=== PATIENT | male | born 1985 | race African-American/Black ===

== ENCOUNTER 2017-08-19 19:29 | Emergency (ER) | payer SELFPAY ==
[~2017-08-19] VITALS: Ht 167.6 cm; Wt 83.5 kg
[~2017-08-19 19:29] MED LIST: AMOXICILLIN500 MG ORAL; NORCO 5-325 TA1 EACH ORAL
[2017-08-19] MEDS ORDERED: NKM (19:34)
[2017-08-19 19:50] VITALS: BP 205/113
--- NOTE | 2017-08-19 19:50 | Emergency Room Report ---
History of Present Illness General Chief Complaint: Chest Pain Source: Patient Present Illness HPI Patient is a 32-year-old male with no significant medical problems who presents today with complaints of left-sided chest pain that began this morning. Patient states he woke up with the pain this morning and it has been constant throughout the day. He states pain is sharp and worse with movement, currently 7/10 in severity. He has not taken medication for the pain. He denies any nausea, vomiting, shortness of breath or associated symptoms.He admits to drinking alcohol socially, denies tobacco or drug use. Allergies: Coded Allergies: No Known Allergies (Unverified , 06/22/13) Patient History Reviewed Nursing Documentation: PMH: Agreed; PSxH: Agreed Nursing Documentation-PMH Past Medical History: No Stated History Review of Systems Cardiovascular: Reports: chest pain All Other Systems: negative except mentioned in HPI Physical Exam Vital Signs Date Time Temp Pulse Resp B/P (MAP) Pulse Ox O2 Delivery O2 Flow Rate FiO2 08/19/17 19:30 98.6 85 16 210/144 96 Room Air 98.6 Sp02 EP Interpretation: reviewed, normal General Appearance: no apparent distress, alert, GCS 15, non-toxic Head: normocephalic, atraumatic Eyes: bilateral eye normal inspection, bilateral eye PERRL ENT: hearing grossly normal, normal pharynx, no angioedema, normal voice Neck: full range of motion, supple/symm/no masses Respiratory: chest non-tender, lungs clear, normal breath sounds, speaking full sentences Cardiovascular #1: regular rate, rhythm, no edema Cardiovascular #2: 2+ carotid (R), 2+ carotid (L), 2+ radial (R), 2+ radial (L) , 2+ dorsalis pedis (R), 2+ dorsalis pedis (L) Gastrointestinal: normal bowel sounds, non tender, soft, non-distended, no guarding, no rebound Rectal: deferred Genitourinary: normal inspection, no CVA tenderness Musculoskeletal: back normal, gait/station normal, normal range of motion, non- tender, calf tenderness, other - reproducible chest pain Neurologic: alert, oriented x3, responsive, motor strength/tone normal, sensory intact, speech normal Psychiatric: judgement/insight normal, memory normal, mood/affect normal, no suicidal/homicidal ideation Reflexes: 3+ bicep (R), 3+ bicep (L), 3+ tricep (R), 3+ tricep (L), 3+ knee (R) , 3+ knee (L) Skin: normal color, no rash, warm/dry, well hydrated Lymphatic: no adenopathy Medical Decision Making PA Attestation supervising physician is Dr. Newby Reaction to Intervention: Improved Diagnostic Impression: Primary Impression: Atypical chest pain Additional Impressions: Elevated blood-pressure reading without diagnosis of hypertension Costochondritis ER Course Low index of suspicion for ACS, patient has a heart score of 1. Patient initially presented with an elevated blood pressure likely secondary to anxiety. He has no previous history of hypertension and his blood pressure began to improve throughout his stay in the ED. Cardiac workup is within normal limits, troponin is negative. Chest x-ray is within normal limits as well. Multiple re-evaluations made, patient states he is feeling better. He has reproducible chest pain on physical exam consistent with chest wall pain. repeat blood pressure shows that it is trending downward and patient adamantly denies headache, blurred vision, dizziness or associated symptoms. He states his a primary doctor that he can see tomorrow and has a home blood pressure monitor that he can check. He is instructed to return if he is having symptomatic hypertension. Discussed case with Dr. Newby who stated that prescribing antihypertensive medication is not necessary in this situation. Patient is instructed to follow-up with his PCP for reevaluation and possible blood pressure medications pending a repeat elevated blood pressure. Patient understands plan and is agreeable. Laboratory Tests Test 08/19/17 19:40 White Blood Count 7.4 K/UL (4.8-10.8) Red Blood Count 5.62 M/UL (4.70-6.10) Hemoglobin 15.9 G/DL (14.2-18.0) Hematocrit 48.8 % (42.0-52.0) Mean Corpuscular Volume 87 FL (80-99) Mean Corpuscular Hemoglobin 28.4 PG (27.0-31.0) Mean Corpuscular Hemoglobin Concent 32.7 G/DL (32.0-36.0) Red Cell Distribution Width 13.0 % (11.6-14.8) Platelet Count 225 K/UL (150-450) Mean Platelet Volume 6.4 FL (6.5-10.1) L Neutrophils (%) (Auto) 63.7 % (45.0-75.0) Lymphocytes (%) (Auto) 21.6 % (20.0-45.0) Monocytes (%) (Auto) 12.7 % (1.0-10.0) H Eosinophils (%) (Auto) 0.7 % (0.0-3.0) Basophils (%) (Auto) 1.3 % (0.0-2.0) Sodium Level 138 MMOL/L (136-145) Potassium Level 3.3 MMOL/L (3.5-5.1) L Chloride Level 97 MMOL/L (98-107) L Carbon Dioxide Level 28 MMOL/L (21-32) Anion Gap 13 mmol/L (5-15) Blood Urea Nitrogen 8 mg/dL (7-18) Creatinine 1.0 MG/DL (0.55-1.30) Estimate Glomerular Filtration Rate > 60 mL/min (>60) Glucose Level 105 MG/DL (74-106) Calcium Level 10.2 MG/DL (8.5-10.1) H Total Bilirubin 0.6 MG/DL (0.2-1.0) Aspartate Amino Transferase (AST) 32 U/L (15-37) Alanine Aminotransferase (ALT) 36 U/L (12-78) Alkaline Phosphatase 76 U/L (46-116) Troponin I 0.000 ng/mL (0.000-0.056) Total Protein 9.3 G/DL (6.4-8.2) H Albumin 4.8 G/DL (3.4-5.0) Globulin 4.5 g/dL Albumin/Globulin Ratio 1.1 (1.0-2.7) EKG Diagnostic Results EKG Time: 19:41 Rate: normal Rhythm: NSR, other - no ST or T-wave changes ST Segments: no acute changes Chest X-Ray Diagnostic Results Chest X-Ray Diagnostic Results : Chest X-Ray Ordered: Yes # of Views/Limited/Complete: 1 View Indication: Chest Pain EP Interpretation: Yes PA Xray: Interpretation reviewed, by supervising MD, and agrees with findings. Interpretation: no consolidation, no effusion, no pneumothorax Impression: No acute disease Electronically Signed by: meredith pulido PA-C Last Vital Signs Date Time Temp Pulse Resp B/P (MAP) Pulse Ox O2 Delivery O2 Flow Rate FiO2 08/19/17 19:30 98.6 85 16 210/144 96 Room Air 98.6 Status: improved Disposition: HOME, SELF-CARE Condition: Stable Patient Instructions: Nonspecific Chest Pain Meredith Pulido Aug 19, 2017 19:50
[2017-08-19 19:55] LABS: BASOPHILS % (AUTO) 1.3 % (0.0-2.0); EOSINOPHILS % (AUTO) 0.7 % (0.0-3.0); HEMATOCRIT 48.8 % (42.0-52.0); HEMOGLOBIN 15.9 G/DL (14.2-18.0); LYMPHOCYTES % (AUTO) 21.6 % (20.0-45.0); MEAN CORPUSCULAR VOLUME 87 FL (80-99); MONOCYTES % (AUTO) 12.7 % (1.0-10.0); NEUTROPHILS % (AUTO) 63.7 % (45.0-75.0); PLATELET COUNT 225 K/UL (150-450); RED BLOOD COUNT 5.62 M/UL (4.70-6.10); WHITE BLOOD COUNT 7.4 K/UL (4.8-10.8)
[2017-08-19] MEDS ORDERED: Ketorolac 30mg Inj IV ONE (20:00)
[2017-08-19] MEDS ORDERED: Ketorolac 60mg Inj IM ONE (20:00)
[2017-08-19 20:06] LABS: ANION GAP 13 mmol/L (5-15); BLOOD UREA NITROGEN 8 mg/dL (7-18); CALCIUM 10.2 MG/DL (8.5-10.1); CARBON DIOXIDE 28 MMOL/L (21-32); CHLORIDE 97 MMOL/L (98-107); POTASSIUM 3.3 MMOL/L (3.5-5.1); SODIUM 138 MMOL/L (136-145)
[2017-08-19 20:11] LABS: ALANINE AMINOTRANSFERASE 36 U/L (12-78); ALBUMIN 4.8 G/DL (3.4-5.0); ALBUMIN/GLOBULIN RATIO 1.1 (1.0-2.7); ALKALINE PHOSPHATASE 76 U/L (46-116); ASPARTATE AMINO TRANSFERASE 32 U/L (15-37); BILIRUBIN,TOTAL 0.6 MG/DL (0.2-1.0)
[2017-08-19 21:00] VITALS: BP 192/105
[2017-08-19 21:01] VITALS: BP 205/113
--- NOTE | 2017-08-20 10:46 | Diagnostic Imaging Report ---
Indication: Chest pain Technique: One view of the chest Comparison: none Findings: Lungs and pleural spaces are clear. Heart size is normal Impression: No acute process
--- NOTE | 2017-08-22 19:46 | Cardiology Report ---
APPROVED REPORT EKG Measurement Heart [id number] Normal sinus rhythm Normal ECG
== END 2017-08-19 21:01 | disposition home or self-care (01) ==
LOC: EMR 19:45
DX: R07.89 Other chest pain (principal); R03.0 Elevated blood-pressure reading, without diagnosis of hypertension; M94.0 Chondrocostal junction syndrome [Tietze]
CPT/HCPCS: 36415; 71045; 80053; 84484; 85025; 93005; 96372; 96374; 99284

== ENCOUNTER 2018-06-17 09:38 | Inpatient (IN) | payer MEDICAID ==
[2018-06-17] VITALS (8 sets, daily range): BP systolic 165–210; BP diastolic 109–131
[~2018-06-17] VITALS: Ht 167.6 cm; Wt 87.8 kg
[~2018-06-17 09:38] MED LIST changes: +NKM
[2018-06-17] MEDS ORDERED: Isovue-300 100ml vial INJ PRN (10:15)
[2018-06-17] MEDS ORDERED: Morphine Sulfate 4mg/ml Inj (IV USE ONLY) IVP ONE (10:15)
[2018-06-17 10:42] LABS: BASOPHILS % (AUTO) 0.9 % (0.0-2.0); EOSINOPHILS % (AUTO) 0.3 % (0.0-3.0); HEMATOCRIT 54.7 % (42.0-52.0); HEMOGLOBIN 17.8 G/DL (14.2-18.0); MEAN CORPUSCULAR VOLUME 86 FL (80-99); MONOCYTES % (AUTO) 7.4 % (1.0-10.0); NEUTROPHILS % (AUTO) 83.4 % (45.0-75.0); PLATELET COUNT 264 K/UL (150-450); RED BLOOD COUNT 6.35 M/UL (4.70-6.10); RED CELL DISTRIBUTION WIDTH 13.2 % (11.6-14.8); WHITE BLOOD COUNT 10.1 K/UL (4.8-10.8)
[2018-06-17 10:43] LABS: APPEARANCE,URINE CLEAR; BILIRUBIN, URINE NEGATIVE (NEGATIVE); GLUCOSE, URINE (UA) NEGATIVE (NEGATIVE); KETONES,URINE 3+ (NEGATIVE); LEUKOCYTE ESTERASE ,URINE 1+ (NEGATIVE); NITRITE,URINE NEGATIVE (NEGATIVE); PH,URINE 6.5 (4.5-8.0); PROTEIN,URINE 2+ (NEGATIVE); UROBILINOGEN,URINE 1 MG/DL (0.0-1.0)
[2018-06-17 10:47] LABS: COLOR,URINE YELLOW
[2018-06-17 11:00] LABS: ANION GAP 13 mmol/L (5-15); BLOOD UREA NITROGEN 8 mg/dL (7-18); CALCIUM 10.6 MG/DL (8.5-10.1); CARBON DIOXIDE 27 MMOL/L (21-32); CHLORIDE 97 MMOL/L (98-107); CREATININE 1.1 MG/DL (0.55-1.30); POTASSIUM 4.6 MMOL/L (3.5-5.1); SODIUM 137 MMOL/L (136-145)
[2018-06-17 11:06] LABS: ALANINE AMINOTRANSFERASE 64 U/L (12-78); ALBUMIN 4.8 G/DL (3.4-5.0); ALKALINE PHOSPHATASE 85 U/L (46-116); ASPARTATE AMINO TRANSFERASE 59 U/L (15-37); BILIRUBIN,TOTAL 0.7 MG/DL (0.2-1.0)
[2018-06-17] MEDS ORDERED: HYDROmorphone 1mg/ml Carpuject IVP ONE ×2 (11:15→12:45)
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
[2018-06-17] MEDS ORDERED: Labetalol 5mg/ml 20ml vial IV ONE ×4 (14:15→15:00)
--- NOTE | 2018-06-17 14:54 | Emergency Room Report ---
History of Present Illness General Chief Complaint: Abdominal Pain Source: Patient Present Illness HPI Patient presents emergency department today complaining of acute onset of abdominal pain. Patient states that he's had pain progressively worse in the last couple days worse in the epigastrium. Denies any fever chest pain shortness of breath. States that the pain is progressively worse. Complains of nausea but no vomiting. Admits to drinking alcohol occasionally. Denies any prior surgeries. Symptoms noted to moderate to severe. No other modifying factors. No other associated signs and symptoms. No other complaints were noted. Allergies: Coded Allergies: No Known Allergies (Unverified , 06/22/13) Patient History Past Medical History: none Past Surgical History: none Pertinent Family History: none Social History: Reports: alcohol use Reviewed Nursing Documentation: PMH: Agreed; PSxH: Agreed Nursing Documentation-PMH Past Medical History: No Stated History Review of Systems All Other Systems: negative except mentioned in HPI Physical Exam Vital Signs Date Time Temp Pulse Resp B/P (MAP) Pulse Ox O2 Delivery O2 Flow Rate FiO2 06/17/18 09:41 97.9 92 19 198/138 97 Room Air Sp02 EP Interpretation: reviewed, normal General Appearance: normal inspection, well appearing, no apparent distress, alert Head: atraumatic Eyes: bilateral eye normal inspection ENT: normal ENT inspection, hearing grossly normal, normal voice Neck: normal inspection, full range of motion, supple, no bony tend Respiratory: normal inspection, lungs clear, normal breath sounds, no respiratory distress, no retraction, no wheezing Cardiovascular #1: regular rate, rhythm, no edema Gastrointestinal: normal inspection, normal bowel sounds, soft, no guarding, no hernia, tenderness - Epigastric Genitourinary: no CVA tenderness Musculoskeletal: normal inspection, back normal, normal range of motion Neurologic: normal inspection, alert, responsive, speech normal Psychiatric: judgement/insight normal, anxious Skin: normal inspection, normal color, no rash Procedures Critical Care Time Critical Care Time Patient had a critical medical condition which untreated could potentially result in life or limb threatening injury. Total critical care time excluding procedures was approximately 45 minutes. Medical Decision Making Diagnostic Impression: Primary Impression: Pancreatitis Additional Impressions: Abdominal pain Hypertensive urgency ER Course Patient presents to the emergency department today complaining of abdominal pain. Differential considerations include acute pancreatitis, cholecystitis, gastritis, hepatitis, appendicitis just to name a few. Given the severity of the patient's presentation I felt this is a highly complex patient. This patient required extensive workup. Patient exam shows significant epigastric discomfort. Laboratory workup shows evidence of elevated lipase. CT shows evidence of pancreatitis. Patient require admission. Patient's blood pressure was also fairly elevated. Because of this patient required multiple doses labetalol to control the blood pressure. Case was discussed with admitting physician. Patient will be admitted to [facility] further treatment. Labs Test 06/17/18 10:12 White Blood Count 10.1 K/UL (4.8-10.8) Red Blood Count 6.35 M/UL (4.70-6.10) Hemoglobin 17.8 G/DL (14.2-18.0) Hematocrit 54.7 % (42.0-52.0) Mean Corpuscular Volume 86 FL (80-99) Mean Corpuscular Hemoglobin 28.1 PG (27.0-31.0) Mean Corpuscular Hemoglobin Concent 32.6 G/DL (32.0-36.0) Red Cell Distribution Width 13.2 % (11.6-14.8) Platelet Count 264 K/UL (150-450) Mean Platelet Volume 7.0 FL (6.5-10.1) Neutrophils (%) (Auto) 83.4 % (45.0-75.0) Lymphocytes (%) (Auto) 8.0 % (20.0-45.0) Monocytes (%) (Auto) 7.4 % (1.0-10.0) Eosinophils (%) (Auto) 0.3 % (0.0-3.0) Basophils (%) (Auto) 0.9 % (0.0-2.0) Prothrombin Time 10.1 SEC (9.30-11.50) Prothromb Time International Ratio 1.0 (0.9-1.1) Activated Partial Thromboplast Time 23 SEC (23-33) Urine Color Yellow Urine Appearance Clear Urine pH 6.5 (4.5-8.0) Urine Specific [place] 1.015 (1.005-1.035) Urine Protein 2+ (NEGATIVE) Urine Glucose (UA) Negative (NEGATIVE) Urine Ketones 3+ (NEGATIVE) Urine Blood 1+ (NEGATIVE) Urine Nitrite Negative (NEGATIVE) Urine Bilirubin Negative (NEGATIVE) Urine Urobilinogen 1 MG/DL (0.0-1.0) Urine Leukocyte Esterase 1+ (NEGATIVE) Urine RBC 2-4 /HPF (0 - 0) Urine WBC 2-4 /HPF (0 - 0) Urine Squamous Epithelial Cells Occasional /LPF Urine Bacteria Occasional /HPF (NONE) Urine Mucus Few /LPF (NONE/OCC) Sodium Level 137 MMOL/L (136-145) Potassium Level 4.6 MMOL/L (3.5-5.1) Chloride Level 97 MMOL/L (98-107) Carbon Dioxide Level 27 MMOL/L (21-32) Anion Gap 13 mmol/L (5-15) Blood Urea Nitrogen 8 mg/dL (7-18) Creatinine 1.1 MG/DL (0.55-1.30) Estimat Glomerular Filtration Rate > 60 mL/min (>60) Glucose Level 119 MG/DL (74-106) Calcium Level 10.6 MG/DL (8.5-10.1) Total Bilirubin 0.7 MG/DL (0.2-1.0) Aspartate Amino Transf (AST/SGOT) 59 U/L (15-37) Alanine Aminotransferase (ALT/SGPT) 64 U/L (12-78) Alkaline Phosphatase 85 U/L (46-116) Total Protein 9.6 G/DL (6.4-8.2) Albumin 4.8 G/DL (3.4-5.0) Globulin 4.8 g/dL Albumin/Globulin Ratio 1.0 (1.0-2.7) Lipase > 2000 U/L (73-393) CT/MRI/US Diagnostic Results CT/MRI/US Diagnostic Results : Imaging Test Ordered: CT: Pancreatitis Last Vital Signs Date Time Temp Pulse Resp B/P (MAP) Pulse Ox O2 Delivery O2 Flow Rate FiO2 06/17/18 14:35 97.9 70 14 178/125 100 Room Air Status: improved Disposition: ADMITTED INPATIENT Condition: Serious Referrals: NOT CHOSEN IPA/,REFERRING (PCP) Avtar Manzanares MD Jun 17, 2018 14:54
[2018-06-17] MEDS ORDERED: cloNIDine 0.2mg Tab ONE (15:21)
[2018-06-17] MEDS: LR 1000ml 1,000 ML IV SCH ×2 (15:25→22:10)
[2018-06-17] MEDS ORDERED: cloNIDine 0.2mg Tab ORAL ONE (15:30)
--- NOTE | 2018-06-17 15:34 | History and Physical ---
History of Present Illness General Date patient seen: Jun 17, 2018 Time patient seen: 15:00 Reason for Hospitalization: Acute pancreatitis Present Illness HPI 32 year old man without any known medical history who presents with severe right sided abdominal pain radiating to the back. Denies any fever chest pain shortness of breath. Denies any prior surgeries. Partial improvement with Dilaudid given in ED. Last time he drink alcohol was 2 days prior to onset of symptoms, had half a pint of liquor PMHx: None PSHx: None Social: No tobacco, drinks alcohol 3-4 times per week Family Hx: Father with testicular cancer, mother breast cancer Allergies: Coded Allergies: No Known Allergies (Unverified , 06/22/13) Medication History Scheduled Amoxicillin* (Amoxil*), 500 MG ORAL THREE TIMES A DAY No Known Medications* (NKM - No Known Medications*), 0 ., (Reported) Scheduled PRN Hydrocodone Bit/Acetaminophen 5-325* ([place] 5-325*), 1 TAB ORAL Q6H PRN for For Pain Patient History Healthcare decision maker N Resuscitation status Advanced Directive on File Review of Systems Constitutional: Denies: chills, sweats, fever Eye: Denies: eye pain, blurred vision ENT: Denies: ear pain, ear discharge Respiratory: Denies: cough, orthopnea Cardiovascular: Denies: chest pain, edema Gastrointestinal: Reports: abdominal pain, nausea; Denies: constipation, diarrhea, vomiting Genitourinary: Denies: discharge Musculoskeletal: Denies: back pain Psychiatric: Denies: prior hx Neurological: Denies: headache Endocrine: Denies: excessive sweating Physical Exam General Appearance: no apparent distress, alert HEENT: normocephalic, atraumatic, anicteric Neck: normal alignment, supple, normal inspection Respiratory/Chest: lungs clear, normal breath sounds, no respiratory distress Cardiovascular/Chest: normal peripheral pulses, normal rate, regular rhythm Abdomen: normal bowel sounds, soft, tender - Mild diffuse tenderness Extremities: normal range of motion, non-tender, normal inspection Last 24 Hour Vital Signs Date Time Temp Pulse Resp B/P (MAP) Pulse Ox O2 Delivery O2 Flow Rate FiO2 06/17/18 14:58 97.9 70 14 165/116 100 Room Air 06/17/18 14:52 70 178/125 06/17/18 14:35 97.9 70 14 178/125 100 Room Air 06/17/18 14:31 70 200/111 06/17/18 14:25 97.9 70 14 186/124 100 Room Air 06/17/18 14:08 70 210/121 06/17/18 13:59 97.9 70 14 210/121 100 Room Air 06/17/18 11:40 97.9 06/17/18 11:40 97.9 06/17/18 10:47 97.9 06/17/18 09:55 81 14 Room Air 06/17/18 09:53 97.9 81 14 204/131 100 Room Air 06/17/18 09:41 97.9 92 19 198/138 97 Room Air Laboratory Tests Test 06/17/18 10:12 White Blood Count 10.1 K/UL (4.8-10.8) Red Blood Count 6.35 M/UL (4.70-6.10) H Hemoglobin 17.8 G/DL (14.2-18.0) Hematocrit 54.7 % (42.0-52.0) H Mean Corpuscular Volume 86 FL (80-99) Mean Corpuscular Hemoglobin 28.1 PG (27.0-31.0) Mean Corpuscular Hemoglobin Concent 32.6 G/DL (32.0-36.0) Red Cell Distribution Width 13.2 % (11.6-14.8) Platelet Count 264 K/UL (150-450) Mean Platelet Volume 7.0 FL (6.5-10.1) Neutrophils (%) (Auto) 83.4 % (45.0-75.0) H Lymphocytes (%) (Auto) 8.0 % (20.0-45.0) L Monocytes (%) (Auto) 7.4 % (1.0-10.0) Eosinophils (%) (Auto) 0.3 % (0.0-3.0) Basophils (%) (Auto) 0.9 % (0.0-2.0) Prothrombin Time 10.1 SEC (9.30-11.50) Prothromb Time International Ratio 1.0 (0.9-1.1) Activated Partial Thromboplast Time 23 SEC (23-33) Urine Color Yellow Urine Appearance Clear Urine pH 6.5 (4.5-8.0) Urine Specific [place] 1.015 (1.005-1.035) Urine Protein 2+ (NEGATIVE) H Urine Glucose (UA) Negative (NEGATIVE) Urine Ketones 3+ (NEGATIVE) H Urine Blood 1+ (NEGATIVE) H Urine Nitrite Negative (NEGATIVE) Urine Bilirubin Negative (NEGATIVE) Urine Urobilinogen 1 MG/DL (0.0-1.0) H Urine Leukocyte Esterase 1+ (NEGATIVE) H Urine RBC 2-4 /HPF (0 - 0) H Urine WBC 2-4 /HPF (0 - 0) Urine Squamous Epithelial Cells Occasional /LPF Urine Bacteria Occasional /HPF (NONE) Urine Mucus Few /LPF (NONE/OCC) H Sodium Level 137 MMOL/L (136-145) Potassium Level 4.6 MMOL/L (3.5-5.1) Chloride Level 97 MMOL/L (98-107) L Carbon Dioxide Level 27 MMOL/L (21-32) Anion Gap 13 mmol/L (5-15) Blood Urea Nitrogen 8 mg/dL (7-18) Creatinine 1.1 MG/DL (0.55-1.30) Estimat Glomerular Filtration Rate > 60 mL/min (>60) Glucose Level 119 MG/DL (74-106) H Calcium Level 10.6 MG/DL (8.5-10.1) H Total Bilirubin 0.7 MG/DL (0.2-1.0) Aspartate Amino Transf (AST/SGOT) 59 U/L (15-37) H Alanine Aminotransferase (ALT/SGPT) 64 U/L (12-78) Alkaline Phosphatase 85 U/L (46-116) Total Protein 9.6 G/DL (6.4-8.2) H Albumin 4.8 G/DL (3.4-5.0) Globulin 4.8 g/dL Albumin/Globulin Ratio 1.0 (1.0-2.7) Lipase > 2000 U/L (73-393) H Height (Feet): 5 Height (Inches): 6.00 Weight (Pounds): 180 Medications Current Medications Medications (Trade) Dose Ordered Sig/Jennifer Route PRN Reason Start Time Stop Time Status Last Admin Dose Admin Acetaminophen (Tylenol) 650 mg Q4H PRN ORAL fever 06/17/18 14:30 07/17/18 14:29 Dextrose (Dextrose 50%) 25 ml Q30M PRN IV Hypoglycemia 06/17/18 14:30 07/17/18 14:29 Dextrose (Dextrose 50%) 50 ml Q30M PRN IV Hypoglycemia 06/17/18 14:30 07/17/18 14:29 Diphenhydramine HCl (Benadryl) 25 mg Q6H PRN ORAL Itching/Pruritis 06/17/18 14:30 07/17/18 14:29 Heparin Sodium (Porcine) (Heparin 5000 units/ml) 5,000 units EVERY 12 HOURS SUBQ 06/17/18 21:00 07/17/18 20:59 Lactated Ringer's 1,000 ml @ 150 mls/hr Q6H40M IV 06/17/18 14:45 07/17/18 14:44 Morphine Sulfate (Morphine Sulfate) 2 mg Q4H PRN IVP Moderate Pain (Pain Scale 4-6) 06/17/18 14:30 06/24/18 14:29 Morphine Sulfate (Morphine Sulfate) 4 mg Q4H PRN IVP Severe Pain (Pain Scale 7-10) 06/17/18 14:30 06/24/18 14:29 Ondansetron HCl (Zofran) 4 mg Q6H PRN IVP Nausea & Vomiting 06/17/18 14:30 07/17/18 14:29 Assessment/Plan Assessment/Plan #Acute pancreatitis, suspected to be due to excess alcohol consumption -admit to medical service -NPO -LR @ 150 ml/h -Zofran -IV Morphine -Check lipid panel and abdominal US #Elevated blood pressure due to pain -place on telemetry -Hydralazine IV prn #Hypercalcemia -likely due to dehydration -check labs in AM VTE PPx Heparin Full Code Thaddeus Leon MD Jun 17, 2018 15:34
[2018-06-17] MEDS: Morphine Sulfate 4mg/ml Inj (IV USE ONLY) IVP PRN ×2 (17:52→21:54)
[2018-06-17] MEDS: Heparin 5000 units/ml inj SUBQ SCH (21:51)
[2018-06-18] VITALS (7 sets, daily range): BP systolic 160–184; BP diastolic 100–126
[2018-06-18] MEDS: Morphine Sulfate 4mg/ml Inj (IV USE ONLY) IVP PRN ×5 (03:56→20:27)
[2018-06-18] MEDS: LR 1000ml 1,000 ML IV SCH ×3 (04:51→17:33)
[2018-06-18 07:45] LABS: HEMATOCRIT 48.3 % (42.0-52.0); HEMOGLOBIN 15.5 G/DL (14.2-18.0); MEAN CORPUSCULAR VOLUME 88 FL (80-99); PLATELET COUNT 210 K/UL (150-450); RED BLOOD COUNT 5.51 M/UL (4.70-6.10); RED CELL DISTRIBUTION WIDTH 13.3 % (11.6-14.8); WHITE BLOOD COUNT 11.7 K/UL (4.8-10.8)
[2018-06-18 07:59] LABS: ALANINE AMINOTRANSFERASE 37 U/L (12-78); ALBUMIN 3.3 G/DL (3.4-5.0); ALBUMIN/GLOBULIN RATIO 0.9 (1.0-2.7); ALKALINE PHOSPHATASE 60 U/L (46-116); ANION GAP 10 mmol/L (5-15); ASPARTATE AMINO TRANSFERASE 20 U/L (15-37); BILIRUBIN,TOTAL 0.5 MG/DL (0.2-1.0); BLOOD UREA NITROGEN 7 mg/dL (7-18); CARBON DIOXIDE 25 MMOL/L (21-32); CHLORIDE 102 MMOL/L (98-107); CHOLESTEROL 115 MG/DL (< 200); HDL CHOLESTEROL 58 MG/DL (40-60); POTASSIUM 3.8 MMOL/L (3.5-5.1); SODIUM 137 MMOL/L (136-145); TRIGLYCERIDES 65 MG/DL (30-150)
[2018-06-18] MEDS: Heparin 5000 units/ml inj SUBQ SCH ×2 (09:38→22:01)
--- NOTE | 2018-06-18 10:00 | Diagnostic Imaging Report ---
Indication: Epigastric pain, nausea, laboratory evidence of pancreatitis Technique: Reid-scale and duplex images of the upper abdomen were obtained Comparison: CT abdomen and pelvis 06/17/2018 Findings: Gallbladder is unremarkable, without stones, wall thickening, nor pericholecystic fluid. Sonographic Robles's sign is negative. Common bile duct measures 4 mm in diameter. No intrahepatic biliary ductal dilatation. Liver demonstrates normal echogenicity. There is a densely shadowing echogenic structure in the right hepatic lobe, corresponding in size and location to the calcified lesion demonstrated on recent CT scan. Portal vein and hepatic veins are patent. Pancreas is unremarkable. Spleen is unremarkable. Left kidney measures 10 cm in length. Right kidney measures 10.2 cm length. Both kidneys demonstrate normal echogenicity. There is no hydronephrosis. No focal abnormality . Abdominal aorta is partially obscured by bowel gas, visualized portions are non-aneurysmal . Trace free intraperitoneal fluid is demonstrated Impression: Negative for gallstones or dilated ducts Echogenic shadowing lesion in the right hepatic lobe, corresponding to calcified abnormality described on recent CT scan, most likely postinflammatory in nature Trace free intraperitoneal fluid Note incomplete visualization of the abdominal aorta
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
--- NOTE | 2018-06-18 11:02 | General Progress Note ---
Assessment/Plan Assessment/Plan #Acute pancreatitis, suspected to be due to excess alcohol consumption, pain persists -continue NPO -continue LR @ 150 ml/h -Zofran -IV Morphine -US RUQ pending -Lipid panel reviewed #Elevated blood pressure due to pain, may have undiagnosed HTN -place on telemetry -add amlodipine 5 mg PO daily -Hydralazine IV prn #Hypercalcemia, resolved -likely due to dehydration -continue to monitor VTE PPx Heparin Full Code Subjective Date patient seen: Jun 18, 2018 Time patient seen: 10:30 ROS Limited/Unobtainable: No Constitutional: Denies: chills, fever Cardiovascular: Denies: chest pain, edema Respiratory: Denies: cough, orthopnea, shortness of breath Gastrointestinal/Abdominal: Reports: abdominal pain; Denies: black stools, tarry stools, blood in stool Genitourinary: Denies: burning, discharge Neurologic/Psychiatric: Denies: anxiety Allergies: Coded Allergies: No Known Allergies (Unverified , 06/22/13) Subjective Medicine follow up for acute pancreatitis, possible alcohol induced. Persistent abdominal pain despite IV morphine and Dilaudid. No nausea or vomiting. Objective Last 24 Hour Vital Signs Date Time Temp Pulse Resp B/P (MAP) Pulse Ox O2 Delivery O2 Flow Rate FiO2 06/18/18 09:00 Room Air 06/18/18 08:00 98.6 98 18 165/106 (125) 99 06/18/18 08:00 95 06/18/18 04:00 98 06/18/18 04:00 97.2 98 18 160/100 (120) 97 06/18/18 00:00 98.0 95 18 164/110 (128) 96 06/18/18 00:00 95 06/17/18 23:34 183/114 06/17/18 21:00 Room Air 06/17/18 20:00 91 06/17/18 20:00 97.4 91 18 170/110 (130) 99 06/17/18 17:52 186/119 06/17/18 17:35 Room Air 06/17/18 17:15 99.5 84 20 186/119 (141) 98 06/17/18 16:58 97.9 70 14 170/109 100 Room Air 06/17/18 16:52 97.9 70 14 170/109 100 Room Air 06/17/18 16:20 97.9 06/17/18 15:25 173/117 06/17/18 14:58 97.9 70 14 165/116 100 Room Air 06/17/18 14:52 70 178/125 06/17/18 14:35 97.9 70 14 178/125 100 Room Air 06/17/18 14:31 70 200/111 06/17/18 14:25 97.9 70 14 186/124 100 Room Air 06/17/18 14:08 70 210/121 06/17/18 13:59 97.9 70 14 210/121 100 Room Air 06/17/18 11:40 97.9 06/17/18 11:40 97.9 Laboratory Tests 06/18/18 06:56: White Blood Count 11.7H, Red Blood Count 5.51, Hemoglobin 15.5, Hematocrit 48.3 , Mean Corpuscular Volume 88, Mean Corpuscular Hemoglobin 28.1, Mean Corpuscular Hemoglobin Concent 32.0, Red Cell Distribution Width 13.3, Platelet Count 210, Mean Platelet Volume 6.9, Neutrophils (%) (Auto) , Lymphocytes (%) ( Auto) , Monocytes (%) (Auto) , Eosinophils (%) (Auto) , Basophils (%) (Auto) , Differential Total Cells Counted 100, Neutrophils % (Manual) 91H, Lymphocytes % (Manual) 4L, Monocytes % (Manual) 5, Eosinophils % (Manual) 0, Basophils % ( Manual) 0, Band Neutrophils 0, Platelet Estimate Adequate, Platelet Morphology Normal, Red Blood Cell Morphology Normal, Sodium Level 137, Potassium Level 3.8 , Chloride Level 102, Carbon Dioxide Level 25, Anion Gap 10, Blood Urea Nitrogen 7, Creatinine 1.0, Estimat Glomerular Filtration Rate > 60, Glucose Level 103, Calcium Level 9.0, Total Bilirubin 0.5, Aspartate Amino Transf (AST/ SGOT) 20, Alanine Aminotransferase (ALT/SGPT) 37, Alkaline Phosphatase 60, Total Protein 7.1, Albumin 3.3L, Globulin 3.8, Albumin/Globulin Ratio 0.9L, Triglycerides Level 65, Cholesterol Level 115, LDL Cholesterol 46, HDL Cholesterol 58, Cholesterol/HDL Ratio 2.0L, Lipase > 2000H Height (Feet): 5 Height (Inches): 6.00 Weight (Pounds): 180 General Appearance: no apparent distress, alert EENT: pharynx normal Neck: normal alignment, supple, normal inspection Cardiovascular: normal rate, regular rhythm Respiratory/Chest: lungs clear, normal breath sounds Abdomen: soft, distended, other - Mild diffuse tenderness Extremities: non-tender, normal inspection Thaddeus Leon MD Jun 18, 2018 11:02
[2018-06-19] VITALS (9 sets, daily range): BP systolic 146–190; BP diastolic 82–119
[2018-06-19] MEDS: LR 1000ml 1,000 ML IV SCH ×4 (00:11→20:48)
[2018-06-19] MEDS: Morphine Sulfate 4mg/ml Inj (IV USE ONLY) IVP PRN ×5 (00:28→18:02)
[2018-06-19 06:41] LABS: HEMATOCRIT 46.3 % (42.0-52.0); HEMOGLOBIN 14.9 G/DL (14.2-18.0); MEAN CORPUSCULAR VOLUME 88 FL (80-99); PLATELET COUNT 201 K/UL (150-450); RED BLOOD COUNT 5.28 M/UL (4.70-6.10); RED CELL DISTRIBUTION WIDTH 13.5 % (11.6-14.8); WHITE BLOOD COUNT 16.5 K/UL (4.8-10.8)
[2018-06-19 06:59] LABS: ANION GAP 12 mmol/L (5-15); BLOOD UREA NITROGEN 6 mg/dL (7-18); CALCIUM 9.4 MG/DL (8.5-10.1); CARBON DIOXIDE 24 MMOL/L (21-32); CHLORIDE 101 MMOL/L (98-107); CREATININE 0.8 MG/DL (0.55-1.30); POTASSIUM 3.4 MMOL/L (3.5-5.1); SODIUM 137 MMOL/L (136-145)
[2018-06-19] MEDS: Heparin 5000 units/ml inj SUBQ SCH ×2 (08:48→21:08)
--- NOTE | 2018-06-19 11:34 | General Progress Note ---
Assessment/Plan Assessment/Plan #Acute pancreatitis, suspected to be due to excess alcohol consumption, pain persists and did not tolerate clears -continue NPO status -continue LR @ 150 ml/h -Zofran -IV Morphine -US RUQ without stones -Lipid panel without hypertriglyceridemia -GI following #Elevated blood pressure due to pain, may have undiagnosed HTN -continue telemetry -start amlodipine -Hydralazine IV prn #Hypercalcemia, resolved -likely due to dehydration -continue to monitor VTE PPx Heparin Full Code Subjective Date patient seen: Jun 19, 2018 Time patient seen: 10:45 ROS Limited/Unobtainable: No Constitutional: Denies: chills, fever Cardiovascular: Denies: chest pain Respiratory: Denies: cough Gastrointestinal/Abdominal: Reports: abdomen distended, abdominal pain, nausea ; Denies: black stools, vomiting Genitourinary: Denies: burning, discharge Neurologic/Psychiatric: Denies: anxiety, depressed Endocrine: Denies: excessive sweating, flushing Allergies: Coded Allergies: No Known Allergies (Unverified , 06/22/13) Subjective Medicine follow up for acute pancreatitis, possible alcohol induced. Persistent abdominal pain, now with headache and back pain. Not tolerating clear liquids Objective Last 24 Hour Vital Signs Date Time Temp Pulse Resp B/P (MAP) Pulse Ox O2 Delivery O2 Flow Rate FiO2 06/19/18 10:48 94 171/99 06/19/18 09:37 171/99 (123) 06/19/18 09:00 Room Air 06/19/18 08:49 188/111 06/19/18 08:00 99.0 104 20 188/111 (136) 96 06/19/18 08:00 94 06/19/18 06:00 166/105 (125) 06/19/18 04:00 99.3 103 20 185/119 (141) 98 06/19/18 04:00 103 06/19/18 02:14 190/119 06/19/18 02:00 190/119 (142) 06/19/18 00:00 99.0 104 20 190/82 (118) 99 06/19/18 00:00 104 06/18/18 22:04 180/109 06/18/18 21:00 Room Air 06/18/18 20:00 99.0 101 20 177/113 (134) 95 06/18/18 20:00 101 06/18/18 17:10 182/105 (130) 06/18/18 16:12 184/126 06/18/18 16:00 99.2 83 20 184/126 (145) 96 06/18/18 16:00 84 06/18/18 12:00 89 06/18/18 11:54 99.1 90 18 177/116 (136) 95 Laboratory Tests 06/19/18 05:40: White Blood Count 16.5H, Red Blood Count 5.28, Hemoglobin 14.9, Hematocrit 46.3 , Mean Corpuscular Volume 88, Mean Corpuscular Hemoglobin 28.2, Mean Corpuscular Hemoglobin Concent 32.1, Red Cell Distribution Width 13.5, Platelet Count 201, Mean Platelet Volume 6.9, Neutrophils (%) (Auto) , Lymphocytes (%) ( Auto) , Monocytes (%) (Auto) , Eosinophils (%) (Auto) , Basophils (%) (Auto) , Differential Total Cells Counted 100, Neutrophils % (Manual) 87H, Lymphocytes % (Manual) 6L, Monocytes % (Manual) 7, Eosinophils % (Manual) 0, Basophils % ( Manual) 0, Band Neutrophils 0, Platelet Estimate Adequate, Platelet Morphology Normal, Red Blood Cell Morphology Normal, Sodium Level 137, Potassium Level 3.4L , Chloride Level 101, Carbon Dioxide Level 24, Anion Gap 12, Blood Urea Nitrogen 6L, Creatinine 0.8, Estimat Glomerular Filtration Rate > 60, Glucose Level 86, Calcium Level 9.4, Lipase 1931H Height (Feet): 5 Height (Inches): 6.00 Weight (Pounds): 180 General Appearance: no apparent distress, alert EENT: PERRL/EOMI, normal ENT inspection Neck: normal alignment, supple, normal inspection Cardiovascular: normal peripheral pulses, normal rate, regular rhythm Respiratory/Chest: lungs clear, normal breath sounds, no respiratory distress, no accessory muscle use Abdomen: soft, distended, tender Thaddeus Leon MD Jun 19, 2018 11:34
--- NOTE | 2018-06-19 11:59 | GI Progress Note ---
Assessment/Plan Problems: (1) Pancreatitis ICD Codes: K85.90 - Acute pancreatitis without necrosis or infection, unspecified SNOMED: 36044084 (2) Abdominal pain ICD Codes: R10.9 - Unspecified abdominal pain SNOMED: 23674683 (3) ETOH abuse ICD Codes: F10.10 - Alcohol abuse, uncomplicated SNOMED: 49042002 Status: unchanged Status Narrative Discussed with Dr. Pineda Assessment/Plan Abdominal ultrasound reviewed negative for dilated ducts Abdominal pelvic CT findings consistent with nonnecrotizing pancreatitis Urine toxicity negative Medical management for acute pancreatitis Clear liquid diet trial today Pain management PPI Zofran as needed Alcohol cessation teaching given Repeat lipase levels for tomorrow, downtrending The patient was seen and examined at bedside and all new and available data was reviewed in the patients chart. I agree with the above findings, impression and plan. (Patient seen earlier today. Signature stamp does not reflect patient encounter time.). - Juma Pineda MD Subjective Subjective Patient has complaint of lower back pain and abdominal pain Objective Last 24 Hour Vital Signs Date Time Temp Pulse Resp B/P (MAP) Pulse Ox O2 Delivery O2 Flow Rate FiO2 06/19/18 10:48 94 171/99 06/19/18 09:37 171/99 (123) 06/19/18 09:00 Room Air 06/19/18 08:49 188/111 06/19/18 08:00 99.0 104 20 188/111 (136) 96 06/19/18 08:00 94 06/19/18 06:00 166/105 (125) 06/19/18 04:00 99.3 103 20 185/119 (141) 98 06/19/18 04:00 103 06/19/18 02:14 190/119 06/19/18 02:00 190/119 (142) 06/19/18 00:00 99.0 104 20 190/82 (118) 99 06/19/18 00:00 104 06/18/18 22:04 180/109 06/18/18 21:00 Room Air 06/18/18 20:00 99.0 101 20 177/113 (134) 95 06/18/18 20:00 101 06/18/18 17:10 182/105 (130) 06/18/18 16:12 184/126 06/18/18 16:00 99.2 83 20 184/126 (145) 96 06/18/18 16:00 84 06/18/18 12:00 89 Laboratory Tests Test 06/19/18 05:40 White Blood Count 16.5 K/UL (4.8-10.8) H Red Blood Count 5.28 M/UL (4.70-6.10) Hemoglobin 14.9 G/DL (14.2-18.0) Hematocrit 46.3 % (42.0-52.0) Mean Corpuscular Volume 88 FL (80-99) Mean Corpuscular Hemoglobin 28.2 PG (27.0-31.0) Mean Corpuscular Hemoglobin Concent 32.1 G/DL (32.0-36.0) Red Cell Distribution Width 13.5 % (11.6-14.8) Platelet Count 201 K/UL (150-450) Mean Platelet Volume 6.9 FL (6.5-10.1) Neutrophils (%) (Auto) % (45.0-75.0) Lymphocytes (%) (Auto) % (20.0-45.0) Monocytes (%) (Auto) % (1.0-10.0) Eosinophils (%) (Auto) % (0.0-3.0) Basophils (%) (Auto) % (0.0-2.0) Differential Total Cells Counted 100 Neutrophils % (Manual) 87 % (45-75) H Lymphocytes % (Manual) 6 % (20-45) L Monocytes % (Manual) 7 % (1-10) Eosinophils % (Manual) 0 % (0-3) Basophils % (Manual) 0 % (0-2) Band Neutrophils 0 % (0-8) Platelet Estimate Adequate Platelet Morphology Normal Red Blood Cell Morphology Normal Sodium Level 137 MMOL/L (136-145) Potassium Level 3.4 MMOL/L (3.5-5.1) L Chloride Level 101 MMOL/L (98-107) Carbon Dioxide Level 24 MMOL/L (21-32) Anion Gap 12 mmol/L (5-15) Blood Urea Nitrogen 6 mg/dL (7-18) L Creatinine 0.8 MG/DL (0.55-1.30) Estimat Glomerular Filtration Rate > 60 mL/min (>60) Glucose Level 86 MG/DL (74-106) Calcium Level 9.4 MG/DL (8.5-10.1) Lipase 1931 U/L (73-393) H Height (Feet): 5 Height (Inches): 6.00 Weight (Pounds): 180 General Appearance: WD/WN, no apparent distress, alert Cardiovascular: normal rate Respiratory/Chest: normal breath sounds, no respiratory distress Abdominal Exam: normal bowel sounds, non tender, soft Extremities: normal range of motion, non-tender Nixon Alanis EDUCATION DEAN Jun 19, 2018 11:59
[2018-06-19] MEDS ORDERED: Isovue-300 100ml vial INJ PRN (18:00)
[2018-06-19] MEDS ORDERED: Labetalol 5mg/ml 20ml vial IV SCH (18:00)
[2018-06-19 19:35] LABS: HEMATOCRIT 42.6 % (42.0-52.0); HEMOGLOBIN 13.8 G/DL (14.2-18.0); MEAN CORPUSCULAR VOLUME 86 FL (80-99); PLATELET COUNT 188 K/UL (150-450); RED BLOOD COUNT 4.92 M/UL (4.70-6.10); RED CELL DISTRIBUTION WIDTH 12.7 % (11.6-14.8); WHITE BLOOD COUNT 20.6 K/UL (4.8-10.8)
[2018-06-19 19:46] LABS: ALANINE AMINOTRANSFERASE 23 U/L (12-78); ALBUMIN 2.8 G/DL (3.4-5.0); ALBUMIN/GLOBULIN RATIO 0.7 (1.0-2.7); ALKALINE PHOSPHATASE 64 U/L (46-116); ANION GAP 12 mmol/L (5-15); ASPARTATE AMINO TRANSFERASE 16 U/L (15-37); BILIRUBIN,TOTAL 0.6 MG/DL (0.2-1.0); BLOOD UREA NITROGEN 6 mg/dL (7-18); CALCIUM 9.5 MG/DL (8.5-10.1); CARBON DIOXIDE 24 MMOL/L (21-32); CHLORIDE 99 MMOL/L (98-107); CREATININE 0.8 MG/DL (0.55-1.30); POTASSIUM 3.9 MMOL/L (3.5-5.1); SODIUM 135 MMOL/L (136-145)
[2018-06-19] MEDS: Meropenem 1 GM in NS 55 ML IVPB SCH (20:00)
[2018-06-19] MEDS: Morphine Sulfate 2mg/ml Inj(IV/IM USE ONLY) IVP PRN (22:10)
[2018-06-20] VITALS (9 sets, daily range): BP systolic 125–193; BP diastolic 82–124
[2018-06-20] MEDS: Morphine Sulfate 2mg/ml Inj(IV/IM USE ONLY) IVP PRN ×2 (02:08→05:42)
[2018-06-20] MEDS: LR 1000ml 1,000 ML IV SCH ×3 (02:54→16:01)
[2018-06-20] MEDS: Meropenem 1 GM in NS 55 ML IVPB SCH ×3 (03:39→19:47)
[2018-06-20 06:15] LABS: HEMATOCRIT 42.8 % (42.0-52.0); HEMOGLOBIN 13.9 G/DL (14.2-18.0); MEAN CORPUSCULAR VOLUME 86 FL (80-99); PLATELET COUNT 194 K/UL (150-450); RED BLOOD COUNT 4.95 M/UL (4.70-6.10); RED CELL DISTRIBUTION WIDTH 12.8 % (11.6-14.8); WHITE BLOOD COUNT 18.6 K/UL (4.8-10.8)
[2018-06-20 06:32] LABS: ANION GAP 12 mmol/L (5-15); BLOOD UREA NITROGEN 6 mg/dL (7-18); CALCIUM 9.5 MG/DL (8.5-10.1); CARBON DIOXIDE 26 MMOL/L (21-32); CHLORIDE 98 MMOL/L (98-107); CREATININE 0.9 MG/DL (0.55-1.30); POTASSIUM 3.2 MMOL/L (3.5-5.1); SODIUM 136 MMOL/L (136-145)
[2018-06-20] MEDS: Heparin 5000 units/ml inj SUBQ SCH ×2 (09:08→21:28)
--- NOTE | 2018-06-20 09:23 | Diagnostic Imaging Report ---
EXAM: CT Head Without Intravenous Contrast CLINICAL HISTORY: HTN TECHNIQUE: Axial computed tomography images of the head/brain without intravenous contrast. CTDI is 70.38 mGy and DLP is 1393 mGy-cm. One or more of the following dose reduction techniques were used: automated exposure control, adjustment of the mA and/or kV according to patient size, use of iterative reconstruction technique. COMPARISON: No relevant prior studies available. FINDINGS: Brain: Unremarkable. No hemorrhage. No significant white matter disease. No edema. Ventricles: Unremarkable. No ventriculomegaly. Bones/joints: Unremarkable. No acute fracture. Soft tissues: Unremarkable. Sinuses: Unremarkable as visualized. No acute sinusitis. Mastoid air cells: Unremarkable as visualized. No mastoid effusion. IMPRESSION: Normal head/brain CT.
[2018-06-20] MEDS: Morphine Sulfate 4mg/ml Inj (IV USE ONLY) IVP PRN (09:58)
--- NOTE | 2018-06-20 12:39 | Infectious Diseases Prog Note ---
Assessment/Plan Assessment/Plan Full consult dictated: A) 1) sepsis, leukocytosis, fevers, necrotizing pancreatitis 2) pmh noted 3) allergies - nkda P) 1) meropenem 2) f/u on cultures and labs 3) thank you Subjective Allergies: Coded Allergies: No Known Allergies (Unverified , 06/22/13) Objective Vital Signs Last 24 Hour Vital Signs Date Time Temp Pulse Resp B/P (MAP) Pulse Ox O2 Delivery O2 Flow Rate FiO2 06/20/18 10:01 195/124 06/20/18 09:07 111 184/124 06/20/18 09:00 Room Air 06/20/18 08:00 100 06/20/18 08:00 98.6 111 18 184/124 (144) 96 06/20/18 06:18 170/100 (123) 06/20/18 06:17 98.8 06/20/18 05:42 181/110 06/20/18 05:34 98.8 06/20/18 04:20 93 06/20/18 04:20 99.1 97 19 181/110 (133) 99 06/20/18 00:07 104 06/20/18 00:07 98.8 108 19 171/110 (130) 99 06/19/18 21:00 Room Air 06/19/18 20:00 114 06/19/18 20:00 99.3 105 18 146/104 (118) 95 06/19/18 18:32 98.8 06/19/18 18:29 130 171/111 06/19/18 16:00 98.8 130 20 171/111 (131) 98 06/19/18 15:16 126 06/19/18 14:48 193/115 06/19/18 12:45 120 185/119 Height (Feet): 5 Height (Inches): 6.00 Weight (Pounds): 180 Laboratory Tests Test 06/19/18 19:08 06/20/18 04:32 White Blood Count 20.6 K/UL (4.8-10.8) H 18.6 K/UL (4.8-10.8) H Red Blood Count 4.92 M/UL (4.70-6.10) 4.95 M/UL (4.70-6.10) Hemoglobin 13.8 G/DL (14.2-18.0) L 13.9 G/DL (14.2-18.0) L Hematocrit 42.6 % (42.0-52.0) 42.8 % (42.0-52.0) Mean Corpuscular Volume 86 FL (80-99) 86 FL (80-99) Mean Corpuscular Hemoglobin 28.1 PG (27.0-31.0) 28.1 PG (27.0-31.0) Mean Corpuscular Hemoglobin Concent 32.4 G/DL (32.0-36.0) 32.5 G/DL (32.0-36.0) Red Cell Distribution Width 12.7 % (11.6-14.8) 12.8 % (11.6-14.8) Platelet Count 188 K/UL (150-450) 194 K/UL (150-450) Mean Platelet Volume 6.5 FL (6.5-10.1) 6.1 FL (6.5-10.1) L Neutrophils (%) (Auto) % (45.0-75.0) % (45.0-75.0) Lymphocytes (%) (Auto) % (20.0-45.0) % (20.0-45.0) Monocytes (%) (Auto) % (1.0-10.0) % (1.0-10.0) Eosinophils (%) (Auto) % (0.0-3.0) % (0.0-3.0) Basophils (%) (Auto) % (0.0-2.0) % (0.0-2.0) Differential Total Cells Counted 100 100 Neutrophils % (Manual) 91 % (45-75) H 84 % (45-75) H Lymphocytes % (Manual) 3 % (20-45) L 8 % (20-45) L Monocytes % (Manual) 4 % (1-10) 8 % (1-10) Eosinophils % (Manual) 0 % (0-3) 0 % (0-3) Basophils % (Manual) 0 % (0-2) 0 % (0-2) Band Neutrophils 2 % (0-8) 0 % (0-8) Platelet Estimate Adequate Adequate Platelet Morphology Normal Normal Red Blood Cell Morphology Normal Normal Sodium Level 135 MMOL/L (136-145) L 136 MMOL/L (136-145) Potassium Level 3.9 MMOL/L (3.5-5.1) 3.2 MMOL/L (3.5-5.1) L Chloride Level 99 MMOL/L (98-107) 98 MMOL/L (98-107) Carbon Dioxide Level 24 MMOL/L (21-32) 26 MMOL/L (21-32) Anion Gap 12 mmol/L (5-15) 12 mmol/L (5-15) Blood Urea Nitrogen 6 mg/dL (7-18) L 6 mg/dL (7-18) L Creatinine 0.8 MG/DL (0.55-1.30) 0.9 MG/DL (0.55-1.30) Estimat Glomerular Filtration Rate > 60 mL/min (>60) > 60 mL/min (>60) Glucose Level 104 MG/DL (74-106) 103 MG/DL (74-106) Lactic Acid Level 1.60 mmol/L (0.4-2.0) Calcium Level 9.5 MG/DL (8.5-10.1) 9.5 MG/DL (8.5-10.1) Total Bilirubin 0.6 MG/DL (0.2-1.0) Aspartate Amino Transf (AST/SGOT) 16 U/L (15-37) Alanine Aminotransferase (ALT/SGPT) 23 U/L (12-78) Alkaline Phosphatase 64 U/L (46-116) Total Protein 7.0 G/DL (6.4-8.2) Albumin 2.8 G/DL (3.4-5.0) L Globulin 4.2 g/dL Albumin/Globulin Ratio 0.7 (1.0-2.7) L Lipase 1858 U/L (73-393) H Current Medications Medications (Trade) Dose Ordered Sig/Jennifer Route PRN Reason Start Time Stop Time Status Last Admin Dose Admin Acetaminophen (Tylenol) 650 mg Q4H PRN ORAL fever 06/17/18 14:30 07/17/18 14:29 06/20/18 05:04 Amlodipine Besylate (Norvasc) 10 mg DAILY ORAL 06/20/18 09:00 07/20/18 08:59 06/20/18 09:07 Dextrose (Dextrose 50%) 25 ml Q30M PRN IV Hypoglycemia 06/17/18 14:30 07/17/18 14:29 Dextrose (Dextrose 50%) 50 ml Q30M PRN IV Hypoglycemia 06/17/18 14:30 07/17/18 14:29 Diphenhydramine HCl (Benadryl) 25 mg Q6H PRN ORAL Itching/Pruritis 06/17/18 14:30 07/17/18 14:29 Heparin Sodium (Porcine) (Heparin 5000 units/ml) 5,000 units EVERY 12 HOURS SUBQ 06/17/18 21:00 07/17/18 20:59 06/20/18 09:08 Hydralazine HCl (Apresoline) 10 mg Q4H PRN IV For High Blood Pressure 06/17/18 17:30 07/17/18 17:29 06/20/18 10:01 Iopamidol (Isovue-300 100ml) 100 ml NOW PRN INJ Radiology Procedure 06/19/18 18:00 06/21/18 17:59 Lactated Ringer's 1,000 ml @ 150 mls/hr Q6H40M IV 06/17/18 14:45 07/17/18 14:44 06/20/18 09:09 Meropenem 1 gm/ Sodium Chloride 55 ml @ 110 mls/hr Q8H IVPB 06/19/18 20:00 06/24/18 19:59 06/20/18 11:15 Morphine Sulfate (Morphine Sulfate) 2 mg Q4H PRN IVP Moderate Pain (Pain Scale 4-6) 06/17/18 14:30 06/24/18 14:29 06/20/18 05:42 Morphine Sulfate (Morphine Sulfate) 5 mg Q4H PRN IVP Severe Pain (Pain Scale 7-10) 06/19/18 12:30 06/24/18 12:29 06/20/18 09:58 Ondansetron HCl (Zofran) 4 mg Q6H PRN IVP Nausea & Vomiting 06/17/18 14:30 07/17/18 14:29 06/20/18 11:15 Rakesh Teran MD Jun 20, 2018 12:39
--- NOTE | 2018-06-20 13:20 | General Progress Note ---
Assessment/Plan Status: not improved Status Narrative 32 yo man admitted with acute pancreatitis Assessment/Plan #Acute pancreatitis, suspected to be due to excess alcohol consumption, pain persists and did not tolerate clears -continue NPO status -continue LR @ 150 ml/h -Zofran -Will change to IV hydromorphone for pain -US RUQ without stones -Lipid panel without hypertriglyceridemia -GI following- recs appreciated #Elevated blood pressure due to pain, may have undiagnosed HTN -continue telemetry -cont amlodipine -Hydralazine IV prn #Hypercalcemia, resolved -likely due to dehydration -continue to monitor -IVF's as above VTE PPx Heparin Full Code Disposition: Once the patient is stable to leave the hospital, I anticipate the patient will likely be discharged to the following environment:Home I spent 45 minutes on this patient's case, and 25minutes was dedicated to counseling and/or care coordination. Time of note may not reflect time of encounter. Subjective Date patient seen: Jun 20, 2018 Time patient seen: 13:30 ROS Limited/Unobtainable: No Constitutional: Reports: malaise, weakness HEENT: Reports: no symptoms Cardiovascular: Reports: no symptoms Respiratory: Reports: no symptoms Gastrointestinal/Abdominal: Reports: abdomen distended, abdominal pain Genitourinary: Reports: no symptoms Neurologic/Psychiatric: Reports: no symptoms Endocrine: Reports: no symptoms Hematologic/Lymphatic: Reports: no symptoms Allergies: Coded Allergies: No Known Allergies (Unverified , 06/22/13) All Systems: reviewed and negative except above Subjective Events of overnight noted; Chart reviewed by me Patient with elevated BP and uncontrolled pain States morphine only works for an hour to 90 minutes before wearing off +Nausea Objective Last 24 Hour Vital Signs Date Time Temp Pulse Resp B/P (MAP) Pulse Ox O2 Delivery O2 Flow Rate FiO2 06/20/18 10:01 195/124 06/20/18 09:07 111 184/124 06/20/18 09:00 Room Air 06/20/18 08:00 100 06/20/18 08:00 98.6 111 18 184/124 (144) 96 06/20/18 06:18 170/100 (123) 06/20/18 06:17 98.8 06/20/18 05:42 181/110 06/20/18 05:34 98.8 06/20/18 04:20 93 06/20/18 04:20 99.1 97 19 181/110 (133) 99 06/20/18 00:07 104 06/20/18 00:07 98.8 108 19 171/110 (130) 99 06/19/18 21:00 Room Air 06/19/18 20:00 114 06/19/18 20:00 99.3 105 18 146/104 (118) 95 06/19/18 18:32 98.8 06/19/18 18:29 130 171/111 06/19/18 16:00 98.8 130 20 171/111 (131) 98 06/19/18 15:16 126 06/19/18 14:48 193/115 Intake and Output 06/19/18 06/20/18 18:59 06:59 Intake Total 440 ml Output Total 1200 ml Balance 440 ml -1200 ml Intake Oral 440 ml Output Urine Total 1200 ml # Voids 2 Laboratory Tests 06/19/18 19:08: White Blood Count 20.6H, Red Blood Count 4.92, Hemoglobin 13.8L, Hematocrit 42.6 , Mean Corpuscular Volume 86, Mean Corpuscular Hemoglobin 28.1, Mean Corpuscular Hemoglobin Concent 32.4, Red Cell Distribution Width 12.7, Platelet Count 188, Mean Platelet Volume 6.5, Neutrophils (%) (Auto) , Lymphocytes (%) ( Auto) , Monocytes (%) (Auto) , Eosinophils (%) (Auto) , Basophils (%) (Auto) , Differential Total Cells Counted 100, Neutrophils % (Manual) 91H, Lymphocytes % (Manual) 3L, Monocytes % (Manual) 4, Eosinophils % (Manual) 0, Basophils % ( Manual) 0, Band Neutrophils 2, Platelet Estimate Adequate, Platelet Morphology Normal, Red Blood Cell Morphology Normal, Sodium Level 135L, Potassium Level 3.9 , Chloride Level 99, Carbon Dioxide Level 24, Anion Gap 12, Blood Urea Nitrogen 6L, Creatinine 0.8, Estimat Glomerular Filtration Rate > 60, Glucose Level 104, Lactic Acid Level 1.60, Calcium Level 9.5, Total Bilirubin 0.6, Aspartate Amino Transf (AST/SGOT) 16, Alanine Aminotransferase (ALT/SGPT) 23, Alkaline Phosphatase 64, Total Protein 7.0, Albumin 2.8L, Globulin 4.2, Albumin/Globulin Ratio 0.7L 06/20/18 04:32: White Blood Count 18.6H, Red Blood Count 4.95, Hemoglobin 13.9L, Hematocrit 42.8 , Mean Corpuscular Volume 86, Mean Corpuscular Hemoglobin 28.1, Mean Corpuscular Hemoglobin Concent 32.5, Red Cell Distribution Width 12.8, Platelet Count 194, Mean Platelet Volume 6.1L, Neutrophils (%) (Auto) , Lymphocytes (%) ( Auto) , Monocytes (%) (Auto) , Eosinophils (%) (Auto) , Basophils (%) (Auto) , Differential Total Cells Counted 100, Neutrophils % (Manual) 84H, Lymphocytes % (Manual) 8L, Monocytes % (Manual) 8, Eosinophils % (Manual) 0, Basophils % ( Manual) 0, Band Neutrophils 0, Platelet Estimate Adequate, Platelet Morphology Normal, Red Blood Cell Morphology Normal, Sodium Level 136, Potassium Level 3.2L , Chloride Level 98, Carbon Dioxide Level 26, Anion Gap 12, Blood Urea Nitrogen 6L, Creatinine 0.9, Estimat Glomerular Filtration Rate > 60, Glucose Level 103, Calcium Level 9.5, Lipase 1858H Height (Feet): 5 Height (Inches): 6.00 Weight (Pounds): 180 General Appearance: moderate distress EENT: PERRL/EOMI, normal ENT inspection, TMs normal, pharynx normal Neck: non-tender, normal alignment, supple Cardiovascular: tachycardia Respiratory/Chest: chest wall non-tender, lungs clear, normal breath sounds Abdomen: hypoactive bowel sounds, distended, tender Pelvis: normal external exam Genitourinary/Rectal: normal genital exam Extremities: normal range of motion Edema: no edema noted Arm (L), no edema noted Arm (R), no edema noted Leg (L), no edema noted Leg (R) 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
--- NOTE | 2018-06-20 13:44 | General Progress Note ---
Assessment/Plan Status Narrative Assessment - EtOH Pancreatitis - HTN - Low K - mild headache Recommendation - increase norvasc to 10/d - continue PRN hydralazine - pain control - CT head - Clears for now Subjective Allergies: Coded Allergies: No Known Allergies (Unverified , 06/22/13) Subjective d/w staff registered nurse BP elevated pt c/o some abd pain also mild H/A on PRN hydralazine Objective Last 24 Hour Vital Signs Date Time Temp Pulse Resp B/P (MAP) Pulse Ox O2 Delivery O2 Flow Rate FiO2 06/20/18 10:01 195/124 06/20/18 09:07 111 184/124 06/20/18 09:00 Room Air 06/20/18 08:00 100 06/20/18 08:00 98.6 111 18 184/124 (144) 96 06/20/18 06:18 170/100 (123) 06/20/18 06:17 98.8 06/20/18 05:42 181/110 06/20/18 05:34 98.8 06/20/18 04:20 93 06/20/18 04:20 99.1 97 19 181/110 (133) 99 06/20/18 00:07 104 06/20/18 00:07 98.8 108 19 171/110 (130) 99 06/19/18 21:00 Room Air 06/19/18 20:00 114 06/19/18 20:00 99.3 105 18 146/104 (118) 95 06/19/18 18:32 98.8 06/19/18 18:29 130 171/111 06/19/18 16:00 98.8 130 20 171/111 (131) 98 06/19/18 15:16 126 06/19/18 14:48 193/115 Intake and Output 06/19/18 06/20/18 18:59 06:59 Intake Total 440 ml Output Total 1200 ml Balance 440 ml -1200 ml Intake Oral 440 ml Output Urine Total 1200 ml # Voids 2 Laboratory Tests 06/19/18 19:08: White Blood Count 20.6H, Red Blood Count 4.92, Hemoglobin 13.8L, Hematocrit 42.6 , Mean Corpuscular Volume 86, Mean Corpuscular Hemoglobin 28.1, Mean Corpuscular Hemoglobin Concent 32.4, Red Cell Distribution Width 12.7, Platelet Count 188, Mean Platelet Volume 6.5, Neutrophils (%) (Auto) , Lymphocytes (%) ( Auto) , Monocytes (%) (Auto) , Eosinophils (%) (Auto) , Basophils (%) (Auto) , Differential Total Cells Counted 100, Neutrophils % (Manual) 91H, Lymphocytes % (Manual) 3L, Monocytes % (Manual) 4, Eosinophils % (Manual) 0, Basophils % ( Manual) 0, Band Neutrophils 2, Platelet Estimate Adequate, Platelet Morphology Normal, Red Blood Cell Morphology Normal, Sodium Level 135L, Potassium Level 3.9 , Chloride Level 99, Carbon Dioxide Level 24, Anion Gap 12, Blood Urea Nitrogen 6L, Creatinine 0.8, Estimat Glomerular Filtration Rate > 60, Glucose Level 104, Lactic Acid Level 1.60, Calcium Level 9.5, Total Bilirubin 0.6, Aspartate Amino Transf (AST/SGOT) 16, Alanine Aminotransferase (ALT/SGPT) 23, Alkaline Phosphatase 64, Total Protein 7.0, Albumin 2.8L, Globulin 4.2, Albumin/Globulin Ratio 0.7L 06/20/18 04:32: White Blood Count 18.6H, Red Blood Count 4.95, Hemoglobin 13.9L, Hematocrit 42.8 , Mean Corpuscular Volume 86, Mean Corpuscular Hemoglobin 28.1, Mean Corpuscular Hemoglobin Concent 32.5, Red Cell Distribution Width 12.8, Platelet Count 194, Mean Platelet Volume 6.1L, Neutrophils (%) (Auto) , Lymphocytes (%) ( Auto) , Monocytes (%) (Auto) , Eosinophils (%) (Auto) , Basophils (%) (Auto) , Differential Total Cells Counted 100, Neutrophils % (Manual) 84H, Lymphocytes % (Manual) 8L, Monocytes % (Manual) 8, Eosinophils % (Manual) 0, Basophils % ( Manual) 0, Band Neutrophils 0, Platelet Estimate Adequate, Platelet Morphology Normal, Red Blood Cell Morphology Normal, Sodium Level 136, Potassium Level 3.2L , Chloride Level 98, Carbon Dioxide Level 26, Anion Gap 12, Blood Urea Nitrogen 6L, Creatinine 0.9, Estimat Glomerular Filtration Rate > 60, Glucose Level 103, Calcium Level 9.5, Lipase 1858H Height (Feet): 5 Height (Inches): 6.00 Weight (Pounds): 180 Objective WDWN AA man NCAT supple CTA RRR abd soft mild TTP Epigastric no edema nonfocal neuro exam Asim Gillette MD Jun 20, 2018 13:44
--- NOTE | 2018-06-20 13:51 | Diagnostic Imaging Report ---
EXAM: XR Chest, 1 View CLINICAL HISTORY: INFECT TECHNIQUE: Frontal view of the chest. COMPARISON: Chest x-ray 08/19/17 FINDINGS: Lungs: Mild interstitial prominence. Left lung base atelectasis/airspace disease. Pleural space: Tiny left pleural effusion. No pneumothorax. Heart: Slightly prominent cardiac silhouette. Mediastinum: Unremarkable. Bones/joints: Unremarkable. IMPRESSION: 1. Mild interstitial prominence. Left lung base atelectasis/airspace disease. Tiny left pleural effusion. Query pneumonia.
[2018-06-20] MEDS ORDERED: Morphine Sulfate 4mg/ml Inj (IV USE ONLY) IVP PRN (16:30)
[2018-06-20] MEDS ORDERED: LR 1000ml ONE (17:21)
--- NOTE | 2018-06-20 18:00 | Consultation ---
DATE OF CONSULTATION: 06/20/2018 INFECTIOUS DISEASES CONSULTATION CONSULTING PHYSICIAN: Rakesh Teran M.D. ATTENDING PHYSICIAN: Danitza Luevano M.D. REFERRING PHYSICIAN: Dr. Thaddeus Holden. REASON FOR CONSULTATION: Sepsis, fevers, leukocytosis, necrotizing pancreatitis. CHIEF COMPLAINT: The patient's chief complaint coming to the hospital is pancreatitis. HISTORY OF PRESENT ILLNESS: This is a 32-year-old male, who comes in to [facility] with abdominal pain. The patient had alcohol use two days prior to his onset of symptoms. It looks like per the records, a pint of liquor was taken. The patient presents to [facility] with abdominal pain and was diagnosed with acute pancreatitis based on laboratories and imaging studies including CT scan of the abdomen and pelvis. Infectious Diseases consultation was requested because the patient now is febrile, possibly septic with leukocytosis. The patient was placed on meropenem 1 g IV q.8 h. starting yesterday. The pancreatitis was non-necrotizing on CT scan. REVIEW OF SYSTEMS: CONSTITUTIONAL: No night sweats. He does have fevers. No chills. HEAD AND NECK: No head pain or neck pain. CARDIAC: No chest pain. GASTROINTESTINAL: Main issue is abdominal pain on the right side. No nausea, vomiting, or diarrhea. GENITOURINARY: No dysuria or frequency. PULMONARY: No shortness of breath, cough, or congestion. SKIN: No rash. EXTREMITIES: No extremity pain. NEUROLOGIC: No seizures. PAST MEDICAL HISTORY: Otherwise negative. ALLERGIES: No known drug allergies. SOCIAL HISTORY: Positive for alcohol abuse. Negative for tobacco or IV drug abuse. FAMILY HISTORY: Noncontributory. ALLERGIES: No known allergies. MEDICATIONS: Upon reviewing the MAR, he is on the following medications. He is on Norvasc and meropenem. He is on morphine, heparin, hydralazine, lactated Ringer's, Zofran, and diphenhydramine. PHYSICAL EXAMINATION: VITAL SIGNS: Temperature is 98.6, pulse rate is 111, respiratory rate 18, blood pressure 194/124, saturation 96%. T-max is 100.6. Pulse rate is currently 111. GENERAL: Alert, responsive, in no acute distress. HEAD AND NECK: Oral exam, no thrush. Eye exam, no icterus. Neck is supple. No JVD. Normocephalic. HEART: Regular. No obvious gallop or murmur. ABDOMEN: Soft. Positive bowel sounds. There is tenderness. No rebound. LUNGS: Clear bilaterally. No rhonchi or rales. SKIN: No rash. MUSCULOSKELETAL: No effusion. Legs are without cellulitis. PERIPHERAL VASCULAR: No cyanosis. GENITOURINARY: No [place]. NEUROLOGIC: Intact. LINES: Line sites without phlebitis. LABORATORY DATA: Creatinine 0.9. LFTs were unremarkable. Lipase is 1858. Now white count is 18.6, hemoglobin is 13.9. White count as high as 20.6. Cultures are pending. UA was leukocyte esterase positive, however, only 2-4 white cells. IMAGING STUDIES: Abdominal ultrasound showed negative for gallstones or ductal dilatation. CT scan of the abdomen and pelvis showed findings consistent with uncomplicated non-necrotizing pancreatitis. ASSESSMENT AND PLAN: 1. The patient has possible sepsis, fever, and leukocytosis. The patient has what looks like pancreatitis that per the CT scan is non-necrotizing. Most likely, source of the fevers and elevated white count is pancreatitis. UA had only 2-4 white blood cells. He does not seem to have pneumonia, however, we will get chest x-ray. Continue meropenem for now. This has excellent pancreatic penetration just in case there is some infective pancreatitis even though the CT scan did not show any necrotizing pancreatitis, which makes infection less likely. Continue meropenem. Follow up on blood cultures, labs, and chest x-ray. 2. The patient looks like he does have hypertension, currently with elevated blood pressure. Continue treatment per primary. No history of diabetes or hypertension per the history. 3. No known allergies. 4. Social history positive for alcohol use. 5. Family history noncontributory. 6. MAR was noted. 7. Case discussed with RN. 8. Continue treatment per primary consultants. 9. Case communicated with Dr. Holden. 10. Notes and records were noted. Orders were entered. Rakesh Teran M.D. DR: RICARDO JOB#: [id number] CC:
[2018-06-21] VITALS (7 sets, daily range): BP systolic 164–185; BP diastolic 108–126
[2018-06-21] MEDS: LR 1000ml 1,000 ML IV SCH ×4 (00:22→17:27)
[2018-06-21] MEDS: Meropenem 1 GM in NS 55 ML IVPB SCH ×3 (04:11→20:34)
[2018-06-21 08:03] LABS: BASOPHILS % (AUTO) 0.5 % (0.0-2.0); EOSINOPHILS % (AUTO) 0.4 % (0.0-3.0); HEMATOCRIT 42.2 % (42.0-52.0); HEMOGLOBIN 13.9 G/DL (14.2-18.0); LYMPHOCYTES % (AUTO) 4.8 % (20.0-45.0); MEAN CORPUSCULAR VOLUME 85 FL (80-99); MONOCYTES % (AUTO) 9.5 % (1.0-10.0); NEUTROPHILS % (AUTO) 84.7 % (45.0-75.0); PLATELET COUNT 248 K/UL (150-450); RED BLOOD COUNT 4.94 M/UL (4.70-6.10); RED CELL DISTRIBUTION WIDTH 13.3 % (11.6-14.8); WHITE BLOOD COUNT 16.8 K/UL (4.8-10.8)
[2018-06-21 08:17] LABS: ALANINE AMINOTRANSFERASE 20 U/L (12-78); ALBUMIN 2.6 G/DL (3.4-5.0); ALBUMIN/GLOBULIN RATIO 0.6 (1.0-2.7); ALKALINE PHOSPHATASE 84 U/L (46-116); ANION GAP 9 mmol/L (5-15); ASPARTATE AMINO TRANSFERASE 15 U/L (15-37); BILIRUBIN,TOTAL 0.7 MG/DL (0.2-1.0); BLOOD UREA NITROGEN 5 mg/dL (7-18); CALCIUM 9.7 MG/DL (8.5-10.1); CARBON DIOXIDE 27 MMOL/L (21-32); CHLORIDE 96 MMOL/L (98-107); CREATININE 0.7 MG/DL (0.55-1.30); POTASSIUM 3.1 MMOL/L (3.5-5.1); SODIUM 132 MMOL/L (136-145)
[2018-06-21] MEDS: Heparin 5000 units/ml inj SUBQ SCH ×2 (09:23→21:30)
--- NOTE | 2018-06-21 10:14 | CDS Physician Query ---
THIS FORM IS A PERMANENT PART OF THE MEDICAL RECORD ------ PLEASE COMPLETE DOCUMENT BEFORE SIGNING Dear Dr. Mina, H M, Date:06/21/2018 [employer] Name: Kathy Carreno, [employer] Phone# [phone] Exercise your independent professional judgment when responding to the query. Question asked do not imply a particular answer is desired/expected Clinical Documentation States: Patient admitted with abdominal pain, noted to have possible sepsis/acute alcoholic necrotizing pancreatitis. "Hypertension" documented in Clinical Findings Show: Systolic BP _198____, 204___, __210 Diastolic BP ____138 , 131____, ____121 Treatment: Antihypertensives: Other: Labetalol 20 mg ivp x once, hydralazine 10 mg ivp x once, norvasc 10 mg oral daily, clonidine 0.2 mg po x once Please Clarify the specific type of hypertension: [] Hypertensive Urgency [] Hypertensive Emergency [] Essential Hypertension [] Other: Condition Present on Admission: [] Yes [] No []Clinically Undeterminable Please also document in your Progress Notes and/or Discharge Summary and indicate if the condition was present on admission. MTDD
[2018-06-21] MEDS ORDERED: Benazepril 10mg tab ORAL SCH (12:00)
--- NOTE | 2018-06-21 12:08 | General Progress Note ---
Assessment/Plan Assessment/Plan Assessment - EtOH Pancreatitis - HTN, severe - H/A, with negative head CT Recommendations - Continue high rate IVF, since still tachycardic and rising lipase - add lotensin and titrate up daily - follow lab and exam - continue abx - hold diet at clears another day Subjective Allergies: Coded Allergies: No Known Allergies (Unverified , 06/22/13) Subjective H/A better head CT negative BP still high tolerating liquids abd pain better, but still present Objective Last 24 Hour Vital Signs Date Time Temp Pulse Resp B/P (MAP) Pulse Ox O2 Delivery O2 Flow Rate FiO2 06/21/18 11:15 98.1 06/21/18 09:22 112 176/126 06/21/18 09:00 Room Air 06/21/18 08:00 98.1 112 21 176/126 (143) 93 06/21/18 07:32 100 06/21/18 04:00 98.6 97 19 168/115 (132) 93 06/21/18 04:00 97 06/21/18 02:43 164/108 (126) 06/21/18 00:17 183/110 06/21/18 00:00 98.5 109 19 185/115 (138) 92 06/21/18 00:00 109 06/20/18 22:25 164/116 (132) 06/20/18 21:25 185/121 (142) 06/20/18 21:00 Room Air 06/20/18 20:00 103 06/20/18 20:00 99.0 105 19 193/122 (145) 92 06/20/18 19:49 193/122 06/20/18 16:00 98.0 117 20 170/108 (128) 96 06/20/18 16:00 107 06/20/18 12:00 115 06/20/18 12:00 98.6 111 18 193/118 (143) 95 Intake and Output 06/20/18 06/21/18 19:00 07:00 Intake Total 1885 ml 450 ml Output Total 500 ml 1125 ml Balance 1385 ml -675 ml Intake Oral 480 ml 300 ml IV Total 1405 ml 150 ml Output Urine Total 500 ml 1125 ml # Voids 1 1 # Bowel Movements 2 Laboratory Tests 06/21/18 06:20: White Blood Count 16.8H, Red Blood Count 4.94, Hemoglobin 13.9L, Hematocrit 42.2 , Mean Corpuscular Volume 85, Mean Corpuscular Hemoglobin 28.2, Mean Corpuscular Hemoglobin Concent 33.1, Red Cell Distribution Width 13.3, Platelet Count 248, Mean Platelet Volume 6.7, Neutrophils (%) (Auto) 84.7H, Lymphocytes ( %) (Auto) 4.8L, Monocytes (%) (Auto) 9.5, Eosinophils (%) (Auto) 0.4, Basophils (%) (Auto) 0.5, Sodium Level 132L, Potassium Level 3.1L, Chloride Level 96L, Carbon Dioxide Level 27, Anion Gap 9, Blood Urea Nitrogen 5L, Creatinine 0.7, Estimat Glomerular Filtration Rate > 60, Glucose Level 104, Calcium Level 9.7, Magnesium Level 2.1, Total Bilirubin 0.7, Aspartate Amino Transf (AST/SGOT) 15, Alanine Aminotransferase (ALT/SGPT) 20, Alkaline Phosphatase 84, Total Protein 7.3, Albumin 2.6L, Globulin 4.7, Albumin/Globulin Ratio 0.6L, Lipase > 2000H Height (Feet): 5 Height (Inches): 6.00 Weight (Pounds): 180 Objective WDWN AA man NCAT supple CTA RRR abd soft mild TTP Epigastric no edema nonfocal neuro exam Asim Gillette MD Jun 21, 2018 12:08
[2018-06-21] MEDS ORDERED: Meperidine 50mg/ml Inj(FOR RIGORS ONLY) IM PRN (14:18)
--- NOTE | 2018-06-21 15:43 | General Progress Note ---
Assessment/Plan Status: not improved Assessment/Plan #Acute pancreatitis, suspected to be due to excess alcohol consumption -continue clear liquid diet -continue LR @ 150 ml/h -Zofran -cont IV hydromorphone for pain -US RUQ without stones; CT scan results noted -Lipid panel without hypertriglyceridemia -GI following- recs appreciated #Leukocytosis #Sepsis, possible -ID input appreciated -Continue Meropenem -f/u cultures- negative to date -CT A/P without apparent necrosis #Elevated blood pressure due to pain, may have undiagnosed HTN -continue telemetry -cont amlodipine, benazepril -Hydralazine IV prn #Hypercalcemia, resolved -likely due to dehydration -continue to monitor -IVF's as above #anemia, acute blood loss -Likely secondary to vigorous hydration -no signs or symptoms for overt GI bleed -contnue to monitor closely VTE PPx Heparin Full Code Disposition: Once the patient is stable to leave the hospital, I anticipate the patient will likely be discharged to the following environment:Home I spent 45 minutes on this patient's case, and 25 minutes was dedicated to counseling and/or care coordination. Time of note may not reflect time of encounter. Subjective Date patient seen: Jun 21, 2018 Time patient seen: 14:45 ROS Limited/Unobtainable: No Constitutional: Reports: malaise, weakness HEENT: Reports: no symptoms Cardiovascular: Reports: no symptoms Respiratory: Reports: no symptoms Gastrointestinal/Abdominal: Reports: abdominal pain, nausea, poor appetite, poor fluid intake Genitourinary: Reports: no symptoms Endocrine: Reports: no symptoms Hematologic/Lymphatic: Reports: no symptoms Allergies: Coded Allergies: No Known Allergies (Unverified , 06/22/13) All Systems: reviewed and negative except above Subjective Events of overnight noted; Chart reviewed by me Patient with elevated BP and uncontrolled pain this afternoon Nausea persists Objective Last 24 Hour Vital Signs Date Time Temp Pulse Resp B/P (MAP) Pulse Ox O2 Delivery O2 Flow Rate FiO2 06/21/18 12:09 182/122 06/21/18 12:00 98.0 102 18 182/122 (142) 94 06/21/18 12:00 95 06/21/18 11:15 98.1 06/21/18 09:22 112 176/126 06/21/18 09:00 Room Air 06/21/18 08:00 98.1 112 21 176/126 (143) 93 06/21/18 07:32 100 06/21/18 04:00 98.6 97 19 168/115 (132) 93 06/21/18 04:00 97 06/21/18 02:43 164/108 (126) 06/21/18 00:17 183/110 06/21/18 00:00 98.5 109 19 185/115 (138) 92 06/21/18 00:00 109 06/20/18 22:25 164/116 (132) 06/20/18 21:25 185/121 (142) 06/20/18 21:00 Room Air 06/20/18 20:00 103 06/20/18 20:00 99.0 105 19 193/122 (145) 92 06/20/18 19:49 193/122 06/20/18 16:00 98.0 117 20 170/108 (128) 96 06/20/18 16:00 107 Intake and Output 06/20/18 06/21/18 18:59 06:59 Intake Total 1885 ml 450 ml Output Total 500 ml 1125 ml Balance 1385 ml -675 ml Intake Oral 480 ml 300 ml IV Total 1405 ml 150 ml Output Urine Total 500 ml 1125 ml # Voids 1 1 # Bowel Movements 2 Laboratory Tests 06/21/18 06:20: White Blood Count 16.8H, Red Blood Count 4.94, Hemoglobin 13.9L, Hematocrit 42.2 , Mean Corpuscular Volume 85, Mean Corpuscular Hemoglobin 28.2, Mean Corpuscular Hemoglobin Concent 33.1, Red Cell Distribution Width 13.3, Platelet Count 248, Mean Platelet Volume 6.7, Neutrophils (%) (Auto) 84.7H, Lymphocytes ( %) (Auto) 4.8L, Monocytes (%) (Auto) 9.5, Eosinophils (%) (Auto) 0.4, Basophils (%) (Auto) 0.5, Sodium Level 132L, Potassium Level 3.1L, Chloride Level 96L, Carbon Dioxide Level 27, Anion Gap 9, Blood Urea Nitrogen 5L, Creatinine 0.7, Estimat Glomerular Filtration Rate > 60, Glucose Level 104, Calcium Level 9.7, Magnesium Level 2.1, Total Bilirubin 0.7, Aspartate Amino Transf (AST/SGOT) 15, Alanine Aminotransferase (ALT/SGPT) 20, Alkaline Phosphatase 84, Total Protein 7.3, Albumin 2.6L, Globulin 4.7, Albumin/Globulin Ratio 0.6L, Lipase > 2000H Height (Feet): 5 Height (Inches): 6.00 Weight (Pounds): 180 General Appearance: moderate distress EENT: PERRL/EOMI, normal ENT inspection, TMs normal Neck: non-tender, supple Cardiovascular: tachycardia Respiratory/Chest: chest wall non-tender, lungs clear, normal breath sounds Abdomen: decreased bowel sounds, distended, guarding, tender Pelvis: normal external exam Extremities: normal range of motion Edema: no edema noted Arm (L), no edema noted Arm (R) 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
[2018-06-21] MEDS ORDERED: HYDROmorphone 1mg/ml Carpuject IVP SCH (15:53)
--- NOTE | 2018-06-21 22:04 | Infectious Diseases Prog Note ---
Assessment/Plan Assessment/Plan A) 1) sepsis, leukocytosis, fevers, acute pancreatitis 2) pmh noted 3) allergies - nkda P) 1) meropenem 2) f/u on cultures and labs 3) leukocytosis and fever better Subjective Constitutional: Denies: fever HEENT: Denies: congestion Respiratory: Denies: shortness of breath Cardiovascular: Denies: chest pain Gastrointestinal/Abdominal: Reports: other - some abdominal pain ; Denies: nausea, vomiting, diarrhea Allergies: Coded Allergies: No Known Allergies (Unverified , 06/22/13) Objective Vital Signs Last 24 Hour Vital Signs Date Time Temp Pulse Resp B/P (MAP) Pulse Ox O2 Delivery O2 Flow Rate FiO2 06/21/18 16:00 98.4 120 20 173/125 (141) 97 06/21/18 15:38 114 06/21/18 12:09 182/122 06/21/18 12:00 98.0 102 18 182/122 (142) 94 06/21/18 12:00 95 06/21/18 11:15 98.1 06/21/18 09:22 112 176/126 06/21/18 09:00 Room Air 06/21/18 08:00 98.1 112 21 176/126 (143) 93 06/21/18 07:32 100 06/21/18 04:00 98.6 97 19 168/115 (132) 93 06/21/18 04:00 97 06/21/18 02:43 164/108 (126) 06/21/18 00:17 183/110 06/21/18 00:00 98.5 109 19 185/115 (138) 92 06/21/18 00:00 109 06/20/18 22:25 164/116 (132) Height (Feet): 5 Height (Inches): 6.00 Weight (Pounds): 180 General Appearance: no acute distress HEENT: normocephalic, atraumatic, anicteric Respiratory/Chest: lungs clear, normal breath sounds, no respiratory distress Cardiovascular: normal rate, regular rhythm Abdomen: normal bowel sounds, soft, non tender, no organomegaly Microbiology Date/Time Source Procedure Growth Status 06/19/18 19:08 Blood Blood Culture - Preliminary NO GROWTH AFTER 24 HOURS Resulted 06/19/18 19:00 Blood Blood Culture - Preliminary NO GROWTH AFTER 24 HOURS Resulted Laboratory Tests Test 4/7/19 06:20 White Blood Count 16.8 K/UL (4.8-10.8) H Red Blood Count 4.94 M/UL (4.70-6.10) Hemoglobin 13.9 G/DL (14.2-18.0) L Hematocrit 42.2 % (42.0-52.0) Mean Corpuscular Volume 85 FL (80-99) Mean Corpuscular Hemoglobin 28.2 PG (27.0-31.0) Mean Corpuscular Hemoglobin Concent 33.1 G/DL (32.0-36.0) Red Cell Distribution Width 13.3 % (11.6-14.8) Platelet Count 248 K/UL (150-450) Mean Platelet Volume 6.7 FL (6.5-10.1) Neutrophils (%) (Auto) 84.7 % (45.0-75.0) H Lymphocytes (%) (Auto) 4.8 % (20.0-45.0) L Monocytes (%) (Auto) 9.5 % (1.0-10.0) Eosinophils (%) (Auto) 0.4 % (0.0-3.0) Basophils (%) (Auto) 0.5 % (0.0-2.0) Sodium Level 132 MMOL/L (136-145) L Potassium Level 3.1 MMOL/L (3.5-5.1) L Chloride Level 96 MMOL/L (98-107) L Carbon Dioxide Level 27 MMOL/L (21-32) Anion Gap 9 mmol/L (5-15) Blood Urea Nitrogen 5 mg/dL (7-18) L Creatinine 0.7 MG/DL (0.55-1.30) Estimat Glomerular Filtration Rate > 60 mL/min (>60) Glucose Level 104 MG/DL (74-106) Calcium Level 9.7 MG/DL (8.5-10.1) Magnesium Level 2.1 MG/DL (1.8-2.4) Total Bilirubin 0.7 MG/DL (0.2-1.0) Aspartate Amino Transf (AST/SGOT) 15 U/L (15-37) Alanine Aminotransferase (ALT/SGPT) 20 U/L (12-78) Alkaline Phosphatase 84 U/L (46-116) Total Protein 7.3 G/DL (6.4-8.2) Albumin 2.6 G/DL (3.4-5.0) L Globulin 4.7 g/dL Albumin/Globulin Ratio 0.6 (1.0-2.7) L Lipase > 2000 U/L (73-393) H Current Medications Medications (Trade) Dose Ordered Sig/Jennifer Route PRN Reason Start Time Stop Time Status Last Admin Dose Admin Acetaminophen (Tylenol) 650 mg Q4H PRN ORAL fever 06/17/18 14:30 07/17/18 14:29 06/21/18 05:07 Amlodipine Besylate (Norvasc) 10 mg DAILY ORAL 06/20/18 09:00 07/20/18 08:59 06/21/18 09:22 Benazepril HCl (Lotensin) 10 mg DAILY ORAL 06/22/18 09:00 07/22/18 08:59 Dextrose (Dextrose 50%) 25 ml Q30M PRN IV Hypoglycemia 06/17/18 14:30 07/17/18 14:29 Dextrose (Dextrose 50%) 50 ml Q30M PRN IV Hypoglycemia 06/17/18 14:30 07/17/18 14:29 Diphenhydramine HCl (Benadryl) 25 mg Q6H PRN ORAL Itching/Pruritis 06/17/18 14:30 07/17/18 14:29 Heparin Sodium (Porcine) (Heparin 5000 units/ml) 5,000 units EVERY 12 HOURS SUBQ 06/17/18 21:00 07/17/18 20:59 06/21/18 21:30 Hydralazine HCl (Apresoline) 10 mg Q4H PRN IV For High Blood Pressure 06/17/18 17:30 07/17/18 17:29 06/21/18 00:17 Hydromorphone HCl (Dilaudid) 1.5 mg Q4H PRN IVP Severe Pain (Pain Scale 7-10) 06/21/18 20:33 06/28/18 20:32 06/21/18 21:04 Lactated Ringer's 1,000 ml @ 150 mls/hr Q6H40M IV 06/17/18 14:45 07/17/18 14:44 06/21/18 17:27 Meropenem 1 gm/ Sodium Chloride 55 ml @ 110 mls/hr Q8H IVPB 06/19/18 20:00 06/24/18 19:59 06/21/18 20:34 Ondansetron HCl (Zofran) 4 mg Q6H PRN IVP Nausea & Vomiting 06/17/18 14:30 07/17/18 14:29 06/21/18 21:29 Rakesh Teran MD Jun 21, 2018 22:04
[2018-06-22] VITALS: BP 167/117
[2018-06-22] MEDS: LR 1000ml 1,000 ML IV SCH ×4 (01:00→15:34)
[2018-06-22 04:00] VITALS: BP 167/120
[2018-06-22] MEDS: Meropenem 1 GM in NS 55 ML IVPB SCH ×3 (04:32→20:24)
[2018-06-22 08:00] VITALS: BP 177/122
[2018-06-22 08:02] LABS: BASOPHILS % (AUTO) 0.8 % (0.0-2.0); EOSINOPHILS % (AUTO) 0.9 % (0.0-3.0); HEMATOCRIT 43.4 % (42.0-52.0); HEMOGLOBIN 14.2 G/DL (14.2-18.0); LYMPHOCYTES % (AUTO) 7.8 % (20.0-45.0); MEAN CORPUSCULAR VOLUME 86 FL (80-99); MONOCYTES % (AUTO) 12.5 % (1.0-10.0); NEUTROPHILS % (AUTO) 77.9 % (45.0-75.0); PLATELET COUNT 297 K/UL (150-450); RED BLOOD COUNT 5.06 M/UL (4.70-6.10); WHITE BLOOD COUNT 14.1 K/UL (4.8-10.8)
[2018-06-22] MEDS: Heparin 5000 units/ml inj SUBQ SCH ×2 (08:24→20:22)
[2018-06-22] MEDS ORDERED: Lisinopril 20mg tab ORAL SCH (08:30)
[2018-06-22 08:45] LABS: ALANINE AMINOTRANSFERASE 40 U/L (12-78); ALBUMIN 2.5 G/DL (3.4-5.0); ALBUMIN/GLOBULIN RATIO 0.6 (1.0-2.7); ALKALINE PHOSPHATASE 109 U/L (46-116); ANION GAP 11 mmol/L (5-15); ASPARTATE AMINO TRANSFERASE 36 U/L (15-37); BLOOD UREA NITROGEN 6 mg/dL (7-18); CALCIUM 9.7 MG/DL (8.5-10.1); CARBON DIOXIDE 27 MMOL/L (21-32); CHLORIDE 97 MMOL/L (98-107); CREATININE 0.8 MG/DL (0.55-1.30); POTASSIUM 3.4 MMOL/L (3.5-5.1); SODIUM 135 MMOL/L (136-145)
[2018-06-22] MEDS ORDERED: Benazepril 10mg tab ORAL SCH (09:00)
--- NOTE | 2018-06-22 09:37 | General Progress Note ---
Assessment/Plan Assessment/Plan #Acute pancreatitis, suspected to be due to excess alcohol consumption -continue clear liquid diet -continue LR @ 150 ml/h -Zofran -cont IV hydromorphone for pain -US RUQ without stones; CT scan results reviewed with radiology, no abscess noted -Lipid panel without hypertriglyceridemia -GI following #Sepsis -ID following -Continue Meropenem -f/u cultures- negative to date -CT A/P without apparent necrosis #Elevated blood pressure due to pain, may have undiagnosed HTN -continue telemetry -cont amlodipine -change benazepril to lisinopril -Hydralazine IV prn #Hypercalcemia, resolved -likely due to dehydration -continue to monitor -IVF's as above #anemia, acute blood loss -Likely secondary to vigorous hydration -no signs or symptoms for overt GI bleed -contnue to monitor closely VTE PPx Heparin Full Code Subjective Date patient seen: Jun 22, 2018 Time patient seen: 09:00 ROS Limited/Unobtainable: No Constitutional: Denies: chills, fever Cardiovascular: Denies: chest pain Respiratory: Denies: cough Gastrointestinal/Abdominal: Reports: abdominal pain Genitourinary: Denies: discharge Allergies: Coded Allergies: No Known Allergies (Unverified , 06/22/13) Subjective Medicine follow up for acute pancreatitis, likely alcohol induced. Pain improved over the weekend, tolerating clears. Repeat CT A/P on Friday showed slight increase in pancreatic inflammation Objective Last 24 Hour Vital Signs Date Time Temp Pulse Resp B/P (MAP) Pulse Ox O2 Delivery O2 Flow Rate FiO2 06/22/18 08:18 110 177/122 06/22/18 08:04 Room Air 06/22/18 08:00 99.1 110 19 177/122 (140) 98 06/22/18 04:00 103 06/22/18 04:00 98.5 103 18 167/120 (136) 95 06/22/18 00:00 99.4 106 18 167/117 (134) 95 06/22/18 00:00 106 06/21/18 21:00 Room Air 06/21/18 20:00 98.9 113 18 173/123 (140) 95 06/21/18 20:00 113 06/21/18 16:00 98.4 120 20 173/125 (141) 97 06/21/18 15:38 114 06/21/18 12:09 182/122 06/21/18 12:00 98.0 102 18 182/122 (142) 94 06/21/18 12:00 95 06/21/18 11:15 98.1 Intake and Output 06/21/18 06/22/18 19:00 07:00 Intake Total 1725 ml 150 ml Output Total 850 ml 350 ml Balance 875 ml -200 ml Intake Oral 120 ml IV Total 1605 ml 150 ml Output Urine Total 850 ml 350 ml Laboratory Tests 06/22/18 05:50: White Blood Count 14.1H, Red Blood Count 5.06, Hemoglobin 14.2, Hematocrit 43.4 , Mean Corpuscular Volume 86, Mean Corpuscular Hemoglobin 28.0, Mean Corpuscular Hemoglobin Concent 32.6, Red Cell Distribution Width 13.0, Platelet Count 297, Mean Platelet Volume 6.2L, Neutrophils (%) (Auto) 77.9H, Lymphocytes (%) (Auto) 7.8L, Monocytes (%) (Auto) 12.5H, Eosinophils (%) (Auto) 0.9, Basophils (%) (Auto) 0.8, Sodium Level 135L, Potassium Level 3.4L, Chloride Level 97L, Carbon Dioxide Level 27, Anion Gap 11, Blood Urea Nitrogen 6L, Creatinine 0.8, Estimat Glomerular Filtration Rate > 60, Glucose Level 80, Calcium Level 9.7, Total Bilirubin 1.0, Aspartate Amino Transf (AST/SGOT) 36, Alanine Aminotransferase (ALT/SGPT) 40, Alkaline Phosphatase 109, Total Protein 6.9, Albumin 2.5L, Globulin 4.4, Albumin/Globulin Ratio 0.6L, Lipase > 2000H Height (Feet): 5 Height (Inches): 6.00 Weight (Pounds): 180 General Appearance: no apparent distress, alert Neck: supple, normal inspection Cardiovascular: normal peripheral pulses, normal rate, regular rhythm Respiratory/Chest: lungs clear, normal breath sounds Abdomen: non tender, soft, no organomegaly Extremities: non-tender, normal inspection Thaddeus Leon MD Jun 22, 2018 09:37
--- NOTE | 2018-06-22 11:15 | GI Progress Note ---
Assessment/Plan Problems: (1) Pancreatitis ICD Codes: K85.90 - Acute pancreatitis without necrosis or infection, unspecified SNOMED: 27635809 (2) Abdominal pain ICD Codes: R10.9 - Unspecified abdominal pain SNOMED: 33695027 (3) ETOH abuse ICD Codes: F10.10 - Alcohol abuse, uncomplicated SNOMED: 73973802 Status: unchanged Status Narrative Discussed with Dr. Pineda. Assessment/Plan Abdominal ultrasound reviewed negative for dilated ducts Abdominal pelvic CT findings consistent with nonnecrotizing pancreatitis Urine toxicity negative Recommendations - Continue high rate IVF, since still tachycardic and rising lipase - add lotensin and titrate up daily - follow lab and exam - continue abx -Clear liquid diet, advance as tolerated The patient was seen and examined at bedside and all new and available data was reviewed in the patients chart. I agree with the above findings, impression and plan. (Patient seen earlier today. Signature stamp does not reflect patient encounter time.). - Juma Pineda MD Subjective Subjective Patient still has complaint of abdominal pain after p.o. intake Able to tolerate sips of clear liquid Objective Last 24 Hour Vital Signs Date Time Temp Pulse Resp B/P (MAP) Pulse Ox O2 Delivery O2 Flow Rate FiO2 06/22/18 10:38 99.1 06/22/18 08:18 110 177/122 06/22/18 08:04 Room Air 06/22/18 08:00 99.1 110 19 177/122 (140) 98 06/22/18 07:49 100 06/22/18 04:00 103 06/22/18 04:00 98.5 103 18 167/120 (136) 95 06/22/18 00:00 99.4 106 18 167/117 (134) 95 06/22/18 00:00 106 06/21/18 21:00 Room Air 06/21/18 20:00 98.9 113 18 173/123 (140) 95 06/21/18 20:00 113 06/21/18 16:00 98.4 120 20 173/125 (141) 97 06/21/18 15:38 114 06/21/18 12:09 182/122 06/21/18 12:00 98.0 102 18 182/122 (142) 94 06/21/18 12:00 95 06/21/18 11:15 98.1 Intake and Output 06/21/18 06/22/18 19:00 07:00 Intake Total 1725 ml 150 ml Output Total 850 ml 350 ml Balance 875 ml -200 ml Intake Oral 120 ml IV Total 1605 ml 150 ml Output Urine Total 850 ml 350 ml Laboratory Tests Test 06/22/18 05:50 White Blood Count 14.1 K/UL (4.8-10.8) H Red Blood Count 5.06 M/UL (4.70-6.10) Hemoglobin 14.2 G/DL (14.2-18.0) Hematocrit 43.4 % (42.0-52.0) Mean Corpuscular Volume 86 FL (80-99) Mean Corpuscular Hemoglobin 28.0 PG (27.0-31.0) Mean Corpuscular Hemoglobin Concent 32.6 G/DL (32.0-36.0) Red Cell Distribution Width 13.0 % (11.6-14.8) Platelet Count 297 K/UL (150-450) Mean Platelet Volume 6.2 FL (6.5-10.1) L Neutrophils (%) (Auto) 77.9 % (45.0-75.0) H Lymphocytes (%) (Auto) 7.8 % (20.0-45.0) L Monocytes (%) (Auto) 12.5 % (1.0-10.0) H Eosinophils (%) (Auto) 0.9 % (0.0-3.0) Basophils (%) (Auto) 0.8 % (0.0-2.0) Sodium Level 135 MMOL/L (136-145) L Potassium Level 3.4 MMOL/L (3.5-5.1) L Chloride Level 97 MMOL/L (98-107) L Carbon Dioxide Level 27 MMOL/L (21-32) Anion Gap 11 mmol/L (5-15) Blood Urea Nitrogen 6 mg/dL (7-18) L Creatinine 0.8 MG/DL (0.55-1.30) Estimat Glomerular Filtration Rate > 60 mL/min (>60) Glucose Level 80 MG/DL (74-106) Calcium Level 9.7 MG/DL (8.5-10.1) Total Bilirubin 1.0 MG/DL (0.2-1.0) Aspartate Amino Transf (AST/SGOT) 36 U/L (15-37) Alanine Aminotransferase (ALT/SGPT) 40 U/L (12-78) Alkaline Phosphatase 109 U/L (46-116) Total Protein 6.9 G/DL (6.4-8.2) Albumin 2.5 G/DL (3.4-5.0) L Globulin 4.4 g/dL Albumin/Globulin Ratio 0.6 (1.0-2.7) L Lipase > 2000 U/L (73-393) H Height (Feet): 5 Height (Inches): 6.00 Weight (Pounds): 180 General Appearance: WD/WN, no apparent distress, alert Cardiovascular: normal rate Respiratory/Chest: normal breath sounds, no respiratory distress Abdominal Exam: normal bowel sounds, non tender, soft Extremities: normal range of motion, non-tender Nixon Alanis NP Jun 22, 2018 11:15
[2018-06-22 12:00] VITALS: BP 172/112
--- NOTE | 2018-06-22 13:04 | Infectious Diseases Prog Note ---
Assessment/Plan Assessment/Plan ASSESSMENT AND PLAN: 1. sepsis, acute pancreatitis, leukocytosis, fevers, sirs, ? CAP vs atx - clinically better, fevers and leukocytosis better, still some abdominal pain but better - continue meropenem - day # 4 - f/u on chest x-ray and labs, check sc 2. possible HTN - bp tx per primary team 3. No known allergies. 4. Social history positive for alcohol use. 5. Family history noncontributory. 6. MAR was noted. 7. Case discussed with RN. 8. Continue treatment per primary consultants. 9. Case communicated with Dr. Holden. 10. Notes and records were noted. Orders were entered. Subjective Constitutional: Reports: fever - lgt noted , fatigue HEENT: Denies: congestion Respiratory: Denies: shortness of breath Cardiovascular: Denies: chest pain Gastrointestinal/Abdominal: Denies: nausea, vomiting, diarrhea Genitourinary: Reports: other - no rosado Neurologic: Denies: headache Psychiatric: Denies: depression Skin: Denies: rash Hematologic: Denies: bleeding Musculoskeletal: Reports: pain - some abdominal pain noted Allergies: Coded Allergies: No Known Allergies (Unverified , 06/22/13) Objective Vital Signs Last 24 Hour Vital Signs Date Time Temp Pulse Resp B/P (MAP) Pulse Ox O2 Delivery O2 Flow Rate FiO2 06/22/18 12:00 99.5 111 19 172/112 (132) 99 06/22/18 10:38 99.1 06/22/18 08:18 110 177/122 06/22/18 08:04 Room Air 06/22/18 08:00 99.1 110 19 177/122 (140) 98 06/22/18 07:49 100 06/22/18 04:00 103 06/22/18 04:00 98.5 103 18 167/120 (136) 95 06/22/18 00:00 99.4 106 18 167/117 (134) 95 06/22/18 00:00 106 06/21/18 21:00 Room Air 06/21/18 20:00 98.9 113 18 173/123 (140) 95 06/21/18 20:00 113 06/21/18 16:00 98.4 120 20 173/125 (141) 97 06/21/18 15:38 114 Height (Feet): 5 Height (Inches): 6.00 Weight (Pounds): 180 General Appearance: no acute distress HEENT: normocephalic, atraumatic, anicteric, mucous membranes moist Respiratory/Chest: lungs clear, normal breath sounds, no respiratory distress, no accessory muscle use Cardiovascular: normal rate, regular rhythm, no gallop/murmur, no JVD Abdomen: normal bowel sounds, soft, non tender, no organomegaly, non distended Genitourinary: other - no rosado Extremities: no cyanosis Skin: no rash Neurologic/Psychiatric: 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 Left lung base atelectasis/airspace disease. Pleural space: Tiny left pleural effusion. No pneumothorax. Heart: Slightly prominent cardiac silhouette. Mediastinum: Unremarkable. Bones/joints: Unremarkable. IMPRESSION: 1. Mild interstitial prominence. Left lung base atelectasis/airspace disease. Tiny left pleural effusion. Query pneumonia. Microbiology Date/Time Source Procedure Growth Status 06/19/18 19:08 Blood Blood Culture - Preliminary NO GROWTH AFTER 48 HOURS Resulted 06/19/18 19:00 Blood Blood Culture - Preliminary NO GROWTH AFTER 48 HOURS Resulted Laboratory Tests Test 06/22/18 05:50 White Blood Count 14.1 K/UL (4.8-10.8) H Red Blood Count 5.06 M/UL (4.70-6.10) Hemoglobin 14.2 G/DL (14.2-18.0) Hematocrit 43.4 % (42.0-52.0) Mean Corpuscular Volume 86 FL (80-99) Mean Corpuscular Hemoglobin 28.0 PG (27.0-31.0) Mean Corpuscular Hemoglobin Concent 32.6 G/DL (32.0-36.0) Red Cell Distribution Width 13.0 % (11.6-14.8) Platelet Count 297 K/UL (150-450) Mean Platelet Volume 6.2 FL (6.5-10.1) L Neutrophils (%) (Auto) 77.9 % (45.0-75.0) H Lymphocytes (%) (Auto) 7.8 % (20.0-45.0) L Monocytes (%) (Auto) 12.5 % (1.0-10.0) H Eosinophils (%) (Auto) 0.9 % (0.0-3.0) Basophils (%) (Auto) 0.8 % (0.0-2.0) Sodium Level 135 MMOL/L (136-145) L Potassium Level 3.4 MMOL/L (3.5-5.1) L Chloride Level 97 MMOL/L (98-107) L Carbon Dioxide Level 27 MMOL/L (21-32) Anion Gap 11 mmol/L (5-15) Blood Urea Nitrogen 6 mg/dL (7-18) L Creatinine 0.8 MG/DL (0.55-1.30) Estimat Glomerular Filtration Rate > 60 mL/min (>60) Glucose Level 80 MG/DL (74-106) Calcium Level 9.7 MG/DL (8.5-10.1) Total Bilirubin 1.0 MG/DL (0.2-1.0) Aspartate Amino Transf (AST/SGOT) 36 U/L (15-37) Alanine Aminotransferase (ALT/SGPT) 40 U/L (12-78) Alkaline Phosphatase 109 U/L (46-116) Total Protein 6.9 G/DL (6.4-8.2) Albumin 2.5 G/DL (3.4-5.0) L Globulin 4.4 g/dL Albumin/Globulin Ratio 0.6 (1.0-2.7) L Lipase > 2000 U/L (73-393) H Current Medications Medications (Trade) Dose Ordered Sig/Jennifer Route PRN Reason Start Time Stop Time Status Last Admin Dose Admin Acetaminophen (Tylenol) 650 mg Q4H PRN ORAL fever 06/17/18 14:30 07/17/18 14:29 06/21/18 05:07 Amlodipine Besylate (Norvasc) 10 mg DAILY ORAL 06/20/18 09:00 07/20/18 08:59 06/22/18 08:18 Dextrose (Dextrose 50%) 25 ml Q30M PRN IV Hypoglycemia 06/17/18 14:30 07/17/18 14:29 Dextrose (Dextrose 50%) 50 ml Q30M PRN IV Hypoglycemia 06/17/18 14:30 07/17/18 14:29 Diphenhydramine HCl (Benadryl) 25 mg Q6H PRN ORAL Itching/Pruritis 06/17/18 14:30 07/17/18 14:29 Heparin Sodium (Porcine) (Heparin 5000 units/ml) 5,000 units EVERY 12 HOURS SUBQ 06/17/18 21:00 07/17/18 20:59 06/22/18 08:24 Hydralazine HCl (Apresoline) 10 mg Q4H PRN IV For High Blood Pressure 06/17/18 17:30 07/17/18 17:29 06/21/18 00:17 Hydromorphone HCl (Dilaudid) 1.5 mg Q4H PRN IVP Severe Pain (Pain Scale 7-10) 06/21/18 20:33 06/28/18 20:32 06/22/18 10:08 Lactated Ringer's 1,000 ml @ 150 mls/hr Q6H40M IV 06/17/18 14:45 07/17/18 14:44 06/22/18 08:17 Meropenem 1 gm/ Sodium Chloride 55 ml @ 110 mls/hr Q8H IVPB 06/19/18 20:00 06/24/18 19:59 06/22/18 12:32 Ondansetron HCl (Zofran) 4 mg Q6H PRN IVP Nausea & Vomiting 06/17/18 14:30 07/17/18 14:29 06/21/18 21:29 Rakesh Teran MD Jun 22, 2018 13:04
[2018-06-22] MEDS ORDERED: Isovue-300 100ml vial INJ PRN (14:45)
[2018-06-22 16:00] VITALS: BP 182/121
[2018-06-22 20:00] VITALS: BP 171/116
[2018-06-23] VITALS: BP 172/120
[2018-06-23] MEDS: LR 1000ml 1,000 ML IV SCH ×4 (01:00→19:51)
[2018-06-23 04:00] VITALS: BP 167/112
[2018-06-23] MEDS: Meropenem 1 GM in NS 55 ML IVPB SCH ×3 (04:09→20:32)
[2018-06-23 06:38] LABS: BASOPHILS % (AUTO) 0.7 % (0.0-2.0); EOSINOPHILS % (AUTO) 1.2 % (0.0-3.0); HEMATOCRIT 41.3 % (42.0-52.0); HEMOGLOBIN 13.7 G/DL (14.2-18.0); LYMPHOCYTES % (AUTO) 7.4 % (20.0-45.0); MEAN CORPUSCULAR VOLUME 86 FL (80-99); MONOCYTES % (AUTO) 13.2 % (1.0-10.0); NEUTROPHILS % (AUTO) 77.5 % (45.0-75.0); PLATELET COUNT 307 K/UL (150-450); RED BLOOD COUNT 4.82 M/UL (4.70-6.10); RED CELL DISTRIBUTION WIDTH 13.1 % (11.6-14.8); WHITE BLOOD COUNT 13.7 K/UL (4.8-10.8)
[2018-06-23 06:50] LABS: ALANINE AMINOTRANSFERASE 64 U/L (12-78); ALBUMIN 2.4 G/DL (3.4-5.0); ALBUMIN/GLOBULIN RATIO 0.5 (1.0-2.7); ALKALINE PHOSPHATASE 138 U/L (46-116); ANION GAP 8 mmol/L (5-15); ASPARTATE AMINO TRANSFERASE 45 U/L (15-37); BILIRUBIN,TOTAL 0.8 MG/DL (0.2-1.0); BLOOD UREA NITROGEN 6 mg/dL (7-18); CALCIUM 9.4 MG/DL (8.5-10.1); CARBON DIOXIDE 30 MMOL/L (21-32); CHLORIDE 98 MMOL/L (98-107); CREATININE 0.7 MG/DL (0.55-1.30); POTASSIUM 3.1 MMOL/L (3.5-5.1); SODIUM 136 MMOL/L (136-145)
[2018-06-23 08:00] VITALS: BP 174/123
[2018-06-23] MEDS: Lisinopril 20mg tab ORAL SCH (08:40)
--- NOTE | 2018-06-23 08:46 | General Progress Note ---
Assessment/Plan Assessment/Plan #Acute pancreatitis, suspected to be due to excess alcohol consumption, lipase remains elevated -continue clear liquid diet -continue LR @ 150 ml/h -Zofran -cont IV hydromorphone for pain -US RUQ without stones; CT scan results reviewed with radiology, no abscess noted -Lipid panel without hypertriglyceridemia -GI following #Sepsis -ID following -Continue Meropenem -f/u cultures- negative to date -CT A/P without apparent necrosis #Elevated blood pressure due to pain, may have undiagnosed HTN -continue telemetry -cont amlodipine -start lisinopril 40mg PO daily -Hydralazine IV prn #Hypokalemia -replace with IV KCl -check labs in AM #Hypercalcemia, resolved -likely due to dehydration -continue to monitor -IVF's as above #anemia, acute blood loss -Likely secondary to vigorous hydration -no signs or symptoms for overt GI bleed -contnue to monitor closely VTE PPx Heparin Full Code Subjective Date patient seen: Jun 23, 2018 Time patient seen: 08:30 ROS Limited/Unobtainable: No Constitutional: Denies: chills, fever Cardiovascular: Denies: chest pain, edema Respiratory: Denies: cough Gastrointestinal/Abdominal: Reports: abdominal pain, poor fluid intake; Denies : abdomen distended Allergies: Coded Allergies: No Known Allergies (Unverified , 06/22/13) Subjective Medicine follow up for acute pancreatitis, likely alcohol induced. Persistent symptoms, limited oral intake. Objective Last 24 Hour Vital Signs Date Time Temp Pulse Resp B/P (MAP) Pulse Ox O2 Delivery O2 Flow Rate FiO2 06/23/18 08:00 98.9 92 18 174/123 (140) 97 06/23/18 04:00 98.8 110 18 167/112 (130) 97 06/23/18 04:00 110 06/23/18 00:00 98.8 116 18 172/120 (137) 95 06/23/18 00:00 116 06/22/18 21:00 Room Air 06/22/18 20:00 98.6 126 18 171/116 (134) 95 06/22/18 20:00 126 06/22/18 17:48 182/121 06/22/18 16:00 99.1 110 19 182/121 (141) 98 06/22/18 16:00 113 06/22/18 15:27 99.5 06/22/18 12:00 99.5 111 19 172/112 (132) 99 06/22/18 11:53 119 Intake and Output 06/22/18 06/23/18 19:00 07:00 Intake Total 1400 ml 360 ml Output Total 1600 ml Balance 1400 ml -1240 ml Intake Oral 1400 ml Other 360 ml Output Urine Total 1600 ml # Voids 2 Laboratory Tests 06/23/18 05:50: White Blood Count 13.7H, Red Blood Count 4.82, Hemoglobin 13.7L, Hematocrit 41.3L, Mean Corpuscular Volume 86, Mean Corpuscular Hemoglobin 28.5, Mean Corpuscular Hemoglobin Concent 33.2, Red Cell Distribution Width 13.1, Platelet Count 307, Mean Platelet Volume 6.3L, Neutrophils (%) (Auto) 77.5H, Lymphocytes (%) (Auto) 7.4L, Monocytes (%) (Auto) 13.2H, Eosinophils (%) (Auto) 1.2, Basophils (%) (Auto) 0.7, Sodium Level 136, Potassium Level 3.1L, Chloride Level 98, Carbon Dioxide Level 30, Anion Gap 8, Blood Urea Nitrogen 6L, Creatinine 0.7, Estimat Glomerular Filtration Rate > 60, Glucose Level 116H, Calcium Level 9.4, Total Bilirubin 0.8, Aspartate Amino Transf (AST/SGOT) 45H, Alanine Aminotransferase (ALT/SGPT) 64, Alkaline Phosphatase 138H, Total Protein 7.0, Albumin 2.4L, Globulin 4.6, Albumin/Globulin Ratio 0.5L, Lipase > 2000H Height (Feet): 5 Height (Inches): 6.00 Weight (Pounds): 180 General Appearance: no apparent distress, alert EENT: PERRL/EOMI Neck: normal alignment, supple, normal inspection Cardiovascular: normal peripheral pulses, normal rate, regular rhythm Respiratory/Chest: lungs clear, normal breath sounds, no respiratory distress Abdomen: normal bowel sounds, soft, distended, tender Extremities: non-tender, normal inspection Neurologic: 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
[2018-06-23] MEDS: Heparin 5000 units/ml inj SUBQ SCH ×2 (08:50→20:33)
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
--- NOTE | 2018-06-23 10:19 | GI Progress Note ---
Assessment/Plan Problems: (1) Pancreatitis ICD Codes: K85.90 - Acute pancreatitis without necrosis or infection, unspecified SNOMED: 48744991 (2) Abdominal pain ICD Codes: R10.9 - Unspecified abdominal pain SNOMED: 35781922 (3) ETOH abuse ICD Codes: F10.10 - Alcohol abuse, uncomplicated SNOMED: 80403805 Status: unchanged Status Narrative Discussed with Dr. Pineda Assessment/Plan Repeat abdominal CT reviewed >> - uncomplicated acute pancreatitis, with peripancreatic phlegmon which is essentially stable. - New finding of presacral edema. - Increased bilateral pleural effusions now small to moderate in size. Resultant compressive atelectasis of portions of both lower lobes again demonstrated - Wall thickening of the distal duodenum and proximal jejunum in the area of pancreatic phlegmon, presumably reactive related to the adjacent inflammation Recommendations - Continue high rate IVF, since still tachycardic and rising lipase - lotensin and titrate up daily - follow lab and exam - continue abx - Clear liquid diet, advance as tolerated -Repeat lipase levels -Pain management The patient was seen and examined at bedside and all new and available data was reviewed in the patients chart. I agree with the above findings, impression and plan. (Patient seen earlier today. Signature stamp does not reflect patient encounter time.). - Juma Pineda MD Subjective Subjective Abdominal pain is improved Still has pain after p.o. intake Able to tolerate sips of clear liquid Objective Last 24 Hour Vital Signs Date Time Temp Pulse Resp B/P (MAP) Pulse Ox O2 Delivery O2 Flow Rate FiO2 06/23/18 08:41 92 174/123 06/23/18 08:40 174/123 06/23/18 08:00 98.9 92 18 174/123 (140) 97 06/23/18 04:00 98.8 110 18 167/112 (130) 97 06/23/18 04:00 110 06/23/18 00:00 98.8 116 18 172/120 (137) 95 06/23/18 00:00 116 06/22/18 21:00 Room Air 06/22/18 20:00 98.6 126 18 171/116 (134) 95 06/22/18 20:00 126 06/22/18 17:48 182/121 06/22/18 16:00 99.1 110 19 182/121 (141) 98 06/22/18 16:00 113 06/22/18 15:27 99.5 06/22/18 12:00 99.5 111 19 172/112 (132) 99 06/22/18 11:53 119 Intake and Output 06/22/18 06/23/18 19:00 07:00 Intake Total 1400 ml 360 ml Output Total 1600 ml Balance 1400 ml -1240 ml Intake Oral 1400 ml Other 360 ml Output Urine Total 1600 ml # Voids 2 Laboratory Tests Test 06/23/18 05:50 White Blood Count 13.7 K/UL (4.8-10.8) H Red Blood Count 4.82 M/UL (4.70-6.10) Hemoglobin 13.7 G/DL (14.2-18.0) L Hematocrit 41.3 % (42.0-52.0) L Mean Corpuscular Volume 86 FL (80-99) Mean Corpuscular Hemoglobin 28.5 PG (27.0-31.0) Mean Corpuscular Hemoglobin Concent 33.2 G/DL (32.0-36.0) Red Cell Distribution Width 13.1 % (11.6-14.8) Platelet Count 307 K/UL (150-450) Mean Platelet Volume 6.3 FL (6.5-10.1) L Neutrophils (%) (Auto) 77.5 % (45.0-75.0) H Lymphocytes (%) (Auto) 7.4 % (20.0-45.0) L Monocytes (%) (Auto) 13.2 % (1.0-10.0) H Eosinophils (%) (Auto) 1.2 % (0.0-3.0) Basophils (%) (Auto) 0.7 % (0.0-2.0) Sodium Level 136 MMOL/L (136-145) Potassium Level 3.1 MMOL/L (3.5-5.1) L Chloride Level 98 MMOL/L (98-107) Carbon Dioxide Level 30 MMOL/L (21-32) Anion Gap 8 mmol/L (5-15) Blood Urea Nitrogen 6 mg/dL (7-18) L Creatinine 0.7 MG/DL (0.55-1.30) Estimat Glomerular Filtration Rate > 60 mL/min (>60) Glucose Level 116 MG/DL (74-106) H Calcium Level 9.4 MG/DL (8.5-10.1) Total Bilirubin 0.8 MG/DL (0.2-1.0) Aspartate Amino Transf (AST/SGOT) 45 U/L (15-37) H Alanine Aminotransferase (ALT/SGPT) 64 U/L (12-78) Alkaline Phosphatase 138 U/L (46-116) H Total Protein 7.0 G/DL (6.4-8.2) Albumin 2.4 G/DL (3.4-5.0) L Globulin 4.6 g/dL Albumin/Globulin Ratio 0.5 (1.0-2.7) L Lipase > 2000 U/L (73-393) H Height (Feet): 5 Height (Inches): 6.00 Weight (Pounds): 180 General Appearance: WD/WN, no apparent distress, alert Cardiovascular: normal rate Respiratory/Chest: normal breath sounds, no respiratory distress Abdominal Exam: normal bowel sounds, non tender, soft Extremities: normal range of motion, non-tender Nixon Alanis RECREATION ESTABLISHMENT MANAGER Jun 23, 2018 10:19
--- NOTE | 2018-06-23 10:39 | Diagnostic Imaging Report ---
Indication: Shortness of breath Technique: One view of the chest Comparison: 06/20/2018 Findings: Left-sided pleural effusion persists. Mild interstitial congestion is unchanged. Impression: Unchanged, over 3 days, findings as above.
[2018-06-23 12:00] VITALS: BP 184/126
[2018-06-23 16:00] VITALS: BP 184/122
[2018-06-23 20:00] VITALS: BP 172/125
[2018-06-24] VITALS: BP 175/126
[2018-06-24] MEDS: LR 1000ml 1,000 ML IV SCH ×2 (03:00→06:45)
[2018-06-24] MEDS: Meropenem 1 GM in NS 55 ML IVPB SCH ×3 (03:08→21:04)
[2018-06-24 04:00] VITALS: BP 174/120
[2018-06-24 07:29] LABS: BASOPHILS % (AUTO) 1.2 % (0.0-2.0); EOSINOPHILS % (AUTO) 1.6 % (0.0-3.0); HEMATOCRIT 43.7 % (42.0-52.0); HEMOGLOBIN 14.1 G/DL (14.2-18.0); LYMPHOCYTES % (AUTO) 9.9 % (20.0-45.0); MEAN CORPUSCULAR VOLUME 86 FL (80-99); MONOCYTES % (AUTO) 14.9 % (1.0-10.0); NEUTROPHILS % (AUTO) 72.4 % (45.0-75.0); PLATELET COUNT 363 K/UL (150-450); RED BLOOD COUNT 5.07 M/UL (4.70-6.10); RED CELL DISTRIBUTION WIDTH 13.2 % (11.6-14.8); WHITE BLOOD COUNT 13.3 K/UL (4.8-10.8)
[2018-06-24 07:49] LABS: ANION GAP 11 mmol/L (5-15); BLOOD UREA NITROGEN 8 mg/dL (7-18); CALCIUM 10.2 MG/DL (8.5-10.1); CARBON DIOXIDE 26 MMOL/L (21-32); CHLORIDE 100 MMOL/L (98-107); CREATININE 0.7 MG/DL (0.55-1.30); POTASSIUM 3.6 MMOL/L (3.5-5.1); SODIUM 137 MMOL/L (136-145)
[2018-06-24 08:00] VITALS: BP 167/120
[2018-06-24] MEDS: Lisinopril 20mg tab ORAL SCH (08:25)
[2018-06-24] MEDS: Heparin 5000 units/ml inj SUBQ SCH ×2 (08:28→21:33)
--- NOTE | 2018-06-24 10:59 | GI Progress Note ---
Assessment/Plan Problems: (1) Pancreatitis ICD Codes: K85.90 - Acute pancreatitis without necrosis or infection, unspecified SNOMED: 00162034 (2) Abdominal pain ICD Codes: R10.9 - Unspecified abdominal pain SNOMED: 19528667 (3) ETOH abuse ICD Codes: F10.10 - Alcohol abuse, uncomplicated SNOMED: 73410630 Status: not improved, unchanged Status Narrative Discussed with Dr. Pineda Assessment/Plan Repeat abdominal CT reviewed >> - uncomplicated acute pancreatitis, with peripancreatic phlegmon which is essentially stable. - New finding of presacral edema. - Increased bilateral pleural effusions now small to moderate in size. Resultant compressive atelectasis of portions of both lower lobes again demonstrated - Wall thickening of the distal duodenum and proximal jejunum in the area of pancreatic phlegmon, presumably reactive related to the adjacent inflammation Lipase remains elevated to palpable Recommendations - PICC insertion today - plan for TPN - Make patient n.p.o. + Continue high rate IVF, since still tachycardic and rising lipase - follow lab and exam - continue abx -Repeat lipase levels -Pain management - bowel rest The patient was seen and examined at bedside and all new and available data was reviewed in the patients chart. I agree with the above findings, impression and plan. (Patient seen earlier today. Signature stamp does not reflect patient encounter time.). - Juma Pineda MD Subjective Subjective Abdominal pain still present Patient complains of pain after p.o. intake Only able to tolerate small sips of clear Objective Last 24 Hour Vital Signs Date Time Temp Pulse Resp B/P (MAP) Pulse Ox O2 Delivery O2 Flow Rate FiO2 06/24/18 08:25 167/120 06/24/18 08:25 103 167/120 06/24/18 08:00 98.2 103 18 167/120 (136) 97 06/24/18 04:00 98.0 114 19 174/120 (138) 95 06/24/18 04:00 112 06/24/18 00:14 177/126 06/24/18 00:00 98.7 109 19 175/126 (142) 96 06/24/18 00:00 113 06/23/18 21:00 Room Air 06/23/18 20:00 117 06/23/18 20:00 99.9 112 18 172/125 (141) 94 06/23/18 16:55 184/122 06/23/18 16:00 128 06/23/18 16:00 98.2 120 18 184/122 (142) 94 06/23/18 12:47 184/126 06/23/18 12:00 97.9 131 16 184/126 (145) 94 06/23/18 12:00 131 Intake and Output 06/23/18 06/24/18 19:00 07:00 Intake Total 240 ml 1335 ml Output Total 900 ml 1700 ml Balance -660 ml -365 ml Intake Oral 240 ml IV Total 1335 ml Output Urine Total 900 ml 1700 ml # Voids 4 Laboratory Tests Test 06/24/18 05:20 White Blood Count 13.3 K/UL (4.8-10.8) H Red Blood Count 5.07 M/UL (4.70-6.10) Hemoglobin 14.1 G/DL (14.2-18.0) L Hematocrit 43.7 % (42.0-52.0) Mean Corpuscular Volume 86 FL (80-99) Mean Corpuscular Hemoglobin 27.8 PG (27.0-31.0) Mean Corpuscular Hemoglobin Concent 32.3 G/DL (32.0-36.0) Red Cell Distribution Width 13.2 % (11.6-14.8) Platelet Count 363 K/UL (150-450) Mean Platelet Volume 5.7 FL (6.5-10.1) L Neutrophils (%) (Auto) 72.4 % (45.0-75.0) Lymphocytes (%) (Auto) 9.9 % (20.0-45.0) L Monocytes (%) (Auto) 14.9 % (1.0-10.0) H Eosinophils (%) (Auto) 1.6 % (0.0-3.0) Basophils (%) (Auto) 1.2 % (0.0-2.0) Sodium Level 137 MMOL/L (136-145) Potassium Level 3.6 MMOL/L (3.5-5.1) Chloride Level 100 MMOL/L (98-107) Carbon Dioxide Level 26 MMOL/L (21-32) Anion Gap 11 mmol/L (5-15) Blood Urea Nitrogen 8 mg/dL (7-18) Creatinine 0.7 MG/DL (0.55-1.30) Estimat Glomerular Filtration Rate > 60 mL/min (>60) Glucose Level 86 MG/DL (74-106) Calcium Level 10.2 MG/DL (8.5-10.1) H Lipase > 2000 U/L (73-393) H Height (Feet): 5 Height (Inches): 6.00 Weight (Pounds): 191 General Appearance: WD/WN, no apparent distress, alert Cardiovascular: normal rate Respiratory/Chest: normal breath sounds, no respiratory distress Abdominal Exam: normal bowel sounds, non tender, soft Extremities: normal range of motion, non-tender Nixon Alanis NP Jun 24, 2018 10:59
[2018-06-24] MEDS ORDERED: Heparin1,000 units/500ml Premix(Conc:2 units/ml) IV PRN (11:00)
[2018-06-24] MEDS ORDERED: Lidocaine 1% Plain 30 ml INJ PRN (11:00)
--- NOTE | 2018-06-24 11:05 | General Progress Note ---
Assessment/Plan Assessment/Plan #Acute pancreatitis, suspected to be due to excess alcohol consumption, lipase remains elevated -patient to be started on TPN -PICC line ordered -Nephrolog yconsulted -continue LR @ 150 ml/h -Zofran -cont IV hydromorphone for pain -US RUQ without stones; CT scan results reviewed with radiology, no abscess noted -Lipid panel without hypertriglyceridemia -GI following #Sepsis -ID following -Continue Meropenem -f/u cultures- negative to date -CT A/P without apparent necrosis #Elevated blood pressure due to pain, may have undiagnosed HTN -continue telemetry -cont amlodipine -continue lisinopril -Cardiology consulted -Hydralazine IV prn #Hypokalemia -continue to monitor #Hypercalcemia, resolved -likely due to dehydration -continue to monitor -IVF's as above #anemia, acute blood loss -Likely secondary to vigorous hydration -no signs or symptoms for overt GI bleed -contnue to monitor closely VTE PPx Heparin Full Code Subjective Date patient seen: Jun 24, 2018 Time patient seen: 10:55 ROS Limited/Unobtainable: No HEENT: Denies: eye pain, blurred vision Cardiovascular: Denies: chest pain Respiratory: Denies: cough, orthopnea Gastrointestinal/Abdominal: Reports: abdomen distended, abdominal pain Neurologic/Psychiatric: Reports: depressed; Denies: anxiety Allergies: Coded Allergies: No Known Allergies (Unverified , 06/22/13) Subjective Medicine follow up for acute pancreatitis, likely alcohol induced. Persistent symptoms, limited oral intake. Patient feesl depressed about his condition. Objective Last 24 Hour Vital Signs Date Time Temp Pulse Resp B/P (MAP) Pulse Ox O2 Delivery O2 Flow Rate FiO2 06/24/18 08:25 167/120 06/24/18 08:25 103 167/120 06/24/18 08:00 98.2 103 18 167/120 (136) 97 06/24/18 04:00 98.0 114 19 174/120 (138) 95 06/24/18 04:00 112 06/24/18 00:14 177/126 06/24/18 00:00 98.7 109 19 175/126 (142) 96 06/24/18 00:00 113 06/23/18 21:00 Room Air 06/23/18 20:00 117 06/23/18 20:00 99.9 112 18 172/125 (141) 94 06/23/18 16:55 184/122 06/23/18 16:00 128 06/23/18 16:00 98.2 120 18 184/122 (142) 94 06/23/18 12:47 184/126 06/23/18 12:00 97.9 131 16 184/126 (145) 94 06/23/18 12:00 131 Intake and Output 06/23/18 06/24/18 19:00 07:00 Intake Total 240 ml 1335 ml Output Total 900 ml 1700 ml Balance -660 ml -365 ml Intake Oral 240 ml IV Total 1335 ml Output Urine Total 900 ml 1700 ml # Voids 4 Laboratory Tests 06/24/18 05:20: White Blood Count 13.3H, Red Blood Count 5.07, Hemoglobin 14.1L, Hematocrit 43.7 , Mean Corpuscular Volume 86, Mean Corpuscular Hemoglobin 27.8, Mean Corpuscular Hemoglobin Concent 32.3, Red Cell Distribution Width 13.2, Platelet Count 363, Mean Platelet Volume 5.7L, Neutrophils (%) (Auto) 72.4, Lymphocytes ( %) (Auto) 9.9L, Monocytes (%) (Auto) 14.9H, Eosinophils (%) (Auto) 1.6, Basophils (%) (Auto) 1.2, Sodium Level 137, Potassium Level 3.6, Chloride Level 100, Carbon Dioxide Level 26, Anion Gap 11, Blood Urea Nitrogen 8, Creatinine 0.7, Estimat Glomerular Filtration Rate > 60, Glucose Level 86, Calcium Level 10.2H, Lipase > 2000H Height (Feet): 5 Height (Inches): 6.00 Weight (Pounds): 191 General Appearance: no apparent distress, alert Neck: supple, normal inspection Cardiovascular: normal rate, regular rhythm Respiratory/Chest: lungs clear, normal breath sounds Abdomen: non tender, soft 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
--- NOTE | 2018-06-24 11:35 | Consultation ---
History of Present Illness General Date patient seen: Jun 24, 2018 Time patient seen: 11:22 Chief Complaint: Abdominal Pain Referring physician: SRIRAM Reason for Consultation: PANCREATITIS, HYPERTENSIVE URGENCY Present Illness HPI Patient with alcoholic pancreatitis with elevated lipase and LFT, Cardiology consulted for hypertensive urgency and chest pain Allergies: Coded Allergies: No Known Allergies (Unverified , 06/22/13) Medication History Scheduled Amoxicillin* (Amoxil*), 500 MG ORAL THREE TIMES A DAY No Known Medications* (NKM - No Known Medications*), 0 ., (Reported) Scheduled PRN Hydrocodone Bit/Acetaminophen 5-325* ([place] 5-325*), 1 TAB ORAL Q6H PRN for For Pain Patient History Healthcare decision maker N Resuscitation status Advanced Directive on File Review of Systems Constitutional: Reports: no symptoms Eye: Reports: no symptoms ENT: Reports: no symptoms Respiratory: Reports: no symptoms Cardiovascular: Reports: chest pain Gastrointestinal: Reports: abdominal pain, nausea, vomiting Genitourinary: Reports: no symptoms Musculoskeletal: Reports: no symptoms Skin: Reports: no symptoms Psychiatric: Reports: no symptoms Neurological: Reports: no symptoms Endocrine: Reports: no symptoms Hematologic/Lymphatic: Reports: no symptoms Physical Exam General Appearance: no apparent distress Lines, tubes and drains: peripheral HEENT: normocephalic, atraumatic, anicteric, mucous membranes moist, PERRL Neck: non-tender, normal alignment, supple, normal inspection Respiratory/Chest: chest wall non-tender, lungs clear Cardiovascular/Chest: normal peripheral pulses, normal rate Abdomen: decreased bowel sounds, distended, guarding, tender Extremities: normal range of motion, non-tender, normal inspection, no calf tenderness Skin Exam: normal pigmentation, warm/dry 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9 131 16 184/126 (145) 94 06/23/18 12:00 131 Intake and Output 06/23/18 06/24/18 19:00 07:00 Intake Total 240 ml 1335 ml Output Total 900 ml 1700 ml Balance -660 ml -365 ml Intake Oral 240 ml IV Total 1335 ml Output Urine Total 900 ml 1700 ml # Voids 4 Laboratory Tests Test 06/24/18 05:20 White Blood Count 13.3 K/UL (4.8-10.8) H Red Blood Count 5.07 M/UL (4.70-6.10) Hemoglobin 14.1 G/DL (14.2-18.0) L Hematocrit 43.7 % (42.0-52.0) Mean Corpuscular Volume 86 FL (80-99) Mean Corpuscular Hemoglobin 27.8 PG (27.0-31.0) Mean Corpuscular Hemoglobin Concent 32.3 G/DL (32.0-36.0) Red Cell Distribution Width 13.2 % (11.6-14.8) Platelet Count 363 K/UL (150-450) Mean Platelet Volume 5.7 FL (6.5-10.1) L Neutrophils (%) (Auto) 72.4 % (45.0-75.0) Lymphocytes (%) (Auto) 9.9 % (20.0-45.0) L Monocytes (%) (Auto) 14.9 % (1.0-10.0) H Eosinophils (%) (Auto) 1.6 % (0.0-3.0) Basophils (%) (Auto) 1.2 % (0.0-2.0) Sodium Level 137 MMOL/L (136-145) Potassium Level 3.6 MMOL/L (3.5-5.1) Chloride Level 100 MMOL/L (98-107) Carbon Dioxide Level 26 MMOL/L (21-32) Anion Gap 11 mmol/L (5-15) Blood Urea Nitrogen 8 mg/dL (7-18) Creatinine 0.7 MG/DL (0.55-1.30) Estimat Glomerular Filtration Rate > 60 mL/min (>60) Glucose Level 86 MG/DL (74-106) Calcium Level 10.2 MG/DL (8.5-10.1) H Lipase > 2000 U/L (73-393) H Height (Feet): 5 Height (Inches): 6.00 Weight (Pounds): 191 Medications Current Medications Medications (Trade) Dose Ordered Sig/Jennifer Route PRN Reason Start Time Stop Time Status Last Admin Dose Admin Acetaminophen (Tylenol) 650 mg Q4H PRN ORAL fever 06/17/18 14:30 07/17/18 14:29 06/21/18 05:07 Amlodipine Besylate (Norvasc) 10 mg DAILY ORAL 06/20/18 09:00 07/20/18 08:59 06/24/18 08:25 Barium Sulfate (Readi-Cat 2) 450 ml NOW PRN ORAL Radiology Procedure 06/22/18 14:45 06/24/18 14:42 Chlorhexidine Gluconate (Aleja-Hex 2%) 1 applic DAILY@2000 TOPIC 06/24/18 20:00 07/24/18 19:59 Dextrose (Dextrose 50%) 25 ml Q30M PRN IV Hypoglycemia 06/17/18 14:30 07/17/18 14:29 Dextrose (Dextrose 50%) 50 ml Q30M PRN IV Hypoglycemia 06/17/18 14:30 07/17/18 14:29 Diphenhydramine HCl (Benadryl) 25 mg Q6H PRN ORAL Itching/Pruritis 06/17/18 14:30 07/17/18 14:29 Heparin Sodium (Porcine) (Heparin 5000 units/ml) 5,000 units EVERY 12 HOURS SUBQ 06/17/18 21:00 07/17/18 20:59 06/24/18 08:28 Heparin Sodium/ Sodium Chloride (Heparin 1000 units/500ml Premix) 1,000 unit ONCE PRN IV FOR PICC PLACEMENT 06/24/18 11:00 06/26/18 23:59 Hydralazine HCl (Apresoline) 10 mg Q4H PRN IV For High Blood Pressure 06/17/18 17:30 07/17/18 17:29 06/24/18 00:14 Hydromorphone HCl (Dilaudid) 1.5 mg Q4H PRN IVP Severe Pain (Pain Scale 7-10) 06/21/18 20:33 06/28/18 20:32 06/24/18 10:52 Iopamidol (Isovue-300 100ml) 100 ml NOW PRN INJ Radiology Procedure 06/22/18 14:45 06/24/18 14:42 Lactated Ringer's 1,000 ml @ 150 mls/hr Q6H40M IV 06/17/18 14:45 07/17/18 14:44 06/24/18 03:00 Lidocaine HCl (Xylocaine 1% 30ml) 30 ml ONCE PRN INJ PICC PLACEMENT 06/24/18 11:00 06/26/18 23:59 Lisinopril (Prinivil) 40 mg DAILY ORAL 06/23/18 09:00 07/23/18 08:59 06/24/18 08:25 Meropenem 1 gm/ Sodium Chloride 55 ml @ 110 mls/hr Q8H IVPB 06/22/18 20:00 06/27/18 19:59 06/24/18 03:08 Ondansetron HCl (Zofran) 4 mg Q6H PRN IVP Nausea & Vomiting 06/17/18 14:30 07/17/18 14:29 06/21/18 21:29 Assessment/Plan Status: stable Assessment/Plan Assessment/Plan Assessment/Plan Acute pancreatitis, suspected to be due to excess alcohol consumption, lipase remains elevated Sepsis Hypokalemia Hypercalcemia, resolved Anemia, acute blood loss Hypertension, uncontrolled -cont amlodipine -continue lisinopril -Add cardura -TTE to evaluate filling pressures Willy Cameron MD Jun 24, 2018 11:35
[2018-06-24 13:00] VITALS: BP 181/127
--- NOTE | 2018-06-24 13:06 | Consultation ---
Consult Note Consult Note asked to eval for BP management examined data reviewed RN present . Assessment/Plan # Elevated blood pressure OOC #Hypokalemia #Hypercalcemia, #Acute pancreatitis, suspected to be due to excess alcohol consumption, lipase remains elevated #Sepsis #anemia, acute blood loss Adjust BP meds , per order Monitor renal parameters, Lytes and Ca and Phos Per orders Edgar Richardson MD Jun 24, 2018 13:06
[2018-06-24] MEDS ORDERED: chlordiazePOXIDE 25mg Cap ORAL SCH (14:00)
[2018-06-24] MEDS ORDERED: Metoprolol Tartrate 12.5mg TAB ORAL SCH ×2 (14:00→21:00)
--- NOTE | 2018-06-24 14:35 | Infectious Diseases Prog Note ---
Assessment/Plan Assessment/Plan ASSESSMENT AND PLAN: 1. sepsis, acute pancreatitis, leukocytosis, fevers, sirs, ? CAP vs atx - clinically better, fevers and leukocytosis better, still some abdominal pain - continue meropenem - day # 08/24 - chest x-ray stable - monitor labs - d/w Dr. Salcedo - plan on TPN 2. possible HTN - bp tx per primary team 3. No known allergies. 4. Social history positive for alcohol use. 5. Family history noncontributory. 6. MAR was noted. 7. Case discussed with RN. 8. Continue treatment per primary consultants. 9. Case communicated with Dr. Holden. 10. Notes and records were noted. Orders were entered. Subjective Constitutional: Denies: fever HEENT: Denies: congestion Respiratory: Denies: shortness of breath Cardiovascular: Denies: chest pain, palpitations Gastrointestinal/Abdominal: Reports: other - + abdominal pain ; Denies: nausea , vomiting, diarrhea Neurologic: Denies: headache Psychiatric: Denies: depression Skin: Denies: rash Hematologic: Denies: bleeding Musculoskeletal: Denies: pain Allergies: Coded Allergies: No Known Allergies (Unverified , 06/22/13) Objective Vital Signs Last 24 Hour Vital Signs Date Time Temp Pulse Resp B/P (MAP) Pulse Ox O2 Delivery O2 Flow Rate FiO2 06/24/18 13:00 97.5 110 20 181/127 (145) 96 06/24/18 08:25 167/120 06/24/18 08:25 103 167/120 06/24/18 08:00 98.2 103 18 167/120 (136) 97 06/24/18 04:00 98.0 114 19 174/120 (138) 95 06/24/18 04:00 112 06/24/18 00:14 177/126 06/24/18 00:00 98.7 109 19 175/126 (142) 96 06/24/18 00:00 113 06/23/18 21:00 Room Air 06/23/18 20:00 117 06/23/18 20:00 99.9 112 18 172/125 (141) 94 06/23/18 16:55 184/122 06/23/18 16:00 128 06/23/18 16:00 98.2 120 18 184/122 (142) 94 Height (Feet): 5 Height (Inches): 6.00 Weight (Pounds): 191 General Appearance: no acute distress HEENT: normocephalic, atraumatic, anicteric, mucous membranes moist Respiratory/Chest: lungs clear, normal breath sounds, no respiratory distress, no accessory muscle use Cardiovascular: normal rate, regular rhythm, no gallop/murmur, no JVD Abdomen: normal bowel sounds, no organomegaly, non distended, other - + abdominal pain, no rebound Genitourinary: other - no rosado Extremities: no cyanosis Skin: no lesions 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 Left lung base atelectasis/airspace disease. Pleural space: Tiny left pleural effusion. No pneumothorax. Heart: Slightly prominent cardiac silhouette. Mediastinum: Unremarkable. Bones/joints: Unremarkable. IMPRESSION: 1. Mild interstitial prominence. Left lung base atelectasis/airspace disease. Tiny left pleural effusion. Query pneumonia. Chest x-ray - 06/23/18 - Comparison: 06/20/2018 Findings: Left-sided pleural effusion persists. Mild interstitial congestion is unchanged. Impression: Unchanged, over 3 days, findings as above. Microbiology Date/Time Source Procedure Growth Status 06/19/18 19:08 Blood Blood Culture - Preliminary NO GROWTH AFTER 4 DAYS Resulted Laboratory Tests Test 06/24/18 05:20 White Blood Count 13.3 K/UL (4.8-10.8) H Red Blood Count 5.07 M/UL (4.70-6.10) Hemoglobin 14.1 G/DL (14.2-18.0) L Hematocrit 43.7 % (42.0-52.0) Mean Corpuscular Volume 86 FL (80-99) Mean Corpuscular Hemoglobin 27.8 PG (27.0-31.0) Mean Corpuscular Hemoglobin Concent 32.3 G/DL (32.0-36.0) Red Cell Distribution Width 13.2 % (11.6-14.8) Platelet Count 363 K/UL (150-450) Mean Platelet Volume 5.7 FL (6.5-10.1) L Neutrophils (%) (Auto) 72.4 % (45.0-75.0) Lymphocytes (%) (Auto) 9.9 % (20.0-45.0) L Monocytes (%) (Auto) 14.9 % (1.0-10.0) H Eosinophils (%) (Auto) 1.6 % (0.0-3.0) Basophils (%) (Auto) 1.2 % (0.0-2.0) Sodium Level 137 MMOL/L (136-145) Potassium Level 3.6 MMOL/L (3.5-5.1) Chloride Level 100 MMOL/L (98-107) Carbon Dioxide Level 26 MMOL/L (21-32) Anion Gap 11 mmol/L (5-15) Blood Urea Nitrogen 8 mg/dL (7-18) Creatinine 0.7 MG/DL (0.55-1.30) Estimat Glomerular Filtration Rate > 60 mL/min (>60) Glucose Level 86 MG/DL (74-106) Calcium Level 10.2 MG/DL (8.5-10.1) H Lipase > 2000 U/L (73-393) H Current Medications Medications (Trade) Dose Ordered Sig/Jennifer Route PRN Reason Start Time Stop Time Status Last Admin Dose Admin Acetaminophen (Tylenol) 650 mg Q4H PRN ORAL fever 06/17/18 14:30 07/17/18 14:29 06/21/18 05:07 Amlodipine Besylate (Norvasc) 10 mg DAILY ORAL 06/25/18 09:00 07/20/18 08:59 Barium Sulfate (Readi-Cat 2) 450 ml NOW PRN ORAL Radiology Procedure 06/22/18 14:45 06/24/18 14:42 Chlordiazepoxide (Librium) 25 mg ONCE ORAL 06/24/18 14:00 06/24/18 15:00 Chlordiazepoxide (Librium) 25 mg Q8HR ORAL 06/24/18 22:00 07/01/18 21:59 Chlorhexidine Gluconate (Aleja-Hex 2%) 1 applic DAILY@2000 TOPIC 06/24/18 20:00 07/24/18 19:59 Clonidine HCl (Catapres Tab) 0.1 mg ONCE ORAL 06/24/18 14:00 06/24/18 15:00 Clonidine HCl (Catapres Tab) 0.1 mg Q6HR ORAL 06/24/18 18:00 07/24/18 17:59 Dextrose (Dextrose 50%) 25 ml Q30M PRN IV Hypoglycemia 06/17/18 14:30 07/17/18 14:29 Dextrose (Dextrose 50%) 50 ml Q30M PRN IV Hypoglycemia 06/17/18 14:30 07/17/18 14:29 Dextrose/ Electrolytes 1,000 ml @ 75 mls/hr [id number] IV 06/24/18 14:30 07/24/18 14:29 Escitalopram Oxalate (Lexapro) 10 mg DAILY ORAL 06/24/18 11:45 07/24/18 11:44 06/24/18 12:38 Fat Emulsion Intravenous 192 ml/Amino Acids/ Electrolytes/ Dextrose 2,040 ml @ 173.4 mls/ hr Q24H IV 06/24/18 20:00 07/24/18 19:59 Heparin Sodium (Porcine) (Heparin 5000 units/ml) 5,000 units EVERY 12 HOURS SUBQ 06/17/18 21:00 07/17/18 20:59 06/24/18 08:28 Heparin Sodium/ Sodium Chloride (Heparin 1000 units/500ml Premix) 1,000 unit ONCE PRN IV FOR PICC PLACEMENT 06/24/18 11:00 06/26/18 23:59 Hydromorphone HCl (Dilaudid) 1.5 mg Q4H PRN IVP Severe Pain (Pain Scale 7-10) 06/21/18 20:33 06/28/18 20:32 06/24/18 10:52 Insulin Aspart (NovoLOG) No Dose Q6HR SUBQ 06/25/18 00:00 07/25/18 00:00 Iopamidol (Isovue-300 100ml) 100 ml NOW PRN INJ Radiology Procedure 06/22/18 14:45 06/24/18 14:42 Lidocaine HCl (Xylocaine 1% 30ml) 30 ml ONCE PRN INJ PICC PLACEMENT 06/24/18 11:00 06/26/18 23:59 Lisinopril (Prinivil) 40 mg DAILY ORAL 06/23/18 09:00 07/23/18 08:59 06/24/18 08:25 Meropenem 1 gm/ Sodium Chloride 55 ml @ 110 mls/hr Q8H IVPB 06/22/18 20:00 06/27/18 19:59 06/24/18 03:08 Metoprolol Tartrate (Lopressor) 12.5 mg ONCE ORAL 06/24/18 14:00 06/24/18 15:00 Metoprolol Tartrate (Lopressor) 12.5 mg Q12HR ORAL 06/24/18 21:00 07/24/18 20:59 Ondansetron HCl (Zofran) 4 mg Q6H PRN IVP Nausea & Vomiting 06/17/18 14:30 07/17/18 14:29 06/21/18 21:29 Pantoprazole (Protonix) 40 mg Q12HR IVP 06/24/18 21:00 07/25/18 08:59 Phytonadione (Vitamin K) 10 mg QWEEK SUBQ 07/01/18 09:00 07/31/18 08:59 Rakesh Teran MD Jun 24, 2018 14:35
--- NOTE | 2018-06-24 14:38 | Diagnostic Imaging Report ---
Indications: Needs long-term IV access Technique: Ultrasound confirms patent compressible left brachial vein. Total sterile technique, including sterile probe cover and sterile gel, hat, mask, sterile gown, large sterile drape, and preparation with 2% chlorhexidine utilized. Local anesthesia with 1% lidocaine. Under real-time ultrasound guidance, puncture right vein using 21-gauge needle, documented and archived, passage 0.018 guidewire under direct fluoroscopy, which was used to determine appropriate catheter length, exchange for 4 Scottish peel-away sheath. 4 Scottish Bard dual-lumen power PICC cut to 52 cm. It was inserted through the peel-away sheath. Peel-away sheath and guidewire removed. Catheter fixed to the skin. Both catheter ports aspirated and flushed. Patient tolerated procedure well, without immediate complication. Digital radiograph documents satisfactory catheter tip position, at the cavoatrial junction. Total fluoroscopy time 16 seconds. Total dose area product 1.59 mGy Total number of images: 2 Impression: Successful placement of left arm PICC under sonographic and fluoroscopic guidance, as described above.
[2018-06-24 16:00] VITALS: BP 199/123
[2018-06-24] MEDS ORDERED: Minoxidil 2.5mg tab ORAL PRN (16:47)
[2018-06-24] MEDS: cloNIDine 0.2mg Tab ORAL SCH (18:13)
[2018-06-24 20:00] VITALS: BP 147/99
[2018-06-24] MEDS: Metoprolol 25mg tab ORAL SCH (21:01)
[2018-06-24] MEDS: TPN IV SCH (21:03)
[2018-06-24] MEDS: FAT EMULSION 20% IV SCH (21:03)
[2018-06-24] MEDS: Pantoprazole Inj IVP SCH (21:04)
[2018-06-24] MEDS: Dyna-Hex 2% Top Sol 2oz TOPIC SCH (21:04)
[2018-06-24] MEDS: chlordiazePOXIDE 25mg Cap ORAL SCH (21:29)
--- NOTE | 2018-06-24 22:49 | Consultation ---
History of Present Illness General Chief Complaint: Abdominal Pain Referring physician: SRIRAM Reason for Consultation: PANCREATITIS, HYPERTENSIVE URGENCY Present Illness Allergies: Coded Allergies: No Known Allergies (Unverified , 06/22/13) Medication History Scheduled Amoxicillin* (Amoxil*), 500 MG ORAL THREE TIMES A DAY No Known Medications* (NKM - No Known Medications*), 0 ., (Reported) Scheduled PRN Hydrocodone Bit/Acetaminophen 5-325* (Ione 5-325*), 1 TAB ORAL Q6H PRN for For Pain Patient History Healthcare decision maker N Resuscitation status Advanced Directive on File Physical Exam Last 24 Hour Vital Signs Date Time Temp Pulse Resp B/P (MAP) Pulse Ox O2 Delivery O2 Flow Rate FiO2 06/24/18 21:01 89 147/99 06/24/18 18:13 170/111 06/24/18 18:12 111 170/111 06/24/18 16:00 92 06/24/18 16:00 98.7 111 18 199/123 (148) 96 06/24/18 14:48 181/127 06/24/18 14:47 110 181/127 06/24/18 13:00 97.5 110 20 181/127 (145) 96 06/24/18 12:00 109 06/24/18 09:00 Room Air 06/24/18 08:25 167/120 06/24/18 08:25 103 167/120 06/24/18 08:00 98.2 103 18 167/120 (136) 97 06/24/18 08:00 108 06/24/18 04:00 98.0 114 19 174/120 (138) 95 06/24/18 04:00 112 06/24/18 00:14 177/126 06/24/18 00:00 98.7 109 19 175/126 (142) 96 06/24/18 00:00 113 Intake and Output 06/23/18 06/24/18 18:59 06:59 Intake Total 240 ml 1185 ml Output Total 900 ml 1700 ml Balance -660 ml -515 ml Intake Oral 240 ml IV Total 1185 ml Output Urine Total 900 ml 1700 ml # Voids 4 Laboratory Tests Test 06/24/18 05:20 White Blood Count 13.3 K/UL (4.8-10.8) H Red Blood Count 5.07 M/UL (4.70-6.10) Hemoglobin 14.1 G/DL (14.2-18.0) L Hematocrit 43.7 % (42.0-52.0) Mean Corpuscular Volume 86 FL (80-99) Mean Corpuscular Hemoglobin 27.8 PG (27.0-31.0) Mean Corpuscular Hemoglobin Concent 32.3 G/DL (32.0-36.0) Red Cell Distribution Width 13.2 % (11.6-14.8) Platelet Count 363 K/UL (150-450) Mean Platelet Volume 5.7 FL (6.5-10.1) L Neutrophils (%) (Auto) 72.4 % (45.0-75.0) Lymphocytes (%) (Auto) 9.9 % (20.0-45.0) L Monocytes (%) (Auto) 14.9 % (1.0-10.0) H Eosinophils (%) (Auto) 1.6 % (0.0-3.0) Basophils (%) (Auto) 1.2 % (0.0-2.0) Sodium Level 137 MMOL/L (136-145) Potassium Level 3.6 MMOL/L (3.5-5.1) Chloride Level 100 MMOL/L (98-107) Carbon Dioxide Level 26 MMOL/L (21-32) Anion Gap 11 mmol/L (5-15) Blood Urea Nitrogen 8 mg/dL (7-18) Creatinine 0.7 MG/DL (0.55-1.30) Estimat Glomerular Filtration Rate > 60 mL/min (>60) Glucose Level 86 MG/DL (74-106) Calcium Level 10.2 MG/DL (8.5-10.1) H Lipase > 2000 U/L (73-393) H Height (Feet): 5 Height (Inches): 6.00 Weight (Pounds): 191 Medications Current Medications Medications (Trade) Dose Ordered Sig/Jennifer Route PRN Reason Start Time Stop Time Status Last Admin Dose Admin Acetaminophen (Tylenol) 650 mg Q4H PRN ORAL fever 06/17/18 14:30 07/17/18 14:29 06/21/18 05:07 Chlordiazepoxide (Librium) 25 mg Q8HR ORAL 06/24/18 22:00 07/01/18 21:59 06/24/18 21:29 Chlorhexidine Gluconate (Aleja-Hex 2%) 1 applic DAILY@2000 TOPIC 06/24/18 20:00 07/24/18 19:59 06/24/18 21:04 Clonidine HCl (Catapres tab) 0.2 mg Q6HR ORAL 06/24/18 18:00 07/24/18 17:59 06/24/18 18:13 Dextrose (Dextrose 50%) 25 ml Q30M PRN IV Hypoglycemia 06/17/18 14:30 07/17/18 14:29 Dextrose (Dextrose 50%) 50 ml Q30M PRN IV Hypoglycemia 06/17/18 14:30 07/17/18 14:29 Dextrose/ Electrolytes 1,000 ml @ 75 mls/hr [id number] IV 06/24/18 14:30 07/24/18 14:29 06/24/18 14:49 Escitalopram Oxalate (Lexapro) 10 mg DAILY ORAL 06/24/18 11:45 07/24/18 11:44 06/24/18 12:38 Fat Emulsion Intravenous 192 ml/Amino Acids/ Electrolytes/ Dextrose 2,040 ml @ 173.4 mls/ hr Q24H IV 06/24/18 20:00 07/24/18 19:59 06/24/18 21:03 Heparin Sodium (Porcine) (Heparin 5000 units/ml) 5,000 units EVERY 12 HOURS SUBQ 06/17/18 21:00 07/17/18 20:59 06/24/18 21:33 Heparin Sodium/ Sodium Chloride (Heparin 1000 units/500ml Premix) 1,000 unit ONCE PRN IV FOR PICC PLACEMENT 06/24/18 11:00 06/26/18 23:59 Hydromorphone HCl (Dilaudid) 1.5 mg Q4H PRN IVP Severe Pain (Pain Scale 7-10) 06/21/18 20:33 06/28/18 20:32 06/24/18 14:56 Insulin Aspart (NovoLOG) No Dose Q6HR SUBQ 06/25/18 00:00 07/25/18 00:00 Lidocaine HCl (Xylocaine 1% 30ml) 30 ml ONCE PRN INJ PICC PLACEMENT 06/24/18 11:00 06/26/18 23:59 Lisinopril (Prinivil) 40 mg DAILY ORAL 06/23/18 09:00 07/23/18 08:59 06/24/18 08:25 Meropenem 1 gm/ Sodium Chloride 55 ml @ 110 mls/hr Q8H IVPB 06/22/18 20:00 06/27/18 19:59 06/24/18 21:04 Metoprolol Tartrate (Lopressor) 25 mg Q12HR ORAL 06/24/18 21:00 07/24/18 20:59 06/24/18 21:01 Minoxidil (Loniten) 2.5 mg Q4H PRN ORAL bp over 170 syst 06/24/18 16:47 07/24/18 16:46 Nifedipine (Procardia XL) 60 mg BID ORAL 06/24/18 18:00 07/24/18 17:59 06/24/18 18:12 Ondansetron HCl (Zofran) 4 mg Q6H PRN IVP Nausea & Vomiting 06/17/18 14:30 07/17/18 14:29 06/21/18 21:29 Pantoprazole (Protonix) 40 mg Q12HR IVP 06/24/18 21:00 07/25/18 08:59 06/24/18 21:04 Phytonadione (Vitamin K) 10 mg QWEEK SUBQ 07/01/18 09:00 07/31/18 08:59 Assessment/Plan Problem List: (1) Alcohol dependence ICD Codes: F10.20 - Alcohol dependence, uncomplicated SNOMED: 32439943 (2) MDD (major depressive disorder) ICD Codes: F32.9 - Major depressive disorder, single episode, unspecified SNOMED: 975700855 Status: stable Assessment/Plan librium was ordered by pmd prozac 20mg po daily Kenji Shook MD Jun 24, 2018 22:49
[2018-06-25] VITALS: BP 153/83
[2018-06-25] MEDS: cloNIDine 0.2mg Tab ORAL SCH ×4 (00:28→22:00)
[2018-06-25] MEDS: Insulin NovoLOG Flexpen S/S (Mod) SUBQ SCH ×4 (00:29→17:38)
[2018-06-25] MEDS: Meropenem 1 GM in NS 55 ML IVPB SCH ×3 (03:37→20:15)
[2018-06-25 04:00] VITALS: BP 133/81
[2018-06-25] MEDS: chlordiazePOXIDE 25mg Cap ORAL SCH ×3 (06:15→23:00)
[2018-06-25 07:35] LABS: BASOPHILS % (AUTO) 0.9 % (0.0-2.0); EOSINOPHILS % (AUTO) 2.9 % (0.0-3.0); HEMATOCRIT 39.8 % (42.0-52.0); LYMPHOCYTES % (AUTO) 15.9 % (20.0-45.0); MEAN CORPUSCULAR VOLUME 86 FL (80-99); MONOCYTES % (AUTO) 12.4 % (1.0-10.0); NEUTROPHILS % (AUTO) 67.9 % (45.0-75.0); PLATELET COUNT 394 K/UL (150-450); RED BLOOD COUNT 4.61 M/UL (4.70-6.10); RED CELL DISTRIBUTION WIDTH 12.9 % (11.6-14.8); WHITE BLOOD COUNT 9.1 K/UL (4.8-10.8)
[2018-06-25 08:00] VITALS: BP 136/76
[2018-06-25 08:00] LABS: ALANINE AMINOTRANSFERASE 55 U/L (12-78); ALBUMIN 2.4 G/DL (3.4-5.0); ALBUMIN/GLOBULIN RATIO 0.5 (1.0-2.7); ALKALINE PHOSPHATASE 105 U/L (46-116); ANION GAP 7 mmol/L (5-15); ASPARTATE AMINO TRANSFERASE 21 U/L (15-37); BILIRUBIN,TOTAL 0.3 MG/DL (0.2-1.0); BLOOD UREA NITROGEN 13 mg/dL (7-18); CARBON DIOXIDE 28 MMOL/L (21-32); CHLORIDE 105 MMOL/L (98-107); CREATININE 0.9 MG/DL (0.55-1.30); FERRITIN 814 NG/ML (8-388); POTASSIUM 3.9 MMOL/L (3.5-5.1); SODIUM 140 MMOL/L (136-145)
[2018-06-25 08:21] LABS: CREATINE KINASE 23 U/L (26-308); GAMMA GLUTAMYL TRANSPEPTIDASE 213 U/L (5-85); PHOSPHORUS 4.4 MG/DL (2.5-4.9)
[2018-06-25] MEDS: Pantoprazole Inj IVP SCH ×2 (08:41→21:31)
[2018-06-25] MEDS: Lisinopril 20mg tab ORAL SCH (08:41)
[2018-06-25] MEDS: Metoprolol 25mg tab ORAL SCH ×2 (08:42→21:31)
[2018-06-25] MEDS: Heparin 5000 units/ml inj SUBQ SCH ×2 (08:51→21:31)
[2018-06-25 08:59] LABS: % IRON SATURATION 31 % (15-50); IRON 54 ug/dL (50-175); TOTAL IRON BINDING CAPACITY 173 ug/dL (250-450)
[2018-06-25] MEDS ORDERED: Pantoprazole Inj IVP SCH (09:00)
[2018-06-25] MEDS ORDERED: Doxazosin 1mg Tab ORAL SCH (09:00)
--- NOTE | 2018-06-25 10:15 | GI Progress Note ---
Assessment/Plan Problems: (1) Pancreatitis ICD Codes: K85.90 - Acute pancreatitis without necrosis or infection, unspecified SNOMED: 95019590 (2) Abdominal pain ICD Codes: R10.9 - Unspecified abdominal pain SNOMED: 65304415 (3) ETOH abuse ICD Codes: F10.10 - Alcohol abuse, uncomplicated SNOMED: 74027855 Status: stable Status Narrative Discussed with Dr. Pineda. Assessment/Plan Repeat abdominal CT reviewed >> - uncomplicated acute pancreatitis, with peripancreatic phlegmon which is essentially stable. - New finding of presacral edema. - Increased bilateral pleural effusions now small to moderate in size. Resultant compressive atelectasis of portions of both lower lobes again demonstrated - Wall thickening of the distal duodenum and proximal jejunum in the area of pancreatic phlegmon, presumably reactive related to the adjacent inflammation Lipase remains elevated to palpable Recommendations -Maintain n.p.o. plus TPN - IVFs when off TPN. - follow lab and exam - continue abx -Repeat lipase levels -Pain management - bowel rest The patient was seen and examined at bedside and all new and available data was reviewed in the patients chart. I agree with the above findings, impression and plan. (Patient seen earlier today. Signature stamp does not reflect patient encounter time.). - Juma Pineda MD Subjective Subjective Abdominal pain improved Objective Last 24 Hour Vital Signs Date Time Temp Pulse Resp B/P (MAP) Pulse Ox O2 Delivery O2 Flow Rate FiO2 06/25/18 08:42 79 136/76 06/25/18 08:41 79 136/76 06/25/18 08:41 136/76 06/25/18 08:00 97.9 79 18 136/76 (96) 96 06/25/18 06:15 129/89 06/25/18 04:00 78 06/25/18 04:00 97.2 89 18 133/81 (98) 97 06/25/18 00:28 154/83 06/25/18 00:00 85 06/25/18 00:00 97.2 77 18 153/83 (106) 97 06/24/18 21:01 89 147/99 06/24/18 21:00 Room Air 06/24/18 20:00 88 06/24/18 20:00 98.1 89 18 147/99 (115) 95 06/24/18 18:13 170/111 06/24/18 18:12 111 170/111 06/24/18 16:00 92 06/24/18 16:00 98.7 111 18 199/123 (148) 96 06/24/18 14:48 181/127 06/24/18 14:47 110 181/127 06/24/18 13:00 97.5 110 20 181/127 (145) 96 06/24/18 12:00 109 Intake and Output 06/24/18 06/25/18 19:00 07:00 Intake Total 120 ml Output Total 250 ml Balance -130 ml Intake Oral 120 ml Output Urine Total 250 ml # Voids 2 4 Laboratory Tests Test 06/25/18 05:18 White Blood Count 9.1 K/UL (4.8-10.8) Red Blood Count 4.61 M/UL (4.70-6.10) L Hemoglobin 13.0 G/DL (14.2-18.0) L Hematocrit 39.8 % (42.0-52.0) L Mean Corpuscular Volume 86 FL (80-99) Mean Corpuscular Hemoglobin 28.2 PG (27.0-31.0) Mean Corpuscular Hemoglobin Concent 32.6 G/DL (32.0-36.0) Red Cell Distribution Width 12.9 % (11.6-14.8) Platelet Count 394 K/UL (150-450) Mean Platelet Volume 5.7 FL (6.5-10.1) L Neutrophils (%) (Auto) 67.9 % (45.0-75.0) Lymphocytes (%) (Auto) 15.9 % (20.0-45.0) L Monocytes (%) (Auto) 12.4 % (1.0-10.0) H Eosinophils (%) (Auto) 2.9 % (0.0-3.0) Basophils (%) (Auto) 0.9 % (0.0-2.0) Sodium Level 140 MMOL/L (136-145) Potassium Level 3.9 MMOL/L (3.5-5.1) Chloride Level 105 MMOL/L (98-107) Carbon Dioxide Level 28 MMOL/L (21-32) Anion Gap 7 mmol/L (5-15) Blood Urea Nitrogen 13 mg/dL (7-18) Creatinine 0.9 MG/DL (0.55-1.30) Estimat Glomerular Filtration Rate > 60 mL/min (>60) Glucose Level 166 MG/DL (74-106) H Hemoglobin A1c 5.7 % (4.3-6.0) Uric Acid 2.9 MG/DL (2.6-7.2) Calcium Level 10.0 MG/DL (8.5-10.1) Phosphorus Level 4.4 MG/DL (2.5-4.9) Magnesium Level 2.4 MG/DL (1.8-2.4) Iron Level 54 ug/dL (50-175) Total Iron Binding Capacity 173 ug/dL (250-450) L Percent Iron Saturation 31 % (15-50) Unsaturated Iron Binding 119 ug/dL (112-346) Ferritin 814 NG/ML (8-388) H Total Bilirubin 0.3 MG/DL (0.2-1.0) Gamma Glutamyl Transpeptidase 213 U/L (5-85) H Aspartate Amino Transf (AST/SGOT) 21 U/L (15-37) Alanine Aminotransferase (ALT/SGPT) 55 U/L (12-78) Alkaline Phosphatase 105 U/L (46-116) Total Creatine Kinase 23 U/L (26-308) L C-Reactive Protein, Quantitative 14.7 mg/dL (0.00-0.90) H Pro-B-Type Natriuretic Peptide 12 pg/mL (0-125) Total Protein 7.0 G/DL (6.4-8.2) Albumin 2.4 G/DL (3.4-5.0) L Globulin 4.6 g/dL Albumin/Globulin Ratio 0.5 (1.0-2.7) L Lipase > 2000 U/L (73-393) H Vitamin B12 Level 1198 PG/ML (193-986) H Folate 11.1 NG/ML (8.6-58.9) Thyroid Stimulating Hormone (TSH) 2.027 uiU/mL (0.358-3.740) Height (Feet): 5 Height (Inches): 6.00 Weight (Pounds): 191 General Appearance: WD/WN, no apparent distress, alert Cardiovascular: normal rate Respiratory/Chest: normal breath sounds, no respiratory distress Abdominal Exam: normal bowel sounds, non tender, soft Extremities: normal range of motion, non-tender Nixon Alanis NP Jun 25, 2018 10:15
[2018-06-25 12:00] VITALS: BP 127/70
--- NOTE | 2018-06-25 12:42 | Diagnostic Imaging Report ---
APPROVED REPORT CPT Code: 50631 Present Symptoms Comments: RIGHT ARM PAIN AND SWELLING. RIGHT UPPER EXTREMITY: Venous imaging reveals patency of the internal jugular, subclavian, axillary and brachial veins. The cephalic and basilic veins are also patent. Doppler indicates normal spontaneous flow within these venous segments.
--- NOTE | 2018-06-25 14:36 | Nephrology Progress Note ---
Assessment/Plan Problem List: (1) Hypertensive urgency (2) Hypercalcemia (3) Anemia Assessment # Elevated blood pressure OOC #Hypercalcemia, # Hypokalemia #Acute pancreatitis, suspected to be due to excess alcohol consumption, lipase remains elevated #Sepsis #anemia, acute blood loss Plan Adjust BP meds , per order Monitor renal parameters, Lytes and Ca and Phos Per orders check PTH level Subjective ROS Limited/Unobtainable: No Objective Objective Last 24 Hour Vital Signs Date Time Temp Pulse Resp B/P (MAP) Pulse Ox O2 Delivery O2 Flow Rate FiO2 06/25/18 13:18 127/70 06/25/18 12:00 97.9 81 19 127/70 (89) 96 06/25/18 09:00 Room Air 06/25/18 08:42 79 136/76 06/25/18 08:41 79 136/76 06/25/18 08:41 136/76 06/25/18 08:00 97.9 79 18 136/76 (96) 96 06/25/18 08:00 81 06/25/18 06:15 129/89 06/25/18 04:00 78 06/25/18 04:00 97.2 89 18 133/81 (98) 97 06/25/18 00:28 154/83 06/25/18 00:00 85 06/25/18 00:00 97.2 77 18 153/83 (106) 97 06/24/18 21:01 89 147/99 06/24/18 21:00 Room Air 06/24/18 20:00 88 06/24/18 20:00 98.1 89 18 147/99 (115) 95 06/24/18 18:13 170/111 06/24/18 18:12 111 170/111 06/24/18 16:00 92 06/24/18 16:00 98.7 111 18 199/123 (148) 96 06/24/18 14:48 181/127 06/24/18 14:47 110 181/127 Intake and Output 06/24/18 06/25/18 19:00 07:00 Intake Total 120 ml Output Total 250 ml Balance -130 ml Intake Oral 120 ml Output Urine Total 250 ml # Voids 2 4 Laboratory Tests 06/25/18 05:18: White Blood Count 9.1, Red Blood Count 4.61L, Hemoglobin 13.0L, Hematocrit 39.8L , Mean Corpuscular Volume 86, Mean Corpuscular Hemoglobin 28.2, Mean Corpuscular Hemoglobin Concent 32.6, Red Cell Distribution Width 12.9, Platelet Count 394, Mean Platelet Volume 5.7L, Neutrophils (%) (Auto) 67.9, Lymphocytes ( %) (Auto) 15.9L, Monocytes (%) (Auto) 12.4H, Eosinophils (%) (Auto) 2.9, Basophils (%) (Auto) 0.9, Sodium Level 140, Potassium Level 3.9, Chloride Level 105, Carbon Dioxide Level 28, Anion Gap 7, Blood Urea Nitrogen 13, Creatinine 0.9, Estimat Glomerular Filtration Rate > 60, Glucose Level 166H, Hemoglobin A1c 5.7, Uric Acid 2.9, Calcium Level 10.0, Phosphorus Level 4.4, Magnesium Level 2.4, Iron Level 54, Total Iron Binding Capacity 173L, Percent Iron Saturation 31, Unsaturated Iron Binding 119, Ferritin 814H, Total Bilirubin 0.3 , Gamma Glutamyl Transpeptidase 213H, Aspartate Amino Transf (AST/SGOT) 21, Alanine Aminotransferase (ALT/SGPT) 55, Alkaline Phosphatase 105, Total Creatine Kinase 23L, C-Reactive Protein, Quantitative 14.7H, Pro-B-Type Natriuretic Peptide 12, Total Protein 7.0, Albumin 2.4L, Globulin 4.6, Albumin/ Globulin Ratio 0.5L, Lipase > 2000H, Vitamin B12 Level 1198H, Folate 11.1, Thyroid Stimulating Hormone (TSH) 2.027 Height (Feet): 5 Height (Inches): 6.00 Weight (Pounds): 191 General Appearance: no apparent distress Cardiovascular: normal rate Respiratory/Chest: decreased breath sounds Abdomen: soft - no change Objective no other change Edgar Richardson MD Jun 25, 2018 14:36
--- NOTE | 2018-06-25 14:44 | General Progress Note ---
Assessment/Plan Assessment/Plan #Acute pancreatitis, suspected to be due to excess alcohol consumption, lipase remains elevated -continue TPN via PICC -Nephrology eval appreciated -continue LR @ 150 ml/h -Zofran -cont IV hydromorphone for pain -US RUQ without stones; CT scan results reviewed with radiology, no abscess noted -Lipid panel without hypertriglyceridemia -GI following #Sepsis -ID following -Continue Meropenem -f/u cultures- negative to date -CT A/P without apparent necrosis #Elevated blood pressure due to pain, may have undiagnosed HTN, much better control today -continue telemetry -seen by Cardiology -continue current anti-hypertensive regimen #Hypokalemia -continue to monitor #Hypercalcemia, resolved -likely due to dehydration -continue to monitor -IVF's as above #anemia, acute blood loss -Likely secondary to vigorous hydration -no signs or symptoms for overt GI bleed -contnue to monitor closely VTE PPx Heparin Full Code Subjective Date patient seen: Jun 25, 2018 Time patient seen: 12:10 ROS Limited/Unobtainable: No Constitutional: Denies: chills, fever Cardiovascular: Denies: chest pain Respiratory: Denies: cough Gastrointestinal/Abdominal: Reports: abdomen distended, abdominal pain Genitourinary: Denies: burning Neurologic/Psychiatric: Reports: anxiety, depressed Allergies: Coded Allergies: No Known Allergies (Unverified , 06/22/13) Subjective Medicine follow up for acute pancreatitis, likely alcohol induced. Persistent symptoms. Started on TPN. Objective Last 24 Hour Vital Signs Date Time Temp Pulse Resp B/P (MAP) Pulse Ox O2 Delivery O2 Flow Rate FiO2 06/25/18 13:18 127/70 06/25/18 12:00 97.9 81 19 127/70 (89) 96 06/25/18 09:00 Room Air 06/25/18 08:42 79 136/76 06/25/18 08:41 79 136/76 06/25/18 08:41 136/76 06/25/18 08:00 97.9 79 18 136/76 (96) 96 06/25/18 08:00 81 06/25/18 06:15 129/89 06/25/18 04:00 78 06/25/18 04:00 97.2 89 18 133/81 (98) 97 06/25/18 00:28 154/83 06/25/18 00:00 85 06/25/18 00:00 97.2 77 18 153/83 (106) 97 06/24/18 21:01 89 147/99 06/24/18 21:00 Room Air 06/24/18 20:00 88 06/24/18 20:00 98.1 89 18 147/99 (115) 95 06/24/18 18:13 170/111 06/24/18 18:12 111 170/111 06/24/18 16:00 92 06/24/18 16:00 98.7 111 18 199/123 (148) 96 06/24/18 14:48 181/127 06/24/18 14:47 110 181/127 Intake and Output 06/24/18 06/25/18 19:00 07:00 Intake Total 120 ml Output Total 250 ml Balance -130 ml Intake Oral 120 ml Output Urine Total 250 ml # Voids 2 4 Laboratory Tests 06/25/18 05:18: White Blood Count 9.1, Red Blood Count 4.61L, Hemoglobin 13.0L, Hematocrit 39.8L , Mean Corpuscular Volume 86, Mean Corpuscular Hemoglobin 28.2, Mean Corpuscular Hemoglobin Concent 32.6, Red Cell Distribution Width 12.9, Platelet Count 394, Mean Platelet Volume 5.7L, Neutrophils (%) (Auto) 67.9, Lymphocytes ( %) (Auto) 15.9L, Monocytes (%) (Auto) 12.4H, Eosinophils (%) (Auto) 2.9, Basophils (%) (Auto) 0.9, Sodium Level 140, Potassium Level 3.9, Chloride Level 105, Carbon Dioxide Level 28, Anion Gap 7, Blood Urea Nitrogen 13, Creatinine 0.9, Estimat Glomerular Filtration Rate > 60, Glucose Level 166H, Hemoglobin A1c 5.7, Uric Acid 2.9, Calcium Level 10.0, Phosphorus Level 4.4, Magnesium Level 2.4, Iron Level 54, Total Iron Binding Capacity 173L, Percent Iron Saturation 31, Unsaturated Iron Binding 119, Ferritin 814H, Total Bilirubin 0.3 , Gamma Glutamyl Transpeptidase 213H, Aspartate Amino Transf (AST/SGOT) 21, Alanine Aminotransferase (ALT/SGPT) 55, Alkaline Phosphatase 105, Total Creatine Kinase 23L, C-Reactive Protein, Quantitative 14.7H, Pro-B-Type Natriuretic Peptide 12, Total Protein 7.0, Albumin 2.4L, Globulin 4.6, Albumin/ Globulin Ratio 0.5L, Lipase > 2000H, Vitamin B12 Level 1198H, Folate 11.1, Thyroid Stimulating Hormone (TSH) 2.027 Height (Feet): 5 Height (Inches): 6.00 Weight (Pounds): 191 General Appearance: no apparent distress, alert Neck: normal alignment, supple Cardiovascular: normal rate, regular rhythm Respiratory/Chest: lungs clear, normal breath sounds Abdomen: non tender, soft Thaddeus Leon MD Jun 25, 2018 14:44
--- NOTE | 2018-06-25 15:27 | Cardiology Progress Note ---
Subjective Cardiovascular: Reports: no symptoms Respiratory: Reports: no symptoms Gastrointestinal/Abdominal: Reports: no symptoms Genitourinary: Reports: no symptoms Subjective Blood pressure controlled, LFT coming down, on liquid diet, pain controlled, lipase still elevated Objective Last 24 Hour Vital Signs Date Time Temp Pulse Resp B/P (MAP) Pulse Ox O2 Delivery O2 Flow Rate FiO2 06/25/18 13:18 127/70 06/25/18 12:00 97.9 81 19 127/70 (89) 96 06/25/18 11:48 79 06/25/18 09:00 Room Air 06/25/18 08:42 79 136/76 06/25/18 08:41 79 136/76 06/25/18 08:41 136/76 06/25/18 08:00 97.9 79 18 136/76 (96) 96 06/25/18 08:00 81 06/25/18 06:15 129/89 06/25/18 04:00 78 06/25/18 04:00 97.2 89 18 133/81 (98) 97 06/25/18 00:28 154/83 06/25/18 00:00 85 06/25/18 00:00 97.2 77 18 153/83 (106) 97 06/24/18 21:01 89 147/99 06/24/18 21:00 Room Air 06/24/18 20:00 88 06/24/18 20:00 98.1 89 18 147/99 (115) 95 06/24/18 18:13 170/111 06/24/18 18:12 111 170/111 06/24/18 16:00 92 06/24/18 16:00 98.7 111 18 199/123 (148) 96 General Appearance: no apparent distress, alert EENT: PERRL/EOMI, normal ENT inspection, TMs normal Neck: normal alignment, supple, normal inspection, no JVD Rhythm: NSR Cardiovascular: normal peripheral pulses, normal rate, regular rhythm, no gallop/murmur Respiratory/Chest: chest wall non-tender, lungs clear, normal breath sounds, no respiratory distress, respiratory distress Abdomen: normal bowel sounds, non tender, soft, no organomegaly Extremities: normal range of motion, non-tender, normal inspection Neurologic: inspector salvage II-XII grossly normal, no motor/sensory deficits Intake and Output 06/24/18 06/25/18 19:00 07:00 Intake Total 120 ml Output Total 250 ml Balance -130 ml Intake Oral 120 ml Output Urine Total 250 ml # Voids 2 4 Laboratory Tests Test 06/25/18 05:18 White Blood Count 9.1 K/UL (4.8-10.8) Red Blood Count 4.61 M/UL (4.70-6.10) L Hemoglobin 13.0 G/DL (14.2-18.0) L Hematocrit 39.8 % (42.0-52.0) L Mean Corpuscular Volume 86 FL (80-99) Mean Corpuscular Hemoglobin 28.2 PG (27.0-31.0) Mean Corpuscular Hemoglobin Concent 32.6 G/DL (32.0-36.0) Red Cell Distribution Width 12.9 % (11.6-14.8) Platelet Count 394 K/UL (150-450) Mean Platelet Volume 5.7 FL (6.5-10.1) L Neutrophils (%) (Auto) 67.9 % (45.0-75.0) Lymphocytes (%) (Auto) 15.9 % (20.0-45.0) L Monocytes (%) (Auto) 12.4 % (1.0-10.0) H Eosinophils (%) (Auto) 2.9 % (0.0-3.0) Basophils (%) (Auto) 0.9 % (0.0-2.0) Sodium Level 140 MMOL/L (136-145) Potassium Level 3.9 MMOL/L (3.5-5.1) Chloride Level 105 MMOL/L (98-107) Carbon Dioxide Level 28 MMOL/L (21-32) Anion Gap 7 mmol/L (5-15) Blood Urea Nitrogen 13 mg/dL (7-18) Creatinine 0.9 MG/DL (0.55-1.30) Estimat Glomerular Filtration Rate > 60 mL/min (>60) Glucose Level 166 MG/DL (74-106) H Hemoglobin A1c 5.7 % (4.3-6.0) Uric Acid 2.9 MG/DL (2.6-7.2) Calcium Level 10.0 MG/DL (8.5-10.1) Phosphorus Level 4.4 MG/DL (2.5-4.9) Magnesium Level 2.4 MG/DL (1.8-2.4) Iron Level 54 ug/dL (50-175) Total Iron Binding Capacity 173 ug/dL (250-450) L Percent Iron Saturation 31 % (15-50) Unsaturated Iron Binding 119 ug/dL (112-346) Ferritin 814 NG/ML (8-388) H Total Bilirubin 0.3 MG/DL (0.2-1.0) Gamma Glutamyl Transpeptidase 213 U/L (5-85) H Aspartate Amino Transf (AST/SGOT) 21 U/L (15-37) Alanine Aminotransferase (ALT/SGPT) 55 U/L (12-78) Alkaline Phosphatase 105 U/L (46-116) Total Creatine Kinase 23 U/L (26-308) L C-Reactive Protein, Quantitative 14.7 mg/dL (0.00-0.90) H Pro-B-Type Natriuretic Peptide 12 pg/mL (0-125) Total Protein 7.0 G/DL (6.4-8.2) Albumin 2.4 G/DL (3.4-5.0) L Globulin 4.6 g/dL Albumin/Globulin Ratio 0.5 (1.0-2.7) L Lipase > 2000 U/L (73-393) H Vitamin B12 Level 1198 PG/ML (193-986) H Folate 11.1 NG/ML (8.6-58.9) Thyroid Stimulating Hormone (TSH) 2.027 uiU/mL (0.358-3.740) Willy Cameron MD Jun 25, 2018 15:27
[2018-06-25 16:00] VITALS: BP 122/71
--- NOTE | 2018-06-25 17:32 | Cardiology Report ---
APPROVED REPORT EXAM: Two-dimensional and M-mode echocardiogram with Doppler and color Doppler. M-Mode DIMENSIONS IVSd1.3 (0.7-1.1cm)Left Atrium (MM)2.6 (1.6-4.0cm) LVDd4.3 (3.5-5.6cm)Aortic Root3.5 (2.0-3.7cm) PWd1.6 (0.7-1.1cm)Aortic Cusp Exc.2.2 (1.5-2.0cm) LVDs2.3 (2.5-4.0cm) PWs2.2 cm Normal left ventricular chamber size, systolic function and wall motion. Left ventricular ejection fraction estimated to be 70 %. Mild left ventricular hypertrophy. No evidence of pericardial effusion. Moderate posterior pleural effusion. All other cardiac chamber sizes are within normal limits. Mild focal aortic valve sclerosis with adequate cusp excursion. Mildly thickened mitral valve leaflets with normal excursion. Mild mitral annulus and aortic root calcification. Normal pulmonic valve structure. Normal tricuspid valve structure. IVC at normal size with physiologic collapse. A color flow and spectral Doppler study was performed and revealed: Trace mitral regurgitation. Mitral diastolic velocities suggest reduced left ventricular relaxation c/w mild LV diastolic dysfunction (Grade I). Trace to mild tricuspid regurgitation. Tricuspid systolic velocities suggests peak right ventricular systolic pressure of 28 mmHg.
[2018-06-25 20:00] VITALS: BP 121/74
[2018-06-25] MEDS: TPN IV SCH (20:00)
[2018-06-25] MEDS: FAT EMULSION 20% IV SCH (20:00)
[2018-06-25] MEDS: Dyna-Hex 2% Top Sol 2oz TOPIC SCH (20:15)
[2018-06-25] MEDS ORDERED: TPN IV SCH (21:00)
[2018-06-25] MEDS ORDERED: FAT EMULSION 20% IV SCH (21:00)
[2018-06-26] VITALS: BP 125/78
[2018-06-26] MEDS: Insulin NovoLOG Flexpen S/S (Mod) SUBQ SCH ×4 (00:29→17:48)
[2018-06-26 04:00] VITALS: BP 125/75
[2018-06-26] MEDS: Meropenem 1 GM in NS 55 ML IVPB SCH ×3 (04:10→19:46)
[2018-06-26] MEDS: chlordiazePOXIDE 25mg Cap ORAL SCH ×3 (05:29→22:06)
[2018-06-26] MEDS: cloNIDine 0.2mg Tab ORAL SCH ×2 (05:30→13:43)
[2018-06-26 06:32] LABS: BASOPHILS % (AUTO) 1.2 % (0.0-2.0); EOSINOPHILS % (AUTO) 3.7 % (0.0-3.0); HEMATOCRIT 39.5 % (42.0-52.0); HEMOGLOBIN 12.8 G/DL (14.2-18.0); LYMPHOCYTES % (AUTO) 23.1 % (20.0-45.0); MEAN CORPUSCULAR VOLUME 87 FL (80-99); MONOCYTES % (AUTO) 15.6 % (1.0-10.0); NEUTROPHILS % (AUTO) 56.4 % (45.0-75.0); PLATELET COUNT 415 K/UL (150-450); RED BLOOD COUNT 4.55 M/UL (4.70-6.10); WHITE BLOOD COUNT 8.5 K/UL (4.8-10.8)
[2018-06-26 08:00] VITALS: BP 118/72
[2018-06-26 08:16] LABS: ALANINE AMINOTRANSFERASE 55 U/L (12-78); ALBUMIN 2.4 G/DL (3.4-5.0); ALBUMIN/GLOBULIN RATIO 0.5 (1.0-2.7); ALKALINE PHOSPHATASE 92 U/L (46-116); ANION GAP 9 mmol/L (5-15); ASPARTATE AMINO TRANSFERASE 24 U/L (15-37); BILIRUBIN,TOTAL 0.3 MG/DL (0.2-1.0); BLOOD UREA NITROGEN 15 mg/dL (7-18); CALCIUM 9.9 MG/DL (8.5-10.1); CARBON DIOXIDE 27 MMOL/L (21-32); CHLORIDE 106 MMOL/L (98-107); CREATININE 0.9 MG/DL (0.55-1.30); SODIUM 142 MMOL/L (136-145)
[2018-06-26 08:18] LABS: PHOSPHORUS 5.2 MG/DL (2.5-4.9)
[2018-06-26] MEDS: Heparin 5000 units/ml inj SUBQ SCH ×2 (09:35→21:14)
[2018-06-26] MEDS: Pantoprazole Inj IVP SCH ×2 (09:37→21:13)
[2018-06-26] MEDS: Metoprolol 25mg tab ORAL SCH ×2 (09:40→21:14)
[2018-06-26] MEDS: Lisinopril 20mg tab ORAL SCH (09:44)
--- NOTE | 2018-06-26 10:34 | GI Progress Note ---
Assessment/Plan Problems: (1) Pancreatitis ICD Codes: K85.90 - Acute pancreatitis without necrosis or infection, unspecified SNOMED: 41545065 (2) Abdominal pain ICD Codes: R10.9 - Unspecified abdominal pain SNOMED: 20311546 (3) ETOH abuse ICD Codes: F10.10 - Alcohol abuse, uncomplicated SNOMED: 36451655 Status: unchanged Status Narrative Discussed with Dr. Pineda Assessment/Plan Repeat abdominal CT reviewed >> - uncomplicated acute pancreatitis, with peripancreatic phlegmon which is essentially stable. - New finding of presacral edema. - Increased bilateral pleural effusions now small to moderate in size. Resultant compressive atelectasis of portions of both lower lobes again demonstrated - Wall thickening of the distal duodenum and proximal jejunum in the area of pancreatic phlegmon, presumably reactive related to the adjacent inflammation Lipase remains elevated to palpable Recommendations - Bowel rest, maintain n.p.o. plus TPN - IVFs when off TPN. -Encourage ambulation - follow lab and exam - continue abx -Repeat lipase levels -Pain management The patient was seen and examined at bedside and all new and available data was reviewed in the patients chart. I agree with the above findings, impression and plan. (Patient seen earlier today. Signature stamp does not reflect patient encounter time.). - Juma Pineda MD Subjective Subjective Patient still complains of abdominal pain and lower back pain Objective Last 24 Hour Vital Signs Date Time Temp Pulse Resp B/P (MAP) Pulse Ox O2 Delivery O2 Flow Rate FiO2 06/26/18 09:44 118/72 06/26/18 09:40 73 118/72 06/26/18 09:00 Room Air 06/26/18 09:00 73 118/72 06/26/18 08:00 97.3 60 20 118/72 (87) 97 06/26/18 08:00 65 06/26/18 05:30 119/80 06/26/18 04:00 96.7 96 18 125/75 (92) 97 06/26/18 04:00 60 06/26/18 00:00 97.3 63 19 125/78 (94) 96 06/26/18 00:00 58 06/25/18 22:00 108/80 06/25/18 21:31 70 121/79 06/25/18 21:00 Room Air 06/25/18 20:00 97.0 70 18 121/74 (90) 95 06/25/18 20:00 79 06/25/18 17:34 74 122/71 06/25/18 16:00 98.0 74 18 122/71 (88) 96 06/25/18 15:47 74 06/25/18 13:18 127/70 06/25/18 12:00 97.9 81 19 127/70 (89) 96 06/25/18 11:48 79 Intake and Output 06/25/18 06/26/18 19:00 07:00 Intake Total 2720 ml Balance 2720 ml Intake Oral 100 ml IV Total 2620 ml # Voids 2 # Bowel Movements 1 Laboratory Tests Test 06/26/18 05:17 White Blood Count 8.5 K/UL (4.8-10.8) Red Blood Count 4.55 M/UL (4.70-6.10) L Hemoglobin 12.8 G/DL (14.2-18.0) L Hematocrit 39.5 % (42.0-52.0) L Mean Corpuscular Volume 87 FL (80-99) Mean Corpuscular Hemoglobin 28.0 PG (27.0-31.0) Mean Corpuscular Hemoglobin Concent 32.3 G/DL (32.0-36.0) Red Cell Distribution Width 13.0 % (11.6-14.8) Platelet Count 415 K/UL (150-450) Mean Platelet Volume 5.9 FL (6.5-10.1) L Neutrophils (%) (Auto) 56.4 % (45.0-75.0) Lymphocytes (%) (Auto) 23.1 % (20.0-45.0) Monocytes (%) (Auto) 15.6 % (1.0-10.0) H Eosinophils (%) (Auto) 3.7 % (0.0-3.0) H Basophils (%) (Auto) 1.2 % (0.0-2.0) Sodium Level 142 MMOL/L (136-145) Potassium Level 4.0 MMOL/L (3.5-5.1) Chloride Level 106 MMOL/L (98-107) Carbon Dioxide Level 27 MMOL/L (21-32) Anion Gap 9 mmol/L (5-15) Blood Urea Nitrogen 15 mg/dL (7-18) Creatinine 0.9 MG/DL (0.55-1.30) Estimat Glomerular Filtration Rate > 60 mL/min (>60) Glucose Level 132 MG/DL (74-106) H Uric Acid 3.8 MG/DL (2.6-7.2) Calcium Level 9.9 MG/DL (8.5-10.1) Calcium (Send out) Pending Phosphorus Level 5.2 MG/DL (2.5-4.9) H Total Bilirubin 0.3 MG/DL (0.2-1.0) Aspartate Amino Transf (AST/SGOT) 24 U/L (15-37) Alanine Aminotransferase (ALT/SGPT) 55 U/L (12-78) Alkaline Phosphatase 92 U/L (46-116) Total Protein 6.9 G/DL (6.4-8.2) Albumin 2.4 G/DL (3.4-5.0) L Globulin 4.5 g/dL Albumin/Globulin Ratio 0.5 (1.0-2.7) L Lipase > 2000 U/L (73-393) H Parathyroid Hormone (Intact) Pending Height (Feet): 5 Height (Inches): 6.00 Weight (Pounds): 191 General Appearance: WD/WN, no apparent distress, alert Cardiovascular: normal rate Respiratory/Chest: normal breath sounds, no respiratory distress Abdominal Exam: normal bowel sounds, non tender, soft Extremities: normal range of motion, non-tender Nixon Alanis NP Jun 26, 2018 10:34
[2018-06-26 12:00] VITALS: BP 115/79
--- NOTE | 2018-06-26 12:08 | General Progress Note ---
Assessment/Plan Assessment/Plan #Acute pancreatitis, suspected to be due to excess alcohol consumption, lipase remains elevated -continue TPN via PICC --GI following -Nephrology following -continue LR @ 150 ml/h -continue IV Zofran -cont IV hydromorphone for pain -US RUQ without stones; CT scan results reviewed with radiology, no abscess noted -Lipid panel without hypertriglyceridemia #Sepsis -ID following -Continue Meropenem to complete 10 days -f/u cultures- negative to date -CT A/P without apparent necrosis #Elevated blood pressure due to pain, may have undiagnosed HTN, much better control today -continue telemetry -seen by Cardiology -continue Procardia, clonidine, Lopressor and lisinopril #Hypokalemia -continue to monitor #Hypercalcemia, resolved -likely due to dehydration -continue to monitor -IVF's as above #anemia, acute blood loss -Likely secondary to vigorous hydration -no signs or symptoms for overt GI bleed -contnue to monitor closely VTE PPx Heparin Full Code Subjective Date patient seen: Jun 26, 2018 Time patient seen: 12:02 ROS Limited/Unobtainable: No Constitutional: Denies: chills, fever HEENT: Denies: eye pain Cardiovascular: Denies: chest pain Respiratory: Denies: cough Gastrointestinal/Abdominal: Reports: abdomen distended, abdominal pain Allergies: Coded Allergies: No Known Allergies (Unverified , 06/22/13) Subjective Medicine follow up for acute pancreatitis, likely alcohol induced. Persistent symptoms. Tolerating TPN. Objective Last 24 Hour Vital Signs Date Time Temp Pulse Resp B/P (MAP) Pulse Ox O2 Delivery O2 Flow Rate FiO2 06/26/18 09:44 118/72 06/26/18 09:40 73 118/72 06/26/18 09:00 Room Air 06/26/18 09:00 73 118/72 06/26/18 08:00 97.3 60 20 118/72 (87) 97 06/26/18 08:00 65 06/26/18 05:30 119/80 06/26/18 04:00 96.7 96 18 125/75 (92) 97 06/26/18 04:00 60 06/26/18 00:00 97.3 63 19 125/78 (94) 96 06/26/18 00:00 58 06/25/18 22:00 108/80 06/25/18 21:31 70 121/79 06/25/18 21:00 Room Air 06/25/18 20:00 97.0 70 18 121/74 (90) 95 06/25/18 20:00 79 06/25/18 17:34 74 122/71 06/25/18 16:00 98.0 74 18 122/71 (88) 96 06/25/18 15:47 74 06/25/18 13:18 127/70 Intake and Output 06/25/18 06/26/18 19:00 07:00 Intake Total 2720 ml Balance 2720 ml Intake Oral 100 ml IV Total 2620 ml # Voids 2 # Bowel Movements 1 Laboratory Tests 06/26/18 05:17: White Blood Count 8.5, Red Blood Count 4.55L, Hemoglobin 12.8L, Hematocrit 39.5L , Mean Corpuscular Volume 87, Mean Corpuscular Hemoglobin 28.0, Mean Corpuscular Hemoglobin Concent 32.3, Red Cell Distribution Width 13.0, Platelet Count 415, Mean Platelet Volume 5.9L, Neutrophils (%) (Auto) 56.4, Lymphocytes ( %) (Auto) 23.1, Monocytes (%) (Auto) 15.6H, Eosinophils (%) (Auto) 3.7H, Basophils (%) (Auto) 1.2, Sodium Level 142, Potassium Level 4.0, Chloride Level 106, Carbon Dioxide Level 27, Anion Gap 9, Blood Urea Nitrogen 15, Creatinine 0.9, Estimat Glomerular Filtration Rate > 60, Glucose Level 132H, Uric Acid 3.8 , Calcium Level 9.9, Calcium (Send out) [Pending], Phosphorus Level 5.2H, Total Bilirubin 0.3, Aspartate Amino Transf (AST/SGOT) 24, Alanine Aminotransferase ( ALT/SGPT) 55, Alkaline Phosphatase 92, Total Protein 6.9, Albumin 2.4L, Globulin 4.5, Albumin/Globulin Ratio 0.5L, Lipase > 2000H, Parathyroid Hormone ( Intact) [Pending] Height (Feet): 5 Height (Inches): 6.00 Weight (Pounds): 191 General Appearance: no apparent distress, alert Neck: supple, normal inspection Cardiovascular: normal rate, regular rhythm Respiratory/Chest: lungs clear, normal breath sounds Abdomen: non tender, soft Neurologic: alert, oriented x 3, responsive Thaddeus Leon MD Jun 26, 2018 12:08
--- NOTE | 2018-06-26 13:01 | Infectious Diseases Prog Note ---
Assessment/Plan Assessment/Plan ASSESSMENT AND PLAN: 1. sepsis, acute pancreatitis, leukocytosis, fevers, sirs, likely atx, CT noted - - clinically better, fevers and leukocytosis better, still some abdominal pain but less - continue meropenem - day # 8/10 - chest x-ray stable - monitor labs - TPN 2. possible HTN - bp tx per primary team 3. No known allergies. 4. Social history positive for alcohol use. 5. Family history noncontributory. 6. MAR was noted. 7. Case discussed with RN. 8. Continue treatment per primary consultants. 9. Case communicated with Dr. Holden. 10. Notes and records were noted. Orders were entered. Subjective Constitutional: Denies: fever HEENT: Denies: congestion Respiratory: Denies: shortness of breath Cardiovascular: Denies: chest pain Gastrointestinal/Abdominal: Denies: nausea, vomiting, diarrhea, other - less abdominal pain Genitourinary: Denies: dysuria, hematuria, frequency Neurologic: Denies: headache Psychiatric: Denies: depression Skin: Denies: rash Hematologic: Denies: bleeding Allergies: Coded Allergies: No Known Allergies (Unverified , 06/22/13) Objective Vital Signs Last 24 Hour Vital Signs Date Time Temp Pulse Resp B/P (MAP) Pulse Ox O2 Delivery O2 Flow Rate FiO2 06/26/18 12:00 98.0 61 20 115/79 (91) 94 06/26/18 09:44 118/72 06/26/18 09:40 73 118/72 06/26/18 09:00 Room Air 06/26/18 09:00 73 118/72 06/26/18 08:00 97.3 60 20 118/72 (87) 97 06/26/18 08:00 65 06/26/18 05:30 119/80 06/26/18 04:00 96.7 96 18 125/75 (92) 97 06/26/18 04:00 60 06/26/18 00:00 97.3 63 19 125/78 (94) 96 06/26/18 00:00 58 06/25/18 22:00 108/80 06/25/18 21:31 70 121/79 06/25/18 21:00 Room Air 06/25/18 20:00 97.0 70 18 121/74 (90) 95 06/25/18 20:00 79 06/25/18 17:34 74 122/71 06/25/18 16:00 98.0 74 18 122/71 (88) 96 06/25/18 15:47 74 06/25/18 13:18 127/70 Height (Feet): 5 Height (Inches): 6.00 Weight (Pounds): 191 General Appearance: no acute distress HEENT: normocephalic, atraumatic, anicteric, mucous membranes moist Respiratory/Chest: lungs clear, normal breath sounds, no respiratory distress, no accessory muscle use Cardiovascular: normal rate, regular rhythm, no gallop/murmur, no JVD Abdomen: normal bowel sounds, soft, non tender, no organomegaly, non distended Genitourinary: other - no rosado Extremities: no cyanosis Skin: no rash 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 Left lung base atelectasis/airspace disease. Pleural space: Tiny left pleural effusion. No pneumothorax. Heart: Slightly prominent cardiac silhouette. Mediastinum: Unremarkable. Bones/joints: Unremarkable. IMPRESSION: 1. Mild interstitial prominence. Left lung base atelectasis/airspace disease. Tiny left pleural effusion. Query pneumonia. Chest x-ray - 06/23/18 - Comparison: 06/20/2018 Findings: Left-sided pleural effusion persists. Mild interstitial congestion is unchanged. Impression: Unchanged, over 3 days, findings as above. CT abdomen and pelvis - 06/23/18 - Impression: Findings consistent with uncomplicated acute pancreatitis, with peripancreatic phlegmon which is essentially stable when compared to prior study of 3 days earlier. There is slightly decreased free intraperitoneal fluid. No evidence of necrosis, abscess, or pseudocyst formation. Slightly increased edema of the lumbar and bilateral flank subcutaneous fat New finding of presacral edema. Of uncertain significance, uncertain as to whether related to the pancreatitis or, more likely, related to the generalized increase in soft tissue edema Increased bilateral pleural effusions now small to moderate in size. Resultant compressive atelectasis of portions of both lower lobes again demonstrated Wall thickening of the distal duodenum and proximal jejunum in the area of pancreatic phlegmon, presumably reactive related to the adjacent inflammation Stable densely calcified right lobe liver lesion, presumably postinflammatory Prominent, for age, prostate Microbiology Date/Time Source Procedure Growth Status 06/19/18 19:08 Blood Blood Culture - Final NO GROWTH AFTER 5 DAYS Complete 06/25/18 04:00 Sputum Induced Gram Stain - Final Resulted 06/25/18 04:00 Sputum Induced Sputum Culture Pending Resulted Microbiology Date/Time Source Procedure Growth Status 06/25/18 04:00 Sputum Induced Gram Stain - Final Resulted 06/25/18 04:00 Sputum Induced Sputum Culture Pending Resulted Laboratory Tests Test 06/26/18 05:17 White Blood Count 8.5 K/UL (4.8-10.8) Red Blood Count 4.55 M/UL (4.70-6.10) L Hemoglobin 12.8 G/DL (14.2-18.0) L Hematocrit 39.5 % (42.0-52.0) L Mean Corpuscular Volume 87 FL (80-99) Mean Corpuscular Hemoglobin 28.0 PG (27.0-31.0) Mean Corpuscular Hemoglobin Concent 32.3 G/DL (32.0-36.0) Red Cell Distribution Width 13.0 % (11.6-14.8) Platelet Count 415 K/UL (150-450) Mean Platelet Volume 5.9 FL (6.5-10.1) L Neutrophils (%) (Auto) 56.4 % (45.0-75.0) Lymphocytes (%) (Auto) 23.1 % (20.0-45.0) Monocytes (%) (Auto) 15.6 % (1.0-10.0) H Eosinophils (%) (Auto) 3.7 % (0.0-3.0) H Basophils (%) (Auto) 1.2 % (0.0-2.0) Sodium Level 142 MMOL/L (136-145) Potassium Level 4.0 MMOL/L (3.5-5.1) Chloride Level 106 MMOL/L (98-107) Carbon Dioxide Level 27 MMOL/L (21-32) Anion Gap 9 mmol/L (5-15) Blood Urea Nitrogen 15 mg/dL (7-18) Creatinine 0.9 MG/DL (0.55-1.30) Estimat Glomerular Filtration Rate > 60 mL/min (>60) Glucose Level 132 MG/DL (74-106) H Uric Acid 3.8 MG/DL (2.6-7.2) Calcium Level 9.9 MG/DL (8.5-10.1) Calcium (Send out) Pending Phosphorus Level 5.2 MG/DL (2.5-4.9) H Total Bilirubin 0.3 MG/DL (0.2-1.0) Aspartate Amino Transf (AST/SGOT) 24 U/L (15-37) Alanine Aminotransferase (ALT/SGPT) 55 U/L (12-78) Alkaline Phosphatase 92 U/L (46-116) Total Protein 6.9 G/DL (6.4-8.2) Albumin 2.4 G/DL (3.4-5.0) L Globulin 4.5 g/dL Albumin/Globulin Ratio 0.5 (1.0-2.7) L Lipase > 2000 U/L (73-393) H Parathyroid Hormone (Intact) Pending Current Medications Medications (Trade) Dose Ordered Sig/Jennifer Route PRN Reason Start Time Stop Time Status Last Admin Dose Admin Acetaminophen (Tylenol) 650 mg Q4H PRN ORAL fever 06/17/18 14:30 07/17/18 14:29 06/21/18 05:07 Chlordiazepoxide (Librium) 25 mg Q8HR ORAL 06/24/18 22:00 07/01/18 21:59 06/26/18 05:29 Chlorhexidine Gluconate (Aleja-Hex 2%) 1 applic DAILY@2000 TOPIC 06/24/18 20:00 07/24/18 19:59 06/25/18 20:15 Clonidine HCl (Catapres tab) 0.2 mg Q8HR ORAL 06/25/18 14:00 07/24/18 17:59 06/25/18 13:18 Dextrose (Dextrose 50%) 25 ml Q30M PRN IV Hypoglycemia 06/17/18 14:30 07/17/18 14:29 Dextrose (Dextrose 50%) 50 ml Q30M PRN IV Hypoglycemia 06/17/18 14:30 07/17/18 14:29 Fat Emulsion Intravenous 192 ml/Amino Acids/ Electrolytes/ Dextrose 2,040 ml @ 85 mls/hr Q24H IV 06/25/18 21:00 06/26/18 20:59 06/25/18 21:29 Fat Emulsion Intravenous 192 ml/Amino Acids/ Electrolytes/ Dextrose 2,040 ml @ 85 mls/hr Q24H IV 06/26/18 21:00 07/26/18 20:59 Fluoxetine HCl (PROzac) 20 mg DAILY ORAL 06/25/18 13:00 07/25/18 12:59 06/26/18 09:36 Heparin Sodium (Porcine) (Heparin 5000 units/ml) 5,000 units EVERY 12 HOURS SUBQ 06/17/18 21:00 07/17/18 20:59 06/26/18 09:35 Heparin Sodium/ Sodium Chloride (Heparin 1000 units/500ml Premix) 1,000 unit ONCE PRN IV FOR PICC PLACEMENT 06/24/18 11:00 06/26/18 23:59 Hydromorphone HCl (Dilaudid) 1.5 mg Q4H PRN IVP Severe Pain (Pain Scale 7-10) 06/21/18 20:33 06/28/18 20:32 06/26/18 09:35 Insulin Aspart (NovoLOG) No Dose Q6HR SUBQ 06/25/18 00:00 07/25/18 00:00 06/26/18 12:24 Lidocaine HCl (Xylocaine 1% 30ml) 30 ml ONCE PRN INJ PICC PLACEMENT 06/24/18 11:00 06/26/18 23:59 Lisinopril (Prinivil) 40 mg DAILY ORAL 06/23/18 09:00 07/23/18 08:59 06/26/18 09:44 Meropenem 1 gm/ Sodium Chloride 55 ml @ 110 mls/hr Q8H IVPB 06/22/18 20:00 06/27/18 19:59 06/26/18 12:23 Metoprolol Tartrate (Lopressor) 25 mg Q12HR ORAL 06/24/18 21:00 07/24/18 20:59 06/26/18 09:40 Minoxidil (Loniten) 2.5 mg Q4H PRN ORAL bp over 170 syst 06/24/18 16:47 07/24/18 16:46 Nifedipine (Procardia XL) 30 mg BID ORAL 06/25/18 09:00 07/24/18 17:59 06/25/18 17:34 Ondansetron HCl (Zofran) 4 mg Q6H PRN IVP Nausea & Vomiting 06/17/18 14:30 07/17/18 14:29 06/21/18 21:29 Pantoprazole (Protonix) 40 mg Q12HR IVP 06/24/18 21:00 07/25/18 08:59 06/26/18 09:37 Phytonadione (Vitamin K) 10 mg QWEEK SUBQ 07/01/18 09:00 07/31/18 08:59 Rakesh Teran MD Jun 26, 2018 13:01
--- NOTE | 2018-06-26 13:15 | Cardiology Progress Note ---
Subjective Cardiovascular: Reports: no symptoms Respiratory: Reports: no symptoms Gastrointestinal/Abdominal: Reports: no symptoms Genitourinary: Reports: no symptoms Subjective Blood pressure controlled, LFT coming down, on liquid diet, pain controlled, lipase still elevated, remains on TPN Objective Last 24 Hour Vital Signs Date Time Temp Pulse Resp B/P (MAP) Pulse Ox O2 Delivery O2 Flow Rate FiO2 06/26/18 12:00 98.0 61 20 115/79 (91) 94 06/26/18 09:44 118/72 06/26/18 09:40 73 118/72 06/26/18 09:00 Room Air 06/26/18 09:00 73 118/72 06/26/18 08:00 97.3 60 20 118/72 (87) 97 06/26/18 08:00 65 06/26/18 05:30 119/80 06/26/18 04:00 96.7 96 18 125/75 (92) 97 06/26/18 04:00 60 06/26/18 00:00 97.3 63 19 125/78 (94) 96 06/26/18 00:00 58 06/25/18 22:00 108/80 06/25/18 21:31 70 121/79 06/25/18 21:00 Room Air 06/25/18 20:00 97.0 70 18 121/74 (90) 95 06/25/18 20:00 79 06/25/18 17:34 74 122/71 06/25/18 16:00 98.0 74 18 122/71 (88) 96 06/25/18 15:47 74 06/25/18 13:18 127/70 General Appearance: no apparent distress, alert EENT: PERRL/EOMI, TMs normal, pharynx normal Neck: non-tender, normal alignment, supple, normal inspection, no JVD Rhythm: NSR Cardiovascular: normal rate, regular rhythm Respiratory/Chest: chest wall non-tender, lungs clear, normal breath sounds Abdomen: absent bowel sounds, distended, guarding Extremities: normal range of motion, non-tender, normal inspection, no calf tenderness 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, no motor/sensory deficits Intake and Output 06/25/18 06/26/18 19:00 07:00 Intake Total 2720 ml Balance 2720 ml Intake Oral 100 ml IV Total 2620 ml # Voids 2 # Bowel Movements 1 Laboratory Tests Test 06/26/18 05:17 White Blood Count 8.5 K/UL (4.8-10.8) Red Blood Count 4.55 M/UL (4.70-6.10) L Hemoglobin 12.8 G/DL (14.2-18.0) L Hematocrit 39.5 % (42.0-52.0) L Mean Corpuscular Volume 87 FL (80-99) Mean Corpuscular Hemoglobin 28.0 PG (27.0-31.0) Mean Corpuscular Hemoglobin Concent 32.3 G/DL (32.0-36.0) Red Cell Distribution Width 13.0 % (11.6-14.8) Platelet Count 415 K/UL (150-450) Mean Platelet Volume 5.9 FL (6.5-10.1) L Neutrophils (%) (Auto) 56.4 % (45.0-75.0) Lymphocytes (%) (Auto) 23.1 % (20.0-45.0) Monocytes (%) (Auto) 15.6 % (1.0-10.0) H Eosinophils (%) (Auto) 3.7 % (0.0-3.0) H Basophils (%) (Auto) 1.2 % (0.0-2.0) Sodium Level 142 MMOL/L (136-145) Potassium Level 4.0 MMOL/L (3.5-5.1) Chloride Level 106 MMOL/L (98-107) Carbon Dioxide Level 27 MMOL/L (21-32) Anion Gap 9 mmol/L (5-15) Blood Urea Nitrogen 15 mg/dL (7-18) Creatinine 0.9 MG/DL (0.55-1.30) Estimat Glomerular Filtration Rate > 60 mL/min (>60) Glucose Level 132 MG/DL (74-106) H Uric Acid 3.8 MG/DL (2.6-7.2) Calcium Level 9.9 MG/DL (8.5-10.1) Calcium (Send out) Pending Phosphorus Level 5.2 MG/DL (2.5-4.9) H Total Bilirubin 0.3 MG/DL (0.2-1.0) Aspartate Amino Transf (AST/SGOT) 24 U/L (15-37) Alanine Aminotransferase (ALT/SGPT) 55 U/L (12-78) Alkaline Phosphatase 92 U/L (46-116) Total Protein 6.9 G/DL (6.4-8.2) Albumin 2.4 G/DL (3.4-5.0) L Globulin 4.5 g/dL Albumin/Globulin Ratio 0.5 (1.0-2.7) L Lipase > 2000 U/L (73-393) H Parathyroid Hormone (Intact) Pending Microbiology Date/Time Source Procedure Growth Status 06/25/18 04:00 Sputum Induced Gram Stain - Final Resulted 06/25/18 04:00 Sputum Induced Sputum Culture Pending Resulted Willy Cameron MD Jun 26, 2018 13:15
[2018-06-26 16:00] VITALS: BP 140/99
--- NOTE | 2018-06-26 17:01 | Nephrology Progress Note ---
Assessment/Plan Problem List: (1) Hypertensive urgency (2) Hypercalcemia (3) Anemia Assessment # Elevated blood pressure OOC #Hypercalcemia, # Hypokalemia #Acute pancreatitis, suspected to be due to excess alcohol consumption, lipase remains elevated #Sepsis #anemia, acute blood loss Plan Adjust BP meds , per order Monitor renal parameters, Lytes and Ca and Phos Per orders check PTH level Subjective ROS Limited/Unobtainable: No Objective Objective Last 24 Hour Vital Signs Date Time Temp Pulse Resp B/P (MAP) Pulse Ox O2 Delivery O2 Flow Rate FiO2 06/26/18 13:43 115/79 06/26/18 12:00 98.0 61 20 115/79 (91) 94 06/26/18 12:00 62 06/26/18 09:44 118/72 06/26/18 09:40 73 118/72 06/26/18 09:00 Room Air 06/26/18 09:00 73 118/72 06/26/18 08:00 97.3 60 20 118/72 (87) 97 06/26/18 08:00 65 06/26/18 05:30 119/80 06/26/18 04:00 96.7 96 18 125/75 (92) 97 06/26/18 04:00 60 06/26/18 00:00 97.3 63 19 125/78 (94) 96 06/26/18 00:00 58 06/25/18 22:00 108/80 06/25/18 21:31 70 121/79 06/25/18 21:00 Room Air 06/25/18 20:00 97.0 70 18 121/74 (90) 95 06/25/18 20:00 79 06/25/18 17:34 74 122/71 Intake and Output 06/25/18 06/26/18 19:00 07:00 Intake Total 2720 ml Balance 2720 ml Intake Oral 100 ml IV Total 2620 ml # Voids 2 # Bowel Movements 1 Laboratory Tests 06/26/18 05:17: White Blood Count 8.5, Red Blood Count 4.55L, Hemoglobin 12.8L, Hematocrit 39.5L , Mean Corpuscular Volume 87, Mean Corpuscular Hemoglobin 28.0, Mean Corpuscular Hemoglobin Concent 32.3, Red Cell Distribution Width 13.0, Platelet Count 415, Mean Platelet Volume 5.9L, Neutrophils (%) (Auto) 56.4, Lymphocytes ( %) (Auto) 23.1, Monocytes (%) (Auto) 15.6H, Eosinophils (%) (Auto) 3.7H, Basophils (%) (Auto) 1.2, Sodium Level 142, Potassium Level 4.0, Chloride Level 106, Carbon Dioxide Level 27, Anion Gap 9, Blood Urea Nitrogen 15, Creatinine 0.9, Estimat Glomerular Filtration Rate > 60, Glucose Level 132H, Uric Acid 3.8 , Calcium Level 9.9, Calcium (Send out) [Pending], Phosphorus Level 5.2H, Total Bilirubin 0.3, Aspartate Amino Transf (AST/SGOT) 24, Alanine Aminotransferase ( ALT/SGPT) 55, Alkaline Phosphatase 92, Total Protein 6.9, Albumin 2.4L, Globulin 4.5, Albumin/Globulin Ratio 0.5L, Lipase > 2000H, Parathyroid Hormone ( Intact) [Pending] Height (Feet): 5 Height (Inches): 6.00 Weight (Pounds): 191 General Appearance: no apparent distress Abdomen: distended Objective no other change Edgar Richardson MD Jun 26, 2018 17:01
[2018-06-26] MEDS: Dyna-Hex 2% Top Sol 2oz TOPIC SCH (19:45)
[2018-06-26 20:00] VITALS: BP 150/97
[2018-06-26] MEDS ORDERED: FAT EMULSION 20% IV SCH (21:00)
[2018-06-26] MEDS ORDERED: TPN IV SCH (21:00)
--- NOTE | 2018-06-26 23:29 | Psych Consult Progress Note ---
Psychiatry Progress Note Psychiatry Progress Note Medications Current Medications Medications (Trade) Dose Ordered Sig/Jennifer Route PRN Reason Start Time Stop Time Status Last Admin Dose Admin Acetaminophen (Tylenol) 650 mg Q4H PRN ORAL fever 06/17/18 14:30 07/17/18 14:29 06/21/18 05:07 Chlordiazepoxide (Librium) 25 mg Q8HR ORAL 06/24/18 22:00 07/01/18 21:59 06/26/18 22:06 Chlorhexidine Gluconate (Aleja-Hex 2%) 1 applic DAILY@2000 TOPIC 06/24/18 20:00 07/24/18 19:59 06/26/18 19:45 Clonidine HCl (Catapres Tab) 0.1 mg Q8HR ORAL 06/26/18 22:00 07/24/18 17:59 06/26/18 22:06 Dextrose (Dextrose 50%) 25 ml Q30M PRN IV Hypoglycemia 06/17/18 14:30 07/17/18 14:29 Dextrose (Dextrose 50%) 50 ml Q30M PRN IV Hypoglycemia 06/17/18 14:30 07/17/18 14:29 Fat Emulsion Intravenous 192 ml/Amino Acids/ Electrolytes/ Dextrose 2,040 ml @ 85 mls/hr Q24H IV 06/26/18 21:00 07/26/18 20:59 06/26/18 19:51 Fluoxetine HCl (PROzac) 20 mg DAILY ORAL 06/25/18 13:00 07/25/18 12:59 06/26/18 09:36 Heparin Sodium (Porcine) (Heparin 5000 units/ml) 5,000 units EVERY 12 HOURS SUBQ 06/17/18 21:00 07/17/18 20:59 06/26/18 21:14 Heparin Sodium/ Sodium Chloride (Heparin 1000 units/500ml Premix) 1,000 unit ONCE PRN IV FOR PICC PLACEMENT 06/24/18 11:00 06/26/18 23:59 Hydromorphone HCl (Dilaudid) 1.5 mg Q4H PRN IVP Severe Pain (Pain Scale 7-10) 06/21/18 20:33 06/28/18 20:32 06/26/18 19:45 Insulin Aspart (NovoLOG) No Dose Q6HR SUBQ 06/25/18 00:00 07/25/18 00:00 06/26/18 17:48 Lidocaine HCl (Xylocaine 1% 30ml) 30 ml ONCE PRN INJ PICC PLACEMENT 06/24/18 11:00 06/26/18 23:59 Lisinopril (Prinivil) 40 mg DAILY ORAL 06/23/18 09:00 07/23/18 08:59 06/26/18 09:44 Meropenem 1 gm/ Sodium Chloride 55 ml @ 110 mls/hr Q8H IVPB 06/26/18 20:00 07/01/18 19:59 06/26/18 19:46 Metoprolol Tartrate (Lopressor) 25 mg Q12HR ORAL 06/24/18 21:00 07/24/18 20:59 06/26/18 21:14 Minoxidil (Loniten) 2.5 mg Q4H PRN ORAL bp over 170 syst 06/24/18 16:47 07/24/18 16:46 Nifedipine (Procardia XL) 30 mg BID ORAL 06/25/18 09:00 07/24/18 17:59 06/26/18 17:48 Ondansetron HCl (Zofran) 4 mg Q6H PRN IVP Nausea & Vomiting 06/17/18 14:30 07/17/18 14:29 06/21/18 21:29 Pantoprazole (Protonix) 40 mg Q12HR IVP 06/24/18 21:00 07/25/18 08:59 06/26/18 21:13 Phytonadione (Vitamin K) 10 mg QWEEK SUBQ 07/01/18 09:00 07/31/18 08:59 Neurological/Psychiatric: Reports: anxiety, depressed Allergies: Coded Allergies: No Known Allergies (Unverified , 06/22/13) Objective Data Height (Feet): 5 Height (Inches): 6.00 Weight (Pounds): 191 General Appearance: WD/WN, no apparent distress, alert Assessment/Plan Status: stable Assessment/Plan librium was dec to 25mg bid prozac 20mg po daily Kenji Shook MD Jun 26, 2018 23:29
[2018-06-27] VITALS (7 sets, daily range): BP systolic 130–150; BP diastolic 80–96
[2018-06-27] MEDS: Insulin NovoLOG Flexpen S/S (Mod) SUBQ SCH ×3 (00:07→11:41)
[2018-06-27] MEDS: Meropenem 1 GM in NS 55 ML IVPB SCH ×3 (04:31→21:01)
[2018-06-27 07:14] LABS: BASOPHILS % (AUTO) 1.2 % (0.0-2.0); EOSINOPHILS % (AUTO) 3.6 % (0.0-3.0); HEMATOCRIT 37.1 % (42.0-52.0); HEMOGLOBIN 12.1 G/DL (14.2-18.0); LYMPHOCYTES % (AUTO) 20.3 % (20.0-45.0); MEAN CORPUSCULAR VOLUME 86 FL (80-99); MONOCYTES % (AUTO) 11.4 % (1.0-10.0); NEUTROPHILS % (AUTO) 63.6 % (45.0-75.0); PLATELET COUNT 420 K/UL (150-450); RED BLOOD COUNT 4.29 M/UL (4.70-6.10); WHITE BLOOD COUNT 8.8 K/UL (4.8-10.8)
[2018-06-27 07:18] LABS: ANION GAP 6 mmol/L (5-15); BLOOD UREA NITROGEN 11 mg/dL (7-18); CALCIUM 9.7 MG/DL (8.5-10.1); CARBON DIOXIDE 30 MMOL/L (21-32); CHLORIDE 105 MMOL/L (98-107); CREATININE 0.9 MG/DL (0.55-1.30); POTASSIUM 3.9 MMOL/L (3.5-5.1); SODIUM 141 MMOL/L (136-145)
[2018-06-27 07:21] LABS: ALANINE AMINOTRANSFERASE 48 U/L (12-78); ALBUMIN 2.2 G/DL (3.4-5.0); ALKALINE PHOSPHATASE 78 U/L (46-116); ASPARTATE AMINO TRANSFERASE 25 U/L (15-37); BILIRUBIN,TOTAL 0.3 MG/DL (0.2-1.0); PHOSPHORUS 6.4 MG/DL (2.5-4.9)
[2018-06-27 07:50] LABS: BILIRUBIN,DIRECT 0.1 MG/DL (0.0-0.3)
[2018-06-27] MEDS: Metoprolol 25mg tab ORAL SCH ×2 (08:15→20:58)
[2018-06-27] MEDS: Lisinopril 20mg tab ORAL SCH (08:15)
[2018-06-27] MEDS: Heparin 5000 units/ml inj SUBQ SCH ×2 (08:16→20:58)
[2018-06-27] MEDS: Pantoprazole Inj IVP SCH ×2 (08:16→20:57)
[2018-06-27] MEDS ORDERED: chlordiazePOXIDE 25mg Cap ORAL SCH (09:00)
--- NOTE | 2018-06-27 13:40 | General Progress Note ---
Assessment/Plan Assessment/Plan Assessment/Plan Assessment/Plan Assessment/Plan #Acute pancreatitis, suspected to be due to excess alcohol consumption, lipase remains elevated -continue TPN via PICC --GI following -Nephrology following -continue LR @ 150 ml/h -continue IV Zofran -cont IV hydromorphone for pain -US RUQ without stones; CT scan results reviewed with radiology, no abscess noted -Lipid panel without hypertriglyceridemia #Sepsis -ID following -Continue Meropenem to complete 10 days -f/u cultures- negative to date -CT A/P without apparent necrosis #Elevated blood pressure due to pain, may have undiagnosed HTN, much better control today -continue telemetry -seen by Cardiology -continue Procardia, clonidine, Lopressor and lisinopril #Hypokalemia -continue to monitor #Hypercalcemia, resolved -likely due to dehydration -continue to monitor -IVF's as above #anemia, acute blood loss -Likely secondary to vigorous hydration -no signs or symptoms for overt GI bleed -contnue to monitor closely VTE PPx Heparin Full Code Subjective Date patient seen: Jun 27, 2018 Time patient seen: 13:38 ROS Limited/Unobtainable: No Constitutional: Reports: no symptoms HEENT: Reports: no symptoms Cardiovascular: Reports: no symptoms Respiratory: Reports: no symptoms Gastrointestinal/Abdominal: Reports: abdominal pain Genitourinary: Reports: no symptoms Neurologic/Psychiatric: Reports: no symptoms Endocrine: Reports: no symptoms Hematologic/Lymphatic: Reports: no symptoms Allergies: Coded Allergies: No Known Allergies (Unverified , 06/22/13) Subjective No acute events overnight no new complaints. Still c/o some generalized abd pain although improved, tolerating TPN, no fevers/chills, no n/v Objective Last 24 Hour Vital Signs Date Time Temp Pulse Resp B/P (MAP) Pulse Ox O2 Delivery O2 Flow Rate FiO2 06/27/18 13:27 134/99 06/27/18 12:35 97.0 62 18 132/92 (105) 99 06/27/18 09:50 97.0 06/27/18 09:00 Room Air 06/27/18 08:15 70 130/80 06/27/18 08:15 70 130/80 06/27/18 08:15 130/80 06/27/18 08:00 97.0 70 18 130/80 (97) 99 06/27/18 07:58 66 06/27/18 06:23 139/91 06/27/18 04:00 58 06/27/18 04:00 97.0 58 18 134/89 (104) 99 06/27/18 00:00 98.1 67 18 150/93 (112) 99 06/27/18 00:00 67 06/26/18 22:06 140/87 06/26/18 21:14 70 151/94 06/26/18 21:00 Room Air 06/26/18 20:00 62 06/26/18 20:00 98.0 62 18 150/97 (114) 99 06/26/18 17:48 95 140/95 06/26/18 16:00 60 06/26/18 16:00 97.5 86 18 140/99 (113) 97 06/26/18 13:43 115/79 Intake and Output 06/26/18 06/27/18 19:00 07:00 Intake Total 790 ml 1045 ml Output Total 1300 ml Balance 790 ml -255 ml IV Total 790 ml 1045 ml Output Urine Total 1300 ml # Voids 3 3 Laboratory Tests 06/27/18 05:30: White Blood Count 8.8, Red Blood Count 4.29L, Hemoglobin 12.1L, Hematocrit 37.1L , Mean Corpuscular Volume 86, Mean Corpuscular Hemoglobin 28.2, Mean Corpuscular Hemoglobin Concent 32.7, Red Cell Distribution Width 13.0, Platelet Count 420, Mean Platelet Volume 6.0L, Neutrophils (%) (Auto) 63.6, Lymphocytes ( %) (Auto) 20.3, Monocytes (%) (Auto) 11.4H, Eosinophils (%) (Auto) 3.6H, Basophils (%) (Auto) 1.2, Sodium Level 141, Potassium Level 3.9, Chloride Level 105, Carbon Dioxide Level 30, Anion Gap 6, Blood Urea Nitrogen 11, Creatinine 0.9, Estimat Glomerular Filtration Rate > 60, Glucose Level 160H, Calcium Level 9.7, Phosphorus Level 6.4H, Magnesium Level 2.3, Total Bilirubin 0.3, Direct Bilirubin 0.1, Aspartate Amino Transf (AST/SGOT) 25, Alanine Aminotransferase ( ALT/SGPT) 48, Alkaline Phosphatase 78, Total Protein 5.8L, Albumin 2.2L, Lipase > 2000H Height (Feet): 5 Height (Inches): 6.00 Weight (Pounds): 191 Objective General: alert, cooperative, no distress, appears stated age Head: normocephalic, without obvious abnormality, atraumatic Eyes: conjunctivae/corneas clear. PERRL, EOM's intact Throat: lips, mucosa, and tongue normal. MMM Neck: supple, symmetrical, trachea midline, and no JVD Lungs: clear to auscultation bilaterally Heart: regular rate and rhythm, S1, S2 normal, no murmur, click, rub or gallop Abdomen: soft, generalized abdominal tenderness, no rebound/guarding, non- distended, bowel sounds normal; no masses or organomegaly Extremities: extremities normal, atraumatic, no cyanosis or edema Pulses: 2+ and symmetric Skin: skin color, texture, turgor normal; no rashes or lesions Neurologic: grossly normal, no focal deficits Danitza Luevano MD Jun 27, 2018 13:40
[2018-06-27] MEDS ORDERED: Minoxidil 2.5mg tab ORAL PRN (14:00)
--- NOTE | 2018-06-27 15:36 | Cardiology Progress Note ---
Assessment/Plan Status: stable Assessment/Plan Assessment/Plan Assessment/Plan Acute pancreatitis, suspected to be due to excess alcohol consumption, lipase remains elevated Sepsis Hypokalemia Hypercalcemia, resolved Anemia, acute blood loss Hypertension, uncontrolled -cont amlodipine -continue lisinopril -Continue cardura -TTE Left ventricular ejection fraction estimated to be 70 %., normal pulmonary pressures, grade 1 diastolic dysfunction Subjective Cardiovascular: Reports: no symptoms Respiratory: Reports: no symptoms Gastrointestinal/Abdominal: Reports: no symptoms Genitourinary: Reports: no symptoms Subjective Blood pressure controlled, LFT coming down, on liquid diet, pain controlled, lipase still elevated, remains on TPN Objective Last 24 Hour Vital Signs Date Time Temp Pulse Resp B/P (MAP) Pulse Ox O2 Delivery O2 Flow Rate FiO2 06/27/18 13:27 134/99 06/27/18 12:35 97.0 62 18 132/92 (105) 99 06/27/18 09:50 97.0 06/27/18 09:00 Room Air 06/27/18 08:15 70 130/80 06/27/18 08:15 70 130/80 06/27/18 08:15 130/80 06/27/18 08:00 97.0 70 18 130/80 (97) 99 06/27/18 07:58 66 06/27/18 06:23 139/91 06/27/18 04:00 58 06/27/18 04:00 97.0 58 18 134/89 (104) 99 06/27/18 00:00 98.1 67 18 150/93 (112) 99 06/27/18 00:00 67 06/26/18 22:06 140/87 06/26/18 21:14 70 151/94 06/26/18 21:00 Room Air 06/26/18 20:00 62 06/26/18 20:00 98.0 62 18 150/97 (114) 99 06/26/18 17:48 95 140/95 06/26/18 16:00 60 06/26/18 16:00 97.5 86 18 140/99 (113) 97 General Appearance: no apparent distress, alert EENT: PERRL/EOMI, normal ENT inspection Neck: non-tender, normal alignment, supple Rhythm: NSR Cardiovascular: normal peripheral pulses, normal rate, regular rhythm Respiratory/Chest: chest wall non-tender, normal breath sounds Abdomen: normal bowel sounds, non tender Extremities: normal range of motion, non-tender Neurologic: [place] tier II-XII grossly normal, no motor/sensory deficits Intake and Output 06/26/18 06/27/18 19:00 07:00 Intake Total 790 ml 1045 ml Output Total 1300 ml Balance 790 ml -255 ml IV Total 790 ml 1045 ml Output Urine Total 1300 ml # Voids 3 3 Laboratory Tests Test 06/27/18 05:30 White Blood Count 8.8 K/UL (4.8-10.8) Red Blood Count 4.29 M/UL (4.70-6.10) L Hemoglobin 12.1 G/DL (14.2-18.0) L Hematocrit 37.1 % (42.0-52.0) L Mean Corpuscular Volume 86 FL (80-99) Mean Corpuscular Hemoglobin 28.2 PG (27.0-31.0) Mean Corpuscular Hemoglobin Concent 32.7 G/DL (32.0-36.0) Red Cell Distribution Width 13.0 % (11.6-14.8) Platelet Count 420 K/UL (150-450) Mean Platelet Volume 6.0 FL (6.5-10.1) L Neutrophils (%) (Auto) 63.6 % (45.0-75.0) Lymphocytes (%) (Auto) 20.3 % (20.0-45.0) Monocytes (%) (Auto) 11.4 % (1.0-10.0) H Eosinophils (%) (Auto) 3.6 % (0.0-3.0) H Basophils (%) (Auto) 1.2 % (0.0-2.0) Sodium Level 141 MMOL/L (136-145) Potassium Level 3.9 MMOL/L (3.5-5.1) Chloride Level 105 MMOL/L (98-107) Carbon Dioxide Level 30 MMOL/L (21-32) Anion Gap 6 mmol/L (5-15) Blood Urea Nitrogen 11 mg/dL (7-18) Creatinine 0.9 MG/DL (0.55-1.30) Estimat Glomerular Filtration Rate > 60 mL/min (>60) Glucose Level 160 MG/DL (74-106) H Calcium Level 9.7 MG/DL (8.5-10.1) Phosphorus Level 6.4 MG/DL (2.5-4.9) H Magnesium Level 2.3 MG/DL (1.8-2.4) Total Bilirubin 0.3 MG/DL (0.2-1.0) Direct Bilirubin 0.1 MG/DL (0.0-0.3) Aspartate Amino Transf (AST/SGOT) 25 U/L (15-37) Alanine Aminotransferase (ALT/SGPT) 48 U/L (12-78) Alkaline Phosphatase 78 U/L (46-116) Total Protein 5.8 G/DL (6.4-8.2) L Albumin 2.2 G/DL (3.4-5.0) L Lipase > 2000 U/L (73-393) H Microbiology Date/Time Source Procedure Growth Status 06/25/18 04:00 Sputum Induced Gram Stain - Final Complete 06/25/18 04:00 Sputum Induced Sputum Culture - Final NORMAL UPPER RESPIRATORY REHAN PRESENT Complete Willy Cameron MD Jun 27, 2018 15:36
--- NOTE | 2018-06-27 16:05 | Nephrology Progress Note ---
Assessment/Plan Problem List: (1) Hypertensive urgency (2) Hypercalcemia (3) Anemia Assessment # Elevated blood pressure OOC #Hypercalcemia, # Hypokalemia #Acute pancreatitis, suspected to be due to excess alcohol consumption, lipase remains elevated #Sepsis #anemia, acute blood loss Plan Adjust BP meds , per order Monitor renal parameters, Lytes and Ca and Phos Per orders check PTH level eliminate phos supplement Subjective ROS Limited/Unobtainable: No Objective Objective Last 24 Hour Vital Signs Date Time Temp Pulse Resp B/P (MAP) Pulse Ox O2 Delivery O2 Flow Rate FiO2 06/27/18 13:27 134/99 06/27/18 12:35 97.0 62 18 132/92 (105) 99 06/27/18 09:50 97.0 06/27/18 09:00 Room Air 06/27/18 08:15 70 130/80 06/27/18 08:15 70 130/80 06/27/18 08:15 130/80 06/27/18 08:00 97.0 70 18 130/80 (97) 99 06/27/18 07:58 66 06/27/18 06:23 139/91 06/27/18 04:00 58 06/27/18 04:00 97.0 58 18 134/89 (104) 99 06/27/18 00:00 98.1 67 18 150/93 (112) 99 06/27/18 00:00 67 06/26/18 22:06 140/87 06/26/18 21:14 70 151/94 06/26/18 21:00 Room Air 06/26/18 20:00 62 06/26/18 20:00 98.0 62 18 150/97 (114) 99 06/26/18 17:48 95 140/95 Intake and Output 06/26/18 06/27/18 19:00 07:00 Intake Total 790 ml 1045 ml Output Total 1300 ml Balance 790 ml -255 ml IV Total 790 ml 1045 ml Output Urine Total 1300 ml # Voids 3 3 Laboratory Tests 06/27/18 05:30: White Blood Count 8.8, Red Blood Count 4.29L, Hemoglobin 12.1L, Hematocrit 37.1L , Mean Corpuscular Volume 86, Mean Corpuscular Hemoglobin 28.2, Mean Corpuscular Hemoglobin Concent 32.7, Red Cell Distribution Width 13.0, Platelet Count 420, Mean Platelet Volume 6.0L, Neutrophils (%) (Auto) 63.6, Lymphocytes ( %) (Auto) 20.3, Monocytes (%) (Auto) 11.4H, Eosinophils (%) (Auto) 3.6H, Basophils (%) (Auto) 1.2, Sodium Level 141, Potassium Level 3.9, Chloride Level 105, Carbon Dioxide Level 30, Anion Gap 6, Blood Urea Nitrogen 11, Creatinine 0.9, Estimat Glomerular Filtration Rate > 60, Glucose Level 160H, Calcium Level 9.7, Phosphorus Level 6.4H, Magnesium Level 2.3, Total Bilirubin 0.3, Direct Bilirubin 0.1, Aspartate Amino Transf (AST/SGOT) 25, Alanine Aminotransferase ( ALT/SGPT) 48, Alkaline Phosphatase 78, Total Protein 5.8L, Albumin 2.2L, Lipase > 2000H Height (Feet): 5 Height (Inches): 6.00 Weight (Pounds): 191 General Appearance: no apparent distress Objective no other change Edgar Richardson MD Jun 27, 2018 16:05
[2018-06-27] MEDS: NovoLOG Insulin Flexpen SUBQ SCH (18:00)
[2018-06-27] MEDS: chlordiazePOXIDE 25mg Cap ORAL SCH (18:05)
[2018-06-27] MEDS: Dyna-Hex 2% Top Sol 2oz TOPIC SCH (20:57)
[2018-06-27] MEDS: AMINO ACIDS IV SCH ×2 (21:00)
[2018-06-27] MEDS: FAT EMULSION IV SCH ×2 (21:00)
[2018-06-27] MEDS: DEXTROSE IV SCH ×2 (21:00)
[2018-06-27] MEDS ORDERED: Tubing IV Secondary IV ONE (21:41)
[2018-06-28] VITALS: BP 128/83
[2018-06-28] MEDS: NovoLOG Insulin Flexpen SUBQ SCH ×5 (00:12→23:50)
[2018-06-28] MEDS: Meropenem 1 GM in NS 55 ML IVPB SCH ×3 (03:49→20:24)
[2018-06-28 04:00] VITALS: BP 136/85
[2018-06-28 07:38] LABS: ALANINE AMINOTRANSFERASE 96 U/L (12-78); ALBUMIN 2.6 G/DL (3.4-5.0); ALBUMIN/GLOBULIN RATIO 0.6 (1.0-2.7); ALKALINE PHOSPHATASE 98 U/L (46-116); AMYLASE 178 U/L (25-115); ANION GAP 6 mmol/L (5-15); ASPARTATE AMINO TRANSFERASE 53 U/L (15-37); BILIRUBIN,TOTAL 0.3 MG/DL (0.2-1.0); BLOOD UREA NITROGEN 13 mg/dL (7-18); CALCIUM 9.6 MG/DL (8.5-10.1); CARBON DIOXIDE 29 MMOL/L (21-32); CHLORIDE 106 MMOL/L (98-107); CREATININE 0.9 MG/DL (0.55-1.30); POTASSIUM 4.4 MMOL/L (3.5-5.1); SODIUM 141 MMOL/L (136-145)
[2018-06-28 08:00] VITALS: BP 113/74
[2018-06-28 08:01] LABS: PHOSPHORUS 5.3 MG/DL (2.5-4.9)
[2018-06-28] MEDS: Pantoprazole Inj IVP SCH ×2 (10:14→20:25)
[2018-06-28] MEDS: Metoprolol 25mg tab ORAL SCH ×3 (10:15→21:32)
[2018-06-28] MEDS: chlordiazePOXIDE 25mg Cap ORAL SCH ×2 (10:17→18:26)
[2018-06-28] MEDS: Lisinopril 20mg tab ORAL SCH (10:17)
[2018-06-28] MEDS: Heparin 5000 units/ml inj SUBQ SCH ×2 (10:19→20:26)
--- NOTE | 2018-06-28 10:49 | General Progress Note ---
Assessment/Plan Problem List: (1) Alcohol dependence ICD Codes: F10.20 - Alcohol dependence, uncomplicated SNOMED: 66383070 (2) Anemia ICD Codes: D64.9 - Anemia, unspecified SNOMED: 102100860 (3) Pancreatitis ICD Codes: K85.90 - Acute pancreatitis without necrosis or infection, unspecified SNOMED: 03646513 Assessment/Plan Repeat abdominal CT reviewed >> - uncomplicated acute pancreatitis, with peripancreatic phlegmon which is essentially stable. - New finding of presacral edema. - Increased bilateral pleural effusions now small to moderate in size. Resultant compressive atelectasis of portions of both lower lobes again demonstrated - Wall thickening of the distal duodenum and proximal jejunum in the area of pancreatic phlegmon, presumably reactive related to the adjacent inflammation Lipase remains elevated to palpable Recommendations - Bowel rest, maintain n.p.o. plus TPN - IVFs when off TPN. -Encourage ambulation - follow lab and exam - continue abx -Repeat lipase levels -Pain management Subjective ROS Limited/Unobtainable: No Allergies: Coded Allergies: No Known Allergies (Unverified , 06/22/13) Objective Last 24 Hour Vital Signs Date Time Temp Pulse Resp B/P (MAP) Pulse Ox O2 Delivery O2 Flow Rate FiO2 06/28/18 10:17 113/74 06/28/18 10:15 60 113/74 06/28/18 09:00 60 113/74 06/28/18 05:31 136/85 06/28/18 04:00 99.0 72 18 136/85 (102) 96 06/28/18 00:00 98.7 63 18 128/83 (98) 98 06/27/18 22:02 130/92 06/27/18 21:00 Room Air 06/27/18 20:58 61 130/92 06/27/18 20:00 98.8 60 18 140/91 (107) 97 06/27/18 18:06 61 130/92 06/27/18 16:00 97.4 101 17 130/92 (105) 97 06/27/18 14:00 98.3 63 18 135/96 (109) 95 06/27/18 13:27 134/99 06/27/18 12:35 97.0 62 18 132/92 (105) 99 Intake and Output 06/27/18 06/28/18 18:59 06:59 Intake Total 425 ml 850 ml Output Total 700 ml 550 ml Balance -275 ml 300 ml IV Total 425 ml 850 ml Output Urine Total 700 ml 550 ml # Voids 4 Laboratory Tests 06/28/18 04:00: Sodium Level 141, Potassium Level 4.4, Chloride Level 106, Carbon Dioxide Level 29, Anion Gap 6, Blood Urea Nitrogen 13, Creatinine 0.9, Estimat Glomerular Filtration Rate > 60, Glucose Level 74, Calcium Level 9.6, Phosphorus Level 5.3H , Magnesium Level 2.2, Total Bilirubin 0.3, Aspartate Amino Transf (AST/SGOT) 53H, Alanine Aminotransferase (ALT/SGPT) 96H, Alkaline Phosphatase 98, Total Protein 7.2, Albumin 2.6L, Globulin 4.6, Albumin/Globulin Ratio 0.6L, Amylase Level 178H, Lipase > 2000H Height (Feet): 5 Height (Inches): 6.00 Weight (Pounds): 191 General Appearance: alert EENT: normal ENT inspection Neck: supple Cardiovascular: normal rate Respiratory/Chest: lungs clear Abdomen: soft, tender Extremities: non-tender Juma Pineda MD Jun 28, 2018 10:49
--- NOTE | 2018-06-28 11:28 | Cardiology Progress Note ---
Assessment/Plan Assessment/Plan Assessment/Plan Assessment/Plan Acute pancreatitis, suspected to be due to excess alcohol consumption, lipase remains elevated Sepsis Hypokalemia Hypercalcemia, resolved Anemia, acute blood loss Hypertension, uncontrolled -cont amlodipine -continue lisinopril -Continue cardura -TTE Left ventricular ejection fraction estimated to be 70 %., normal pulmonary pressures, grade 1 diastolic dysfunction Subjective Cardiovascular: Reports: no symptoms Respiratory: Reports: no symptoms Gastrointestinal/Abdominal: Reports: no symptoms Genitourinary: Reports: no symptoms Subjective Blood pressure controlled, LFT coming down, on liquid diet, pain controlled, lipase still elevated, remains on TPN Objective Last 24 Hour Vital Signs Date Time Temp Pulse Resp B/P (MAP) Pulse Ox O2 Delivery O2 Flow Rate FiO2 06/28/18 10:17 113/74 06/28/18 10:15 60 113/74 06/28/18 09:00 60 113/74 06/28/18 08:00 98.7 60 20 113/74 (87) 97 06/28/18 05:31 136/85 06/28/18 04:00 99.0 72 18 136/85 (102) 96 06/28/18 00:00 98.7 63 18 128/83 (98) 98 06/27/18 22:02 130/92 06/27/18 21:00 Room Air 06/27/18 20:58 61 130/92 06/27/18 20:00 98.8 60 18 140/91 (107) 97 06/27/18 18:06 61 130/92 06/27/18 16:00 97.4 101 17 130/92 (105) 97 06/27/18 14:00 98.3 63 18 135/96 (109) 95 06/27/18 13:27 134/99 06/27/18 12:35 97.0 62 18 132/92 (105) 99 General Appearance: no apparent distress, alert EENT: PERRL/EOMI, normal ENT inspection, TMs normal, pharynx normal Neck: non-tender, no JVD Rhythm: NSR Cardiovascular: normal peripheral pulses, normal rate, regular rhythm Respiratory/Chest: chest wall non-tender, lungs clear Abdomen: normal bowel sounds, non tender, soft, guarding Extremities: normal range of motion, non-tender Intake and Output 06/27/18 06/28/18 18:59 06:59 Intake Total 425 ml 850 ml Output Total 700 ml 550 ml Balance -275 ml 300 ml IV Total 425 ml 850 ml Output Urine Total 700 ml 550 ml # Voids 4 Laboratory Tests Test 06/28/18 04:00 Sodium Level 141 MMOL/L (136-145) Potassium Level 4.4 MMOL/L (3.5-5.1) Chloride Level 106 MMOL/L (98-107) Carbon Dioxide Level 29 MMOL/L (21-32) Anion Gap 6 mmol/L (5-15) Blood Urea Nitrogen 13 mg/dL (7-18) Creatinine 0.9 MG/DL (0.55-1.30) Estimat Glomerular Filtration Rate > 60 mL/min (>60) Glucose Level 74 MG/DL (74-106) Calcium Level 9.6 MG/DL (8.5-10.1) Phosphorus Level 5.3 MG/DL (2.5-4.9) H Magnesium Level 2.2 MG/DL (1.8-2.4) Total Bilirubin 0.3 MG/DL (0.2-1.0) Aspartate Amino Transf (AST/SGOT) 53 U/L (15-37) H Alanine Aminotransferase (ALT/SGPT) 96 U/L (12-78) H Alkaline Phosphatase 98 U/L (46-116) Total Protein 7.2 G/DL (6.4-8.2) Albumin 2.6 G/DL (3.4-5.0) L Globulin 4.6 g/dL Albumin/Globulin Ratio 0.6 (1.0-2.7) L Amylase Level 178 U/L (25-115) H Lipase > 2000 U/L (73-393) H Willy Cameron MD Jun 28, 2018 11:28
--- NOTE | 2018-06-28 11:29 | Nephrology Progress Note ---
Assessment/Plan Problem List: (1) Hypertensive urgency (2) Hypercalcemia (3) Anemia Assessment # Elevated blood pressure OOC #Hypercalcemia, # Hypokalemia #Acute pancreatitis, suspected to be due to excess alcohol consumption, lipase remains elevated #Sepsis #anemia, acute blood loss Plan Adjust BP meds , per order Monitor renal parameters, Lytes and Ca and Phos Per orders check PTH level eliminate phos supplement pharmacy informed Subjective ROS Limited/Unobtainable: No Objective Objective Last 24 Hour Vital Signs Date Time Temp Pulse Resp B/P (MAP) Pulse Ox O2 Delivery O2 Flow Rate FiO2 06/28/18 10:17 113/74 06/28/18 10:15 60 113/74 06/28/18 09:00 60 113/74 06/28/18 08:00 98.7 60 20 113/74 (87) 97 06/28/18 05:31 136/85 06/28/18 04:00 99.0 72 18 136/85 (102) 96 06/28/18 00:00 98.7 63 18 128/83 (98) 98 06/27/18 22:02 130/92 06/27/18 21:00 Room Air 06/27/18 20:58 61 130/92 06/27/18 20:00 98.8 60 18 140/91 (107) 97 06/27/18 18:06 61 130/92 06/27/18 16:00 97.4 101 17 130/92 (105) 97 06/27/18 14:00 98.3 63 18 135/96 (109) 95 06/27/18 13:27 134/99 06/27/18 12:35 97.0 62 18 132/92 (105) 99 Intake and Output 06/27/18 06/28/18 18:59 06:59 Intake Total 425 ml 850 ml Output Total 700 ml 550 ml Balance -275 ml 300 ml IV Total 425 ml 850 ml Output Urine Total 700 ml 550 ml # Voids 4 Laboratory Tests 06/28/18 04:00: Sodium Level 141, Potassium Level 4.4, Chloride Level 106, Carbon Dioxide Level 29, Anion Gap 6, Blood Urea Nitrogen 13, Creatinine 0.9, Estimat Glomerular Filtration Rate > 60, Glucose Level 74, Calcium Level 9.6, Phosphorus Level 5.3H , Magnesium Level 2.2, Total Bilirubin 0.3, Aspartate Amino Transf (AST/SGOT) 53H, Alanine Aminotransferase (ALT/SGPT) 96H, Alkaline Phosphatase 98, Total Protein 7.2, Albumin 2.6L, Globulin 4.6, Albumin/Globulin Ratio 0.6L, Amylase Level 178H, Lipase > 2000H Height (Feet): 5 Height (Inches): 6.00 Weight (Pounds): 191 General Appearance: no apparent distress Objective no other change Edgar Richardson MD Jun 28, 2018 11:29
[2018-06-28 12:00] VITALS: BP 123/75
--- NOTE | 2018-06-28 14:04 | Infectious Diseases Prog Note ---
Assessment/Plan Assessment/Plan ASSESSMENT AND PLAN: 1. sepsis, acute pancreatitis, leukocytosis, fevers, sirs, likely atx, CT noted - - clinically better, fevers and leukocytosis better, still some abdominal pain but less - continue meropenem - day # 10 - chest x-ray stable - monitor labs - TPN 2. possible HTN - bp tx per primary team 3. No known allergies. 4. Social history positive for alcohol use. 5. Family history noncontributory. 6. MAR was noted. 7. Case discussed with RN. 8. Continue treatment per primary consultants. 9. Case communicated with Dr. Holden. 10. Notes and records were noted. Orders were entered. Subjective Constitutional: Reports: fatigue; Denies: fever HEENT: Denies: congestion Respiratory: Denies: shortness of breath Cardiovascular: Denies: chest pain Gastrointestinal/Abdominal: Reports: other - less abdominal pain ; Denies: nausea, vomiting, diarrhea Genitourinary: Reports: other - no rosado ; Denies: dysuria, hematuria Neurologic: Denies: headache Psychiatric: Denies: depression Skin: Denies: rash Hematologic: Denies: bleeding Musculoskeletal: Denies: pain Allergies: Coded Allergies: No Known Allergies (Unverified , 06/22/13) Objective Vital Signs Last 24 Hour Vital Signs Date Time Temp Pulse Resp B/P (MAP) Pulse Ox O2 Delivery O2 Flow Rate FiO2 06/28/18 13:29 134/84 06/28/18 10:17 113/74 06/28/18 10:15 60 113/74 06/28/18 09:00 60 113/74 06/28/18 08:00 98.7 60 20 113/74 (87) 97 06/28/18 05:31 136/85 06/28/18 04:00 99.0 72 18 136/85 (102) 96 06/28/18 00:00 98.7 63 18 128/83 (98) 98 06/27/18 22:02 130/92 06/27/18 21:00 Room Air 06/27/18 20:58 61 130/92 06/27/18 20:00 98.8 60 18 140/91 (107) 97 06/27/18 18:06 61 130/92 06/27/18 16:00 97.4 101 17 130/92 (105) 97 Height (Feet): 5 Height (Inches): 6.00 Weight (Pounds): 191 General Appearance: no acute distress HEENT: normocephalic, atraumatic, anicteric, mucous membranes moist Respiratory/Chest: lungs clear, normal breath sounds, no respiratory distress, no accessory muscle use Cardiovascular: normal rate, regular rhythm Abdomen: normal bowel sounds, soft, non tender, no organomegaly, non distended Genitourinary: other - no rosado Extremities: no cyanosis Skin: no rash, no ulcers Neurologic/Psychiatric: 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 Left lung base atelectasis/airspace disease. Pleural space: Tiny left pleural effusion. No pneumothorax. Heart: Slightly prominent cardiac silhouette. Mediastinum: Unremarkable. Bones/joints: Unremarkable. IMPRESSION: 1. Mild interstitial prominence. Left lung base atelectasis/airspace disease. Tiny left pleural effusion. Query pneumonia. Chest x-ray - 06/23/18 - Comparison: 06/20/2018 Findings: Left-sided pleural effusion persists. Mild interstitial congestion is unchanged. Impression: Unchanged, over 3 days, findings as above. CT abdomen and pelvis - 06/23/18 - Impression: Findings consistent with uncomplicated acute pancreatitis, with peripancreatic phlegmon which is essentially stable when compared to prior study of 3 days earlier. There is slightly decreased free intraperitoneal fluid. No evidence of necrosis, abscess, or pseudocyst formation. Slightly increased edema of the lumbar and bilateral flank subcutaneous fat New finding of presacral edema. Of uncertain significance, uncertain as to whether related to the pancreatitis or, more likely, related to the generalized increase in soft tissue edema Increased bilateral pleural effusions now small to moderate in size. Resultant compressive atelectasis of portions of both lower lobes again demonstrated Wall thickening of the distal duodenum and proximal jejunum in the area of pancreatic phlegmon, presumably reactive related to the adjacent inflammation Stable densely calcified right lobe liver lesion, presumably postinflammatory Prominent, for age, prostate Microbiology Date/Time Source Procedure Growth Status 06/19/18 19:08 Blood Blood Culture - Final NO GROWTH AFTER 5 DAYS Complete 06/25/18 04:00 Sputum Induced Gram Stain - Final Complete 06/25/18 04:00 Sputum Induced Sputum Culture - Final NORMAL UPPER RESPIRATORY REHAN PRESENT Complete Laboratory Tests Test 06/28/18 04:00 Sodium Level 141 MMOL/L (136-145) Potassium Level 4.4 MMOL/L (3.5-5.1) Chloride Level 106 MMOL/L (98-107) Carbon Dioxide Level 29 MMOL/L (21-32) Anion Gap 6 mmol/L (5-15) Blood Urea Nitrogen 13 mg/dL (7-18) Creatinine 0.9 MG/DL (0.55-1.30) Estimat Glomerular Filtration Rate > 60 mL/min (>60) Glucose Level 74 MG/DL (74-106) Calcium Level 9.6 MG/DL (8.5-10.1) Phosphorus Level 5.3 MG/DL (2.5-4.9) H Magnesium Level 2.2 MG/DL (1.8-2.4) Total Bilirubin 0.3 MG/DL (0.2-1.0) Aspartate Amino Transf (AST/SGOT) 53 U/L (15-37) H Alanine Aminotransferase (ALT/SGPT) 96 U/L (12-78) H Alkaline Phosphatase 98 U/L (46-116) Total Protein 7.2 G/DL (6.4-8.2) Albumin 2.6 G/DL (3.4-5.0) L Globulin 4.6 g/dL Albumin/Globulin Ratio 0.6 (1.0-2.7) L Amylase Level 178 U/L (25-115) H Lipase > 2000 U/L (73-393) H Current Medications Medications (Trade) Dose Ordered Sig/Jennifer Route PRN Reason Start Time Stop Time Status Last Admin Dose Admin Acetaminophen (Tylenol) 650 mg Q4H PRN ORAL T>100.5 06/27/18 14:30 07/17/18 14:29 Chlordiazepoxide (Librium) 25 mg BID ORAL 06/27/18 18:00 07/04/18 08:59 06/28/18 10:17 Chlorhexidine Gluconate (Aleja-Hex 2%) 1 applic DAILY@2000 TOPIC 06/27/18 20:00 07/24/18 19:59 06/27/18 20:57 Clonidine HCl (Catapres Tab) 0.1 mg Q8HR ORAL 06/27/18 14:00 07/24/18 17:59 06/28/18 13:29 Dextrose (Dextrose 50%) 25 ml Q30M PRN IV Hypoglycemia 06/27/18 14:00 07/17/18 14:29 Dextrose (Dextrose 50%) 50 ml Q30M PRN IV Hypoglycemia 06/27/18 14:00 07/17/18 14:29 Fat Emulsion Intravenous 192 ml/Amino Acids/ Electrolytes/ Dextrose 2,040 ml @ 85 mls/hr Q24H IV 06/27/18 21:00 07/26/18 20:59 06/27/18 21:00 Fluoxetine HCl (PROzac) 20 mg DAILY ORAL 06/28/18 09:00 07/25/18 12:59 06/28/18 10:14 Heparin Sodium (Porcine) (Heparin 5000 units/ml) 5,000 units EVERY 12 HOURS SUBQ 06/27/18 21:00 07/17/18 20:59 06/28/18 10:19 Insulin Aspart (NovoLOG) No Dose Q6HR SUBQ 06/27/18 18:00 07/25/18 00:00 06/28/18 12:34 Lisinopril (Prinivil) 40 mg DAILY ORAL 06/28/18 09:00 07/23/18 08:59 06/28/18 10:17 Meropenem 1 gm/ Sodium Chloride 55 ml @ 110 mls/hr Q8H IVPB 06/27/18 20:00 07/01/18 19:59 06/28/18 12:29 Metoprolol Tartrate (Lopressor) 25 mg Q12HR ORAL 06/27/18 21:00 07/24/18 20:59 06/28/18 10:15 Minoxidil (Loniten) 2.5 mg Q4H PRN ORAL bp over 170 syst 06/27/18 14:00 07/24/18 13:59 Nifedipine (Procardia XL) 30 mg BID ORAL 06/27/18 18:00 07/24/18 17:59 06/27/18 18:06 Ondansetron HCl (Zofran) 4 mg Q6H PRN IVP Nausea & Vomiting 06/27/18 14:00 07/17/18 13:59 Pantoprazole (Protonix) 40 mg Q12HR IVP 06/27/18 21:00 07/25/18 08:59 06/28/18 10:14 Phytonadione (Vitamin K) 10 mg QWEEK SUBQ 07/01/18 09:00 07/31/18 08:59 Rakesh Teran MD Jun 28, 2018 14:04
[2018-06-28 16:00] VITALS: BP 136/71
--- NOTE | 2018-06-28 16:21 | General Progress Note ---
Assessment/Plan Assessment/Plan Assessment/Plan Assessment/Plan Assessment/Plan #Acute pancreatitis, suspected to be due to excess alcohol consumption, lipase remains elevated -continue TPN via PICC --GI following -Nephrology following -continue LR @ 150 ml/h -continue IV Zofran -cont IV hydromorphone for pain -US RUQ without stones; CT scan results reviewed with radiology, no abscess noted -Lipid panel without hypertriglyceridemia #Sepsis -ID following -Continue Meropenem to complete 10 days -f/u cultures- negative to date -CT A/P without apparent necrosis #Elevated blood pressure due to pain, may have undiagnosed HTN, much better control today -continue telemetry -seen by Cardiology -continue Procardia, clonidine, Lopressor and lisinopril #Hypokalemia -continue to monitor #Hypercalcemia, resolved -likely due to dehydration -continue to monitor -IVF's as above #anemia, acute blood loss -Likely secondary to vigorous hydration -no signs or symptoms for overt GI bleed -contnue to monitor closely VTE PPx Heparin Full Code Subjective Date patient seen: Jun 28, 2018 Time patient seen: 16:20 ROS Limited/Unobtainable: No Constitutional: Reports: no symptoms HEENT: Reports: no symptoms Cardiovascular: Reports: no symptoms Respiratory: Reports: no symptoms Gastrointestinal/Abdominal: Reports: abdominal pain Genitourinary: Reports: no symptoms Neurologic/Psychiatric: Reports: no symptoms Endocrine: Reports: no symptoms Hematologic/Lymphatic: Reports: no symptoms Allergies: Coded Allergies: No Known Allergies (Unverified , 06/22/13) Subjective No acute events overnight no new complaints. Still c/o some generalized abd pain although improved, tolerating TPN, no fevers/chills, no n/v. RN asking to renew IV dilaudid Objective Last 24 Hour Vital Signs Date Time Temp Pulse Resp B/P (MAP) Pulse Ox O2 Delivery O2 Flow Rate FiO2 06/28/18 13:29 134/84 06/28/18 10:17 113/74 06/28/18 10:15 60 113/74 06/28/18 09:00 60 113/74 06/28/18 08:00 98.7 60 20 113/74 (87) 97 06/28/18 05:31 136/85 06/28/18 04:00 99.0 72 18 136/85 (102) 96 06/28/18 00:00 98.7 63 18 128/83 (98) 98 06/27/18 22:02 130/92 06/27/18 21:00 Room Air 06/27/18 20:58 61 130/92 06/27/18 20:00 98.8 60 18 140/91 (107) 97 06/27/18 18:06 61 130/92 Intake and Output 06/27/18 06/28/18 19:00 07:00 Intake Total 510 ml 850 ml Output Total 700 ml 550 ml Balance -190 ml 300 ml IV Total 510 ml 850 ml Output Urine Total 700 ml 550 ml # Voids 4 Laboratory Tests 06/28/18 04:00: Sodium Level 141, Potassium Level 4.4, Chloride Level 106, Carbon Dioxide Level 29, Anion Gap 6, Blood Urea Nitrogen 13, Creatinine 0.9, Estimat Glomerular Filtration Rate > 60, Glucose Level 74, Calcium Level 9.6, Phosphorus Level 5.3H , Magnesium Level 2.2, Total Bilirubin 0.3, Aspartate Amino Transf (AST/SGOT) 53H, Alanine Aminotransferase (ALT/SGPT) 96H, Alkaline Phosphatase 98, Total Protein 7.2, Albumin 2.6L, Globulin 4.6, Albumin/Globulin Ratio 0.6L, Amylase Level 178H, Lipase > 2000H Height (Feet): 5 Height (Inches): 6.00 Weight (Pounds): 191 Objective General: alert, cooperative, no distress, appears stated age Head: normocephalic, without obvious abnormality, atraumatic Eyes: conjunctivae/corneas clear. PERRL, EOM's intact Throat: lips, mucosa, and tongue normal. MMM Neck: supple, symmetrical, trachea midline, and no JVD Lungs: clear to auscultation bilaterally Heart: regular rate and rhythm, S1, S2 normal, no murmur, click, rub or gallop Abdomen: soft, generalized abdominal tenderness, no rebound/guarding, non- distended, bowel sounds normal; no masses or organomegaly Extremities: extremities normal, atraumatic, no cyanosis or edema Pulses: 2+ and symmetric Skin: skin color, texture, turgor normal; no rashes or lesions Neurologic: grossly normal, no focal deficits Danitza Luevano MD Jun 28, 2018 16:21
[2018-06-28 20:00] VITALS: BP 140/85
[2018-06-28] MEDS: Dyna-Hex 2% Top Sol 2oz TOPIC SCH (20:23)
[2018-06-28] MEDS: DEXTROSE IV SCH ×2 (21:48)
[2018-06-28] MEDS: FAT EMULSION IV SCH ×2 (21:48)
[2018-06-28] MEDS: AMINO ACIDS IV SCH ×2 (21:48)
[2018-06-29] VITALS: BP 144/82
[2018-06-29] MEDS: Meropenem 1 GM in NS 55 ML IVPB SCH ×2 (03:36→11:53)
[2018-06-29 04:00] VITALS: BP 123/83
[2018-06-29] MEDS: NovoLOG Insulin Flexpen SUBQ SCH ×3 (05:37→17:57)
[2018-06-29 06:24] LABS: BASOPHILS % (AUTO) 1.1 % (0.0-2.0); EOSINOPHILS % (AUTO) 2.4 % (0.0-3.0); HEMATOCRIT 41.6 % (42.0-52.0); HEMOGLOBIN 13.3 G/DL (14.2-18.0); LYMPHOCYTES % (AUTO) 23.4 % (20.0-45.0); MEAN CORPUSCULAR VOLUME 87 FL (80-99); MONOCYTES % (AUTO) 10.3 % (1.0-10.0); NEUTROPHILS % (AUTO) 62.9 % (45.0-75.0); PLATELET COUNT 449 K/UL (150-450); RED BLOOD COUNT 4.78 M/UL (4.70-6.10); RED CELL DISTRIBUTION WIDTH 13.3 % (11.6-14.8)
[2018-06-29 06:41] LABS: PHOSPHORUS 4.2 MG/DL (2.5-4.9)
[2018-06-29 06:52] LABS: ALANINE AMINOTRANSFERASE 120 U/L (12-78); ALBUMIN 2.7 G/DL (3.4-5.0); ALBUMIN/GLOBULIN RATIO 0.6 (1.0-2.7); ALKALINE PHOSPHATASE 107 U/L (46-116); AMYLASE 151 U/L (25-115); ANION GAP 5 mmol/L (5-15); ASPARTATE AMINO TRANSFERASE 56 U/L (15-37); BILIRUBIN,TOTAL 0.3 MG/DL (0.2-1.0); BLOOD UREA NITROGEN 16 mg/dL (7-18); CALCIUM 10.1 MG/DL (8.5-10.1); CARBON DIOXIDE 31 MMOL/L (21-32); CHLORIDE 105 MMOL/L (98-107); CREATININE 1.1 MG/DL (0.55-1.30); POTASSIUM 4.3 MMOL/L (3.5-5.1); SODIUM 141 MMOL/L (136-145)
[2018-06-29 08:00] VITALS: BP 124/75
[2018-06-29] MEDS: Pantoprazole Inj IVP SCH ×2 (08:30→21:07)
[2018-06-29] MEDS: chlordiazePOXIDE 25mg Cap ORAL SCH ×2 (08:31→17:55)
[2018-06-29] MEDS: Heparin 5000 units/ml inj SUBQ SCH ×2 (08:32→21:10)
[2018-06-29] MEDS: Metoprolol 25mg tab ORAL SCH ×2 (08:32→21:11)
[2018-06-29] MEDS: Lisinopril 20mg tab ORAL SCH (08:33)
--- NOTE | 2018-06-29 10:18 | Cardiology Progress Note ---
Assessment/Plan Status: stable Assessment/Plan Assessment/Plan Assessment/Plan Acute pancreatitis, suspected to be due to excess alcohol consumption, lipase remains elevated Sepsis Hypokalemia Hypercalcemia, resolved Anemia, acute blood loss Hypertension, uncontrolled -cont amlodipine -continue lisinopril -Continue cardura -Continue clonidine -TTE Left ventricular ejection fraction estimated to be 70 %., normal pulmonary pressures, grade 1 diastolic dysfunction Subjective Cardiovascular: Reports: no symptoms Respiratory: Reports: no symptoms Gastrointestinal/Abdominal: Reports: no symptoms Genitourinary: Reports: no symptoms Subjective Blood pressure controlled, LFT coming down, on liquid diet, pain controlled, lipase still elevated, remains on TPN Objective Last 24 Hour Vital Signs Date Time Temp Pulse Resp B/P (MAP) Pulse Ox O2 Delivery O2 Flow Rate FiO2 06/29/18 08:33 54 124/75 06/29/18 08:33 124/75 06/29/18 08:32 54 124/75 06/29/18 08:00 98.0 54 18 124/75 (91) 93 06/29/18 05:11 123/83 06/29/18 04:00 97.7 56 18 123/83 (96) 96 06/29/18 00:00 98.6 58 18 144/82 (102) 100 06/28/18 22:00 125/75 06/28/18 21:32 63 140/93 06/28/18 21:00 Room Air 06/28/18 20:00 97.5 64 19 140/85 (103) 95 06/28/18 18:27 60 127/90 06/28/18 16:00 97.1 76 19 136/71 (92) 97 06/28/18 13:29 134/84 06/28/18 12:00 98.0 62 19 123/75 (91) 99 General Appearance: no apparent distress, alert EENT: PERRL/EOMI, normal ENT inspection, TMs normal, pharynx normal Neck: non-tender, normal alignment, supple, normal inspection, no JVD Rhythm: NSR Cardiovascular: normal peripheral pulses, normal rate Respiratory/Chest: chest wall non-tender, lungs clear Abdomen: normal bowel sounds, non tender, soft, no organomegaly, no mass Extremities: normal range of motion, non-tender, normal inspection 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, no motor/sensory deficits Intake and Output 06/28/18 06/29/18 19:00 07:00 Intake Total 1020 ml 1045 ml Output Total 2400 ml 800 ml Balance -1380 ml 245 ml IV Total 1020 ml 1045 ml Output Urine Total 2400 ml 800 ml # Voids 5 Laboratory Tests Test 06/29/18 05:20 White Blood Count 8.0 K/UL (4.8-10.8) Red Blood Count 4.78 M/UL (4.70-6.10) Hemoglobin 13.3 G/DL (14.2-18.0) L Hematocrit 41.6 % (42.0-52.0) L Mean Corpuscular Volume 87 FL (80-99) Mean Corpuscular Hemoglobin 27.7 PG (27.0-31.0) Mean Corpuscular Hemoglobin Concent 31.9 G/DL (32.0-36.0) L Red Cell Distribution Width 13.3 % (11.6-14.8) Platelet Count 449 K/UL (150-450) Mean Platelet Volume 6.1 FL (6.5-10.1) L Neutrophils (%) (Auto) 62.9 % (45.0-75.0) Lymphocytes (%) (Auto) 23.4 % (20.0-45.0) Monocytes (%) (Auto) 10.3 % (1.0-10.0) H Eosinophils (%) (Auto) 2.4 % (0.0-3.0) Basophils (%) (Auto) 1.1 % (0.0-2.0) Sodium Level 141 MMOL/L (136-145) Potassium Level 4.3 MMOL/L (3.5-5.1) Chloride Level 105 MMOL/L (98-107) Carbon Dioxide Level 31 MMOL/L (21-32) Anion Gap 5 mmol/L (5-15) Blood Urea Nitrogen 16 mg/dL (7-18) Creatinine 1.1 MG/DL (0.55-1.30) Estimat Glomerular Filtration Rate > 60 mL/min (>60) Glucose Level 100 MG/DL (74-106) Uric Acid 4.5 MG/DL (2.6-7.2) Calcium Level 10.1 MG/DL (8.5-10.1) Phosphorus Level 4.2 MG/DL (2.5-4.9) Magnesium Level 2.1 MG/DL (1.8-2.4) Total Bilirubin 0.3 MG/DL (0.2-1.0) Aspartate Amino Transf (AST/SGOT) 56 U/L (15-37) H Alanine Aminotransferase (ALT/SGPT) 120 U/L (12-78) H Alkaline Phosphatase 107 U/L (46-116) Total Protein 7.6 G/DL (6.4-8.2) Albumin 2.7 G/DL (3.4-5.0) L Globulin 4.9 g/dL Albumin/Globulin Ratio 0.6 (1.0-2.7) L Amylase Level 151 U/L (25-115) H Lipase > 2000 U/L (73-393) H Willy Cameron MD Jun 29, 2018 10:18
--- NOTE | 2018-06-29 10:28 | GI Progress Note ---
Assessment/Plan Problems: (1) Pancreatitis ICD Codes: K85.90 - Acute pancreatitis without necrosis or infection, unspecified SNOMED: 05108918 (2) Abdominal pain ICD Codes: R10.9 - Unspecified abdominal pain SNOMED: 40858051 (3) ETOH abuse ICD Codes: F10.10 - Alcohol abuse, uncomplicated SNOMED: 69723994 Status: unchanged Status Narrative Discussed with Dr. Pineda Assessment/Plan Repeat abdominal CT reviewed >> - uncomplicated acute pancreatitis, with peripancreatic phlegmon which is essentially stable. - New finding of presacral edema. - Increased bilateral pleural effusions now small to moderate in size. Resultant compressive atelectasis of portions of both lower lobes again demonstrated - Wall thickening of the distal duodenum and proximal jejunum in the area of pancreatic phlegmon, presumably reactive related to the adjacent inflammation Lipase remains elevated > 2000 Recommendations - Bowel rest, maintain n.p.o. plus TPN - IVFs when off TPN. -Encourage ambulation - follow lab and exam - continue abx -Repeat lipase levels -Pain management The patient was seen and examined at bedside and all new and available data was reviewed in the patients chart. I agree with the above findings, impression and plan. (Patient seen earlier today. Signature stamp does not reflect patient encounter time.). - Juma Pineda MD Subjective Subjective Patient still complains of abdominal pain and lower back pain, has improved Objective Last 24 Hour Vital Signs Date Time Temp Pulse Resp B/P (MAP) Pulse Ox O2 Delivery O2 Flow Rate FiO2 06/29/18 09:00 Room Air 06/29/18 08:33 54 124/75 06/29/18 08:33 124/75 06/29/18 08:32 54 124/75 06/29/18 08:00 98.0 54 18 124/75 (91) 93 06/29/18 05:11 123/83 06/29/18 04:00 97.7 56 18 123/83 (96) 96 06/29/18 00:00 98.6 58 18 144/82 (102) 100 06/28/18 22:00 125/75 06/28/18 21:32 63 140/93 06/28/18 21:00 Room Air 06/28/18 20:00 97.5 64 19 140/85 (103) 95 06/28/18 18:27 60 127/90 06/28/18 16:00 97.1 76 19 136/71 (92) 97 06/28/18 13:29 134/84 06/28/18 12:00 98.0 62 19 123/75 (91) 99 Intake and Output 06/28/18 06/29/18 18:59 06:59 Intake Total 1020 ml 1130 ml Output Total 2400 ml 800 ml Balance -1380 ml 330 ml IV Total 1020 ml 1130 ml Output Urine Total 2400 ml 800 ml # Voids 5 Laboratory Tests Test 06/29/18 05:20 White Blood Count 8.0 K/UL (4.8-10.8) Red Blood Count 4.78 M/UL (4.70-6.10) Hemoglobin 13.3 G/DL (14.2-18.0) L Hematocrit 41.6 % (42.0-52.0) L Mean Corpuscular Volume 87 FL (80-99) Mean Corpuscular Hemoglobin 27.7 PG (27.0-31.0) Mean Corpuscular Hemoglobin Concent 31.9 G/DL (32.0-36.0) L Red Cell Distribution Width 13.3 % (11.6-14.8) Platelet Count 449 K/UL (150-450) Mean Platelet Volume 6.1 FL (6.5-10.1) L Neutrophils (%) (Auto) 62.9 % (45.0-75.0) Lymphocytes (%) (Auto) 23.4 % (20.0-45.0) Monocytes (%) (Auto) 10.3 % (1.0-10.0) H Eosinophils (%) (Auto) 2.4 % (0.0-3.0) Basophils (%) (Auto) 1.1 % (0.0-2.0) Sodium Level 141 MMOL/L (136-145) Potassium Level 4.3 MMOL/L (3.5-5.1) Chloride Level 105 MMOL/L (98-107) Carbon Dioxide Level 31 MMOL/L (21-32) Anion Gap 5 mmol/L (5-15) Blood Urea Nitrogen 16 mg/dL (7-18) Creatinine 1.1 MG/DL (0.55-1.30) Estimat Glomerular Filtration Rate > 60 mL/min (>60) Glucose Level 100 MG/DL (74-106) Uric Acid 4.5 MG/DL (2.6-7.2) Calcium Level 10.1 MG/DL (8.5-10.1) Phosphorus Level 4.2 MG/DL (2.5-4.9) Magnesium Level 2.1 MG/DL (1.8-2.4) Total Bilirubin 0.3 MG/DL (0.2-1.0) Aspartate Amino Transf (AST/SGOT) 56 U/L (15-37) H Alanine Aminotransferase (ALT/SGPT) 120 U/L (12-78) H Alkaline Phosphatase 107 U/L (46-116) Total Protein 7.6 G/DL (6.4-8.2) Albumin 2.7 G/DL (3.4-5.0) L Globulin 4.9 g/dL Albumin/Globulin Ratio 0.6 (1.0-2.7) L Amylase Level 151 U/L (25-115) H Lipase > 2000 U/L (73-393) H Height (Feet): 5 Height (Inches): 6.00 Weight (Pounds): 191 General Appearance: WD/WN, no apparent distress, alert Cardiovascular: normal rate Respiratory/Chest: normal breath sounds, no respiratory distress Abdominal Exam: normal bowel sounds, non tender, soft Extremities: normal range of motion, non-tender Nixon Alanis NP Jun 29, 2018 10:28
[2018-06-29 12:00] VITALS: BP 133/83
--- NOTE | 2018-06-29 12:31 | General Progress Note ---
Assessment/Plan Assessment/Plan #Acute pancreatitis, suspected to be due to excess alcohol consumption, lipase remains elevated -continue TPN via PICC -GI following -Nephrology following -continue IV fluids -continue IV Zofran -cont IV hydromorphone for pain -US RUQ without stones; CT scan results reviewed with radiology, no abscess noted -Lipid panel without hypertriglyceridemia #Sepsis -S/p meropenem -ID following -f/u cultures- negative to date -CT A/P without apparent necrosis #Elevated blood pressure due to pain, may have undiagnosed HTN, better control -off telemetry -seen by Cardiology -continue Procardia, clonidine, Lopressor and lisinopril #Hypokalemia -continue to monitor #Hypercalcemia, resolved -likely due to dehydration -continue to monitor -IVF's as above #anemia, acute blood loss -Likely secondary to vigorous hydration -no signs or symptoms for overt GI bleed -contnue to monitor closely VTE PPx Heparin Full Code Subjective Date patient seen: Jun 29, 2018 Time patient seen: 12:15 ROS Limited/Unobtainable: No Constitutional: Denies: chills, fever Respiratory: Denies: cough Gastrointestinal/Abdominal: Reports: abdomen distended, abdominal pain Genitourinary: Denies: burning Allergies: Coded Allergies: No Known Allergies (Unverified , 06/22/13) Subjective Medicine follow up for acute pancreatitis, likely alcohol induced. Symptoms improving, still with some back pain Objective Last 24 Hour Vital Signs Date Time Temp Pulse Resp B/P (MAP) Pulse Ox O2 Delivery O2 Flow Rate FiO2 06/29/18 12:00 98.3 59 18 133/83 (100) 95 06/29/18 09:00 Room Air 06/29/18 08:33 54 124/75 06/29/18 08:33 124/75 06/29/18 08:32 54 124/75 06/29/18 08:00 98.0 54 18 124/75 (91) 93 06/29/18 05:11 123/83 06/29/18 04:00 97.7 56 18 123/83 (96) 96 06/29/18 00:00 98.6 58 18 144/82 (102) 100 06/28/18 22:00 125/75 06/28/18 21:32 63 140/93 4/14/19 21:00 Room Air 06/28/18 20:00 97.5 64 19 140/85 (103) 95 06/28/18 18:27 60 127/90 06/28/18 16:00 97.1 76 19 136/71 (92) 97 06/28/18 13:29 134/84 Intake and Output 06/28/18 06/29/18 18:59 06:59 Intake Total 1020 ml 1130 ml Output Total 2400 ml 800 ml Balance -1380 ml 330 ml IV Total 1020 ml 1130 ml Output Urine Total 2400 ml 800 ml # Voids 5 Laboratory Tests 06/29/18 05:20: White Blood Count 8.0, Red Blood Count 4.78, Hemoglobin 13.3L, Hematocrit 41.6L , Mean Corpuscular Volume 87, Mean Corpuscular Hemoglobin 27.7, Mean Corpuscular Hemoglobin Concent 31.9L, Red Cell Distribution Width 13.3, Platelet Count 449, Mean Platelet Volume 6.1L, Neutrophils (%) (Auto) 62.9, Lymphocytes (%) (Auto) 23.4, Monocytes (%) (Auto) 10.3H, Eosinophils (%) (Auto) 2.4, Basophils (%) (Auto) 1.1, Sodium Level 141, Potassium Level 4.3, Chloride Level 105, Carbon Dioxide Level 31, Anion Gap 5, Blood Urea Nitrogen 16, Creatinine 1.1, Estimat Glomerular Filtration Rate > 60, Glucose Level 100, Uric Acid 4.5, Calcium Level 10.1, Phosphorus Level 4.2, Magnesium Level 2.1, Total Bilirubin 0.3, Aspartate Amino Transf (AST/SGOT) 56H, Alanine Aminotransferase (ALT/SGPT) 120H, Alkaline Phosphatase 107, Total Protein 7.6, Albumin 2.7L, Globulin 4.9, Albumin/Globulin Ratio 0.6L, Amylase Level 151H, Lipase > 2000H Height (Feet): 5 Height (Inches): 6.00 Weight (Pounds): 191 General Appearance: no apparent distress, alert EENT: normal ENT inspection Neck: normal alignment, supple Cardiovascular: normal rate, regular rhythm Respiratory/Chest: lungs clear, normal breath sounds Abdomen: non tender, soft, no mass Thaddeus Leon MD Jun 29, 2018 12:30
--- NOTE | 2018-06-29 14:36 | Nephrology Progress Note ---
Assessment/Plan Problem List: (1) Hypertensive urgency (2) Hypercalcemia (3) Anemia Assessment # Elevated blood pressure OOC #Hypercalcemia, # Hypokalemia #Acute pancreatitis, suspected to be due to excess alcohol consumption, lipase remains elevated #Sepsis #anemia, acute blood loss Plan Adjust BP meds , per order Monitor renal parameters, Lytes and Ca and Phos Per orders check PTH level eliminate phos supplement pharmacy informed Subjective ROS Limited/Unobtainable: No Objective Objective Last 24 Hour Vital Signs Date Time Temp Pulse Resp B/P (MAP) Pulse Ox O2 Delivery O2 Flow Rate FiO2 06/29/18 13:59 142/88 06/29/18 12:00 98.3 59 18 133/83 (100) 95 06/29/18 09:00 Room Air 06/29/18 08:33 54 124/75 06/29/18 08:33 124/75 06/29/18 08:32 54 124/75 06/29/18 08:00 98.0 54 18 124/75 (91) 93 06/29/18 05:11 123/83 06/29/18 04:00 97.7 56 18 123/83 (96) 96 06/29/18 00:00 98.6 58 18 144/82 (102) 100 06/28/18 22:00 125/75 06/28/18 21:32 63 140/93 06/28/18 21:00 Room Air 06/28/18 20:00 97.5 64 19 140/85 (103) 95 06/28/18 18:27 60 127/90 06/28/18 16:00 97.1 76 19 136/71 (92) 97 Intake and Output 06/28/18 06/29/18 19:00 07:00 Intake Total 1020 ml 1045 ml Output Total 2400 ml 800 ml Balance -1380 ml 245 ml IV Total 1020 ml 1045 ml Output Urine Total 2400 ml 800 ml # Voids 5 Laboratory Tests 06/29/18 05:20: White Blood Count 8.0, Red Blood Count 4.78, Hemoglobin 13.3L, Hematocrit 41.6L , Mean Corpuscular Volume 87, Mean Corpuscular Hemoglobin 27.7, Mean Corpuscular Hemoglobin Concent 31.9L, Red Cell Distribution Width 13.3, Platelet Count 449, Mean Platelet Volume 6.1L, Neutrophils (%) (Auto) 62.9, Lymphocytes (%) (Auto) 23.4, Monocytes (%) (Auto) 10.3H, Eosinophils (%) (Auto) 2.4, Basophils (%) (Auto) 1.1, Sodium Level 141, Potassium Level 4.3, Chloride Level 105, Carbon Dioxide Level 31, Anion Gap 5, Blood Urea Nitrogen 16, Creatinine 1.1, Estimat Glomerular Filtration Rate > 60, Glucose Level 100, Uric Acid 4.5, Calcium Level 10.1, Phosphorus Level 4.2, Magnesium Level 2.1, Total Bilirubin 0.3, Aspartate Amino Transf (AST/SGOT) 56H, Alanine Aminotransferase (ALT/SGPT) 120H, Alkaline Phosphatase 107, Total Protein 7.6, Albumin 2.7L, Globulin 4.9, Albumin/Globulin Ratio 0.6L, Amylase Level 151H, Lipase > 2000H Height (Feet): 5 Height (Inches): 6.00 Weight (Pounds): 191 General Appearance: no apparent distress Cardiovascular: bradycardia Respiratory/Chest: decreased breath sounds Abdomen: soft, distended Objective no other change Edgar Richardson MD Jun 29, 2018 14:36
[2018-06-29 16:00] VITALS: BP 124/82
[2018-06-29 20:00] VITALS: BP 127/77
[2018-06-29] MEDS: Dyna-Hex 2% Top Sol 2oz TOPIC SCH (20:00)
[2018-06-29] MEDS ORDERED: DEXTROSE IV SCH ×2 (21:00)
[2018-06-29] MEDS ORDERED: FAT EMULSION IV SCH ×2 (21:00)
[2018-06-29] MEDS ORDERED: AMINO ACIDS IV SCH ×2 (21:00)
[2018-06-30] VITALS (7 sets, daily range): BP systolic 115–128; BP diastolic 69–81
[2018-06-30] MEDS: NovoLOG Insulin Flexpen SUBQ SCH ×4 (05:36→17:48)
[2018-06-30 06:17] LABS: BASOPHILS % (AUTO) 1.4 % (0.0-2.0); EOSINOPHILS % (AUTO) 3.1 % (0.0-3.0); HEMOGLOBIN 12.8 G/DL (14.2-18.0); LYMPHOCYTES % (AUTO) 28.9 % (20.0-45.0); MEAN CORPUSCULAR VOLUME 87 FL (80-99); NEUTROPHILS % (AUTO) 59.6 % (45.0-75.0); PLATELET COUNT 443 K/UL (150-450); RED BLOOD COUNT 4.61 M/UL (4.70-6.10); RED CELL DISTRIBUTION WIDTH 13.1 % (11.6-14.8); WHITE BLOOD COUNT 7.1 K/UL (4.8-10.8)
[2018-06-30 06:42] LABS: ALANINE AMINOTRANSFERASE 120 U/L (12-78); ALBUMIN 2.7 G/DL (3.4-5.0); ALBUMIN/GLOBULIN RATIO 0.7 (1.0-2.7); ALKALINE PHOSPHATASE 110 U/L (46-116); ANION GAP 7 mmol/L (5-15); ASPARTATE AMINO TRANSFERASE 52 U/L (15-37); BILIRUBIN,TOTAL 0.3 MG/DL (0.2-1.0); BLOOD UREA NITROGEN 17 mg/dL (7-18); CALCIUM 9.5 MG/DL (8.5-10.1); CARBON DIOXIDE 29 MMOL/L (21-32); CHLORIDE 104 MMOL/L (98-107); PHOSPHORUS 4.6 MG/DL (2.5-4.9); POTASSIUM 4.5 MMOL/L (3.5-5.1); SODIUM 140 MMOL/L (136-145); TRIGLYCERIDES 56 MG/DL (30-150)
[2018-06-30] MEDS ORDERED: Tubing IV Secondary IV ONE (07:36)
[2018-06-30] MEDS: Lisinopril 20mg tab ORAL SCH (08:36)
[2018-06-30] MEDS: Metoprolol 25mg tab ORAL SCH ×2 (08:36→20:33)
[2018-06-30] MEDS: chlordiazePOXIDE 25mg Cap ORAL SCH ×2 (08:36→17:15)
[2018-06-30] MEDS: Pantoprazole Inj IVP SCH (08:37)
[2018-06-30] MEDS: Heparin 5000 units/ml inj SUBQ SCH ×2 (08:39→20:32)
--- NOTE | 2018-06-30 10:50 | GI Progress Note ---
Assessment/Plan Problems: (1) Pancreatitis ICD Codes: K85.90 - Acute pancreatitis without necrosis or infection, unspecified SNOMED: 79303097 (2) Abdominal pain ICD Codes: R10.9 - Unspecified abdominal pain SNOMED: 06612638 (3) ETOH abuse ICD Codes: F10.10 - Alcohol abuse, uncomplicated SNOMED: 56074106 Status: stable Status Narrative Discussed with Dr. Pineda Assessment/Plan Repeat abdominal CT reviewed >> - uncomplicated acute pancreatitis, with peripancreatic phlegmon which is essentially stable. - New finding of presacral edema. - Increased bilateral pleural effusions now small to moderate in size. Resultant compressive atelectasis of portions of both lower lobes again demonstrated - Wall thickening of the distal duodenum and proximal jejunum in the area of pancreatic phlegmon, presumably reactive related to the adjacent inflammation Lipase finally show signs of downtrending, at 1869. Recommendations - Bowel rest, maintain n.p.o. plus TPN - IVFs when off TPN. -Encourage ambulation - follow lab and exam - continue abx -Repeat lipase levels -Pain management The patient was seen and examined at bedside and all new and available data was reviewed in the patients chart. I agree with the above findings, impression and plan. (Patient seen earlier today. Signature stamp does not reflect patient encounter time.). - Juma Pineda MD Subjective Subjective Patient still complains of abdominal pain and lower back pain, has improved Objective Last 24 Hour Vital Signs Date Time Temp Pulse Resp B/P (MAP) Pulse Ox O2 Delivery O2 Flow Rate FiO2 06/30/18 09:00 Room Air 06/30/18 08:36 58 122/78 06/30/18 08:36 58 122/78 06/30/18 08:36 122/78 06/30/18 08:00 97.2 58 17 122/78 (93) 95 06/30/18 07:40 97.4 06/30/18 05:22 123/81 06/30/18 04:00 97.4 54 18 115/69 (84) 95 06/30/18 00:35 97.6 56 18 124/77 (93) 95 06/29/18 22:00 119/76 06/29/18 21:11 56 127/77 06/29/18 21:00 Room Air 06/29/18 20:00 97.3 56 18 127/77 (94) 93 06/29/18 17:55 54 126/78 06/29/18 16:00 98.0 56 18 124/82 (96) 96 06/29/18 13:59 142/88 06/29/18 12:00 98.3 59 18 133/83 (100) 95 Intake and Output 06/29/18 06/30/18 19:00 07:00 Intake Total 1020 ml Output Total 1350 ml 875 ml Balance -330 ml -875 ml IV Total 1020 ml Output Urine Total 1350 ml 875 ml Laboratory Tests Test 06/30/18 05:15 White Blood Count 7.1 K/UL (4.8-10.8) Red Blood Count 4.61 M/UL (4.70-6.10) L Hemoglobin 12.8 G/DL (14.2-18.0) L Hematocrit 40.0 % (42.0-52.0) L Mean Corpuscular Volume 87 FL (80-99) Mean Corpuscular Hemoglobin 27.7 PG (27.0-31.0) Mean Corpuscular Hemoglobin Concent 31.9 G/DL (32.0-36.0) L Red Cell Distribution Width 13.1 % (11.6-14.8) Platelet Count 443 K/UL (150-450) Mean Platelet Volume 6.1 FL (6.5-10.1) L Neutrophils (%) (Auto) 59.6 % (45.0-75.0) Lymphocytes (%) (Auto) 28.9 % (20.0-45.0) Monocytes (%) (Auto) 7.0 % (1.0-10.0) Eosinophils (%) (Auto) 3.1 % (0.0-3.0) H Basophils (%) (Auto) 1.4 % (0.0-2.0) Sodium Level 140 MMOL/L (136-145) Potassium Level 4.5 MMOL/L (3.5-5.1) Chloride Level 104 MMOL/L (98-107) Carbon Dioxide Level 29 MMOL/L (21-32) Anion Gap 7 mmol/L (5-15) Blood Urea Nitrogen 17 mg/dL (7-18) Creatinine 1.0 MG/DL (0.55-1.30) Estimat Glomerular Filtration Rate > 60 mL/min (>60) Glucose Level 108 MG/DL (74-106) H Calcium Level 9.5 MG/DL (8.5-10.1) Phosphorus Level 4.6 MG/DL (2.5-4.9) Magnesium Level 2.0 MG/DL (1.8-2.4) Total Bilirubin 0.3 MG/DL (0.2-1.0) Aspartate Amino Transf (AST/SGOT) 52 U/L (15-37) H Alanine Aminotransferase (ALT/SGPT) 120 U/L (12-78) H Alkaline Phosphatase 110 U/L (46-116) Total Protein 6.6 G/DL (6.4-8.2) Albumin 2.7 G/DL (3.4-5.0) L Globulin 3.9 g/dL Albumin/Globulin Ratio 0.7 (1.0-2.7) L Triglycerides Level 56 MG/DL (30-150) Lipase 1869 U/L (73-393) H Height (Feet): 5 Height (Inches): 6.00 Weight (Pounds): 191 General Appearance: WD/WN, no apparent distress, alert Cardiovascular: normal rate Respiratory/Chest: normal breath sounds, no respiratory distress Abdominal Exam: normal bowel sounds, non tender, soft Extremities: normal range of motion, non-tender Nixon Alanis NP Jun 30, 2018 10:50
--- NOTE | 2018-06-30 11:00 | General Progress Note ---
Assessment/Plan Assessment: #Acute pancreatitis, suspected to be due to excess alcohol consumption, lipase remains elevated -continue bowel rest -continue TPN via PICC -GI following -Nephrology following -continue IV fluids -continue IV Zofran -cont IV hydromorphone for pain -US RUQ without stones; CT scan results reviewed with radiology, no abscess noted -Lipid panel without hypertriglyceridemia #Sepsis -S/p meropenem -ID following -f/u cultures- negative to date -CT A/P without apparent necrosis #Elevated blood pressure due to pain, may have undiagnosed HTN, better control -off telemetry -seen by Cardiology -continue Procardia, clonidine, Lopressor and lisinopril #Hypokalemia -continue to monitor #Hypercalcemia, resolved -likely due to dehydration -continue to monitor -IVF's as above #anemia, acute blood loss -Likely secondary to vigorous hydration -no signs or symptoms for overt GI bleed -contnue to monitor closely VTE PPx Heparin Full Code Subjective Date patient seen: Jun 30, 2018 Time patient seen: 08:15 ROS Limited/Unobtainable: No Constitutional: Denies: chills, fever HEENT: Denies: eye pain Cardiovascular: Denies: chest pain Respiratory: Denies: cough Gastrointestinal/Abdominal: Reports: abdomen distended, abdominal pain Allergies: Coded Allergies: No Known Allergies (Unverified , 06/22/13) Subjective Medicine follow up for acute pancreatitis, likely alcohol induced. MInimal abdominal distension and back pain Objective Last 24 Hour Vital Signs Date Time Temp Pulse Resp B/P (MAP) Pulse Ox O2 Delivery O2 Flow Rate FiO2 06/30/18 09:00 Room Air 06/30/18 08:36 58 122/78 06/30/18 08:36 58 122/78 06/30/18 08:36 122/78 06/30/18 08:00 97.2 58 17 122/78 (93) 95 06/30/18 07:40 97.4 06/30/18 05:22 123/81 06/30/18 04:00 97.4 54 18 115/69 (84) 95 06/30/18 00:35 97.6 56 18 124/77 (93) 95 06/29/18 22:00 119/76 06/29/18 21:11 56 127/77 06/29/18 21:00 Room Air 06/29/18 20:00 97.3 56 18 127/77 (94) 93 06/29/18 17:55 54 126/78 06/29/18 16:00 98.0 56 18 124/82 (96) 96 06/29/18 13:59 142/88 06/29/18 12:00 98.3 59 18 133/83 (100) 95 Intake and Output 06/29/18 06/30/18 19:00 07:00 Intake Total 1020 ml Output Total 1350 ml 875 ml Balance -330 ml -875 ml IV Total 1020 ml Output Urine Total 1350 ml 875 ml Laboratory Tests 06/30/18 05:15: White Blood Count 7.1, Red Blood Count 4.61L, Hemoglobin 12.8L, Hematocrit 40.0L , Mean Corpuscular Volume 87, Mean Corpuscular Hemoglobin 27.7, Mean Corpuscular Hemoglobin Concent 31.9L, Red Cell Distribution Width 13.1, Platelet Count 443, Mean Platelet Volume 6.1L, Neutrophils (%) (Auto) 59.6, Lymphocytes (%) (Auto) 28.9, Monocytes (%) (Auto) 7.0, Eosinophils (%) (Auto) 3.1H, Basophils (%) (Auto) 1.4, Sodium Level 140, Potassium Level 4.5, Chloride Level 104, Carbon Dioxide Level 29, Anion Gap 7, Blood Urea Nitrogen 17, Creatinine 1.0, Estimat Glomerular Filtration Rate > 60, Glucose Level 108H, Calcium Level 9.5, Phosphorus Level 4.6, Magnesium Level 2.0, Total Bilirubin 0.3, Aspartate Amino Transf (AST/SGOT) 52H, Alanine Aminotransferase (ALT/SGPT) 120H, Alkaline Phosphatase 110, Total Protein 6.6, Albumin 2.7L, Globulin 3.9, Albumin/Globulin Ratio 0.7L, Triglycerides Level 56, Lipase 1869H Height (Feet): 5 Height (Inches): 6.00 Weight (Pounds): 191 General Appearance: no apparent distress, alert Neck: non-tender, normal alignment Cardiovascular: normal rate, regular rhythm Respiratory/Chest: lungs clear, normal breath sounds Abdomen: normal bowel sounds, non tender, soft Thaddeus Leon MD Jun 30, 2018 11:00
--- NOTE | 2018-06-30 11:12 | Nephrology Progress Note ---
Assessment/Plan Problem List: (1) Hypertensive urgency (2) Hypercalcemia (3) Anemia Assessment # Elevated blood pressure OOC #Hypercalcemia, # Hypokalemia #Acute pancreatitis, suspected to be due to excess alcohol consumption, lipase remains elevated #Sepsis #anemia, acute blood loss Plan Adjust BP meds , per order Monitor renal parameters, Lytes and Ca and Phos Per orders check PTH level eliminate phos supplement pharmacy informed Subjective ROS Limited/Unobtainable: No Objective Objective Last 24 Hour Vital Signs Date Time Temp Pulse Resp B/P (MAP) Pulse Ox O2 Delivery O2 Flow Rate FiO2 06/30/18 09:00 Room Air 06/30/18 08:36 58 122/78 06/30/18 08:36 58 122/78 06/30/18 08:36 122/78 06/30/18 08:00 97.2 58 17 122/78 (93) 95 06/30/18 07:40 97.4 06/30/18 05:22 123/81 06/30/18 04:00 97.4 54 18 115/69 (84) 95 06/30/18 00:35 97.6 56 18 124/77 (93) 95 06/29/18 22:00 119/76 06/29/18 21:11 56 127/77 06/29/18 21:00 Room Air 06/29/18 20:00 97.3 56 18 127/77 (94) 93 06/29/18 17:55 54 126/78 06/29/18 16:00 98.0 56 18 124/82 (96) 96 06/29/18 13:59 142/88 06/29/18 12:00 98.3 59 18 133/83 (100) 95 Intake and Output 06/29/18 06/30/18 19:00 07:00 Intake Total 1020 ml Output Total 1350 ml 875 ml Balance -330 ml -875 ml IV Total 1020 ml Output Urine Total 1350 ml 875 ml Laboratory Tests 06/30/18 05:15: White Blood Count 7.1, Red Blood Count 4.61L, Hemoglobin 12.8L, Hematocrit 40.0L , Mean Corpuscular Volume 87, Mean Corpuscular Hemoglobin 27.7, Mean Corpuscular Hemoglobin Concent 31.9L, Red Cell Distribution Width 13.1, Platelet Count 443, Mean Platelet Volume 6.1L, Neutrophils (%) (Auto) 59.6, Lymphocytes (%) (Auto) 28.9, Monocytes (%) (Auto) 7.0, Eosinophils (%) (Auto) 3.1H, Basophils (%) (Auto) 1.4, Sodium Level 140, Potassium Level 4.5, Chloride Level 104, Carbon Dioxide Level 29, Anion Gap 7, Blood Urea Nitrogen 17, Creatinine 1.0, Estimat Glomerular Filtration Rate > 60, Glucose Level 108H, Calcium Level 9.5, Phosphorus Level 4.6, Magnesium Level 2.0, Total Bilirubin 0.3, Aspartate Amino Transf (AST/SGOT) 52H, Alanine Aminotransferase (ALT/SGPT) 120H, Alkaline Phosphatase 110, Total Protein 6.6, Albumin 2.7L, Globulin 3.9, Albumin/Globulin Ratio 0.7L, Triglycerides Level 56, Lipase 1869H Height (Feet): 5 Height (Inches): 6.00 Weight (Pounds): 191 General Appearance: no apparent distress Cardiovascular: normal rate Respiratory/Chest: decreased breath sounds Abdomen: distended Objective no other change Edgar Richardson MD Jun 30, 2018 11:12
--- NOTE | 2018-06-30 15:00 | Infectious Diseases Prog Note ---
Assessment/Plan Assessment/Plan ASSESSMENT AND PLAN: 1. sepsis, acute pancreatitis, leukocytosis, fevers, sirs, likely atx, CT noted - - clinically better, fevers and leukocytosis better, still some abdominal pain but less - s/p meropenem - chest x-ray stable - monitor labs - TPN - monitor off antibiotics 2. possible HTN - bp tx per primary team 3. No known allergies. 4. Social history positive for alcohol use. 5. Family history noncontributory. 6. MAR was noted. 7. Case discussed with RN. 8. Continue treatment per primary consultants. 9. Case communicated with Dr. Holden. 10. Notes and records were noted. Orders were entered. Subjective Constitutional: Denies: fever HEENT: Denies: congestion Respiratory: Denies: shortness of breath Cardiovascular: Denies: chest pain Gastrointestinal/Abdominal: Denies: nausea, vomiting, diarrhea Genitourinary: Denies: dysuria Neurologic: Denies: headache Skin: Denies: rash Endocrine: Denies: feels warm Hematologic: Denies: bleeding Musculoskeletal: Denies: pain Allergies: Coded Allergies: No Known Allergies (Unverified , 06/22/13) Objective Vital Signs Last 24 Hour Vital Signs Date Time Temp Pulse Resp B/P (MAP) Pulse Ox O2 Delivery O2 Flow Rate FiO2 06/30/18 14:00 122/80 06/30/18 12:23 97.6 06/30/18 11:59 97.6 58 17 122/80 (94) 95 06/30/18 09:00 Room Air 06/30/18 08:36 58 122/78 06/30/18 08:36 58 122/78 06/30/18 08:36 122/78 06/30/18 08:00 97.2 58 17 122/78 (93) 95 06/30/18 05:22 123/81 06/30/18 04:00 97.4 54 18 115/69 (84) 95 06/30/18 00:35 97.6 56 18 124/77 (93) 95 06/29/18 22:00 119/76 06/29/18 21:11 56 127/77 06/29/18 21:00 Room Air 06/29/18 20:00 97.3 56 18 127/77 (94) 93 4/15/19 17:55 54 126/78 06/29/18 16:00 98.0 56 18 124/82 (96) 96 Height (Feet): 5 Height (Inches): 6.00 Weight (Pounds): 191 General Appearance: no acute distress HEENT: normocephalic, atraumatic, anicteric, mucous membranes moist Respiratory/Chest: lungs clear, normal breath sounds, no accessory muscle use, respiratory distress Cardiovascular: normal rate, regular rhythm, no gallop/murmur, no JVD Abdomen: normal bowel sounds, soft, non tender, no organomegaly, non distended Genitourinary: other - no rosado Extremities: no cyanosis Skin: no rash 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 Left lung base atelectasis/airspace disease. Pleural space: Tiny left pleural effusion. No pneumothorax. Heart: Slightly prominent cardiac silhouette. Mediastinum: Unremarkable. Bones/joints: Unremarkable. IMPRESSION: 1. Mild interstitial prominence. Left lung base atelectasis/airspace disease. Tiny left pleural effusion. Query pneumonia. Chest x-ray - 06/23/18 - Comparison: 06/20/2018 Findings: Left-sided pleural effusion persists. Mild interstitial congestion is unchanged. Impression: Unchanged, over 3 days, findings as above. CT abdomen and pelvis - 06/23/18 - Impression: Findings consistent with uncomplicated acute pancreatitis, with peripancreatic phlegmon which is essentially stable when compared to prior study of 3 days earlier. There is slightly decreased free intraperitoneal fluid. No evidence of necrosis, abscess, or pseudocyst formation. Slightly increased edema of the lumbar and bilateral flank subcutaneous fat New finding of presacral edema. Of uncertain significance, uncertain as to whether related to the pancreatitis or, more likely, related to the generalized increase in soft tissue edema Increased bilateral pleural effusions now small to moderate in size. Resultant compressive atelectasis of portions of both lower lobes again demonstrated Wall thickening of the distal duodenum and proximal jejunum in the area of pancreatic phlegmon, presumably reactive related to the adjacent inflammation Stable densely calcified right lobe liver lesion, presumably postinflammatory Prominent, for age, prostate Microbiology Date/Time Source Procedure Growth Status 06/19/18 19:08 Blood Blood Culture - Final NO GROWTH AFTER 5 DAYS Complete 06/25/18 04:00 Sputum Induced Gram Stain - Final Complete 06/25/18 04:00 Sputum Induced Sputum Culture - Final NORMAL UPPER RESPIRATORY REHAN PRESENT Complete Laboratory Tests Test 06/30/18 05:15 White Blood Count 7.1 K/UL (4.8-10.8) Red Blood Count 4.61 M/UL (4.70-6.10) L Hemoglobin 12.8 G/DL (14.2-18.0) L Hematocrit 40.0 % (42.0-52.0) L Mean Corpuscular Volume 87 FL (80-99) Mean Corpuscular Hemoglobin 27.7 PG (27.0-31.0) Mean Corpuscular Hemoglobin Concent 31.9 G/DL (32.0-36.0) L Red Cell Distribution Width 13.1 % (11.6-14.8) Platelet Count 443 K/UL (150-450) Mean Platelet Volume 6.1 FL (6.5-10.1) L Neutrophils (%) (Auto) 59.6 % (45.0-75.0) Lymphocytes (%) (Auto) 28.9 % (20.0-45.0) Monocytes (%) (Auto) 7.0 % (1.0-10.0) Eosinophils (%) (Auto) 3.1 % (0.0-3.0) H Basophils (%) (Auto) 1.4 % (0.0-2.0) Sodium Level 140 MMOL/L (136-145) Potassium Level 4.5 MMOL/L (3.5-5.1) Chloride Level 104 MMOL/L (98-107) Carbon Dioxide Level 29 MMOL/L (21-32) Anion Gap 7 mmol/L (5-15) Blood Urea Nitrogen 17 mg/dL (7-18) Creatinine 1.0 MG/DL (0.55-1.30) Estimat Glomerular Filtration Rate > 60 mL/min (>60) Glucose Level 108 MG/DL (74-106) H Calcium Level 9.5 MG/DL (8.5-10.1) Phosphorus Level 4.6 MG/DL (2.5-4.9) Magnesium Level 2.0 MG/DL (1.8-2.4) Total Bilirubin 0.3 MG/DL (0.2-1.0) Aspartate Amino Transf (AST/SGOT) 52 U/L (15-37) H Alanine Aminotransferase (ALT/SGPT) 120 U/L (12-78) H Alkaline Phosphatase 110 U/L (46-116) Total Protein 6.6 G/DL (6.4-8.2) Albumin 2.7 G/DL (3.4-5.0) L Globulin 3.9 g/dL Albumin/Globulin Ratio 0.7 (1.0-2.7) L Triglycerides Level 56 MG/DL (30-150) Lipase 1869 U/L (73-393) H Current Medications Medications (Trade) Dose Ordered Sig/Jennifer Route PRN Reason Start Time Stop Time Status Last Admin Dose Admin Acetaminophen (Tylenol) 650 mg Q4H PRN ORAL T>100.5 06/27/18 14:30 07/17/18 14:29 Chlordiazepoxide (Librium) 25 mg BID ORAL 06/27/18 18:00 07/04/18 08:59 06/30/18 08:36 Chlorhexidine Gluconate (Aleja-Hex 2%) 1 applic DAILY@2000 TOPIC 06/27/18 20:00 07/24/18 19:59 06/29/18 20:00 Clonidine HCl (Catapres Tab) 0.1 mg Q8HR ORAL 06/27/18 14:00 07/24/18 17:59 06/29/18 13:59 Dextrose (Dextrose 50%) 25 ml Q30M PRN IV Hypoglycemia 06/27/18 14:00 07/17/18 14:29 Dextrose (Dextrose 50%) 50 ml Q30M PRN IV Hypoglycemia 06/27/18 14:00 07/17/18 14:29 Fat Emulsion Intravenous 192 ml/Amino Acids/ Electrolytes/ Dextrose 2,040 ml @ 85 mls/hr Q24H IV 06/29/18 21:00 06/30/18 20:59 06/29/18 21:10 Fat Emulsion Intravenous 240 ml/Amino Acids/ Electrolytes/ Dextrose 2,040 ml @ 85 mls/hr Q24H IV 06/30/18 21:00 07/30/18 20:59 Fluoxetine HCl (PROzac) 20 mg DAILY ORAL 06/28/18 09:00 07/25/18 12:59 06/30/18 08:36 Heparin Sodium (Porcine) (Heparin 5000 units/ml) 5,000 units EVERY 12 HOURS SUBQ 06/27/18 21:00 07/17/18 20:59 06/30/18 08:39 Hydromorphone HCl (Dilaudid) 2 mg Q4H PRN IVP Severe Pain (Pain Scale 7-10) 06/29/18 10:00 07/06/18 09:59 06/30/18 11:53 Insulin Aspart (NovoLOG) No Dose Q6HR SUBQ 06/27/18 18:00 07/25/18 00:00 06/30/18 05:36 Lisinopril (Prinivil) 40 mg DAILY ORAL 06/28/18 09:00 07/23/18 08:59 06/30/18 08:36 Metoprolol Tartrate (Lopressor) 25 mg Q12HR ORAL 06/27/18 21:00 07/24/18 20:59 06/30/18 08:36 Minoxidil (Loniten) 2.5 mg Q4H PRN ORAL bp over 170 syst 06/27/18 14:00 07/24/18 13:59 Nifedipine (Procardia XL) 30 mg BID ORAL 06/27/18 18:00 07/24/18 17:59 06/30/18 08:36 Ondansetron HCl (Zofran) 4 mg Q6H PRN IVP Nausea & Vomiting 06/27/18 14:00 07/17/18 13:59 Pantoprazole (Protonix) 40 mg EVERY 12 HOURS ORAL 06/30/18 21:00 07/30/18 20:59 Phytonadione (Vitamin K) 10 mg QWEEK SUBQ 07/01/18 09:00 07/31/18 08:59 Rakesh Teran MD Jun 30, 2018 15:00
[2018-06-30] MEDS: Dyna-Hex 2% Top Sol 2oz TOPIC SCH (20:30)
[2018-06-30] MEDS: DEXTROSE IV SCH ×2 (20:42)
[2018-06-30] MEDS: AMINO ACIDS IV SCH ×2 (20:42)
[2018-06-30] MEDS: FAT EMULSION IV SCH ×2 (20:42)
--- NOTE | 2018-06-30 22:03 | Cardiology Progress Note ---
Assessment/Plan Status: stable Assessment/Plan Assessment/Plan Assessment/Plan Acute pancreatitis, suspected to be due to excess alcohol consumption, lipase remains elevated Sepsis Hypokalemia Hypercalcemia, resolved Anemia, acute blood loss Hypertension, uncontrolled -cont amlodipine -continue lisinopril -Continue cardura -Continue clonidine -TTE Left ventricular ejection fraction estimated to be 70 %., normal pulmonary pressures, grade 1 diastolic dysfunction Subjective Cardiovascular: Reports: no symptoms Respiratory: Reports: no symptoms Gastrointestinal/Abdominal: Reports: no symptoms Genitourinary: Reports: no symptoms Subjective Blood pressure controlled, LFT coming down, on liquid diet, pain controlled, lipase still elevated, remains on TPN Objective Last 24 Hour Vital Signs Date Time Temp Pulse Resp B/P (MAP) Pulse Ox O2 Delivery O2 Flow Rate FiO2 06/30/18 20:33 96 128/80 06/30/18 17:15 59 124/80 06/30/18 17:04 124/80 (95) 06/30/18 16:24 97.6 06/30/18 15:52 97.6 59 21 123/81 (95) 94 06/30/18 14:00 122/80 06/30/18 11:59 97.6 58 17 122/80 (94) 95 06/30/18 09:00 Room Air 06/30/18 08:36 58 122/78 06/30/18 08:36 58 122/78 06/30/18 08:36 122/78 06/30/18 08:00 97.2 58 17 122/78 (93) 95 06/30/18 05:22 123/81 06/30/18 04:00 97.4 54 18 115/69 (84) 95 06/30/18 00:35 97.6 56 18 124/77 (93) 95 General Appearance: no apparent distress, alert EENT: PERRL/EOMI, normal ENT inspection, TMs normal, pharynx normal Neck: non-tender, normal alignment, supple, normal inspection, no JVD Cardiovascular: normal peripheral pulses, normal rate, regular rhythm Respiratory/Chest: chest wall non-tender, lungs clear, normal breath sounds Abdomen: normal bowel sounds, non tender, soft, no organomegaly, hypoactive bowel sounds, guarding, rebound Extremities: normal range of motion, non-tender, normal inspection, no calf tenderness, no swelling 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, no motor/sensory deficits, alert, oriented x 3 Intake and Output 06/29/18 06/30/18 18:59 06:59 Intake Total 1020 ml Output Total 1350 ml 875 ml Balance -330 ml -875 ml IV Total 1020 ml Output Urine Total 1350 ml 875 ml Laboratory Tests Test 06/30/18 05:15 White Blood Count 7.1 K/UL (4.8-10.8) Red Blood Count 4.61 M/UL (4.70-6.10) L Hemoglobin 12.8 G/DL (14.2-18.0) L Hematocrit 40.0 % (42.0-52.0) L Mean Corpuscular Volume 87 FL (80-99) Mean Corpuscular Hemoglobin 27.7 PG (27.0-31.0) Mean Corpuscular Hemoglobin Concent 31.9 G/DL (32.0-36.0) L Red Cell Distribution Width 13.1 % (11.6-14.8) Platelet Count 443 K/UL (150-450) Mean Platelet Volume 6.1 FL (6.5-10.1) L Neutrophils (%) (Auto) 59.6 % (45.0-75.0) Lymphocytes (%) (Auto) 28.9 % (20.0-45.0) Monocytes (%) (Auto) 7.0 % (1.0-10.0) Eosinophils (%) (Auto) 3.1 % (0.0-3.0) H Basophils (%) (Auto) 1.4 % (0.0-2.0) Sodium Level 140 MMOL/L (136-145) Potassium Level 4.5 MMOL/L (3.5-5.1) Chloride Level 104 MMOL/L (98-107) Carbon Dioxide Level 29 MMOL/L (21-32) Anion Gap 7 mmol/L (5-15) Blood Urea Nitrogen 17 mg/dL (7-18) Creatinine 1.0 MG/DL (0.55-1.30) Estimat Glomerular Filtration Rate > 60 mL/min (>60) Glucose Level 108 MG/DL (74-106) H Calcium Level 9.5 MG/DL (8.5-10.1) Calcium (Send out) Pending Phosphorus Level 4.6 MG/DL (2.5-4.9) Magnesium Level 2.0 MG/DL (1.8-2.4) Total Bilirubin 0.3 MG/DL (0.2-1.0) Aspartate Amino Transf (AST/SGOT) 52 U/L (15-37) H Alanine Aminotransferase (ALT/SGPT) 120 U/L (12-78) H Alkaline Phosphatase 110 U/L (46-116) Total Protein 6.6 G/DL (6.4-8.2) Albumin 2.7 G/DL (3.4-5.0) L Globulin 3.9 g/dL Albumin/Globulin Ratio 0.7 (1.0-2.7) L Triglycerides Level 56 MG/DL (30-150) Lipase 1869 U/L (73-393) H Parathyroid Hormone (Intact) Pending Willy Cameron MD Jun 30, 2018 22:03
[2018-07-01] VITALS: BP 117/73
[2018-07-01] MEDS: NovoLOG Insulin Flexpen SUBQ SCH ×4 (00:20→18:00)
[2018-07-01 04:00] VITALS: BP 115/71
[2018-07-01 06:18] LABS: BASOPHILS % (AUTO) 1.3 % (0.0-2.0); EOSINOPHILS % (AUTO) 2.9 % (0.0-3.0); HEMATOCRIT 39.1 % (42.0-52.0); HEMOGLOBIN 12.7 G/DL (14.2-18.0); LYMPHOCYTES % (AUTO) 25.7 % (20.0-45.0); MEAN CORPUSCULAR VOLUME 87 FL (80-99); MONOCYTES % (AUTO) 8.7 % (1.0-10.0); NEUTROPHILS % (AUTO) 61.4 % (45.0-75.0); PLATELET COUNT 420 K/UL (150-450); RED BLOOD COUNT 4.51 M/UL (4.70-6.10); WHITE BLOOD COUNT 6.5 K/UL (4.8-10.8)
[2018-07-01 06:41] LABS: ANION GAP 7 mmol/L (5-15); BLOOD UREA NITROGEN 17 mg/dL (7-18); CALCIUM 9.6 MG/DL (8.5-10.1); CARBON DIOXIDE 28 MMOL/L (21-32); CHLORIDE 104 MMOL/L (98-107); POTASSIUM 4.3 MMOL/L (3.5-5.1); SODIUM 139 MMOL/L (136-145)
[2018-07-01 08:00] VITALS: BP 126/74
[2018-07-01] MEDS: chlordiazePOXIDE 25mg Cap ORAL SCH ×2 (08:21→17:38)
[2018-07-01] MEDS: Metoprolol 25mg tab ORAL SCH ×2 (08:21→20:22)
[2018-07-01] MEDS: Lisinopril 20mg tab ORAL SCH (08:22)
[2018-07-01] MEDS: Heparin 5000 units/ml inj SUBQ SCH ×2 (08:22→20:20)
[2018-07-01] MEDS ORDERED: Phytonadione 10 mg/mL 1ml amp SUBQ SCH (09:00)
[2018-07-01] MEDS: Phytonadione 10 mg/mL 1ml amp SUBQ SCH (09:46)
--- NOTE | 2018-07-01 10:35 | GI Progress Note ---
Assessment/Plan Problems: (1) Pancreatitis ICD Codes: K85.90 - Acute pancreatitis without necrosis or infection, unspecified SNOMED: 13339851 (2) Abdominal pain ICD Codes: R10.9 - Unspecified abdominal pain SNOMED: 50531467 (3) ETOH abuse ICD Codes: F10.10 - Alcohol abuse, uncomplicated SNOMED: 75072399 Status: progressing Status Narrative Discussed with Dr. Pineda Assessment/Plan Repeat abdominal CT reviewed >> - uncomplicated acute pancreatitis, with peripancreatic phlegmon which is essentially stable. - New finding of presacral edema. - Increased bilateral pleural effusions now small to moderate in size. Resultant compressive atelectasis of portions of both lower lobes again demonstrated - Wall thickening of the distal duodenum and proximal jejunum in the area of pancreatic phlegmon, presumably reactive related to the adjacent inflammation elevated lipase now down trending Recommendations - Bowel rest, maintain n.p.o. plus TPN -Plan for clear liquid diet trial tomorrow. - IVFs when off TPN. -Encourage ambulation - follow lab and exam - continue abx -Repeat lipase levels -Pain management The patient was seen and examined at bedside and all new and available data was reviewed in the patients chart. I agree with the above findings, impression and plan. (Patient seen earlier today. Signature stamp does not reflect patient encounter time.). - Juma Pineda MD Subjective Subjective Patient still complains of abdominal pain and lower back pain, has improved Objective Last 24 Hour Vital Signs Date Time Temp Pulse Resp B/P (MAP) Pulse Ox O2 Delivery O2 Flow Rate FiO2 07/01/18 09:00 60 126/74 07/01/18 08:22 126/74 07/01/18 08:21 60 126/74 07/01/18 08:20 60 126/74 07/01/18 08:00 97.2 60 18 126/74 (91) 97 07/01/18 07:20 Room Air 07/01/18 05:43 116/67 07/01/18 04:00 97.7 54 18 115/71 (86) 95 07/01/18 00:00 97.3 57 18 117/73 (88) 96 06/30/18 22:27 138/88 06/30/18 21:00 Room Air 06/30/18 20:33 96 128/80 06/30/18 20:00 97.8 58 18 128/80 (96) 96 06/30/18 17:15 59 124/80 06/30/18 17:04 124/80 (95) 06/30/18 16:24 97.6 06/30/18 15:52 97.6 59 21 123/81 (95) 94 06/30/18 14:00 122/80 06/30/18 11:59 97.6 58 17 122/80 (94) 95 Intake and Output 06/30/18 07/01/18 19:00 07:00 Intake Total 1020 ml Output Total 1450 ml 750 ml Balance -430 ml -750 ml IV Total 1020 ml Output Urine Total 1450 ml 750 ml # Voids 1 Laboratory Tests Test 07/01/18 05:47 White Blood Count 6.5 K/UL (4.8-10.8) Red Blood Count 4.51 M/UL (4.70-6.10) L Hemoglobin 12.7 G/DL (14.2-18.0) L Hematocrit 39.1 % (42.0-52.0) L Mean Corpuscular Volume 87 FL (80-99) Mean Corpuscular Hemoglobin 28.1 PG (27.0-31.0) Mean Corpuscular Hemoglobin Concent 32.4 G/DL (32.0-36.0) Red Cell Distribution Width 13.0 % (11.6-14.8) Platelet Count 420 K/UL (150-450) Mean Platelet Volume 6.3 FL (6.5-10.1) L Neutrophils (%) (Auto) 61.4 % (45.0-75.0) Lymphocytes (%) (Auto) 25.7 % (20.0-45.0) Monocytes (%) (Auto) 8.7 % (1.0-10.0) Eosinophils (%) (Auto) 2.9 % (0.0-3.0) Basophils (%) (Auto) 1.3 % (0.0-2.0) Sodium Level 139 MMOL/L (136-145) Potassium Level 4.3 MMOL/L (3.5-5.1) Chloride Level 104 MMOL/L (98-107) Carbon Dioxide Level 28 MMOL/L (21-32) Anion Gap 7 mmol/L (5-15) Blood Urea Nitrogen 17 mg/dL (7-18) Creatinine 1.0 MG/DL (0.55-1.30) Estimat Glomerular Filtration Rate > 60 mL/min (>60) Glucose Level 112 MG/DL (74-106) H Calcium Level 9.6 MG/DL (8.5-10.1) Lipase 1449 U/L (73-393) H Height (Feet): 5 Height (Inches): 6.00 Weight (Pounds): 192 General Appearance: WD/WN, no apparent distress, alert Cardiovascular: normal rate Respiratory/Chest: normal breath sounds, no respiratory distress Abdominal Exam: normal bowel sounds, non tender, soft Extremities: normal range of motion, non-tender Nixon Alanis NP Jul 01, 2018 10:35
--- NOTE | 2018-07-01 10:52 | General Progress Note ---
Assessment/Plan Assessment: #Acute pancreatitis, suspected to be due to excess alcohol consumption, lipase finally trending down -continue bowel rest, possible trial of clears per GI -continue TPN via PICC for now -GI following -Nephrology following -continue IV fluids -continue IV Zofran -cont IV hydromorphone for pain -US RUQ without stones; CT scan results reviewed with radiology, no abscess noted -Lipid panel without hypertriglyceridemia #Sepsis -S/p meropenem -ID following -f/u cultures- negative to date -CT A/P without apparent necrosis #Elevated blood pressure due to pain, may have undiagnosed HTN, better control -off telemetry -seen by Cardiology -continue Procardia, clonidine, Lopressor and lisinopril #Hypokalemia -continue to monitor #Hypercalcemia, resolved -likely due to dehydration -continue to monitor -IVF's as above #anemia, acute blood loss -Likely secondary to vigorous hydration -no signs or symptoms for overt GI bleed -continue to monitor closely VTE PPx Heparin Full Code Subjective Date patient seen: Jul 01, 2018 Time patient seen: 10:15 Constitutional: Denies: chills, fever Cardiovascular: Denies: chest pain Respiratory: Denies: cough Gastrointestinal/Abdominal: Reports: abdominal pain; Denies: abdomen distended Allergies: Coded Allergies: No Known Allergies (Unverified , 06/22/13) Subjective Medicine follow up for acute pancreatitis, likely alcohol induced. Had sharp abdominal pain upon waking. Lipase levels finally trending down. Spoke with GI, possible trial of clear in AM. Objective Last 24 Hour Vital Signs Date Time Temp Pulse Resp B/P (MAP) Pulse Ox O2 Delivery O2 Flow Rate FiO2 07/01/18 09:00 60 126/74 07/01/18 08:22 126/74 07/01/18 08:21 60 126/74 07/01/18 08:20 60 126/74 07/01/18 08:00 97.2 60 18 126/74 (91) 97 07/01/18 07:20 Room Air 07/01/18 05:43 116/67 07/01/18 04:00 97.7 54 18 115/71 (86) 95 07/01/18 00:00 97.3 57 18 117/73 (88) 96 06/30/18 22:27 138/88 06/30/18 21:00 Room Air 06/30/18 20:33 96 128/80 06/30/18 20:00 97.8 58 18 128/80 (96) 96 06/30/18 17:15 59 124/80 06/30/18 17:04 124/80 (95) 06/30/18 16:24 97.6 06/30/18 15:52 97.6 59 21 123/81 (95) 94 06/30/18 14:00 122/80 06/30/18 11:59 97.6 58 17 122/80 (94) 95 Intake and Output 06/30/18 07/01/18 19:00 07:00 Intake Total 1020 ml Output Total 1450 ml 750 ml Balance -430 ml -750 ml IV Total 1020 ml Output Urine Total 1450 ml 750 ml # Voids 1 Laboratory Tests 07/01/18 05:47: White Blood Count 6.5, Red Blood Count 4.51L, Hemoglobin 12.7L, Hematocrit 39.1L , Mean Corpuscular Volume 87, Mean Corpuscular Hemoglobin 28.1, Mean Corpuscular Hemoglobin Concent 32.4, Red Cell Distribution Width 13.0, Platelet Count 420, Mean Platelet Volume 6.3L, Neutrophils (%) (Auto) 61.4, Lymphocytes ( %) (Auto) 25.7, Monocytes (%) (Auto) 8.7, Eosinophils (%) (Auto) 2.9, Basophils (%) (Auto) 1.3, Sodium Level 139, Potassium Level 4.3, Chloride Level 104, Carbon Dioxide Level 28, Anion Gap 7, Blood Urea Nitrogen 17, Creatinine 1.0, Estimat Glomerular Filtration Rate > 60, Glucose Level 112H, Calcium Level 9.6, Lipase 1449H Height (Feet): 5 Height (Inches): 6.00 Weight (Pounds): 192 General Appearance: no apparent distress, alert Neck: normal alignment Cardiovascular: normal rate Respiratory/Chest: lungs clear, normal breath sounds Abdomen: normal bowel sounds, non tender, soft Neurologic: alert, oriented x 3, responsive Thaddeus Leon MD Jul 01, 2018 10:52
[2018-07-01 12:00] VITALS: BP 119/79
--- NOTE | 2018-07-01 12:22 | Nephrology Progress Note ---
Assessment/Plan Problem List: (1) Hypertensive urgency (2) Hypercalcemia (3) Anemia Assessment # Elevated blood pressure OOC #Hypercalcemia, # Hypokalemia #Acute pancreatitis, suspected to be due to excess alcohol consumption, lipase remains elevated #Sepsis #anemia, acute blood loss Plan Adjust BP meds , per order Monitor renal parameters, Lytes and Ca and Phos Per orders check PTH level eliminate phos supplement pharmacy informed Subjective ROS Limited/Unobtainable: No Objective Objective Last 24 Hour Vital Signs Date Time Temp Pulse Resp B/P (MAP) Pulse Ox O2 Delivery O2 Flow Rate FiO2 07/01/18 11:56 119/79 07/01/18 09:00 60 126/74 07/01/18 08:22 126/74 07/01/18 08:21 60 126/74 07/01/18 08:20 60 126/74 07/01/18 08:00 97.2 60 18 126/74 (91) 97 07/01/18 07:20 Room Air 07/01/18 05:43 116/67 07/01/18 04:00 97.7 54 18 115/71 (86) 95 07/01/18 00:00 97.3 57 18 117/73 (88) 96 06/30/18 22:27 138/88 06/30/18 21:00 Room Air 06/30/18 20:33 96 128/80 06/30/18 20:00 97.8 58 18 128/80 (96) 96 06/30/18 17:15 59 124/80 06/30/18 17:04 124/80 (95) 06/30/18 16:24 97.6 06/30/18 15:52 97.6 59 21 123/81 (95) 94 06/30/18 14:00 122/80 Intake and Output 06/30/18 07/01/18 19:00 07:00 Intake Total 1020 ml Output Total 1450 ml 750 ml Balance -430 ml -750 ml IV Total 1020 ml Output Urine Total 1450 ml 750 ml # Voids 1 Laboratory Tests 07/01/18 05:47: White Blood Count 6.5, Red Blood Count 4.51L, Hemoglobin 12.7L, Hematocrit 39.1L , Mean Corpuscular Volume 87, Mean Corpuscular Hemoglobin 28.1, Mean Corpuscular Hemoglobin Concent 32.4, Red Cell Distribution Width 13.0, Platelet Count 420, Mean Platelet Volume 6.3L, Neutrophils (%) (Auto) 61.4, Lymphocytes ( %) (Auto) 25.7, Monocytes (%) (Auto) 8.7, Eosinophils (%) (Auto) 2.9, Basophils (%) (Auto) 1.3, Sodium Level 139, Potassium Level 4.3, Chloride Level 104, Carbon Dioxide Level 28, Anion Gap 7, Blood Urea Nitrogen 17, Creatinine 1.0, Estimat Glomerular Filtration Rate > 60, Glucose Level 112H, Calcium Level 9.6, Lipase 1449H Height (Feet): 5 Height (Inches): 6.00 Weight (Pounds): 192 General Appearance: no apparent distress Objective no other change Edgar Richardson MD Jul 01, 2018 12:22
[2018-07-01 16:10] VITALS: BP 120/74
[2018-07-01 20:00] VITALS: BP 124/73
[2018-07-01] MEDS: Dyna-Hex 2% Top Sol 2oz TOPIC SCH (20:05)
[2018-07-01] MEDS: DEXTROSE IV SCH ×2 (20:16)
[2018-07-01] MEDS: AMINO ACIDS IV SCH ×2 (20:16)
[2018-07-01] MEDS: FAT EMULSION IV SCH ×2 (20:16)
--- NOTE | 2018-07-01 21:47 | Cardiology Progress Note ---
Assessment/Plan Status: stable Assessment/Plan Assessment/Plan Assessment/Plan Acute pancreatitis, suspected to be due to excess alcohol consumption, lipase remains elevated Sepsis Hypokalemia Hypercalcemia, resolved Anemia, acute blood loss Hypertension, uncontrolled -continue metoprolol -continue lisinopril -Continue nifedipine -Continue clonidine -TTE Left ventricular ejection fraction estimated to be 70 %., normal pulmonary pressures, grade 1 diastolic dysfunction Subjective Cardiovascular: Reports: no symptoms Respiratory: Reports: no symptoms Gastrointestinal/Abdominal: Reports: no symptoms Genitourinary: Reports: no symptoms Subjective Blood pressure controlled, LFT coming down, on liquid diet, pain controlled, lipase still elevated, remains on TPN Objective Last 24 Hour Vital Signs Date Time Temp Pulse Resp B/P (MAP) Pulse Ox O2 Delivery O2 Flow Rate FiO2 07/01/18 21:22 124/73 07/01/18 21:00 Room Air 07/01/18 20:22 55 124/73 07/01/18 20:22 55 124/73 07/01/18 20:00 97.9 55 18 124/73 (90) 100 07/01/18 16:10 98.1 59 17 120/74 (89) 93 07/01/18 12:00 97.6 54 18 119/79 (92) 99 07/01/18 11:56 119/79 07/01/18 09:00 60 126/74 07/01/18 08:22 126/74 07/01/18 08:21 60 126/74 07/01/18 08:20 60 126/74 07/01/18 08:00 97.2 60 18 126/74 (91) 97 07/01/18 07:20 Room Air 07/01/18 05:43 116/67 07/01/18 04:00 97.7 54 18 115/71 (86) 95 07/01/18 00:00 97.3 57 18 117/73 (88) 96 06/30/18 22:27 138/88 General Appearance: no apparent distress, alert EENT: PERRL/EOMI, normal ENT inspection, TMs normal, pharynx normal Neck: non-tender, normal alignment, supple, normal inspection, no JVD Rhythm: NSR Cardiovascular: normal peripheral pulses, normal rate, regular rhythm, regularly irregular, no gallop/murmur Respiratory/Chest: chest wall non-tender, lungs clear, normal breath sounds Abdomen: normal bowel sounds, non tender, soft, no organomegaly, no mass Intake and Output 06/30/18 07/01/18 18:59 06:59 Intake Total 935 ml 85 ml Output Total 1450 ml 750 ml Balance -515 ml -665 ml IV Total 935 ml 85 ml Output Urine Total 1450 ml 750 ml # Voids 1 Laboratory Tests Test 07/01/18 05:47 White Blood Count 6.5 K/UL (4.8-10.8) Red Blood Count 4.51 M/UL (4.70-6.10) L Hemoglobin 12.7 G/DL (14.2-18.0) L Hematocrit 39.1 % (42.0-52.0) L Mean Corpuscular Volume 87 FL (80-99) Mean Corpuscular Hemoglobin 28.1 PG (27.0-31.0) Mean Corpuscular Hemoglobin Concent 32.4 G/DL (32.0-36.0) Red Cell Distribution Width 13.0 % (11.6-14.8) Platelet Count 420 K/UL (150-450) Mean Platelet Volume 6.3 FL (6.5-10.1) L Neutrophils (%) (Auto) 61.4 % (45.0-75.0) Lymphocytes (%) (Auto) 25.7 % (20.0-45.0) Monocytes (%) (Auto) 8.7 % (1.0-10.0) Eosinophils (%) (Auto) 2.9 % (0.0-3.0) Basophils (%) (Auto) 1.3 % (0.0-2.0) Sodium Level 139 MMOL/L (136-145) Potassium Level 4.3 MMOL/L (3.5-5.1) Chloride Level 104 MMOL/L (98-107) Carbon Dioxide Level 28 MMOL/L (21-32) Anion Gap 7 mmol/L (5-15) Blood Urea Nitrogen 17 mg/dL (7-18) Creatinine 1.0 MG/DL (0.55-1.30) Estimat Glomerular Filtration Rate > 60 mL/min (>60) Glucose Level 112 MG/DL (74-106) H Calcium Level 9.6 MG/DL (8.5-10.1) Lipase 1449 U/L (73-393) H Willy Cameron MD Jul 01, 2018 21:47
[2018-07-02] VITALS: BP 126/71
[2018-07-02] MEDS: NovoLOG Insulin Flexpen SUBQ SCH ×4 (00:08→19:03)
[2018-07-02 04:00] VITALS: BP 114/65
[2018-07-02 07:40] LABS: BASOPHILS % (AUTO) 1.2 % (0.0-2.0); EOSINOPHILS % (AUTO) 2.2 % (0.0-3.0); HEMATOCRIT 38.3 % (42.0-52.0); HEMOGLOBIN 12.4 G/DL (14.2-18.0); LYMPHOCYTES % (AUTO) 27.8 % (20.0-45.0); MEAN CORPUSCULAR VOLUME 87 FL (80-99); MONOCYTES % (AUTO) 9.9 % (1.0-10.0); NEUTROPHILS % (AUTO) 58.9 % (45.0-75.0); PLATELET COUNT 411 K/UL (150-450); RED BLOOD COUNT 4.42 M/UL (4.70-6.10); RED CELL DISTRIBUTION WIDTH 13.2 % (11.6-14.8); WHITE BLOOD COUNT 6.1 K/UL (4.8-10.8)
[2018-07-02 07:52] LABS: ANION GAP 7 mmol/L (5-15); BLOOD UREA NITROGEN 18 mg/dL (7-18); CALCIUM 9.5 MG/DL (8.5-10.1); CARBON DIOXIDE 28 MMOL/L (21-32); CHLORIDE 103 MMOL/L (98-107); POTASSIUM 4.1 MMOL/L (3.5-5.1); SODIUM 138 MMOL/L (136-145)
[2018-07-02 08:00] VITALS: BP 130/75
[2018-07-02] MEDS: Metoprolol 25mg tab ORAL SCH ×3 (09:00→20:31)
[2018-07-02] MEDS: Heparin 5000 units/ml inj SUBQ SCH ×2 (09:22→20:36)
[2018-07-02] MEDS: Lisinopril 20mg tab ORAL SCH (09:23)
[2018-07-02] MEDS: chlordiazePOXIDE 25mg Cap ORAL SCH ×2 (09:26→18:55)
--- NOTE | 2018-07-02 10:27 | GI Progress Note ---
Assessment/Plan Problems: (1) Pancreatitis ICD Codes: K85.90 - Acute pancreatitis without necrosis or infection, unspecified SNOMED: 65315872 (2) Abdominal pain ICD Codes: R10.9 - Unspecified abdominal pain SNOMED: 37277941 (3) ETOH abuse ICD Codes: F10.10 - Alcohol abuse, uncomplicated SNOMED: 22835925 Status: progressing Status Narrative Discussed with Dr. Pineda Assessment/Plan Repeat abdominal CT reviewed >> - uncomplicated acute pancreatitis, with peripancreatic phlegmon which is essentially stable. - New finding of presacral edema. - Increased bilateral pleural effusions now small to moderate in size. Resultant compressive atelectasis of portions of both lower lobes again demonstrated - Wall thickening of the distal duodenum and proximal jejunum in the area of pancreatic phlegmon, presumably reactive related to the adjacent inflammation elevated lipase now down trending Recommendations Clear liquid diet trial today - IVFs when off TPN. -Encourage ambulation - follow lab and exam - continue abx -Repeat lipase levels -Pain management The patient was seen and examined at bedside and all new and available data was reviewed in the patients chart. I agree with the above findings, impression and plan. (Patient seen earlier today. Signature stamp does not reflect patient encounter time.). - Juma Pineda MD Subjective Subjective Abdominal pain improved, but still present Wants to do a trial of clear liquid diet Objective Last 24 Hour Vital Signs Date Time Temp Pulse Resp B/P (MAP) Pulse Ox O2 Delivery O2 Flow Rate FiO2 07/02/18 09:26 57 130/75 07/02/18 09:23 130/75 07/02/18 09:00 57 130/75 07/02/18 08:00 98.0 57 18 130/75 (93) 98 07/02/18 05:04 114/65 07/02/18 04:00 97.8 56 18 114/65 (81) 96 07/02/18 00:00 98.1 55 18 126/71 (89) 97 07/01/18 21:22 124/73 07/01/18 21:00 Room Air 07/01/18 20:22 55 124/73 07/01/18 20:22 55 124/73 07/01/18 20:00 97.9 55 18 124/73 (90) 100 07/01/18 16:10 98.1 59 17 120/74 (89) 93 07/01/18 12:00 97.6 54 18 119/79 (92) 99 07/01/18 11:56 119/79 Intake and Output 07/01/18 07/02/18 19:00 07:00 Intake Total 935 ml 935 ml Output Total 1300 ml 600 ml Balance -365 ml 335 ml IV Total 935 ml 935 ml Output Urine Total 1300 ml 600 ml Laboratory Tests Test 07/02/18 05:28 White Blood Count 6.1 K/UL (4.8-10.8) Red Blood Count 4.42 M/UL (4.70-6.10) L Hemoglobin 12.4 G/DL (14.2-18.0) L Hematocrit 38.3 % (42.0-52.0) L Mean Corpuscular Volume 87 FL (80-99) Mean Corpuscular Hemoglobin 28.1 PG (27.0-31.0) Mean Corpuscular Hemoglobin Concent 32.4 G/DL (32.0-36.0) Red Cell Distribution Width 13.2 % (11.6-14.8) Platelet Count 411 K/UL (150-450) Mean Platelet Volume 6.6 FL (6.5-10.1) Neutrophils (%) (Auto) 58.9 % (45.0-75.0) Lymphocytes (%) (Auto) 27.8 % (20.0-45.0) Monocytes (%) (Auto) 9.9 % (1.0-10.0) Eosinophils (%) (Auto) 2.2 % (0.0-3.0) Basophils (%) (Auto) 1.2 % (0.0-2.0) Sodium Level 138 MMOL/L (136-145) Potassium Level 4.1 MMOL/L (3.5-5.1) Chloride Level 103 MMOL/L (98-107) Carbon Dioxide Level 28 MMOL/L (21-32) Anion Gap 7 mmol/L (5-15) Blood Urea Nitrogen 18 mg/dL (7-18) Creatinine 1.0 MG/DL (0.55-1.30) Estimat Glomerular Filtration Rate > 60 mL/min (>60) Glucose Level 103 MG/DL (74-106) Calcium Level 9.5 MG/DL (8.5-10.1) Lipase 1227 U/L (73-393) H Height (Feet): 5 Height (Inches): 6.00 Weight (Pounds): 192 General Appearance: WD/WN, no apparent distress, alert Cardiovascular: normal rate Respiratory/Chest: normal breath sounds, no respiratory distress Abdominal Exam: normal bowel sounds, non tender, soft Extremities: normal range of motion, non-tender Nixon Alanis NP Jul 02, 2018 10:27
[2018-07-02 12:00] VITALS: BP 130/84
--- NOTE | 2018-07-02 12:57 | General Progress Note ---
Assessment/Plan Assessment: #Acute pancreatitis, suspected to be due to excess alcohol consumption, abdominal symptoms and lipase levels improving -treial of clears today, ADAT -continue TPN via PICC for now, stop when tolerating diet -GI following -Nephrology following -continue IV fluids -continue IV Zofran -cont IV hydromorphone for pain -US RUQ without stones; CT scan results reviewed with radiology, no abscess noted -Lipid panel without hypertriglyceridemia #Sepsis -S/p meropenem -ID following -f/u cultures- negative to date -CT A/P without apparent necrosis #Elevated blood pressure due to pain, may have undiagnosed HTN, better control -off telemetry -seen by Cardiology -continue Procardia, clonidine, Lopressor and lisinopril #Hypokalemia -continue to monitor #Hypercalcemia, resolved -likely due to dehydration -continue to monitor -IVF's as above #anemia, acute blood loss -Likely secondary to vigorous hydration -no signs or symptoms for overt GI bleed -continue to monitor closely VTE PPx Heparin Full Code Subjective Date patient seen: Jul 02, 2018 Time patient seen: 12:25 ROS Limited/Unobtainable: No Constitutional: Reports: chills, fever Cardiovascular: Reports: chest pain Respiratory: Reports: cough Gastrointestinal/Abdominal: Reports: abdomen distended, abdominal pain Allergies: Coded Allergies: No Known Allergies (Unverified , 06/22/13) Subjective Medicine follow up for acute pancreatitis, likely alcohol induced. Abdominal symptoms and lipase levels improving. Started on clears by GI today. Objective Last 24 Hour Vital Signs Date Time Temp Pulse Resp B/P (MAP) Pulse Ox O2 Delivery O2 Flow Rate FiO2 07/02/18 12:00 98.7 63 18 130/84 (99) 98 07/02/18 09:26 57 130/75 07/02/18 09:23 130/75 07/02/18 09:00 57 130/75 07/02/18 09:00 Room Air 07/02/18 08:00 98.0 57 18 130/75 (93) 98 07/02/18 05:04 114/65 07/02/18 04:00 97.8 56 18 114/65 (81) 96 07/02/18 00:00 98.1 55 18 126/71 (89) 97 07/01/18 21:22 124/73 07/01/18 21:00 Room Air 07/01/18 20:22 55 124/73 07/01/18 20:22 55 124/73 07/01/18 20:00 97.9 55 18 124/73 (90) 100 07/01/18 16:10 98.1 59 17 120/74 (89) 93 Intake and Output 07/01/18 07/02/18 19:00 07:00 Intake Total 935 ml 1020 ml Output Total 1300 ml 600 ml Balance -365 ml 420 ml IV Total 935 ml 1020 ml Output Urine Total 1300 ml 600 ml Laboratory Tests 07/02/18 05:28: White Blood Count 6.1, Red Blood Count 4.42L, Hemoglobin 12.4L, Hematocrit 38.3L , Mean Corpuscular Volume 87, Mean Corpuscular Hemoglobin 28.1, Mean Corpuscular Hemoglobin Concent 32.4, Red Cell Distribution Width 13.2, Platelet Count 411, Mean Platelet Volume 6.6, Neutrophils (%) (Auto) 58.9, Lymphocytes (% ) (Auto) 27.8, Monocytes (%) (Auto) 9.9, Eosinophils (%) (Auto) 2.2, Basophils ( %) (Auto) 1.2, Sodium Level 138, Potassium Level 4.1, Chloride Level 103, Carbon Dioxide Level 28, Anion Gap 7, Blood Urea Nitrogen 18, Creatinine 1.0, Estimat Glomerular Filtration Rate > 60, Glucose Level 103, Calcium Level 9.5, Lipase 1227H Height (Feet): 5 Height (Inches): 6.00 Weight (Pounds): 192 General Appearance: no apparent distress, alert Neck: normal alignment, supple, normal inspection Cardiovascular: normal rate, regular rhythm Respiratory/Chest: lungs clear, normal breath sounds, no respiratory distress Abdomen: normal bowel sounds, non tender, soft 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
[2018-07-02 16:00] VITALS: BP 129/79
--- NOTE | 2018-07-02 17:02 | Nephrology Progress Note ---
Assessment/Plan Problem List: (1) Hypertensive urgency (2) Hypercalcemia (3) Anemia Assessment # Elevated blood pressure OOC #Hypercalcemia, # Hypokalemia #Acute pancreatitis, suspected to be due to excess alcohol consumption, lipase remains elevated #Sepsis #anemia, acute blood loss Plan Adjust BP meds , per order Monitor renal parameters, Lytes and Ca and Phos Per orders check PTH level eliminate phos supplement pharmacy informed Subjective Constitutional: Reports: malaise Objective Objective Last 24 Hour Vital Signs Date Time Temp Pulse Resp B/P (MAP) Pulse Ox O2 Delivery O2 Flow Rate FiO2 07/02/18 14:12 130/84 07/02/18 12:00 98.7 63 18 130/84 (99) 98 07/02/18 09:26 57 130/75 07/02/18 09:23 130/75 07/02/18 09:00 57 130/75 07/02/18 09:00 Room Air 07/02/18 08:00 98.0 57 18 130/75 (93) 98 07/02/18 05:04 114/65 07/02/18 04:00 97.8 56 18 114/65 (81) 96 07/02/18 00:00 98.1 55 18 126/71 (89) 97 07/01/18 21:22 124/73 07/01/18 21:00 Room Air 07/01/18 20:22 55 124/73 07/01/18 20:22 55 124/73 07/01/18 20:00 97.9 55 18 124/73 (90) 100 Intake and Output 07/01/18 07/02/18 19:00 07:00 Intake Total 935 ml 1020 ml Output Total 1300 ml 600 ml Balance -365 ml 420 ml IV Total 935 ml 1020 ml Output Urine Total 1300 ml 600 ml Laboratory Tests 07/02/18 05:28: White Blood Count 6.1, Red Blood Count 4.42L, Hemoglobin 12.4L, Hematocrit 38.3L , Mean Corpuscular Volume 87, Mean Corpuscular Hemoglobin 28.1, Mean Corpuscular Hemoglobin Concent 32.4, Red Cell Distribution Width 13.2, Platelet Count 411, Mean Platelet Volume 6.6, Neutrophils (%) (Auto) 58.9, Lymphocytes (% ) (Auto) 27.8, Monocytes (%) (Auto) 9.9, Eosinophils (%) (Auto) 2.2, Basophils ( %) (Auto) 1.2, Sodium Level 138, Potassium Level 4.1, Chloride Level 103, Carbon Dioxide Level 28, Anion Gap 7, Blood Urea Nitrogen 18, Creatinine 1.0, Estimat Glomerular Filtration Rate > 60, Glucose Level 103, Calcium Level 9.5, Lipase 1227H Height (Feet): 5 Height (Inches): 6.00 Weight (Pounds): 192 General Appearance: no apparent distress Abdomen: distended Objective no other change Edgar Richardson MD Jul 02, 2018 17:02
--- NOTE | 2018-07-02 17:19 | Infectious Diseases Prog Note ---
Assessment/Plan Assessment/Plan ASSESSMENT AND PLAN: 1. sepsis, acute pancreatitis, leukocytosis, fevers, sirs, likely atx, CT noted - - clinically better, fevers and leukocytosis better, still some abdominal pain but less - s/p meropenem - chest x-ray stable - monitor labs - observe on diet - monitor off antibiotics - lipase improved 2. possible HTN - bp tx per primary team 3. No known allergies. 4. Social history positive for alcohol use. 5. Family history noncontributory. 6. MAR was noted. 7. Case discussed with RN. 8. Continue treatment per primary consultants. 9. Case communicated with Dr. Holden. 10. Notes and records were noted. Orders were entered. Subjective Constitutional: Denies: fever HEENT: Denies: congestion Respiratory: Denies: shortness of breath Cardiovascular: Denies: chest pain Gastrointestinal/Abdominal: Reports: other - less abdominal pain but still with some ; Denies: nausea, vomiting, diarrhea Genitourinary: Denies: dysuria Neurologic: Denies: headache Psychiatric: Denies: depression Skin: Denies: rash Hematologic: Denies: bleeding Musculoskeletal: Denies: pain Allergies: Coded Allergies: No Known Allergies (Unverified , 06/22/13) Objective Vital Signs Last 24 Hour Vital Signs Date Time Temp Pulse Resp B/P (MAP) Pulse Ox O2 Delivery O2 Flow Rate FiO2 07/02/18 14:12 130/84 07/02/18 12:00 98.7 63 18 130/84 (99) 98 07/02/18 09:26 57 130/75 07/02/18 09:23 130/75 07/02/18 09:00 57 130/75 07/02/18 09:00 Room Air 07/02/18 08:00 98.0 57 18 130/75 (93) 98 07/02/18 05:04 114/65 07/02/18 04:00 97.8 56 18 114/65 (81) 96 07/02/18 00:00 98.1 55 18 126/71 (89) 97 07/01/18 21:22 124/73 07/01/18 21:00 Room Air 07/01/18 20:22 55 124/73 07/01/18 20:22 55 124/73 07/01/18 20:00 97.9 55 18 124/73 (90) 100 Height (Feet): 5 Height (Inches): 6.00 Weight (Pounds): 192 General Appearance: no acute distress HEENT: normocephalic, atraumatic, anicteric, mucous membranes moist Respiratory/Chest: lungs clear, no respiratory distress, no accessory muscle use Cardiovascular: normal rate, regular rhythm, no gallop/murmur, no JVD Abdomen: normal bowel sounds, soft, non tender, no organomegaly, non distended Genitourinary: other - no rosado Extremities: no cyanosis Skin: no rash Neurologic/Psychiatric: microfilm processor II-XII grossly normal, alert, oriented x 3, responsive Lymphatic: no neck adenopathy Musculoskeletal: no effusion Objective Chest x-ray - - COMPARISON: Chest x-ray 08/19/17 FINDINGS: Lungs: Mild interstitial prominence. Left lung base atelectasis/airspace disease. Pleural space: Tiny left pleural effusion. No pneumothorax. Heart: Slightly prominent cardiac silhouette. Mediastinum: Unremarkable. Bones/joints: Unremarkable. IMPRESSION: 1. Mild interstitial prominence. Left lung base atelectasis/airspace disease. Tiny left pleural effusion. Query pneumonia. Chest x-ray - 06/23/18 - Comparison: 06/20/2018 Findings: Left-sided pleural effusion persists. Mild interstitial congestion is unchanged. Impression: Unchanged, over 3 days, findings as above. CT abdomen and pelvis - 06/23/18 - Impression: Findings consistent with uncomplicated acute pancreatitis, with peripancreatic phlegmon which is essentially stable when compared to prior study of 3 days earlier. There is slightly decreased free intraperitoneal fluid. No evidence of necrosis, abscess, or pseudocyst formation. Slightly increased edema of the lumbar and bilateral flank subcutaneous fat New finding of presacral edema. Of uncertain significance, uncertain as to whether related to the pancreatitis or, more likely, related to the generalized increase in soft tissue edema Increased bilateral pleural effusions now small to moderate in size. Resultant compressive atelectasis of portions of both lower lobes again demonstrated Wall thickening of the distal duodenum and proximal jejunum in the area of pancreatic phlegmon, presumably reactive related to the adjacent inflammation Stable densely calcified right lobe liver lesion, presumably postinflammatory Prominent, for age, prostate Microbiology Date/Time Source Procedure Growth Status 06/19/18 19:08 Blood Blood Culture - Final NO GROWTH AFTER 5 DAYS Complete 06/25/18 04:00 Sputum Induced Gram Stain - Final Complete 06/25/18 04:00 Sputum Induced Sputum Culture - Final NORMAL UPPER RESPIRATORY REHAN PRESENT Complete Laboratory Tests Test 07/02/18 05:28 White Blood Count 6.1 K/UL (4.8-10.8) Red Blood Count 4.42 M/UL (4.70-6.10) L Hemoglobin 12.4 G/DL (14.2-18.0) L Hematocrit 38.3 % (42.0-52.0) L Mean Corpuscular Volume 87 FL (80-99) Mean Corpuscular Hemoglobin 28.1 PG (27.0-31.0) Mean Corpuscular Hemoglobin Concent 32.4 G/DL (32.0-36.0) Red Cell Distribution Width 13.2 % (11.6-14.8) Platelet Count 411 K/UL (150-450) Mean Platelet Volume 6.6 FL (6.5-10.1) Neutrophils (%) (Auto) 58.9 % (45.0-75.0) Lymphocytes (%) (Auto) 27.8 % (20.0-45.0) Monocytes (%) (Auto) 9.9 % (1.0-10.0) Eosinophils (%) (Auto) 2.2 % (0.0-3.0) Basophils (%) (Auto) 1.2 % (0.0-2.0) Sodium Level 138 MMOL/L (136-145) Potassium Level 4.1 MMOL/L (3.5-5.1) Chloride Level 103 MMOL/L (98-107) Carbon Dioxide Level 28 MMOL/L (21-32) Anion Gap 7 mmol/L (5-15) Blood Urea Nitrogen 18 mg/dL (7-18) Creatinine 1.0 MG/DL (0.55-1.30) Estimat Glomerular Filtration Rate > 60 mL/min (>60) Glucose Level 103 MG/DL (74-106) Calcium Level 9.5 MG/DL (8.5-10.1) Lipase 1227 U/L (73-393) H Current Medications Medications (Trade) Dose Ordered Sig/Jennifer Route PRN Reason Start Time Stop Time Status Last Admin Dose Admin Acetaminophen (Tylenol) 650 mg Q4H PRN ORAL T>100.5 06/27/18 14:30 07/17/18 14:29 Chlordiazepoxide (Librium) 25 mg BID ORAL 06/27/18 18:00 07/04/18 08:59 07/02/18 09:26 Chlorhexidine Gluconate (Aleja-Hex 2%) 1 applic DAILY@2000 TOPIC 06/27/18 20:00 07/24/18 19:59 07/01/18 20:05 Clonidine HCl (Catapres Tab) 0.1 mg Q8HR ORAL 06/27/18 14:00 07/24/18 17:59 07/02/18 14:12 Dextrose (Dextrose 50%) 25 ml Q30M PRN IV Hypoglycemia 06/27/18 14:00 07/17/18 14:29 Dextrose (Dextrose 50%) 50 ml Q30M PRN IV Hypoglycemia 06/27/18 14:00 07/17/18 14:29 Fat Emulsion Intravenous 240 ml/Amino Acids/ Electrolytes/ Dextrose 2,040 ml @ 85 mls/hr Q24H IV 06/30/18 21:00 07/30/18 20:59 07/01/18 20:16 Fluoxetine HCl (PROzac) 20 mg DAILY ORAL 06/28/18 09:00 07/25/18 12:59 07/02/18 09:26 Heparin Sodium (Porcine) (Heparin 5000 units/ml) 5,000 units EVERY 12 HOURS SUBQ 06/27/18 21:00 07/17/18 20:59 07/02/18 09:22 Hydromorphone HCl (Dilaudid) 2 mg Q4H PRN IVP Severe Pain (Pain Scale 7-10) 06/29/18 10:00 07/06/18 09:59 07/02/18 14:12 Insulin Aspart (NovoLOG) No Dose Q6HR SUBQ 06/27/18 18:00 07/25/18 00:00 07/02/18 06:05 Lisinopril (Prinivil) 40 mg DAILY ORAL 06/28/18 09:00 07/23/18 08:59 07/02/18 09:23 Metoprolol Tartrate (Lopressor) 25 mg Q12HR ORAL 06/27/18 21:00 07/24/18 20:59 07/01/18 08:21 Minoxidil (Loniten) 2.5 mg Q4H PRN ORAL bp over 170 syst 06/27/18 14:00 07/24/18 13:59 Nifedipine (Procardia XL) 30 mg Q12HR ORAL 07/01/18 09:00 07/27/18 17:59 07/02/18 09:26 Ondansetron HCl (Zofran) 4 mg Q6H PRN IVP Nausea & Vomiting 06/27/18 14:00 07/17/18 13:59 Pantoprazole (Protonix) 40 mg EVERY 12 HOURS ORAL 06/30/18 21:00 07/30/18 20:59 07/02/18 09:23 Phytonadione (Vitamin K) 10 mg QWEEK SUBQ 07/01/18 09:00 07/31/18 08:59 07/01/18 09:46 Rakesh Teran MD Jul 02, 2018 17:19
[2018-07-02 20:00] VITALS: BP 123/77
[2018-07-02] MEDS: Dyna-Hex 2% Top Sol 2oz TOPIC SCH (20:30)
[2018-07-02] MEDS: AMINO ACIDS IV SCH ×2 (20:35)
[2018-07-02] MEDS: DEXTROSE IV SCH ×2 (20:35)
[2018-07-02] MEDS: FAT EMULSION IV SCH ×2 (20:35)
[2018-07-03] VITALS: BP 125/77
[2018-07-03 04:00] VITALS: BP 120/76
[2018-07-03] MEDS: NovoLOG Insulin Flexpen SUBQ SCH ×5 (06:00→23:55)
[2018-07-03 06:44] LABS: BASOPHILS % (AUTO) 1.3 % (0.0-2.0); EOSINOPHILS % (AUTO) 2.6 % (0.0-3.0); HEMOGLOBIN 12.3 G/DL (14.2-18.0); MEAN CORPUSCULAR VOLUME 87 FL (80-99); MONOCYTES % (AUTO) 11.3 % (1.0-10.0); NEUTROPHILS % (AUTO) 53.7 % (45.0-75.0); PLATELET COUNT 373 K/UL (150-450); RED BLOOD COUNT 4.38 M/UL (4.70-6.10); RED CELL DISTRIBUTION WIDTH 13.4 % (11.6-14.8); WHITE BLOOD COUNT 5.1 K/UL (4.8-10.8)
[2018-07-03 06:59] LABS: ALANINE AMINOTRANSFERASE 108 U/L (12-78); ALBUMIN 2.8 G/DL (3.4-5.0); ALBUMIN/GLOBULIN RATIO 0.6 (1.0-2.7); ALKALINE PHOSPHATASE 104 U/L (46-116); ANION GAP 7 mmol/L (5-15); ASPARTATE AMINO TRANSFERASE 46 U/L (15-37); BILIRUBIN,TOTAL 0.3 MG/DL (0.2-1.0); BLOOD UREA NITROGEN 17 mg/dL (7-18); CALCIUM 9.7 MG/DL (8.5-10.1); CARBON DIOXIDE 29 MMOL/L (21-32); CHLORIDE 102 MMOL/L (98-107); POTASSIUM 4.2 MMOL/L (3.5-5.1); SODIUM 138 MMOL/L (136-145)
[2018-07-03 07:05] LABS: PHOSPHORUS 4.9 MG/DL (2.5-4.9)
[2018-07-03 08:00] VITALS: BP 129/66
[2018-07-03] MEDS: Metoprolol 25mg tab ORAL SCH ×2 (09:37→21:00)
[2018-07-03] MEDS: chlordiazePOXIDE 25mg Cap ORAL SCH ×2 (09:37→18:09)
[2018-07-03] MEDS: Lisinopril 20mg tab ORAL SCH (09:38)
[2018-07-03] MEDS: Heparin 5000 units/ml inj SUBQ SCH ×2 (09:48→21:12)
[2018-07-03 12:00] VITALS: BP 137/74
--- NOTE | 2018-07-03 12:32 | General Progress Note ---
Assessment/Plan Assessment: #Acute pancreatitis, suspected to be due to excess alcohol consumption, abdominal symptoms and lipase levels slowly improving -tolerating clears, advance diet if ok with GI -continue TPN via PICC for now -GI following -Nephrology following -continue IV fluids -continue IV Zofran -cont IV hydromorphone for pain -US RUQ without stones; CT scan results reviewed with radiology, no abscess noted -Lipid panel without hypertriglyceridemia #Sepsis, resolved -S/p meropenem -ID following -f/u cultures- negative to date -CT A/P without apparent necrosis #Uncontrolled HTN, new diagnosis -off telemetry -seen by Cardiology -continue current anti-hypertensive regimen of Procardia, clonidine, Lopressor and lisinopril #Hypokalemia -continue to monitor #Hypercalcemia, resolved -likely due to dehydration -continue to monitor -IVF's as above #anemia, acute blood loss -Likely secondary to vigorous hydration -no signs or symptoms for overt GI bleed -continue to monitor closely VTE PPx Heparin Full Code Subjective Date patient seen: Jul 03, 2018 Time patient seen: 12:20 ROS Limited/Unobtainable: No Constitutional: Denies: chills, fever HEENT: Denies: eye pain Cardiovascular: Denies: chest pain Respiratory: Denies: cough Gastrointestinal/Abdominal: Denies: abdomen distended, abdominal pain, nausea Allergies: Coded Allergies: No Known Allergies (Unverified , 06/22/13) Subjective Medicine follow up for acute pancreatitis, likely alcohol induced. Abdominal pain minimal. Tolerating clears Objective Last 24 Hour Vital Signs Date Time Temp Pulse Resp B/P (MAP) Pulse Ox O2 Delivery O2 Flow Rate FiO2 07/03/18 09:38 68 129/66 07/03/18 09:38 129/66 07/03/18 09:37 68 129/66 07/03/18 09:00 Room Air 07/03/18 08:00 97.9 68 19 129/66 (87) 99 07/03/18 06:00 120/76 07/03/18 04:00 97.9 57 18 120/76 (91) 96 07/03/18 00:00 98.3 55 18 125/77 (93) 95 07/02/18 22:00 123/77 07/02/18 21:00 Room Air 07/02/18 20:31 60 123/77 4/18/19 20:31 60 123/77 07/02/18 20:00 98.7 60 18 123/77 (92) 97 07/02/18 16:00 98.6 58 18 129/79 (96) 99 07/02/18 14:12 130/84 Intake and Output 07/02/18 07/03/18 19:00 07:00 Intake Total 2520 ml 1020 ml Balance 2520 ml 1020 ml Intake Oral 1500 ml IV Total 1020 ml 1020 ml # Voids 3 Laboratory Tests 07/03/18 05:15: White Blood Count 5.1, Red Blood Count 4.38L, Hemoglobin 12.3L, Hematocrit 38.0L , Mean Corpuscular Volume 87, Mean Corpuscular Hemoglobin 28.0, Mean Corpuscular Hemoglobin Concent 32.3, Red Cell Distribution Width 13.4, Platelet Count 373, Mean Platelet Volume 7.1, Neutrophils (%) (Auto) 53.7, Lymphocytes (% ) (Auto) 31.0, Monocytes (%) (Auto) 11.3H, Eosinophils (%) (Auto) 2.6, Basophils (%) (Auto) 1.3, Sodium Level 138, Potassium Level 4.2, Chloride Level 102, Carbon Dioxide Level 29, Anion Gap 7, Blood Urea Nitrogen 17, Creatinine 1.0, Estimat Glomerular Filtration Rate > 60, Glucose Level 107H, Calcium Level 9.7, Phosphorus Level 4.9, Magnesium Level 1.8, Total Bilirubin 0.3, Aspartate Amino Transf (AST/SGOT) 46H, Alanine Aminotransferase (ALT/SGPT) 108H, Alkaline Phosphatase 104, Total Protein 7.2, Albumin 2.8L, Globulin 4.4, Albumin/ Globulin Ratio 0.6L, Lipase 1168H Height (Feet): 5 Height (Inches): 6.00 Weight (Pounds): 192 General Appearance: no apparent distress, alert Neck: normal alignment, normal inspection Cardiovascular: normal peripheral pulses, normal rate Respiratory/Chest: lungs clear, normal breath sounds Abdomen: normal bowel sounds, non tender, soft, no organomegaly Thaddeus Leon MD Jul 03, 2018 12:32
[2018-07-03] MEDS: Docusate 100mg cap ORAL SCH ×2 (13:54→18:09)
--- NOTE | 2018-07-03 14:10 | Nephrology Progress Note ---
Assessment/Plan Problem List: (1) Hypertensive urgency (2) Hypercalcemia (3) Anemia Assessment # Elevated blood pressure OOC #Hypercalcemia, # Hypokalemia #Acute pancreatitis, suspected to be due to excess alcohol consumption, lipase remains elevated #Sepsis #anemia, acute blood loss Plan Adjust BP meds , per order Monitor renal parameters, Lytes and Ca and Phos Per orders check PTH level eliminate phos supplement pharmacy informed Subjective ROS Limited/Unobtainable: No Objective Objective Last 24 Hour Vital Signs Date Time Temp Pulse Resp B/P (MAP) Pulse Ox O2 Delivery O2 Flow Rate FiO2 07/03/18 13:54 137/74 07/03/18 12:00 98.5 59 19 137/74 (95) 99 07/03/18 09:38 68 129/66 07/03/18 09:38 129/66 07/03/18 09:37 68 129/66 07/03/18 09:00 Room Air 07/03/18 08:00 97.9 68 19 129/66 (87) 99 07/03/18 06:00 120/76 07/03/18 04:00 97.9 57 18 120/76 (91) 96 07/03/18 00:00 98.3 55 18 125/77 (93) 95 07/02/18 22:00 123/77 07/02/18 21:00 Room Air 07/02/18 20:31 60 123/77 07/02/18 20:31 60 123/77 07/02/18 20:00 98.7 60 18 123/77 (92) 97 07/02/18 16:00 98.6 58 18 129/79 (96) 99 07/02/18 14:12 130/84 Intake and Output 07/02/18 07/03/18 19:00 07:00 Intake Total 2520 ml 1020 ml Balance 2520 ml 1020 ml Intake Oral 1500 ml IV Total 1020 ml 1020 ml # Voids 3 Laboratory Tests 07/03/18 05:15: White Blood Count 5.1, Red Blood Count 4.38L, Hemoglobin 12.3L, Hematocrit 38.0L , Mean Corpuscular Volume 87, Mean Corpuscular Hemoglobin 28.0, Mean Corpuscular Hemoglobin Concent 32.3, Red Cell Distribution Width 13.4, Platelet Count 373, Mean Platelet Volume 7.1, Neutrophils (%) (Auto) 53.7, Lymphocytes (% ) (Auto) 31.0, Monocytes (%) (Auto) 11.3H, Eosinophils (%) (Auto) 2.6, Basophils (%) (Auto) 1.3, Sodium Level 138, Potassium Level 4.2, Chloride Level 102, Carbon Dioxide Level 29, Anion Gap 7, Blood Urea Nitrogen 17, Creatinine 1.0, Estimat Glomerular Filtration Rate > 60, Glucose Level 107H, Calcium Level 9.7, Phosphorus Level 4.9, Magnesium Level 1.8, Total Bilirubin 0.3, Aspartate Amino Transf (AST/SGOT) 46H, Alanine Aminotransferase (ALT/SGPT) 108H, Alkaline Phosphatase 104, Total Protein 7.2, Albumin 2.8L, Globulin 4.4, Albumin/ Globulin Ratio 0.6L, Lipase 1168H Height (Feet): 5 Height (Inches): 6.00 Weight (Pounds): 192 General Appearance: no apparent distress Objective no other change Edgar Richardson MD Jul 03, 2018 14:10
--- NOTE | 2018-07-03 15:23 | General Progress Note ---
Assessment/Plan Assessment: Assessment - EtOH Pancreatitis - HTN - Constipation Recommendations - TPN - Laxatives Subjective Allergies: Coded Allergies: No Known Allergies (Unverified , 06/22/13) Subjective on TPN no BM x 4 days Objective Last 24 Hour Vital Signs Date Time Temp Pulse Resp B/P (MAP) Pulse Ox O2 Delivery O2 Flow Rate FiO2 07/03/18 13:54 137/74 07/03/18 12:00 98.5 59 19 137/74 (95) 99 07/03/18 09:38 68 129/66 07/03/18 09:38 129/66 07/03/18 09:37 68 129/66 07/03/18 09:00 Room Air 07/03/18 08:00 97.9 68 19 129/66 (87) 99 07/03/18 06:00 120/76 07/03/18 04:00 97.9 57 18 120/76 (91) 96 07/03/18 00:00 98.3 55 18 125/77 (93) 95 07/02/18 22:00 123/77 07/02/18 21:00 Room Air 07/02/18 20:31 60 123/77 07/02/18 20:31 60 123/77 07/02/18 20:00 98.7 60 18 123/77 (92) 97 07/02/18 16:00 98.6 58 18 129/79 (96) 99 Intake and Output 07/02/18 07/03/18 19:00 07:00 Intake Total 2520 ml 1020 ml Balance 2520 ml 1020 ml Intake Oral 1500 ml IV Total 1020 ml 1020 ml # Voids 3 Laboratory Tests 07/03/18 05:15: White Blood Count 5.1, Red Blood Count 4.38L, Hemoglobin 12.3L, Hematocrit 38.0L , Mean Corpuscular Volume 87, Mean Corpuscular Hemoglobin 28.0, Mean Corpuscular Hemoglobin Concent 32.3, Red Cell Distribution Width 13.4, Platelet Count 373, Mean Platelet Volume 7.1, Neutrophils (%) (Auto) 53.7, Lymphocytes (% ) (Auto) 31.0, Monocytes (%) (Auto) 11.3H, Eosinophils (%) (Auto) 2.6, Basophils (%) (Auto) 1.3, Sodium Level 138, Potassium Level 4.2, Chloride Level 102, Carbon Dioxide Level 29, Anion Gap 7, Blood Urea Nitrogen 17, Creatinine 1.0, Estimat Glomerular Filtration Rate > 60, Glucose Level 107H, Calcium Level 9.7, Phosphorus Level 4.9, Magnesium Level 1.8, Total Bilirubin 0.3, Aspartate Amino Transf (AST/SGOT) 46H, Alanine Aminotransferase (ALT/SGPT) 108H, Alkaline Phosphatase 104, Total Protein 7.2, Albumin 2.8L, Globulin 4.4, Albumin/ Globulin Ratio 0.6L, Lipase 1168H Height (Feet): 5 Height (Inches): 6.00 Weight (Pounds): 192 Objective WDWN AA man NCAT supple CTA RRR abd soft mild TTP Epigastric no edema nonfocal neuro exam Asim Gillette MD Jul 03, 2018 15:23
--- NOTE | 2018-07-03 15:35 | Cardiac Electrophysiology PN ---
Assessment/Plan Assessment/Plan 1. Acute pancreatitis, suspected to be due to excess alcohol consumption 2. Hypertension, uncontrolled -continue metoprolol -continue lisinopril -Continue nifedipine -Continue clonidine -TTE Left ventricular ejection fraction estimated to be 70 %., normal pulmonary pressures, grade 1 diastolic dysfunction 3. Sepsis 4. Hypokalemia 5. Hypercalcemia, resolved 6. Anemia, acute blood loss Subjective Subjective Feeling better. No CP or SOB. Objective Last 24 Hour Vital Signs Date Time Temp Pulse Resp B/P (MAP) Pulse Ox O2 Delivery O2 Flow Rate FiO2 07/03/18 13:54 137/74 07/03/18 12:00 98.5 59 19 137/74 (95) 99 07/03/18 09:38 68 129/66 07/03/18 09:38 129/66 07/03/18 09:37 68 129/66 07/03/18 09:00 Room Air 07/03/18 08:00 97.9 68 19 129/66 (87) 99 07/03/18 06:00 120/76 07/03/18 04:00 97.9 57 18 120/76 (91) 96 07/03/18 00:00 98.3 55 18 125/77 (93) 95 07/02/18 22:00 123/77 07/02/18 21:00 Room Air 07/02/18 20:31 60 123/77 07/02/18 20:31 60 123/77 07/02/18 20:00 98.7 60 18 123/77 (92) 97 07/02/18 16:00 98.6 58 18 129/79 (96) 99 Intake and Output 07/02/18 07/03/18 19:00 07:00 Intake Total 2520 ml 1020 ml Balance 2520 ml 1020 ml Intake Oral 1500 ml IV Total 1020 ml 1020 ml # Voids 3 Laboratory Tests Test 07/03/18 05:15 White Blood Count 5.1 K/UL (4.8-10.8) Red Blood Count 4.38 M/UL (4.70-6.10) L Hemoglobin 12.3 G/DL (14.2-18.0) L Hematocrit 38.0 % (42.0-52.0) L Mean Corpuscular Volume 87 FL (80-99) Mean Corpuscular Hemoglobin 28.0 PG (27.0-31.0) Mean Corpuscular Hemoglobin Concent 32.3 G/DL (32.0-36.0) Red Cell Distribution Width 13.4 % (11.6-14.8) Platelet Count 373 K/UL (150-450) Mean Platelet Volume 7.1 FL (6.5-10.1) Neutrophils (%) (Auto) 53.7 % (45.0-75.0) Lymphocytes (%) (Auto) 31.0 % (20.0-45.0) Monocytes (%) (Auto) 11.3 % (1.0-10.0) H Eosinophils (%) (Auto) 2.6 % (0.0-3.0) Basophils (%) (Auto) 1.3 % (0.0-2.0) Sodium Level 138 MMOL/L (136-145) Potassium Level 4.2 MMOL/L (3.5-5.1) Chloride Level 102 MMOL/L (98-107) Carbon Dioxide Level 29 MMOL/L (21-32) Anion Gap 7 mmol/L (5-15) Blood Urea Nitrogen 17 mg/dL (7-18) Creatinine 1.0 MG/DL (0.55-1.30) Estimat Glomerular Filtration Rate > 60 mL/min (>60) Glucose Level 107 MG/DL (74-106) H Calcium Level 9.7 MG/DL (8.5-10.1) Phosphorus Level 4.9 MG/DL (2.5-4.9) Magnesium Level 1.8 MG/DL (1.8-2.4) Total Bilirubin 0.3 MG/DL (0.2-1.0) Aspartate Amino Transf (AST/SGOT) 46 U/L (15-37) H Alanine Aminotransferase (ALT/SGPT) 108 U/L (12-78) H Alkaline Phosphatase 104 U/L (46-116) Total Protein 7.2 G/DL (6.4-8.2) Albumin 2.8 G/DL (3.4-5.0) L Globulin 4.4 g/dL Albumin/Globulin Ratio 0.6 (1.0-2.7) L Lipase 1168 U/L (73-393) H Objective EENT: PERRL/EOMI, normal ENT inspection, TMs normal, pharynx normal Neck: non-tender, normal alignment, supple, normal inspection, no JVD Rhythm: NSR Cardiovascular: normal peripheral pulses, normal rate, regular rhythm, regularly irregular, no gallop/murmur Respiratory/Chest: chest wall non-tender, lungs clear, normal breath sounds Abdomen: normal bowel sounds, non tender, soft, no organomegaly, no mass Shiv Strauss MD Jul 03, 2018 15:35
[2018-07-03 16:00] VITALS: BP 126/75
[2018-07-03 20:00] VITALS: BP 134/85
[2018-07-03] MEDS: Dyna-Hex 2% Top Sol 2oz TOPIC SCH (20:00)
[2018-07-03] MEDS: DEXTROSE IV SCH ×2 (21:00)
[2018-07-03] MEDS: FAT EMULSION IV SCH ×2 (21:00)
[2018-07-03] MEDS: AMINO ACIDS IV SCH ×2 (21:00)
[2018-07-03] MEDS: Miralax 17gm pkt ORAL SCH (21:00)
[2018-07-04] VITALS: BP 132/82
[2018-07-04 04:00] VITALS: BP 105/65
[2018-07-04] MEDS: NovoLOG Insulin Flexpen SUBQ SCH ×4 (05:54→23:54)
[2018-07-04 06:21] LABS: BASOPHILS % (AUTO) 1.3 % (0.0-2.0); EOSINOPHILS % (AUTO) 2.6 % (0.0-3.0); HEMATOCRIT 37.5 % (42.0-52.0); HEMOGLOBIN 12.1 G/DL (14.2-18.0); LYMPHOCYTES % (AUTO) 33.3 % (20.0-45.0); MEAN CORPUSCULAR VOLUME 87 FL (80-99); MONOCYTES % (AUTO) 8.8 % (1.0-10.0); NEUTROPHILS % (AUTO) 54.1 % (45.0-75.0); PLATELET COUNT 350 K/UL (150-450); RED BLOOD COUNT 4.31 M/UL (4.70-6.10); RED CELL DISTRIBUTION WIDTH 13.3 % (11.6-14.8); WHITE BLOOD COUNT 5.1 K/UL (4.8-10.8)
[2018-07-04 06:47] LABS: ALANINE AMINOTRANSFERASE 107 U/L (12-78); ALBUMIN 2.9 G/DL (3.4-5.0); ALBUMIN/GLOBULIN RATIO 0.7 (1.0-2.7); ALKALINE PHOSPHATASE 104 U/L (46-116); ANION GAP 7 mmol/L (5-15); ASPARTATE AMINO TRANSFERASE 40 U/L (15-37); BILIRUBIN,TOTAL 0.2 MG/DL (0.2-1.0); BLOOD UREA NITROGEN 17 mg/dL (7-18); CALCIUM 9.5 MG/DL (8.5-10.1); CARBON DIOXIDE 28 MMOL/L (21-32); CHLORIDE 103 MMOL/L (98-107); PHOSPHORUS 4.4 MG/DL (2.5-4.9); POTASSIUM 4.2 MMOL/L (3.5-5.1); SODIUM 138 MMOL/L (136-145)
[2018-07-04 08:00] VITALS: BP 112/63
[2018-07-04] MEDS: Docusate 100mg cap ORAL SCH ×3 (08:30→17:30)
[2018-07-04] MEDS: Heparin 5000 units/ml inj SUBQ SCH ×2 (08:39→20:22)
[2018-07-04] MEDS: Metoprolol 25mg tab ORAL SCH ×2 (08:40→20:23)
[2018-07-04] MEDS: Lisinopril 20mg tab ORAL SCH (08:40)
[2018-07-04 12:00] VITALS: BP 121/66
--- NOTE | 2018-07-04 14:14 | Cardiac Electrophysiology PN ---
Assessment/Plan Assessment/Plan 1. Acute pancreatitis, suspected to be due to excess alcohol consumption 2. Hypertension, uncontrolled -continue metoprolol -continue lisinopril -Continue nifedipine -Continue clonidine -TTE Left ventricular ejection fraction estimated to be 70 %., normal pulmonary pressures, grade 1 diastolic dysfunction 3. Sepsis 4. Hypokalemia 5. Hypercalcemia, resolved 6. Anemia, acute blood loss Subjective Subjective Feeling better. No CP or SOB.Tolerating Broth. Objective Last 24 Hour Vital Signs Date Time Temp Pulse Resp B/P (MAP) Pulse Ox O2 Delivery O2 Flow Rate FiO2 07/04/18 14:00 121/66 07/04/18 12:00 97.2 55 18 121/66 (84) 97 07/04/18 09:00 Room Air 07/04/18 08:41 55 112/63 07/04/18 08:40 55 112/63 07/04/18 08:40 112/63 07/04/18 08:00 98.3 55 20 112/63 (79) 97 07/04/18 05:49 108/57 07/04/18 04:00 97.7 55 18 105/65 (78) 96 07/04/18 00:00 97.7 53 20 132/82 (99) 97 07/03/18 22:00 130/73 07/03/18 21:00 Room Air 07/03/18 21:00 56 130/73 07/03/18 21:00 56 130/73 07/03/18 20:00 97.4 58 17 134/85 (101) 97 07/03/18 16:00 98.5 56 19 126/75 (92) 100 Intake and Output 07/03/18 07/04/18 19:00 07:00 Intake Total 2471 ml Output Total 1175 ml 625 ml Balance 1296 ml -625 ml Intake Oral 1536 ml IV Total 935 ml Output Urine Total 1175 ml 625 ml # Voids 4 Laboratory Tests Test 07/04/18 04:40 White Blood Count 5.1 K/UL (4.8-10.8) Red Blood Count 4.31 M/UL (4.70-6.10) L Hemoglobin 12.1 G/DL (14.2-18.0) L Hematocrit 37.5 % (42.0-52.0) L Mean Corpuscular Volume 87 FL (80-99) Mean Corpuscular Hemoglobin 28.0 PG (27.0-31.0) Mean Corpuscular Hemoglobin Concent 32.2 G/DL (32.0-36.0) Red Cell Distribution Width 13.3 % (11.6-14.8) Platelet Count 350 K/UL (150-450) Mean Platelet Volume 6.9 FL (6.5-10.1) Neutrophils (%) (Auto) 54.1 % (45.0-75.0) Lymphocytes (%) (Auto) 33.3 % (20.0-45.0) Monocytes (%) (Auto) 8.8 % (1.0-10.0) Eosinophils (%) (Auto) 2.6 % (0.0-3.0) Basophils (%) (Auto) 1.3 % (0.0-2.0) Sodium Level 138 MMOL/L (136-145) Potassium Level 4.2 MMOL/L (3.5-5.1) Chloride Level 103 MMOL/L (98-107) Carbon Dioxide Level 28 MMOL/L (21-32) Anion Gap 7 mmol/L (5-15) Blood Urea Nitrogen 17 mg/dL (7-18) Creatinine 1.0 MG/DL (0.55-1.30) Estimat Glomerular Filtration Rate > 60 mL/min (>60) Glucose Level 103 MG/DL (74-106) Calcium Level 9.5 MG/DL (8.5-10.1) Phosphorus Level 4.4 MG/DL (2.5-4.9) Magnesium Level 1.8 MG/DL (1.8-2.4) Total Bilirubin 0.2 MG/DL (0.2-1.0) Aspartate Amino Transf (AST/SGOT) 40 U/L (15-37) H Alanine Aminotransferase (ALT/SGPT) 107 U/L (12-78) H Alkaline Phosphatase 104 U/L (46-116) Total Protein 7.2 G/DL (6.4-8.2) Albumin 2.9 G/DL (3.4-5.0) L Globulin 4.3 g/dL Albumin/Globulin Ratio 0.7 (1.0-2.7) L Lipase 992 U/L (73-393) H Objective HEENT: no JVD Rhythm: NSR Cardiovascular: normal peripheral pulses, normal rate, regular rhythm, regularly irregular, no gallop/murmur Respiratory/Chest: chest wall non-tender, lungs clear, normal breath sounds Abdomen: normal bowel sounds, non tender, soft, no organomegaly, no mass EXT: No edema Shiv Strauss MD Jul 04, 2018 14:14
[2018-07-04 16:00] VITALS: BP 123/70
[2018-07-04] MEDS: chlordiazePOXIDE 25mg Cap ORAL SCH (17:30)
--- NOTE | 2018-07-04 18:13 | General Progress Note ---
Assessment/Plan Assessment: Assessment - EtOH Pancreatitis - HTN - Constipation Recommendations - TPN - Laxatives PRN Subjective Allergies: Coded Allergies: No Known Allergies (Unverified , 06/22/13) Subjective on TPN (+) BM Objective Last 24 Hour Vital Signs Date Time Temp Pulse Resp B/P (MAP) Pulse Ox O2 Delivery O2 Flow Rate FiO2 07/04/18 16:00 98.2 56 20 123/70 (87) 97 07/04/18 14:00 121/66 07/04/18 12:00 97.2 55 18 121/66 (84) 97 07/04/18 09:00 Room Air 07/04/18 08:41 55 112/63 07/04/18 08:40 55 112/63 07/04/18 08:40 112/63 07/04/18 08:00 98.3 55 20 112/63 (79) 97 07/04/18 05:49 108/57 07/04/18 04:00 97.7 55 18 105/65 (78) 96 07/04/18 00:00 97.7 53 20 132/82 (99) 97 07/03/18 22:00 130/73 07/03/18 21:00 Room Air 07/03/18 21:00 56 130/73 07/03/18 21:00 56 130/73 07/03/18 20:00 97.4 58 17 134/85 (101) 97 Intake and Output 07/03/18 07/04/18 19:00 07:00 Intake Total 2471 ml Output Total 1175 ml 625 ml Balance 1296 ml -625 ml Intake Oral 1536 ml IV Total 935 ml Output Urine Total 1175 ml 625 ml # Voids 4 Laboratory Tests 07/04/18 04:40: White Blood Count 5.1, Red Blood Count 4.31L, Hemoglobin 12.1L, Hematocrit 37.5L , Mean Corpuscular Volume 87, Mean Corpuscular Hemoglobin 28.0, Mean Corpuscular Hemoglobin Concent 32.2, Red Cell Distribution Width 13.3, Platelet Count 350, Mean Platelet Volume 6.9, Neutrophils (%) (Auto) 54.1, Lymphocytes (% ) (Auto) 33.3, Monocytes (%) (Auto) 8.8, Eosinophils (%) (Auto) 2.6, Basophils ( %) (Auto) 1.3, Sodium Level 138, Potassium Level 4.2, Chloride Level 103, Carbon Dioxide Level 28, Anion Gap 7, Blood Urea Nitrogen 17, Creatinine 1.0, Estimat Glomerular Filtration Rate > 60, Glucose Level 103, Calcium Level 9.5, Phosphorus Level 4.4, Magnesium Level 1.8, Total Bilirubin 0.2, Aspartate Amino Transf (AST/SGOT) 40H, Alanine Aminotransferase (ALT/SGPT) 107H, Alkaline Phosphatase 104, Total Protein 7.2, Albumin 2.9L, Globulin 4.3, Albumin/ Globulin Ratio 0.7L, Lipase 992H Height (Feet): 5 Height (Inches): 6.00 Weight (Pounds): 192 Objective WDWN AA man NCAT supple CTA RRR abd soft mild TTP Epigastric no edema nonfocal neuro exam Asim Gillette MD Jul 04, 2018 18:13
--- NOTE | 2018-07-04 18:22 | Nephrology Progress Note ---
Assessment/Plan Problem List: (1) Hypertensive urgency (2) Hypercalcemia (3) Anemia Assessment # Elevated blood pressure OOC #Hypercalcemia, # Hypokalemia #Acute pancreatitis, suspected to be due to excess alcohol consumption, lipase remains elevated #Sepsis #anemia, acute blood loss Plan Adjust BP meds , per order Monitor renal parameters, Lytes and Ca and Phos Per orders check PTH level eliminate phos supplement pharmacy informed Subjective ROS Limited/Unobtainable: No Objective Objective Last 24 Hour Vital Signs Date Time Temp Pulse Resp B/P (MAP) Pulse Ox O2 Delivery O2 Flow Rate FiO2 07/04/18 16:00 98.2 56 20 123/70 (87) 97 07/04/18 14:00 121/66 07/04/18 12:00 97.2 55 18 121/66 (84) 97 07/04/18 09:00 Room Air 07/04/18 08:41 55 112/63 07/04/18 08:40 55 112/63 07/04/18 08:40 112/63 07/04/18 08:00 98.3 55 20 112/63 (79) 97 07/04/18 05:49 108/57 07/04/18 04:00 97.7 55 18 105/65 (78) 96 07/04/18 00:00 97.7 53 20 132/82 (99) 97 07/03/18 22:00 130/73 07/03/18 21:00 Room Air 07/03/18 21:00 56 130/73 07/03/18 21:00 56 130/73 07/03/18 20:00 97.4 58 17 134/85 (101) 97 Intake and Output 07/03/18 07/04/18 19:00 07:00 Intake Total 2471 ml Output Total 1175 ml 625 ml Balance 1296 ml -625 ml Intake Oral 1536 ml IV Total 935 ml Output Urine Total 1175 ml 625 ml # Voids 4 Laboratory Tests 07/04/18 04:40: White Blood Count 5.1, Red Blood Count 4.31L, Hemoglobin 12.1L, Hematocrit 37.5L , Mean Corpuscular Volume 87, Mean Corpuscular Hemoglobin 28.0, Mean Corpuscular Hemoglobin Concent 32.2, Red Cell Distribution Width 13.3, Platelet Count 350, Mean Platelet Volume 6.9, Neutrophils (%) (Auto) 54.1, Lymphocytes (% ) (Auto) 33.3, Monocytes (%) (Auto) 8.8, Eosinophils (%) (Auto) 2.6, Basophils ( %) (Auto) 1.3, Sodium Level 138, Potassium Level 4.2, Chloride Level 103, Carbon Dioxide Level 28, Anion Gap 7, Blood Urea Nitrogen 17, Creatinine 1.0, Estimat Glomerular Filtration Rate > 60, Glucose Level 103, Calcium Level 9.5, Phosphorus Level 4.4, Magnesium Level 1.8, Total Bilirubin 0.2, Aspartate Amino Transf (AST/SGOT) 40H, Alanine Aminotransferase (ALT/SGPT) 107H, Alkaline Phosphatase 104, Total Protein 7.2, Albumin 2.9L, Globulin 4.3, Albumin/ Globulin Ratio 0.7L, Lipase 992H Height (Feet): 5 Height (Inches): 6.00 Weight (Pounds): 192 General Appearance: no apparent distress Objective no other change Edgar Richardson MD Jul 04, 2018 18:22
[2018-07-04 20:00] VITALS: BP 119/77
--- NOTE | 2018-07-04 20:10 | General Progress Note ---
Assessment/Plan Assessment: Assessment/Plan Assessment/Plan Assessment/Plan #Acute pancreatitis, suspected to be due to excess alcohol consumption, lipase remains elevated -continue TPN via PICC --GI following -Nephrology following -ADAT, now on clear liquids -continue IV Zofran -cont IV hydromorphone for pain -US RUQ without stones; CT scan results reviewed with radiology, no abscess noted -Lipid panel without hypertriglyceridemia #Sepsis -ID following -Continue Meropenem to complete 10 days -f/u cultures- negative to date -CT A/P without apparent necrosis #Elevated blood pressure due to pain, may have undiagnosed HTN, much better control today -continue telemetry -seen by Cardiology -continue Procardia, clonidine, Lopressor and lisinopril #Hypokalemia -continue to monitor #Hypercalcemia, resolved -likely due to dehydration -continue to monitor -IVF's as above #anemia, acute blood loss -Likely secondary to vigorous hydration -no signs or symptoms for overt GI bleed -contnue to monitor closely VTE PPx Heparin Full Code Subjective Date patient seen: Jul 04, 2018 Time patient seen: 08:15 ROS Limited/Unobtainable: No Allergies: Coded Allergies: No Known Allergies (Unverified , 06/22/13) Subjective No acute events overnight no new complaints. Still c/o some generalized abd pain although improved, tolerating TPN, no fevers/chills, no n/v. Objective Last 24 Hour Vital Signs Date Time Temp Pulse Resp B/P (MAP) Pulse Ox O2 Delivery O2 Flow Rate FiO2 07/04/18 16:00 98.2 56 20 123/70 (87) 97 07/04/18 14:00 121/66 07/04/18 12:00 97.2 55 18 121/66 (84) 97 07/04/18 09:00 Room Air 07/04/18 08:41 55 112/63 07/04/18 08:40 55 112/63 07/04/18 08:40 112/63 07/04/18 08:00 98.3 55 20 112/63 (79) 97 07/04/18 05:49 108/57 07/04/18 04:00 97.7 55 18 105/65 (78) 96 07/04/18 00:00 97.7 53 20 132/82 (99) 97 07/03/18 22:00 130/73 07/03/18 21:00 Room Air 07/03/18 21:00 56 130/73 07/03/18 21:00 56 130/73 Intake and Output 07/03/18 07/04/18 19:00 07:00 Intake Total 2471 ml Output Total 1175 ml 625 ml Balance 1296 ml -625 ml Intake Oral 1536 ml IV Total 935 ml Output Urine Total 1175 ml 625 ml # Voids 4 Laboratory Tests 07/04/18 04:40: White Blood Count 5.1, Red Blood Count 4.31L, Hemoglobin 12.1L, Hematocrit 37.5L , Mean Corpuscular Volume 87, Mean Corpuscular Hemoglobin 28.0, Mean Corpuscular Hemoglobin Concent 32.2, Red Cell Distribution Width 13.3, Platelet Count 350, Mean Platelet Volume 6.9, Neutrophils (%) (Auto) 54.1, Lymphocytes (% ) (Auto) 33.3, Monocytes (%) (Auto) 8.8, Eosinophils (%) (Auto) 2.6, Basophils ( %) (Auto) 1.3, Sodium Level 138, Potassium Level 4.2, Chloride Level 103, Carbon Dioxide Level 28, Anion Gap 7, Blood Urea Nitrogen 17, Creatinine 1.0, Estimat Glomerular Filtration Rate > 60, Glucose Level 103, Calcium Level 9.5, Phosphorus Level 4.4, Magnesium Level 1.8, Total Bilirubin 0.2, Aspartate Amino Transf (AST/SGOT) 40H, Alanine Aminotransferase (ALT/SGPT) 107H, Alkaline Phosphatase 104, Total Protein 7.2, Albumin 2.9L, Globulin 4.3, Albumin/ Globulin Ratio 0.7L, Lipase 992H Height (Feet): 5 Height (Inches): 6.00 Weight (Pounds): 192 Objective General: alert, cooperative, no distress, appears stated age Head: normocephalic, without obvious abnormality, atraumatic Eyes: conjunctivae/corneas clear. PERRL, EOM's intact Throat: lips, mucosa, and tongue normal. MMM Neck: supple, symmetrical, trachea midline, and no JVD Lungs: clear to auscultation bilaterally Heart: regular rate and rhythm, S1, S2 normal, no murmur, click, rub or gallop Abdomen: soft, generalized abdominal tenderness, no rebound/guarding, non- distended, bowel sounds normal; no masses or organomegaly Extremities: extremities normal, atraumatic, no cyanosis or edema Pulses: 2+ and symmetric Skin: skin color, texture, turgor normal; no rashes or lesions Neurologic: grossly normal, no focal deficits Danitza Luevano MD Jul 04, 2018 20:10
[2018-07-04] MEDS: Dyna-Hex 2% Top Sol 2oz TOPIC SCH (20:19)
[2018-07-04] MEDS: AMINO ACIDS IV SCH ×2 (20:21)
[2018-07-04] MEDS: DEXTROSE IV SCH ×2 (20:21)
[2018-07-04] MEDS: FAT EMULSION IV SCH ×2 (20:21)
[2018-07-04] MEDS: Miralax 17gm pkt ORAL SCH (20:23)
[2018-07-05] VITALS: BP 140/91
[2018-07-05 04:00] VITALS: BP 125/75
[2018-07-05] MEDS: NovoLOG Insulin Flexpen SUBQ SCH ×4 (05:53→23:42)
[2018-07-05 08:00] VITALS: BP 130/78
[2018-07-05] MEDS: Docusate 100mg cap ORAL SCH ×3 (08:30→17:42)
[2018-07-05] MEDS: chlordiazePOXIDE 25mg Cap ORAL SCH ×2 (08:32→17:42)
[2018-07-05] MEDS: Lisinopril 20mg tab ORAL SCH (08:33)
[2018-07-05] MEDS: Heparin 5000 units/ml inj SUBQ SCH ×2 (08:39→20:14)
[2018-07-05] MEDS: Metoprolol 25mg tab ORAL SCH ×2 (08:40→20:12)
--- NOTE | 2018-07-05 10:54 | Nephrology Progress Note ---
Assessment/Plan Problem List: (1) Hypertensive urgency (2) Hypercalcemia (3) Anemia Assessment # Elevated blood pressure OOC #Hypercalcemia, # Hypokalemia #Acute pancreatitis, suspected to be due to excess alcohol consumption, lipase remains elevated #Sepsis #anemia, acute blood loss Plan Adjust BP meds , per order Monitor renal parameters, Lytes and Ca and Phos Per orders check PTH level eliminate phos supplement pharmacy informed Subjective ROS Limited/Unobtainable: No Constitutional: Reports: malaise Objective Objective Last 24 Hour Vital Signs Date Time Temp Pulse Resp B/P (MAP) Pulse Ox O2 Delivery O2 Flow Rate FiO2 07/05/18 09:00 Room Air 07/05/18 08:40 51 130/78 07/05/18 08:33 51 130/78 07/05/18 08:33 130/78 07/05/18 08:00 97.7 51 20 130/78 (95) 96 07/05/18 05:54 125/75 07/05/18 04:00 97.4 52 19 125/75 (92) 96 07/05/18 00:00 97.4 55 19 140/91 (107) 97 07/04/18 22:12 136/83 07/04/18 21:00 Room Air 07/04/18 20:23 54 119/77 07/04/18 20:22 54 119/77 07/04/18 20:00 98.0 54 18 119/77 (91) 98 07/04/18 16:00 98.2 56 20 123/70 (87) 97 07/04/18 14:00 121/66 07/04/18 12:00 97.2 55 18 121/66 (84) 97 Intake and Output 07/04/18 07/05/18 18:59 06:59 Intake Total 1800 ml 1400 ml Output Total 1000 ml 1130 ml Balance 800 ml 270 ml Intake Oral 1800 ml 1400 ml Output Urine Total 1000 ml 1130 ml # Bowel Movements 1 Height (Feet): 5 Height (Inches): 6.00 Weight (Pounds): 192 General Appearance: no apparent distress Objective no other change Edgar Richardson MD Jul 05, 2018 10:54
--- NOTE | 2018-07-05 11:21 | General Progress Note ---
Assessment/Plan Assessment: Assessment - EtOH Pancreatitis - HTN - Constipation Recommendations - TPN - Laxatives PRN - follow labs Subjective Allergies: Coded Allergies: No Known Allergies (Unverified , 06/22/13) Subjective on TPN (+) BM some back pain Objective Last 24 Hour Vital Signs Date Time Temp Pulse Resp B/P (MAP) Pulse Ox O2 Delivery O2 Flow Rate FiO2 07/05/18 09:00 Room Air 07/05/18 08:40 51 130/78 07/05/18 08:33 51 130/78 07/05/18 08:33 130/78 07/05/18 08:00 97.7 51 20 130/78 (95) 96 07/05/18 05:54 125/75 07/05/18 04:00 97.4 52 19 125/75 (92) 96 07/05/18 00:00 97.4 55 19 140/91 (107) 97 07/04/18 22:12 136/83 07/04/18 21:00 Room Air 07/04/18 20:23 54 119/77 07/04/18 20:22 54 119/77 07/04/18 20:00 98.0 54 18 119/77 (91) 98 07/04/18 16:00 98.2 56 20 123/70 (87) 97 07/04/18 14:00 121/66 07/04/18 12:00 97.2 55 18 121/66 (84) 97 Intake and Output 07/04/18 07/05/18 19:00 07:00 Intake Total 1800 ml 1400 ml Output Total 1000 ml 1130 ml Balance 800 ml 270 ml Intake Oral 1800 ml 1400 ml Output Urine Total 1000 ml 1130 ml # Bowel Movements 1 Height (Feet): 5 Height (Inches): 6.00 Weight (Pounds): 192 Objective WDWN AA man NCAT supple CTA RRR abd soft mild TTP Epigastric no edema nonfocal neuro exam Asim Gillette MD Jul 05, 2018 11:21
[2018-07-05 12:00] VITALS: BP 133/83
--- NOTE | 2018-07-05 14:05 | Cardiac Electrophysiology PN ---
Assessment/Plan Assessment/Plan 1. Acute ETOH pancreatitis. Lipase coming down 2. Hypertension, uncontrolled -continue metoprolol 25 bid, lisinopril 40 qd, nifedipine 30 bid and clonidine 0.1 tid -TTE Left ventricular ejection fraction estimated to be 70 %., normal pulmonary pressures, grade 1 diastolic dysfunction 3. Sepsis 4. Hypokalemia 5. Hypercalcemia, resolved 6. Anemia, acute blood loss DW RN Subjective Subjective Feeling better. No CP or SOB.On TPN and clear liquids.. Objective Last 24 Hour Vital Signs Date Time Temp Pulse Resp B/P (MAP) Pulse Ox O2 Delivery O2 Flow Rate FiO2 07/05/18 13:46 133/83 07/05/18 12:00 97.4 66 20 133/83 (100) 97 07/05/18 09:00 Room Air 07/05/18 08:40 51 130/78 07/05/18 08:33 51 130/78 07/05/18 08:33 130/78 07/05/18 08:00 97.7 51 20 130/78 (95) 96 07/05/18 05:54 125/75 07/05/18 04:00 97.4 52 19 125/75 (92) 96 07/05/18 00:00 97.4 55 19 140/91 (107) 97 07/04/18 22:12 136/83 07/04/18 21:00 Room Air 07/04/18 20:23 54 119/77 07/04/18 20:22 54 119/77 07/04/18 20:00 98.0 54 18 119/77 (91) 98 07/04/18 16:00 98.2 56 20 123/70 (87) 97 Intake and Output 07/04/18 07/05/18 19:00 07:00 Intake Total 1800 ml 1400 ml Output Total 1000 ml 1130 ml Balance 800 ml 270 ml Intake Oral 1800 ml 1400 ml Output Urine Total 1000 ml 1130 ml # Bowel Movements 1 Objective HEENT: no JVD Rhythm: NSR Cardiovascular: normal peripheral pulses, normal rate, regular rhythm, regularly irregular, no gallop/murmur Respiratory/Chest: chest wall non-tender, lungs clear, normal breath sounds Abdomen: normal bowel sounds, non tender, soft, no organomegaly, no mass EXT: No edema Shiv Strauss MD Jul 05, 2018 14:04
[2018-07-05] MEDS: HYDROmorphone 1mg/ml Carpuject IVP PRN ×3 (14:35→22:30)
[2018-07-05 16:00] VITALS: BP 146/89
--- NOTE | 2018-07-05 17:33 | General Progress Note ---
Assessment/Plan Assessment: Assessment/Plan Assessment/Plan Assessment/Plan #Acute pancreatitis, suspected to be due to excess alcohol consumption, lipase remains elevated -continue TPN via PICC --GI following -Nephrology following -ADAT, now on clear liquids -continue IV Zofran -cont IV hydromorphone for pain -US RUQ without stones; CT scan results reviewed with radiology, no abscess noted -Lipid panel without hypertriglyceridemia #Sepsis -ID following -Continue Meropenem to complete 10 days -f/u cultures- negative to date -CT A/P without apparent necrosis #Elevated blood pressure due to pain, may have undiagnosed HTN, much better control today -continue telemetry -seen by Cardiology -continue Procardia, clonidine, Lopressor and lisinopril #Hypokalemia -continue to monitor #Hypercalcemia, resolved -likely due to dehydration -continue to monitor -IVF's as above #anemia, acute blood loss -Likely secondary to vigorous hydration -no signs or symptoms for overt GI bleed -contnue to monitor closely VTE PPx Heparin Full Code Subjective Date patient seen: Jul 05, 2018 Time patient seen: 12:55 ROS Limited/Unobtainable: No Allergies: Coded Allergies: No Known Allergies (Unverified , 06/22/13) Subjective No acute events overnight no new complaints. Still c/o some generalized abd pain although improved, tolerating TPN, no fevers/chills, no n/v. Objective Last 24 Hour Vital Signs Date Time Temp Pulse Resp B/P (MAP) Pulse Ox O2 Delivery O2 Flow Rate FiO2 07/05/18 16:00 98.3 60 20 146/89 (108) 96 07/05/18 13:46 133/83 07/05/18 12:00 97.4 66 20 133/83 (100) 97 07/05/18 09:00 Room Air 07/05/18 08:40 51 130/78 07/05/18 08:33 51 130/78 07/05/18 08:33 130/78 07/05/18 08:00 97.7 51 20 130/78 (95) 96 07/05/18 05:54 125/75 07/05/18 04:00 97.4 52 19 125/75 (92) 96 07/05/18 00:00 97.4 55 19 140/91 (107) 97 07/04/18 22:12 136/83 07/04/18 21:00 Room Air 07/04/18 20:23 54 119/77 07/04/18 20:22 54 119/77 07/04/18 20:00 98.0 54 18 119/77 (91) 98 Intake and Output 07/04/18 07/05/18 19:00 07:00 Intake Total 1800 ml 1400 ml Output Total 1000 ml 1130 ml Balance 800 ml 270 ml Intake Oral 1800 ml 1400 ml Output Urine Total 1000 ml 1130 ml # Bowel Movements 1 Height (Feet): 5 Height (Inches): 6.00 Weight (Pounds): 192 Objective General: alert, cooperative, no distress, appears stated age Head: normocephalic, without obvious abnormality, atraumatic Eyes: conjunctivae/corneas clear. PERRL, EOM's intact Throat: lips, mucosa, and tongue normal. MMM Neck: supple, symmetrical, trachea midline, and no JVD Lungs: clear to auscultation bilaterally Heart: regular rate and rhythm, S1, S2 normal, no murmur, click, rub or gallop Abdomen: soft, generalized abdominal tenderness, no rebound/guarding, non- distended, bowel sounds normal; no masses or organomegaly Extremities: extremities normal, atraumatic, no cyanosis or edema Pulses: 2+ and symmetric Skin: skin color, texture, turgor normal; no rashes or lesions Neurologic: grossly normal, no focal deficits Danitza Luevano MD Jul 05, 2018 17:33
[2018-07-05 20:00] VITALS: BP 145/98
[2018-07-05] MEDS: Dyna-Hex 2% Top Sol 2oz TOPIC SCH (20:07)
[2018-07-05] MEDS: Miralax 17gm pkt ORAL SCH (20:13)
[2018-07-05] MEDS: AMINO ACIDS IV SCH ×2 (20:41)
[2018-07-05] MEDS: FAT EMULSION IV SCH ×2 (20:41)
[2018-07-05] MEDS: DEXTROSE IV SCH ×2 (20:41)
[2018-07-06] VITALS (7 sets, daily range): BP systolic 110–150; BP diastolic 62–94
[2018-07-06] MEDS: HYDROmorphone 1mg/ml Carpuject IVP PRN ×5 (02:46→23:06)
[2018-07-06] MEDS: NovoLOG Insulin Flexpen SUBQ SCH ×3 (05:34→18:00)
[2018-07-06 07:13] LABS: ALANINE AMINOTRANSFERASE 83 U/L (12-78); ALBUMIN 2.8 G/DL (3.4-5.0); ALBUMIN/GLOBULIN RATIO 0.7 (1.0-2.7); ALKALINE PHOSPHATASE 99 U/L (46-116); ANION GAP 6 mmol/L (5-15); ASPARTATE AMINO TRANSFERASE 23 U/L (15-37); BILIRUBIN,TOTAL 0.2 MG/DL (0.2-1.0); BLOOD UREA NITROGEN 17 mg/dL (7-18); CALCIUM 9.5 MG/DL (8.5-10.1); CARBON DIOXIDE 29 MMOL/L (21-32); CHLORIDE 104 MMOL/L (98-107); PHOSPHORUS 4.6 MG/DL (2.5-4.9); SODIUM 139 MMOL/L (136-145)
[2018-07-06] MEDS: Metoprolol 25mg tab ORAL SCH ×2 (09:00→20:44)
[2018-07-06] MEDS: Docusate 100mg cap ORAL SCH ×3 (09:01→18:35)
[2018-07-06] MEDS: Heparin 5000 units/ml inj SUBQ SCH ×2 (09:01→20:42)
[2018-07-06] MEDS: chlordiazePOXIDE 25mg Cap ORAL SCH ×2 (09:01→18:35)
[2018-07-06] MEDS: Lisinopril 20mg tab ORAL SCH (09:04)
--- NOTE | 2018-07-06 10:18 | General Progress Note ---
Assessment/Plan Assessment: #Acute pancreatitis, suspected to be due to excess alcohol consumption, abdominal symptoms and lipase levels continue to improve -advance diet to full liquids -continue TPN via PICC for now -GI following -Nephrology following -continue IV fluids -continue IV Zofran -cont IV hydromorphone for pain -US RUQ without stones; CT scan results reviewed with radiology, no abscess noted -Lipid panel without hypertriglyceridemia #Sepsis, resolved -S/p meropenem -ID following -f/u cultures- negative to date -CT A/P without apparent necrosis #Uncontrolled HTN, new diagnosis -off telemetry -seen by Cardiology -continue current anti-hypertensive regimen of Procardia, clonidine, Lopressor and lisinopril #Hypokalemia -continue to monitor #Hypercalcemia, resolved -likely due to dehydration -continue to monitor -IVF's as above #anemia, acute blood loss -Likely secondary to vigorous hydration -no signs or symptoms for overt GI bleed -continue to monitor VTE PPx Heparin Full Code Subjective Date patient seen: Jul 06, 2018 Time patient seen: 08:00 ROS Limited/Unobtainable: No Constitutional: Denies: chills, fever HEENT: Denies: eye pain Cardiovascular: Denies: chest pain Respiratory: Denies: cough Gastrointestinal/Abdominal: Reports: abdominal pain; Denies: abdomen distended Allergies: Coded Allergies: No Known Allergies (Unverified , 06/22/13) Subjective Medicine follow up for acute pancreatitis, likely alcohol induced. Abdominal pain is mild, tolerating clears Objective Last 24 Hour Vital Signs Date Time Temp Pulse Resp B/P (MAP) Pulse Ox O2 Delivery O2 Flow Rate FiO2 07/06/18 09:04 110/62 07/06/18 09:00 58 110/62 07/06/18 09:00 58 110/62 07/06/18 09:00 Room Air 07/06/18 08:00 98.0 58 18 110/62 (78) 98 07/06/18 05:33 117/62 07/06/18 04:00 98.1 55 18 117/62 (80) 99 07/06/18 00:00 97.8 58 18 137/85 (102) 99 07/05/18 22:27 145/98 07/05/18 21:00 Room Air 07/05/18 20:13 59 145/98 07/05/18 20:12 59 145/98 07/05/18 20:00 98.2 59 18 145/98 (114) 97 07/05/18 16:00 98.3 60 20 146/89 (108) 96 07/05/18 13:46 133/83 07/05/18 12:00 97.4 66 20 133/83 (100) 97 Intake and Output 07/05/18 07/06/18 18:59 06:59 Intake Total 1455 ml 1935 ml Output Total 1150 ml 800 ml Balance 305 ml 1135 ml Intake Oral 1200 ml 1000 ml IV Total 255 ml 935 ml Output Urine Total 1150 ml 800 ml Laboratory Tests 07/06/18 05:00: Sodium Level 139, Potassium Level 4.0, Chloride Level 104, Carbon Dioxide Level 29, Anion Gap 6, Blood Urea Nitrogen 17, Creatinine 1.0, Estimat Glomerular Filtration Rate > 60, Glucose Level 109H, Calcium Level 9.5, Phosphorus Level 4.6, Magnesium Level 1.7L, Total Bilirubin 0.2, Aspartate Amino Transf (AST/SGOT ) 23, Alanine Aminotransferase (ALT/SGPT) 83H, Alkaline Phosphatase 99, Total Protein 6.9, Albumin 2.8L, Globulin 4.1, Albumin/Globulin Ratio 0.7L, Lipase 667H Height (Feet): 5 Height (Inches): 6.00 Weight (Pounds): 192 General Appearance: no apparent distress, alert EENT: pharynx normal Neck: non-tender, normal alignment Cardiovascular: normal peripheral pulses, normal rate Respiratory/Chest: chest wall non-tender, lungs clear Abdomen: non tender, soft, no organomegaly Thaddeus Leon MD Jul 06, 2018 10:18
--- NOTE | 2018-07-06 11:04 | GI Progress Note ---
Assessment/Plan Problems: (1) Pancreatitis ICD Codes: K85.90 - Acute pancreatitis without necrosis or infection, unspecified SNOMED: 14469332 (2) Abdominal pain ICD Codes: R10.9 - Unspecified abdominal pain SNOMED: 21492470 (3) ETOH abuse ICD Codes: F10.10 - Alcohol abuse, uncomplicated SNOMED: 20634457 Status: progressing Status Narrative Discussed with Dr. Pineda Assessment/Plan Repeat abdominal CT reviewed >> - uncomplicated acute pancreatitis, with peripancreatic phlegmon which is essentially stable. - New finding of presacral edema. - Increased bilateral pleural effusions now small to moderate in size. Resultant compressive atelectasis of portions of both lower lobes again demonstrated - Wall thickening of the distal duodenum and proximal jejunum in the area of pancreatic phlegmon, presumably reactive related to the adjacent inflammation elevated lipase now down trending Recommendations Full liquid diet trial, will consider DC TPN if patient tolerates lunch -Encourage ambulation - follow lab and exam - continue abx -Repeat lipase levels -Pain management The patient was seen and examined at bedside and all new and available data was reviewed in the patients chart. I agree with the above findings, impression and plan. (Patient seen earlier today. Signature stamp does not reflect patient encounter time.). - Juma Pineda MD Subjective Subjective Abdominal pain improved, but still present Objective Last 24 Hour Vital Signs Date Time Temp Pulse Resp B/P (MAP) Pulse Ox O2 Delivery O2 Flow Rate FiO2 07/06/18 10:41 63 07/06/18 09:04 110/62 07/06/18 09:00 58 110/62 07/06/18 09:00 58 110/62 07/06/18 09:00 Room Air 07/06/18 08:00 98.0 58 18 110/62 (78) 98 07/06/18 05:33 117/62 07/06/18 04:00 98.1 55 18 117/62 (80) 99 07/06/18 00:00 97.8 58 18 137/85 (102) 99 07/05/18 22:27 145/98 07/05/18 21:00 Room Air 07/05/18 20:13 59 145/98 07/05/18 20:12 59 145/98 07/05/18 20:00 98.2 59 18 145/98 (114) 97 07/05/18 16:00 98.3 60 20 146/89 (108) 96 07/05/18 13:46 133/83 07/05/18 12:00 97.4 66 20 133/83 (100) 97 Intake and Output 07/05/18 07/06/18 18:59 06:59 Intake Total 1455 ml 1935 ml Output Total 1150 ml 800 ml Balance 305 ml 1135 ml Intake Oral 1200 ml 1000 ml IV Total 255 ml 935 ml Output Urine Total 1150 ml 800 ml Laboratory Tests Test 07/06/18 05:00 Sodium Level 139 MMOL/L (136-145) Potassium Level 4.0 MMOL/L (3.5-5.1) Chloride Level 104 MMOL/L (98-107) Carbon Dioxide Level 29 MMOL/L (21-32) Anion Gap 6 mmol/L (5-15) Blood Urea Nitrogen 17 mg/dL (7-18) Creatinine 1.0 MG/DL (0.55-1.30) Estimat Glomerular Filtration Rate > 60 mL/min (>60) Glucose Level 109 MG/DL (74-106) H Calcium Level 9.5 MG/DL (8.5-10.1) Phosphorus Level 4.6 MG/DL (2.5-4.9) Magnesium Level 1.7 MG/DL (1.8-2.4) L Total Bilirubin 0.2 MG/DL (0.2-1.0) Aspartate Amino Transf (AST/SGOT) 23 U/L (15-37) Alanine Aminotransferase (ALT/SGPT) 83 U/L (12-78) H Alkaline Phosphatase 99 U/L (46-116) Total Protein 6.9 G/DL (6.4-8.2) Albumin 2.8 G/DL (3.4-5.0) L Globulin 4.1 g/dL Albumin/Globulin Ratio 0.7 (1.0-2.7) L Lipase 667 U/L (73-393) H Height (Feet): 5 Height (Inches): 6.00 Weight (Pounds): 192 General Appearance: WD/WN, no apparent distress, alert Cardiovascular: normal rate Respiratory/Chest: normal breath sounds, no respiratory distress Abdominal Exam: normal bowel sounds, non tender, soft Extremities: normal range of motion, non-tender Alanis,Avelina-Amari [employer] Jul 06, 2018 11:04
--- NOTE | 2018-07-06 12:20 | Cardiology Report ---
APPROVED REPORT EKG Measurement Heart [id number] Normal sinus rhythm Biatrial enlargement Left ventricular hypertrophy Nonspecific T wave abnormality Abnormal ECG
--- NOTE | 2018-07-06 12:31 | Nephrology Progress Note ---
Assessment/Plan Problem List: (1) Hypertensive urgency (2) Hypercalcemia (3) Anemia Assessment # Elevated blood pressure OOC #Hypercalcemia, # Hypokalemia #Acute pancreatitis, suspected to be due to excess alcohol consumption, lipase remains elevated #Sepsis #anemia, acute blood loss Plan on clear liquids Adjust BP meds , per order Monitor renal parameters, Lytes and Ca and Phos Per orders check PTH level eliminate phos supplement pharmacy informed Subjective ROS Limited/Unobtainable: No Objective Objective Last 24 Hour Vital Signs Date Time Temp Pulse Resp B/P (MAP) Pulse Ox O2 Delivery O2 Flow Rate FiO2 07/06/18 12:00 98.4 58 19 121/82 (95) 99 07/06/18 11:16 98.0 07/06/18 10:41 63 07/06/18 09:04 110/62 07/06/18 09:00 58 110/62 07/06/18 09:00 58 110/62 07/06/18 09:00 Room Air 07/06/18 08:00 98.0 58 18 110/62 (78) 98 07/06/18 05:33 117/62 07/06/18 04:00 98.1 55 18 117/62 (80) 99 07/06/18 00:00 97.8 58 18 137/85 (102) 99 07/05/18 22:27 145/98 07/05/18 21:00 Room Air 07/05/18 20:13 59 145/98 07/05/18 20:12 59 145/98 07/05/18 20:00 98.2 59 18 145/98 (114) 97 07/05/18 16:00 98.3 60 20 146/89 (108) 96 07/05/18 13:46 133/83 Intake and Output 07/05/18 07/06/18 18:59 06:59 Intake Total 1455 ml 1935 ml Output Total 1150 ml 800 ml Balance 305 ml 1135 ml Intake Oral 1200 ml 1000 ml IV Total 255 ml 935 ml Output Urine Total 1150 ml 800 ml Laboratory Tests 07/06/18 05:00: Sodium Level 139, Potassium Level 4.0, Chloride Level 104, Carbon Dioxide Level 29, Anion Gap 6, Blood Urea Nitrogen 17, Creatinine 1.0, Estimat Glomerular Filtration Rate > 60, Glucose Level 109H, Calcium Level 9.5, Phosphorus Level 4.6, Magnesium Level 1.7L, Total Bilirubin 0.2, Aspartate Amino Transf (AST/SGOT ) 23, Alanine Aminotransferase (ALT/SGPT) 83H, Alkaline Phosphatase 99, Total Protein 6.9, Albumin 2.8L, Globulin 4.1, Albumin/Globulin Ratio 0.7L, Lipase 667H Height (Feet): 5 Height (Inches): 6.00 Weight (Pounds): 192 General Appearance: no apparent distress Objective no other change Edgar Richardson MD Jul 06, 2018 12:31
--- NOTE | 2018-07-06 13:15 | Cardiac Electrophysiology PN ---
Assessment/Plan Assessment/Plan 1. Acute ETOH pancreatitis. Lipase down to 600 range 2. Hypertension, continue metoprolol 25 bid, lisinopril 40 qd, nifedipine 30 bid and clonidine 0.1 tid -TTE EF 70 %., normal pulmonary pressures, grade 1 diastolic dysfunction 3. Sepsis 4. Hypokalemia 5. Hypercalcemia, resolved 6. Anemia, acute blood loss DW RN Subjective Subjective No CP or SOB.On TPN and clear liquids.Abd pain better Objective Last 24 Hour Vital Signs Date Time Temp Pulse Resp B/P (MAP) Pulse Ox O2 Delivery O2 Flow Rate FiO2 07/06/18 12:00 98.4 58 19 121/82 (95) 99 07/06/18 11:16 98.0 07/06/18 10:41 63 07/06/18 09:04 110/62 07/06/18 09:00 58 110/62 07/06/18 09:00 58 110/62 07/06/18 09:00 Room Air 07/06/18 08:00 98.0 58 18 110/62 (78) 98 07/06/18 05:33 117/62 07/06/18 04:00 98.1 55 18 117/62 (80) 99 07/06/18 00:00 97.8 58 18 137/85 (102) 99 07/05/18 22:27 145/98 07/05/18 21:00 Room Air 07/05/18 20:13 59 145/98 07/05/18 20:12 59 145/98 07/05/18 20:00 98.2 59 18 145/98 (114) 97 07/05/18 16:00 98.3 60 20 146/89 (108) 96 07/05/18 13:46 133/83 Intake and Output 07/05/18 07/06/18 18:59 06:59 Intake Total 1455 ml 1935 ml Output Total 1150 ml 800 ml Balance 305 ml 1135 ml Intake Oral 1200 ml 1000 ml IV Total 255 ml 935 ml Output Urine Total 1150 ml 800 ml Laboratory Tests Test 07/06/18 05:00 Sodium Level 139 MMOL/L (136-145) Potassium Level 4.0 MMOL/L (3.5-5.1) Chloride Level 104 MMOL/L (98-107) Carbon Dioxide Level 29 MMOL/L (21-32) Anion Gap 6 mmol/L (5-15) Blood Urea Nitrogen 17 mg/dL (7-18) Creatinine 1.0 MG/DL (0.55-1.30) Estimat Glomerular Filtration Rate > 60 mL/min (>60) Glucose Level 109 MG/DL (74-106) H Calcium Level 9.5 MG/DL (8.5-10.1) Phosphorus Level 4.6 MG/DL (2.5-4.9) Magnesium Level 1.7 MG/DL (1.8-2.4) L Total Bilirubin 0.2 MG/DL (0.2-1.0) Aspartate Amino Transf (AST/SGOT) 23 U/L (15-37) Alanine Aminotransferase (ALT/SGPT) 83 U/L (12-78) H Alkaline Phosphatase 99 U/L (46-116) Total Protein 6.9 G/DL (6.4-8.2) Albumin 2.8 G/DL (3.4-5.0) L Globulin 4.1 g/dL Albumin/Globulin Ratio 0.7 (1.0-2.7) L Lipase 667 U/L (73-393) H Objective HEENT: No JVD Cardiovascular: normal peripheral pulses, normal rate, regular S1 and S2. no gallop/murmur Respiratory/Chest: chest wall non-tender, lungs clear, normal breath sounds Abdomen: normal bowel sounds, non tender, soft, no organomegaly, no mass EXT: No edema Shiv Strauss MD Jul 06, 2018 13:15
[2018-07-06] MEDS: Dyna-Hex 2% Top Sol 2oz TOPIC SCH (20:43)
[2018-07-06] MEDS: DEXTROSE IV SCH ×2 (20:43)
[2018-07-06] MEDS: FAT EMULSION IV SCH ×2 (20:43)
[2018-07-06] MEDS: AMINO ACIDS IV SCH ×2 (20:43)
[2018-07-06] MEDS: Miralax 17gm pkt ORAL SCH (20:45)
[2018-07-07] VITALS: BP 146/89
[2018-07-07] MEDS: NovoLOG Insulin Flexpen SUBQ SCH ×4 (00:42→17:52)
[2018-07-07 04:00] VITALS: BP 148/89
[2018-07-07] MEDS: HYDROmorphone 1mg/ml Carpuject IVP PRN ×3 (05:20→15:34)
[2018-07-07 08:00] VITALS: BP 138/89
[2018-07-07] MEDS: Lisinopril 20mg tab ORAL SCH (09:00)
[2018-07-07] MEDS: Docusate 100mg cap ORAL SCH ×3 (09:17→17:50)
[2018-07-07] MEDS: Metoprolol 25mg tab ORAL SCH (09:18)
[2018-07-07] MEDS: chlordiazePOXIDE 25mg Cap ORAL SCH (09:18)
[2018-07-07] MEDS: Heparin 5000 units/ml inj SUBQ SCH ×2 (09:19→20:42)
--- NOTE | 2018-07-07 09:42 | General Progress Note ---
Assessment/Plan Assessment: #Acute pancreatitis, suspected to be due to excess alcohol consumption -did not tolerate full liquids, will revert back to clears for now -continue TPN via PICC for now -repeat labs in AM -GI following -Nephrology following -continue IV fluids -continue IV Zofran -cont IV hydromorphone for pain -US RUQ without stones; CT scan results reviewed with radiology, no abscess noted -Lipid panel without hypertriglyceridemia #Sepsis, resolved -S/p meropenem -ID following -f/u cultures- negative to date -CT A/P without apparent necrosis #Uncontrolled HTN, new diagnosis -off telemetry -seen by Cardiology -continue current anti-hypertensive regimen of Procardia, clonidine, Lopressor and lisinopril #Hypokalemia -continue to monitor #Hypercalcemia, resolved -likely due to dehydration -continue to monitor -IVF's as above #anemia, acute blood loss -Likely secondary to vigorous hydration -no signs or symptoms for overt GI bleed -continue to monitor VTE PPx Heparin Full Code Subjective Date patient seen: Jul 07, 2018 ROS Limited/Unobtainable: No Constitutional: Denies: fever Cardiovascular: Denies: chest pain Respiratory: Denies: cough Gastrointestinal/Abdominal: Reports: abdominal pain; Denies: abdomen distended Allergies: Coded Allergies: No Known Allergies (Unverified , 06/22/13) Subjective Medicine follow up for acute pancreatitis, likely alcohol induced. Patient had significant abdominal pain with full liquids Objective Last 24 Hour Vital Signs Date Time Temp Pulse Resp B/P (MAP) Pulse Ox O2 Delivery O2 Flow Rate FiO2 07/07/18 09:18 51 138/89 07/07/18 05:44 148/89 07/07/18 04:00 98.0 52 17 148/89 (108) 96 07/07/18 00:00 98.1 57 17 146/89 (108) 96 07/06/18 23:07 149/93 07/06/18 21:00 Room Air 07/06/18 20:44 55 07/06/18 20:40 55 150/94 07/06/18 20:00 97.8 55 18 150/94 (112) 96 07/06/18 17:30 98.0 07/06/18 16:00 98.0 58 20 120/72 (88) 07/06/18 14:18 122/79 (93) 07/06/18 14:00 122/79 07/06/18 12:00 98.4 58 19 121/82 (95) 99 07/06/18 11:16 98.0 07/06/18 10:41 63 Intake and Output 07/06/18 07/07/18 19:00 07:00 Intake Total 2235 ml 480 ml Balance 2235 ml 480 ml Intake Oral 1300 ml 480 ml IV Total 935 ml # Voids 3 # Bowel Movements 1 Height (Feet): 5 Height (Inches): 6.00 Weight (Pounds): 192 General Appearance: no apparent distress, alert Neck: supple Cardiovascular: normal rate, regular rhythm Respiratory/Chest: lungs clear, normal breath sounds Abdomen: non tender, soft, no organomegaly Thaddeus Leon MD Jul 07, 2018 09:42
[2018-07-07 10:16] LABS: ANION GAP 8 mmol/L (5-15); BLOOD UREA NITROGEN 12 mg/dL (7-18); CALCIUM 10.1 MG/DL (8.5-10.1); CARBON DIOXIDE 28 MMOL/L (21-32); CHLORIDE 103 MMOL/L (98-107); POTASSIUM 4.2 MMOL/L (3.5-5.1); SODIUM 138 MMOL/L (136-145)
--- NOTE | 2018-07-07 10:38 | GI Progress Note ---
Assessment/Plan Problems: (1) Pancreatitis ICD Codes: K85.90 - Acute pancreatitis without necrosis or infection, unspecified SNOMED: 46748467 (2) Abdominal pain ICD Codes: R10.9 - Unspecified abdominal pain SNOMED: 80484233 (3) ETOH abuse ICD Codes: F10.10 - Alcohol abuse, uncomplicated SNOMED: 14237746 Status: unchanged Status Narrative Discussed with Dr. Pineda. Assessment/Plan Repeat abdominal CT reviewed >> - uncomplicated acute pancreatitis, with peripancreatic phlegmon which is essentially stable. - New finding of presacral edema. - Increased bilateral pleural effusions now small to moderate in size. Resultant compressive atelectasis of portions of both lower lobes again demonstrated - Wall thickening of the distal duodenum and proximal jejunum in the area of pancreatic phlegmon, presumably reactive related to the adjacent inflammation elevated lipase now down trending Recommendations revert to CLD, patient able to tolerate FLD cont TPN -Encourage ambulation - follow lab and exam - continue abx -Repeat lipase levels -Pain management The patient was seen and examined at bedside and all new and available data was reviewed in the patients chart. I agree with the above findings, impression and plan. (Patient seen earlier today. Signature stamp does not reflect patient encounter time.). - Juma Pineda MD Subjective Subjective unable to tolerate FLD, complaint of severe abdominal pain 5 min after PO intake Objective Last 24 Hour Vital Signs Date Time Temp Pulse Resp B/P (MAP) Pulse Ox O2 Delivery O2 Flow Rate FiO2 07/07/18 09:18 51 138/89 07/07/18 09:00 Room Air 07/07/18 08:00 97.5 50 20 138/89 (105) 96 07/07/18 05:44 148/89 07/07/18 04:00 98.0 52 17 148/89 (108) 96 07/07/18 00:00 98.1 57 17 146/89 (108) 96 07/06/18 23:07 149/93 07/06/18 21:00 Room Air 07/06/18 20:44 55 07/06/18 20:40 55 150/94 07/06/18 20:00 97.8 55 18 150/94 (112) 96 07/06/18 17:30 98.0 07/06/18 16:00 98.0 58 20 120/72 (88) 07/06/18 14:18 122/79 (93) 07/06/18 14:00 122/79 07/06/18 12:00 98.4 58 19 121/82 (95) 99 07/06/18 11:16 98.0 07/06/18 10:41 63 Intake and Output 07/06/18 07/07/18 18:59 06:59 Intake Total 2320 ml 480 ml Balance 2320 ml 480 ml Intake Oral 1300 ml 480 ml IV Total 1020 ml # Voids 3 # Bowel Movements 1 Laboratory Tests Test 07/07/18 09:40 Sodium Level 138 MMOL/L (136-145) Potassium Level 4.2 MMOL/L (3.5-5.1) Chloride Level 103 MMOL/L (98-107) Carbon Dioxide Level 28 MMOL/L (21-32) Anion Gap 8 mmol/L (5-15) Blood Urea Nitrogen 12 mg/dL (7-18) Creatinine 1.0 MG/DL (0.55-1.30) Estimat Glomerular Filtration Rate > 60 mL/min (>60) Glucose Level 111 MG/DL (74-106) H Calcium Level 10.1 MG/DL (8.5-10.1) Lipase 598 U/L (73-393) H Height (Feet): 5 Height (Inches): 6.00 Weight (Pounds): 192 General Appearance: WD/WN, no apparent distress, alert Cardiovascular: normal rate Respiratory/Chest: normal breath sounds, no respiratory distress Abdominal Exam: normal bowel sounds, non tender, soft Extremities: normal range of motion, non-tender Nixon Alanis [employer] Jul 07, 2018 10:38
[2018-07-07 12:00] VITALS: BP_SYST 125; BP_SYST 166; BP_DIAS 103; BP_DIAS 77
[2018-07-07 16:00] VITALS: BP 156/107
--- NOTE | 2018-07-07 16:22 | Nephrology Progress Note ---
Assessment/Plan Problem List: (1) Hypertensive urgency (2) Hypercalcemia (3) Anemia (4) Pancreatitis (5) Alcohol dependence Assessment # Elevated blood pressure OOC #Hypercalcemia, # Hypokalemia #Acute pancreatitis, suspected to be due to excess alcohol consumption, lipase remains elevated #Sepsis #anemia, acute blood loss Plan on clear liquids Adjust BP meds , per order adjust pain meds Monitor renal parameters, Lytes and Ca and Phos eliminate phos supplement pharmacy informed Subjective Constitutional: Reports: malaise, weakness, other - couldnt tolerate full liquid Objective Objective Last 24 Hour Vital Signs Date Time Temp Pulse Resp B/P (MAP) Pulse Ox O2 Delivery O2 Flow Rate FiO2 07/07/18 13:25 156/97 07/07/18 12:00 98.0 48 21 166/103 (124) 97 07/07/18 09:18 51 138/89 07/07/18 09:00 Room Air 07/07/18 08:00 97.5 50 20 138/89 (105) 96 07/07/18 05:44 148/89 07/07/18 04:00 98.0 52 17 148/89 (108) 96 07/07/18 00:00 98.1 57 17 146/89 (108) 96 07/06/18 23:07 149/93 07/06/18 21:00 Room Air 07/06/18 20:44 55 07/06/18 20:40 55 150/94 07/06/18 20:00 97.8 55 18 150/94 (112) 96 07/06/18 17:30 98.0 Intake and Output 07/06/18 07/07/18 18:59 06:59 Intake Total 2320 ml 480 ml Balance 2320 ml 480 ml Intake Oral 1300 ml 480 ml IV Total 1020 ml # Voids 3 # Bowel Movements 1 Laboratory Tests 07/07/18 09:40: Sodium Level 138, Potassium Level 4.2, Chloride Level 103, Carbon Dioxide Level 28, Anion Gap 8, Blood Urea Nitrogen 12, Creatinine 1.0, Estimat Glomerular Filtration Rate > 60, Glucose Level 111H, Calcium Level 10.1, Lipase 598H Height (Feet): 5 Height (Inches): 6.00 Weight (Pounds): 192 Objective no other change Edgar Richardson MD Jul 07, 2018 16:22
--- NOTE | 2018-07-07 16:46 | Cardiac Electrophysiology PN ---
Assessment/Plan Assessment/Plan 1. Acute ETOH pancreatitis. Lipase down to 600 range 2. Hypertension, continue metoprolol 25 bid, lisinopril 40 qd, nifedipine 30 bid and clonidine 0.1 tid EF 70 %., normal pulmonary pressures, grade 1 diastolic dysfunction 3. S/P Sepsis 4. Hypokalemia 5. Hypercalcemia, resolved 6. Anemia, acute blood loss DW RN Subjective Subjective No CP or SOB.On TPN and clear liquids.Still has abd pain Objective Last 24 Hour Vital Signs Date Time Temp Pulse Resp B/P (MAP) Pulse Ox O2 Delivery O2 Flow Rate FiO2 07/07/18 13:25 156/97 07/07/18 12:00 98.0 48 21 166/103 (124) 97 07/07/18 09:18 51 138/89 07/07/18 09:00 Room Air 07/07/18 08:00 97.5 50 20 138/89 (105) 96 07/07/18 05:44 148/89 07/07/18 04:00 98.0 52 17 148/89 (108) 96 07/07/18 00:00 98.1 57 17 146/89 (108) 96 07/06/18 23:07 149/93 07/06/18 21:00 Room Air 07/06/18 20:44 55 07/06/18 20:40 55 150/94 07/06/18 20:00 97.8 55 18 150/94 (112) 96 07/06/18 17:30 98.0 Intake and Output 07/06/18 07/07/18 18:59 06:59 Intake Total 2320 ml 480 ml Balance 2320 ml 480 ml Intake Oral 1300 ml 480 ml IV Total 1020 ml # Voids 3 # Bowel Movements 1 Laboratory Tests Test 07/07/18 09:40 Sodium Level 138 MMOL/L (136-145) Potassium Level 4.2 MMOL/L (3.5-5.1) Chloride Level 103 MMOL/L (98-107) Carbon Dioxide Level 28 MMOL/L (21-32) Anion Gap 8 mmol/L (5-15) Blood Urea Nitrogen 12 mg/dL (7-18) Creatinine 1.0 MG/DL (0.55-1.30) Estimat Glomerular Filtration Rate > 60 mL/min (>60) Glucose Level 111 MG/DL (74-106) H Calcium Level 10.1 MG/DL (8.5-10.1) Lipase 598 U/L (73-393) H Objective HEENT: No JVD Cardiovascular: normal peripheral pulses, normal rate, regular S1 and S2. no gallop/murmur Respiratory/Chest: chest wall non-tender, lungs clear, normal breath sounds Abdomen: normal bowel sounds, non tender, soft, no organomegaly, no mass EXT: No edema Shiv Strauss MD Jul 07, 2018 16:45
[2018-07-07] MEDS: traMADol 50mg tab ORAL SCH ×2 (17:32→22:34)
[2018-07-07] MEDS: HydrALAZINE 10mg Tab ORAL SCH (17:51)
[2018-07-07 20:00] VITALS: BP 148/96
[2018-07-07] MEDS: Dyna-Hex 2% Top Sol 2oz TOPIC SCH (20:30)
[2018-07-07] MEDS: Hydromorphone 0.5mg/0.5ml inj IVP PRN (20:34)
[2018-07-07] MEDS: DEXTROSE IV SCH ×2 (20:40)
[2018-07-07] MEDS: FAT EMULSION IV SCH ×2 (20:40)
[2018-07-07] MEDS: AMINO ACIDS IV SCH ×2 (20:40)
[2018-07-07] MEDS: Miralax 17gm pkt ORAL SCH ×2 (20:42→20:44)
[2018-07-08] VITALS: BP 141/91
[2018-07-08] MEDS: HydrALAZINE 10mg Tab ORAL SCH ×3 (00:33→17:26)
[2018-07-08] MEDS: Hydromorphone 0.5mg/0.5ml inj IVP PRN ×3 (00:34→18:21)
[2018-07-08 04:00] VITALS: BP 114/65
[2018-07-08] MEDS: traMADol 50mg tab ORAL SCH ×4 (04:54→22:25)
[2018-07-08] MEDS: NovoLOG Insulin Flexpen SUBQ SCH ×4 (06:00→17:28)
[2018-07-08 06:51] LABS: ANION GAP 7 mmol/L (5-15); BASOPHILS % (AUTO) 2.1 % (0.0-2.0); BLOOD UREA NITROGEN 12 mg/dL (7-18); CALCIUM 9.3 MG/DL (8.5-10.1); CARBON DIOXIDE 28 MMOL/L (21-32); CHLORIDE 104 MMOL/L (98-107); CHOLESTEROL 126 MG/DL (< 200); EOSINOPHILS % (AUTO) 2.8 % (0.0-3.0); HDL CHOLESTEROL 23 MG/DL (40-60); HEMATOCRIT 36.6 % (42.0-52.0); HEMOGLOBIN 12.1 G/DL (14.2-18.0); LYMPHOCYTES % (AUTO) 40.8 % (20.0-45.0); MEAN CORPUSCULAR VOLUME 85 FL (80-99); MONOCYTES % (AUTO) 13.9 % (1.0-10.0); NEUTROPHILS % (AUTO) 40.4 % (45.0-75.0); PLATELET COUNT 277 K/UL (150-450); POTASSIUM 3.8 MMOL/L (3.5-5.1); RED BLOOD COUNT 4.33 M/UL (4.70-6.10); RED CELL DISTRIBUTION WIDTH 13.2 % (11.6-14.8); SODIUM 139 MMOL/L (136-145); TRIGLYCERIDES 69 MG/DL (30-150); WHITE BLOOD COUNT 3.8 K/UL (4.8-10.8)
[2018-07-08 07:13] LABS: ALANINE AMINOTRANSFERASE 85 U/L (12-78); ALKALINE PHOSPHATASE 104 U/L (46-116); ASPARTATE AMINO TRANSFERASE 24 U/L (15-37); BILIRUBIN,DIRECT < 0.1 MG/DL (0.0-0.3); BILIRUBIN,TOTAL 0.2 MG/DL (0.2-1.0); PHOSPHORUS 4.1 MG/DL (2.5-4.9)
[2018-07-08 08:00] VITALS: BP 125/86
[2018-07-08] MEDS: chlordiazePOXIDE 25mg Cap ORAL SCH (08:57)
[2018-07-08] MEDS: Heparin 5000 units/ml inj SUBQ SCH ×2 (09:00→20:13)
[2018-07-08] MEDS: Docusate 100mg cap ORAL SCH ×3 (09:00→17:27)
[2018-07-08] MEDS: Phytonadione 10 mg/mL 1ml amp SUBQ SCH (09:05)
[2018-07-08] MEDS: Lisinopril 20mg tab ORAL SCH (10:00)
--- NOTE | 2018-07-08 10:03 | GI Progress Note ---
Assessment/Plan Problems: (1) Pancreatitis ICD Codes: K85.90 - Acute pancreatitis without necrosis or infection, unspecified SNOMED: 05620117 (2) Abdominal pain ICD Codes: R10.9 - Unspecified abdominal pain SNOMED: 84797281 (3) ETOH abuse ICD Codes: F10.10 - Alcohol abuse, uncomplicated SNOMED: 57578959 Status: unchanged Status Narrative Discussed with Dr. Pineda Assessment/Plan Repeat abdominal CT reviewed >> - uncomplicated acute pancreatitis, with peripancreatic phlegmon which is essentially stable. - New finding of presacral edema. - Increased bilateral pleural effusions now small to moderate in size. Resultant compressive atelectasis of portions of both lower lobes again demonstrated - Wall thickening of the distal duodenum and proximal jejunum in the area of pancreatic phlegmon, presumably reactive related to the adjacent inflammation elevated lipase now down trending Recommendations Continue clear liquid diet, advance as tolerated cont TPN -Encourage ambulation - follow lab and exam - continue abx -Repeat lipase levels -Pain management The patient was seen and examined at bedside and all new and available data was reviewed in the patients chart. I agree with the above findings, impression and plan. (Patient seen earlier today. Signature stamp does not reflect patient encounter time.). - Juma Pineda MD Subjective Subjective unable to tolerate FLD, complaint of severe abdominal pain 5 min after PO intake Objective Last 24 Hour Vital Signs Date Time Temp Pulse Resp B/P (MAP) Pulse Ox O2 Delivery O2 Flow Rate FiO2 07/08/18 06:00 114/65 07/08/18 04:00 98.7 52 18 114/65 (81) 98 07/08/18 01:20 97.7 07/08/18 00:33 141/91 07/08/18 00:00 99.5 51 18 141/91 (108) 99 07/07/18 22:00 148/96 07/07/18 21:00 Room Air 07/07/18 20:33 60 148/96 07/07/18 20:00 98.0 52 18 148/96 (113) 99 54 07/07/18 17:51 154/90 07/07/18 16:00 97.7 50 20 156/107 (123) 99 07/07/18 13:25 156/97 07/07/18 12:00 98.0 48 21 166/103 (124) 97 Intake and Output 07/07/18 07/08/18 19:00 07:00 Intake Total 240 ml 660 ml Output Total 750 ml 650 ml Balance -510 ml 10 ml Intake Oral 240 ml 660 ml Output Urine Total 750 ml 650 ml # Voids 2 6 # Bowel Movements 2 Laboratory Tests Test 07/08/18 05:25 White Blood Count 3.8 K/UL (4.8-10.8) L Red Blood Count 4.33 M/UL (4.70-6.10) L Hemoglobin 12.1 G/DL (14.2-18.0) L Hematocrit 36.6 % (42.0-52.0) L Mean Corpuscular Volume 85 FL (80-99) Mean Corpuscular Hemoglobin 27.9 PG (27.0-31.0) Mean Corpuscular Hemoglobin Concent 33.0 G/DL (32.0-36.0) Red Cell Distribution Width 13.2 % (11.6-14.8) Platelet Count 277 K/UL (150-450) Mean Platelet Volume 7.6 FL (6.5-10.1) Neutrophils (%) (Auto) 40.4 % (45.0-75.0) L Lymphocytes (%) (Auto) 40.8 % (20.0-45.0) Monocytes (%) (Auto) 13.9 % (1.0-10.0) H Eosinophils (%) (Auto) 2.8 % (0.0-3.0) Basophils (%) (Auto) 2.1 % (0.0-2.0) H Sodium Level 139 MMOL/L (136-145) Potassium Level 3.8 MMOL/L (3.5-5.1) Chloride Level 104 MMOL/L (98-107) Carbon Dioxide Level 28 MMOL/L (21-32) Anion Gap 7 mmol/L (5-15) Blood Urea Nitrogen 12 mg/dL (7-18) Creatinine 1.0 MG/DL (0.55-1.30) Estimat Glomerular Filtration Rate > 60 mL/min (>60) Glucose Level 104 MG/DL (74-106) Uric Acid 4.1 MG/DL (2.6-7.2) Calcium Level 9.3 MG/DL (8.5-10.1) Phosphorus Level 4.1 MG/DL (2.5-4.9) Magnesium Level 1.5 MG/DL (1.8-2.4) L Total Bilirubin 0.2 MG/DL (0.2-1.0) Direct Bilirubin < 0.1 MG/DL (0.0-0.3) Aspartate Amino Transf (AST/SGOT) 24 U/L (15-37) Alanine Aminotransferase (ALT/SGPT) 85 U/L (12-78) H Alkaline Phosphatase 104 U/L (46-116) Total Protein 7.3 G/DL (6.4-8.2) Albumin 3.0 G/DL (3.4-5.0) L Triglycerides Level 69 MG/DL (30-150) Cholesterol Level 126 MG/DL (< 200) LDL Cholesterol 95 mg/dL (<100) HDL Cholesterol 23 MG/DL (40-60) L Cholesterol/HDL Ratio 5.5 (3.3-4.4) H Lipase 545 U/L (73-393) H Height (Feet): 5 Height (Inches): 6.00 Weight (Pounds): 193 General Appearance: WD/WN, no apparent distress, alert Cardiovascular: normal rate Respiratory/Chest: normal breath sounds, no respiratory distress Abdominal Exam: normal bowel sounds, non tender, soft Extremities: normal range of motion, non-tender Nixon Alanis NP Jul 08, 2018 10:03
--- NOTE | 2018-07-08 11:23 | General Progress Note ---
Assessment/Plan Assessment: #Acute pancreatitis, suspected to be due to excess alcohol consumption -back to clears, tolerating -continue TPN via PICC for now -Lipase levels reviewed -GI following -Nephrology following -continue IV fluids -continue IV Zofran -cont IV hydromorphone for pain -US RUQ without stones; CT scan results reviewed with radiology, no abscess noted -Lipid panel without hypertriglyceridemia #Sepsis, resolved -S/p meropenem -ID following -f/u cultures- negative to date -CT A/P without apparent necrosis #Uncontrolled HTN, new diagnosis -off telemetry -seen by Cardiology -continue current anti-hypertensive regimen of Procardia, clonidine, Lopressor and lisinopril #Hypokalemia -continue to monitor #Hypercalcemia, resolved -likely due to dehydration -continue to monitor -IVF's as above #anemia, acute blood loss -Likely secondary to vigorous hydration -no signs or symptoms for overt GI bleed -continue to monitor VTE PPx Heparin Full Code Subjective Date patient seen: Jul 08, 2018 Time patient seen: 08:12 ROS Limited/Unobtainable: No Constitutional: Denies: chills, fever Cardiovascular: Denies: chest pain Respiratory: Denies: cough Gastrointestinal/Abdominal: Denies: abdomen distended, abdominal pain Allergies: Coded Allergies: No Known Allergies (Unverified , 06/22/13) Subjective Medicine follow up for acute pancreatitis, likely alcohol induced. Patient tolerating clears. Objective Last 24 Hour Vital Signs Date Time Temp Pulse Resp B/P (MAP) Pulse Ox O2 Delivery O2 Flow Rate FiO2 07/08/18 10:00 51 125/86 07/08/18 10:00 125/86 07/08/18 09:00 Room Air 07/08/18 08:00 98.2 51 19 125/86 (99) 97 07/08/18 06:00 114/65 07/08/18 04:00 98.7 52 18 114/65 (81) 98 07/08/18 01:20 97.7 07/08/18 00:33 141/91 07/08/18 00:00 99.5 51 18 141/91 (108) 99 07/07/18 22:00 148/96 07/07/18 21:00 Room Air 07/07/18 20:33 60 148/96 07/07/18 20:00 98.0 52 18 148/96 (113) 99 54 07/07/18 17:51 154/90 07/07/18 16:00 97.7 50 20 156/107 (123) 99 07/07/18 13:25 156/97 07/07/18 12:00 98.0 48 21 166/103 (124) 97 Intake and Output 07/07/18 07/08/18 19:00 07:00 Intake Total 240 ml 660 ml Output Total 750 ml 650 ml Balance -510 ml 10 ml Intake Oral 240 ml 660 ml Output Urine Total 750 ml 650 ml # Voids 2 6 # Bowel Movements 2 Laboratory Tests 07/08/18 05:25: White Blood Count 3.8L, Red Blood Count 4.33L, Hemoglobin 12.1L, Hematocrit 36.6L, Mean Corpuscular Volume 85, Mean Corpuscular Hemoglobin 27.9, Mean Corpuscular Hemoglobin Concent 33.0, Red Cell Distribution Width 13.2, Platelet Count 277, Mean Platelet Volume 7.6, Neutrophils (%) (Auto) 40.4L, Lymphocytes ( %) (Auto) 40.8, Monocytes (%) (Auto) 13.9H, Eosinophils (%) (Auto) 2.8, Basophils (%) (Auto) 2.1H, Sodium Level 139, Potassium Level 3.8, Chloride Level 104, Carbon Dioxide Level 28, Anion Gap 7, Blood Urea Nitrogen 12, Creatinine 1.0, Estimat Glomerular Filtration Rate > 60, Glucose Level 104, Uric Acid 4.1, Calcium Level 9.3, Phosphorus Level 4.1, Magnesium Level 1.5L, Total Bilirubin 0.2, Direct Bilirubin < 0.1, Aspartate Amino Transf (AST/SGOT) 24, Alanine Aminotransferase (ALT/SGPT) 85H, Alkaline Phosphatase 104, Total Protein 7.3, Albumin 3.0L, Triglycerides Level 69, Cholesterol Level 126, LDL Cholesterol 95, HDL Cholesterol 23L, Cholesterol/HDL Ratio 5.5H, Lipase 545H Height (Feet): 5 Height (Inches): 6.00 Weight (Pounds): 193 General Appearance: no apparent distress, alert Neck: non-tender, normal alignment Cardiovascular: normal rate, regular rhythm Respiratory/Chest: lungs clear, normal breath sounds Abdomen: non tender, soft Thaddeus Leon MD Jul 08, 2018 11:23
[2018-07-08 12:00] VITALS: BP 133/80
[2018-07-08] MEDS ORDERED: HydrALAZINE 10mg Tab ORAL SCH (12:00)
--- NOTE | 2018-07-08 12:55 | Cardiac Electrophysiology PN ---
Assessment/Plan Assessment/Plan 1. Acute ETOH pancreatitis. Lipase down to 540 range 2. Hypertension, continue lisinopril 40 qd, nifedipine 60 bid, Hydralazine 20 q 6hr and clonidine 0.1 tid metoprolol was DCed. EF 70 %., normal pulmonary pressures, grade 1 diastolic dysfunction 3. S/P Sepsis 4. Hypokalemia 5. Hypercalcemia, resolved 6. Anemia, acute blood loss DW RN Subjective Subjective No CP or SOB. On TPN .Couldn't tolerate full liquid diet and is back on clear liquid diet Objective Last 24 Hour Vital Signs Date Time Temp Pulse Resp B/P (MAP) Pulse Ox O2 Delivery O2 Flow Rate FiO2 07/08/18 12:16 133/80 07/08/18 12:00 98.1 67 17 133/80 (97) 97 07/08/18 10:00 51 125/86 07/08/18 10:00 125/86 07/08/18 09:00 Room Air 07/08/18 08:00 98.2 51 19 125/86 (99) 97 07/08/18 06:00 114/65 07/08/18 04:00 98.7 52 18 114/65 (81) 98 07/08/18 01:20 97.7 07/08/18 00:33 141/91 07/08/18 00:00 99.5 51 18 141/91 (108) 99 07/07/18 22:00 148/96 07/07/18 21:00 Room Air 07/07/18 20:33 60 148/96 07/07/18 20:00 98.0 52 18 148/96 (113) 99 54 07/07/18 17:51 154/90 07/07/18 16:00 97.7 50 20 156/107 (123) 99 07/07/18 13:25 156/97 Intake and Output 07/07/18 07/08/18 18:59 06:59 Intake Total 240 ml 660 ml Output Total 750 ml 650 ml Balance -510 ml 10 ml Intake Oral 240 ml 660 ml Output Urine Total 750 ml 650 ml # Voids 2 6 # Bowel Movements 2 Laboratory Tests Test 07/08/18 05:25 White Blood Count 3.8 K/UL (4.8-10.8) L Red Blood Count 4.33 M/UL (4.70-6.10) L Hemoglobin 12.1 G/DL (14.2-18.0) L Hematocrit 36.6 % (42.0-52.0) L Mean Corpuscular Volume 85 FL (80-99) Mean Corpuscular Hemoglobin 27.9 PG (27.0-31.0) Mean Corpuscular Hemoglobin Concent 33.0 G/DL (32.0-36.0) Red Cell Distribution Width 13.2 % (11.6-14.8) Platelet Count 277 K/UL (150-450) Mean Platelet Volume 7.6 FL (6.5-10.1) Neutrophils (%) (Auto) 40.4 % (45.0-75.0) L Lymphocytes (%) (Auto) 40.8 % (20.0-45.0) Monocytes (%) (Auto) 13.9 % (1.0-10.0) H Eosinophils (%) (Auto) 2.8 % (0.0-3.0) Basophils (%) (Auto) 2.1 % (0.0-2.0) H Sodium Level 139 MMOL/L (136-145) Potassium Level 3.8 MMOL/L (3.5-5.1) Chloride Level 104 MMOL/L (98-107) Carbon Dioxide Level 28 MMOL/L (21-32) Anion Gap 7 mmol/L (5-15) Blood Urea Nitrogen 12 mg/dL (7-18) Creatinine 1.0 MG/DL (0.55-1.30) Estimat Glomerular Filtration Rate > 60 mL/min (>60) Glucose Level 104 MG/DL (74-106) Uric Acid 4.1 MG/DL (2.6-7.2) Calcium Level 9.3 MG/DL (8.5-10.1) Phosphorus Level 4.1 MG/DL (2.5-4.9) Magnesium Level 1.5 MG/DL (1.8-2.4) L Total Bilirubin 0.2 MG/DL (0.2-1.0) Direct Bilirubin < 0.1 MG/DL (0.0-0.3) Aspartate Amino Transf (AST/SGOT) 24 U/L (15-37) Alanine Aminotransferase (ALT/SGPT) 85 U/L (12-78) H Alkaline Phosphatase 104 U/L (46-116) Total Protein 7.3 G/DL (6.4-8.2) Albumin 3.0 G/DL (3.4-5.0) L Triglycerides Level 69 MG/DL (30-150) Cholesterol Level 126 MG/DL (< 200) LDL Cholesterol 95 mg/dL (<100) HDL Cholesterol 23 MG/DL (40-60) L Cholesterol/HDL Ratio 5.5 (3.3-4.4) H Lipase 545 U/L (73-393) H Objective HEENT: No JVD Cardiovascular: normal peripheral pulses, normal rate, regular S1 and S2. no gallop/murmur Respiratory/Chest: chest wall non-tender, lungs clear, normal breath sounds Abdomen: normal bowel sounds, non tender, soft, no organomegaly, no mass EXT: No edema Shiv Strauss MD Jul 08, 2018 12:55
--- NOTE | 2018-07-08 14:59 | Nephrology Progress Note ---
Assessment/Plan Problem List: (1) Hypertensive urgency (2) Hypercalcemia (3) Anemia (4) Pancreatitis (5) Alcohol dependence Assessment # Elevated blood pressure OOC #Hypercalcemia, # Hypokalemia #Acute pancreatitis, suspected to be due to excess alcohol consumption, lipase remains elevated #Sepsis #anemia, acute blood loss Plan on clear liquids Adjust BP meds , per order adjust pain meds Monitor renal parameters, Lytes and Ca and Phos eliminate phos supplement pharmacy informed Subjective ROS Limited/Unobtainable: No Constitutional: Reports: malaise Objective Objective Last 24 Hour Vital Signs Date Time Temp Pulse Resp B/P (MAP) Pulse Ox O2 Delivery O2 Flow Rate FiO2 07/08/18 13:28 133/80 07/08/18 12:16 133/80 07/08/18 12:00 98.1 67 17 133/80 (97) 97 07/08/18 10:00 51 125/86 07/08/18 10:00 125/86 07/08/18 09:00 Room Air 07/08/18 08:00 98.2 51 19 125/86 (99) 97 07/08/18 06:00 114/65 07/08/18 04:00 98.7 52 18 114/65 (81) 98 07/08/18 01:20 97.7 07/08/18 00:33 141/91 07/08/18 00:00 99.5 51 18 141/91 (108) 99 07/07/18 22:00 148/96 07/07/18 21:00 Room Air 07/07/18 20:33 60 148/96 07/07/18 20:00 98.0 52 18 148/96 (113) 99 54 07/07/18 17:51 154/90 07/07/18 16:00 97.7 50 20 156/107 (123) 99 Intake and Output 07/07/18 07/08/18 18:59 06:59 Intake Total 240 ml 660 ml Output Total 750 ml 650 ml Balance -510 ml 10 ml Intake Oral 240 ml 660 ml Output Urine Total 750 ml 650 ml # Voids 2 6 # Bowel Movements 2 Laboratory Tests 07/08/18 05:25: White Blood Count 3.8L, Red Blood Count 4.33L, Hemoglobin 12.1L, Hematocrit 36.6L, Mean Corpuscular Volume 85, Mean Corpuscular Hemoglobin 27.9, Mean Corpuscular Hemoglobin Concent 33.0, Red Cell Distribution Width 13.2, Platelet Count 277, Mean Platelet Volume 7.6, Neutrophils (%) (Auto) 40.4L, Lymphocytes ( %) (Auto) 40.8, Monocytes (%) (Auto) 13.9H, Eosinophils (%) (Auto) 2.8, Basophils (%) (Auto) 2.1H, Sodium Level 139, Potassium Level 3.8, Chloride Level 104, Carbon Dioxide Level 28, Anion Gap 7, Blood Urea Nitrogen 12, Creatinine 1.0, Estimat Glomerular Filtration Rate > 60, Glucose Level 104, Uric Acid 4.1, Calcium Level 9.3, Phosphorus Level 4.1, Magnesium Level 1.5L, Total Bilirubin 0.2, Direct Bilirubin < 0.1, Aspartate Amino Transf (AST/SGOT) 24, Alanine Aminotransferase (ALT/SGPT) 85H, Alkaline Phosphatase 104, Total Protein 7.3, Albumin 3.0L, Triglycerides Level 69, Cholesterol Level 126, LDL Cholesterol 95, HDL Cholesterol 23L, Cholesterol/HDL Ratio 5.5H, Lipase 545H Height (Feet): 5 Height (Inches): 6.00 Weight (Pounds): 193 General Appearance: no apparent distress Objective no other change Edgar Richardson MD Jul 08, 2018 14:59
[2018-07-08 16:00] VITALS: BP 128/77
[2018-07-08 20:00] VITALS: BP 141/83
[2018-07-08] MEDS: AMINO ACIDS IV SCH ×2 (20:13)
[2018-07-08] MEDS: FAT EMULSION IV SCH ×2 (20:13)
[2018-07-08] MEDS: DEXTROSE IV SCH ×2 (20:13)
[2018-07-08] MEDS: Dyna-Hex 2% Top Sol 2oz TOPIC SCH (20:15)
[2018-07-08] MEDS: Miralax 17gm pkt ORAL SCH (20:18)
[2018-07-09] VITALS (7 sets, daily range): BP systolic 107–141; BP diastolic 61–83
[2018-07-09] MEDS: HydrALAZINE 10mg Tab ORAL SCH ×4 (00:02→17:26)
[2018-07-09] MEDS: Hydromorphone 0.5mg/0.5ml inj IVP PRN ×4 (00:03→14:16)
[2018-07-09] MEDS: traMADol 50mg tab ORAL SCH ×3 (04:27→16:19)
[2018-07-09] MEDS: NovoLOG Insulin Flexpen SUBQ SCH ×4 (06:00→16:35)
[2018-07-09 07:18] LABS: BASOPHILS % (AUTO) 1.5 % (0.0-2.0); EOSINOPHILS % (AUTO) 2.5 % (0.0-3.0); HEMATOCRIT 38.3 % (42.0-52.0); HEMOGLOBIN 12.7 G/DL (14.2-18.0); LYMPHOCYTES % (AUTO) 39.7 % (20.0-45.0); MEAN CORPUSCULAR VOLUME 84 FL (80-99); NEUTROPHILS % (AUTO) 44.3 % (45.0-75.0); PLATELET COUNT 287 K/UL (150-450); RED BLOOD COUNT 4.56 M/UL (4.70-6.10); RED CELL DISTRIBUTION WIDTH 13.3 % (11.6-14.8); WHITE BLOOD COUNT 4.4 K/UL (4.8-10.8)
[2018-07-09 07:36] LABS: ANION GAP 10 mmol/L (5-15); BLOOD UREA NITROGEN 14 mg/dL (7-18); CALCIUM 9.9 MG/DL (8.5-10.1); CARBON DIOXIDE 25 MMOL/L (21-32); CHLORIDE 102 MMOL/L (98-107); CREATININE 1.1 MG/DL (0.55-1.30); POTASSIUM 3.9 MMOL/L (3.5-5.1); SODIUM 137 MMOL/L (136-145)
[2018-07-09] MEDS ORDERED: Lisinopril 20mg tab ORAL SCH (09:00)
[2018-07-09] MEDS: Docusate 100mg cap ORAL SCH ×3 (09:10→17:25)
[2018-07-09] MEDS: chlordiazePOXIDE 25mg Cap ORAL SCH (09:10)
[2018-07-09] MEDS: Heparin 5000 units/ml inj SUBQ SCH (09:14)
--- NOTE | 2018-07-09 10:24 | Cardiac Electrophysiology PN ---
Assessment/Plan Assessment/Plan 1. Acute ETOH pancreatitis. Lipase down to 500 range. On TPN and clear liquid diet 2. Hypertension, continue lisinopril 40 qd, nifedipine 60 bid, Hydralazine 20 q 6hr and clonidine 0.1 tid EF 70 %., normal pulmonary pressures, grade 1 diastolic dysfunction 3. S/P Sepsis 4. Hypokalemia 5. Hypercalcemia, resolved 6. Anemia, acute blood loss DW RN Subjective Subjective No CP or SOB. On TPN and is back on clear liquid diet. Had abdominal pain again this am Objective Last 24 Hour Vital Signs Date Time Temp Pulse Resp B/P (MAP) Pulse Ox O2 Delivery O2 Flow Rate FiO2 07/09/18 09:00 117/75 07/09/18 09:00 63 117/75 07/09/18 06:00 118/66 07/09/18 06:00 118/66 07/09/18 04:00 97.2 52 18 118/70 (86) 98 07/09/18 00:02 129/78 07/09/18 00:00 97.7 52 18 129/78 (95) 98 07/08/18 22:28 141/83 07/08/18 21:00 Room Air 07/08/18 20:17 61 141/83 07/08/18 20:00 97.4 61 18 141/83 (102) 98 07/08/18 17:26 128/77 07/08/18 16:00 98.3 63 19 128/77 (94) 98 07/08/18 13:28 133/80 07/08/18 12:16 133/80 07/08/18 12:00 98.1 67 17 133/80 (97) 97 Intake and Output 07/08/18 07/09/18 19:00 07:00 Intake Total 300 ml 780 ml Output Total 1000 ml 700 ml Balance -700 ml 80 ml Intake Oral 300 ml 780 ml Output Urine Total 1000 ml 700 ml # Voids 4 Laboratory Tests Test 07/09/18 06:20 White Blood Count 4.4 K/UL (4.8-10.8) L Red Blood Count 4.56 M/UL (4.70-6.10) L Hemoglobin 12.7 G/DL (14.2-18.0) L Hematocrit 38.3 % (42.0-52.0) L Mean Corpuscular Volume 84 FL (80-99) Mean Corpuscular Hemoglobin 28.0 PG (27.0-31.0) Mean Corpuscular Hemoglobin Concent 33.2 G/DL (32.0-36.0) Red Cell Distribution Width 13.3 % (11.6-14.8) Platelet Count 287 K/UL (150-450) Mean Platelet Volume 7.7 FL (6.5-10.1) Neutrophils (%) (Auto) 44.3 % (45.0-75.0) L Lymphocytes (%) (Auto) 39.7 % (20.0-45.0) Monocytes (%) (Auto) 12.0 % (1.0-10.0) H Eosinophils (%) (Auto) 2.5 % (0.0-3.0) Basophils (%) (Auto) 1.5 % (0.0-2.0) Sodium Level 137 MMOL/L (136-145) Potassium Level 3.9 MMOL/L (3.5-5.1) Chloride Level 102 MMOL/L (98-107) Carbon Dioxide Level 25 MMOL/L (21-32) Anion Gap 10 mmol/L (5-15) Blood Urea Nitrogen 14 mg/dL (7-18) Creatinine 1.1 MG/DL (0.55-1.30) Estimat Glomerular Filtration Rate > 60 mL/min (>60) Glucose Level 104 MG/DL (74-106) Calcium Level 9.9 MG/DL (8.5-10.1) Lipase 593 U/L (73-393) H Objective HEENT: No JVD Cardiovascular: Regular S1 and S2. no gallop/murmur Respiratory/Chest: Lungs clear, normal breath sounds Abdomen: normal bowel sounds, non tender, soft, no organomegaly, no mass EXT: No edema Shiv Strauss MD Jul 09, 2018 10:24
--- NOTE | 2018-07-09 10:31 | GI Progress Note ---
Assessment/Plan Problems: (1) Pancreatitis ICD Codes: K85.90 - Acute pancreatitis without necrosis or infection, unspecified SNOMED: 95159683 (2) Abdominal pain ICD Codes: R10.9 - Unspecified abdominal pain SNOMED: 53608601 (3) ETOH abuse ICD Codes: F10.10 - Alcohol abuse, uncomplicated SNOMED: 94203563 Status: stable Status Narrative Discussed with Dr. Pineda Assessment/Plan Repeat abdominal CT reviewed >> - uncomplicated acute pancreatitis, with peripancreatic phlegmon which is essentially stable. - New finding of presacral edema. - Increased bilateral pleural effusions now small to moderate in size. Resultant compressive atelectasis of portions of both lower lobes again demonstrated - Wall thickening of the distal duodenum and proximal jejunum in the area of pancreatic phlegmon, presumably reactive related to the adjacent inflammation elevated lipase now down trending Recommendations DC TPN today We will advance to soft diet dc planning, okay to discharge home on clear liquid diet. patient instructed to advance his diet as tolerated and to avoid alcohol and fatty foods will need outpatient follow up with PCP -Encourage ambulation - follow lab and exam - continue abx -Repeat lipase levels -Pain management The patient was seen and examined at bedside and all new and available data was reviewed in the patients chart. I agree with the above findings, impression and plan. (Patient seen earlier today. Signature stamp does not reflect patient encounter time.). - Juma Pineda MD Subjective Subjective Patient still complains of abdominal pain Objective Last 24 Hour Vital Signs Date Time Temp Pulse Resp B/P (MAP) Pulse Ox O2 Delivery O2 Flow Rate FiO2 07/09/18 09:00 117/75 07/09/18 09:00 63 117/75 07/09/18 06:00 118/66 07/09/18 06:00 118/66 07/09/18 04:00 97.2 52 18 118/70 (86) 98 07/09/18 00:02 129/78 07/09/18 00:00 97.7 52 18 129/78 (95) 98 07/08/18 22:28 141/83 07/08/18 21:00 Room Air 07/08/18 20:17 61 141/83 07/08/18 20:00 97.4 61 18 141/83 (102) 98 4/24/19 17:26 128/77 07/08/18 16:00 98.3 63 19 128/77 (94) 98 07/08/18 13:28 133/80 07/08/18 12:16 133/80 07/08/18 12:00 98.1 67 17 133/80 (97) 97 Intake and Output 07/08/18 07/09/18 19:00 07:00 Intake Total 300 ml 780 ml Output Total 1000 ml 700 ml Balance -700 ml 80 ml Intake Oral 300 ml 780 ml Output Urine Total 1000 ml 700 ml # Voids 4 Laboratory Tests Test 07/09/18 06:20 White Blood Count 4.4 K/UL (4.8-10.8) L Red Blood Count 4.56 M/UL (4.70-6.10) L Hemoglobin 12.7 G/DL (14.2-18.0) L Hematocrit 38.3 % (42.0-52.0) L Mean Corpuscular Volume 84 FL (80-99) Mean Corpuscular Hemoglobin 28.0 PG (27.0-31.0) Mean Corpuscular Hemoglobin Concent 33.2 G/DL (32.0-36.0) Red Cell Distribution Width 13.3 % (11.6-14.8) Platelet Count 287 K/UL (150-450) Mean Platelet Volume 7.7 FL (6.5-10.1) Neutrophils (%) (Auto) 44.3 % (45.0-75.0) L Lymphocytes (%) (Auto) 39.7 % (20.0-45.0) Monocytes (%) (Auto) 12.0 % (1.0-10.0) H Eosinophils (%) (Auto) 2.5 % (0.0-3.0) Basophils (%) (Auto) 1.5 % (0.0-2.0) Sodium Level 137 MMOL/L (136-145) Potassium Level 3.9 MMOL/L (3.5-5.1) Chloride Level 102 MMOL/L (98-107) Carbon Dioxide Level 25 MMOL/L (21-32) Anion Gap 10 mmol/L (5-15) Blood Urea Nitrogen 14 mg/dL (7-18) Creatinine 1.1 MG/DL (0.55-1.30) Estimat Glomerular Filtration Rate > 60 mL/min (>60) Glucose Level 104 MG/DL (74-106) Calcium Level 9.9 MG/DL (8.5-10.1) Lipase 593 U/L (73-393) H Height (Feet): 5 Height (Inches): 6.00 Weight (Pounds): 193 General Appearance: WD/WN, no apparent distress, alert Cardiovascular: normal rate Respiratory/Chest: normal breath sounds, no respiratory distress Abdominal Exam: normal bowel sounds, non tender, soft Extremities: normal range of motion, non-tender Nixon Alanis NP Jul 09, 2018 10:31
[2018-07-09] MEDS ORDERED: PROCARDIA XL30 MG ORAL ×2 (10:43)
[2018-07-09] MEDS ORDERED: APRESOLINE10 MG ORAL ×2 (10:43)
[2018-07-09] MEDS ORDERED: CLONIDINE0.1 MG ORAL ×2 (10:43)
[2018-07-09] MEDS ORDERED: PRINIVIL20 MG ORAL ×2 (10:43)
--- NOTE | 2018-07-09 10:49 | Discharge Summary ---
Discharge Summary Hospital Course Date of Admission Jun 17, 2018 at 13:18 Date of Discharge 07/09/18 Admitting Diagnosis PANCREATITIS,HTN HPI Leonardo Moreno Jr Castro is a 32 year old male who was admitted on Jun 17, 2018 at 13:18 for Pancreatitis Hypertension Hospital Course #Acute pancreatitis, suspected to be due to excess alcohol consumption -lipase levels normalizing -Per GI ok to discharge on liquids and Percocet -Patient to follow up with GI as outpatien #Sepsis, resolved -S/p meropenem -ID following - cultures negative to date -CT A/P without apparent necrosis #Uncontrolled HTN, new diagnosis -seen by Cardiology -continue current anti-hypertensive as outpatient #Hypokalemia -resolved #Hypercalcemia, resolved -likely due to dehydration -continue to monitor -IVF's as above #anemia, acute blood loss -Likely secondary to vigorous hydration -no signs or symptoms for overt GI bleed -continue to monitor Time spent preparing discharge was 35 minutes Discharge Discharge Disposition Patient was discharged to Thaddeus Leon MD Jul 09, 2018 10:49
--- NOTE | 2018-07-09 14:37 | Nephrology Progress Note ---
Assessment/Plan Problem List: (1) Hypertensive urgency (2) Hypercalcemia (3) Anemia (4) Pancreatitis (5) Alcohol dependence Assessment # Elevated blood pressure OOC #Hypercalcemia, # Hypokalemia #Acute pancreatitis, suspected to be due to excess alcohol consumption, lipase remains elevated #Sepsis #anemia, acute blood loss Plan on clear liquids Adjust BP meds , per order adjust pain meds Monitor renal parameters, Lytes and Ca and Phos eliminate phos supplement pharmacy informed DC planning Subjective ROS Limited/Unobtainable: No Objective Objective Last 24 Hour Vital Signs Date Time Temp Pulse Resp B/P (MAP) Pulse Ox O2 Delivery O2 Flow Rate FiO2 07/09/18 14:00 115/71 07/09/18 12:21 120/63 07/09/18 12:00 97.7 53 17 120/63 (82) 98 07/09/18 10:35 97.2 07/09/18 10:35 97.2 07/09/18 09:00 117/75 07/09/18 09:00 63 117/75 07/09/18 09:00 Room Air 07/09/18 08:00 97.8 63 18 117/75 (89) 98 07/09/18 06:00 118/66 07/09/18 06:00 118/66 07/09/18 04:00 97.2 52 18 118/70 (86) 98 07/09/18 00:02 129/78 07/09/18 00:00 97.7 52 18 129/78 (95) 98 07/08/18 22:28 141/83 07/08/18 21:00 Room Air 07/08/18 20:17 61 141/83 07/08/18 20:00 97.4 61 18 141/83 (102) 98 07/08/18 17:26 128/77 07/08/18 16:00 98.3 63 19 128/77 (94) 98 Intake and Output 07/08/18 07/09/18 19:00 07:00 Intake Total 300 ml 865 ml Output Total 1000 ml 700 ml Balance -700 ml 165 ml Intake Oral 300 ml 780 ml IV Total 85 ml Output Urine Total 1000 ml 700 ml # Voids 4 Laboratory Tests 07/09/18 06:20: White Blood Count 4.4L, Red Blood Count 4.56L, Hemoglobin 12.7L, Hematocrit 38.3L, Mean Corpuscular Volume 84, Mean Corpuscular Hemoglobin 28.0, Mean Corpuscular Hemoglobin Concent 33.2, Red Cell Distribution Width 13.3, Platelet Count 287, Mean Platelet Volume 7.7, Neutrophils (%) (Auto) 44.3L, Lymphocytes ( %) (Auto) 39.7, Monocytes (%) (Auto) 12.0H, Eosinophils (%) (Auto) 2.5, Basophils (%) (Auto) 1.5, Sodium Level 137, Potassium Level 3.9, Chloride Level 102, Carbon Dioxide Level 25, Anion Gap 10, Blood Urea Nitrogen 14, Creatinine 1.1, Estimat Glomerular Filtration Rate > 60, Glucose Level 104, Calcium Level 9.9, Lipase 593H Height (Feet): 5 Height (Inches): 6.00 Weight (Pounds): 193 General Appearance: no apparent distress Cardiovascular: normal rate Respiratory/Chest: lungs clear Abdomen: soft Objective no other change Edgar Richardson MD Jul 09, 2018 14:37
[2018-07-09] MEDS ORDERED: OXYCODONE-ACET1 EAC3 ORAL (14:41)
== END 2018-07-09 17:45 | disposition home or self-care (01) | DRG 720 ==
LOC: EMR 09:58 → 3E 13:18 → UNDOADMIN 13:18 → 2E 13:18 → EDBEDREQ 13:20 → 3E 06-27 13:46
DX: A41.9 Sepsis, unspecified organism (principal); K85.20 Alcohol induced acute pancreatitis without necrosis or infection; E83.52 Hypercalcemia; D62 Acute posthemorrhagic anemia; E86.0 Dehydration; I10 Essential (primary) hypertension; I16.0 Hypertensive urgency; E87.6 Hypokalemia; F32.9 Major depressive disorder, single episode, unspecified; R51 Headache; F10.20 Alcohol dependence, uncomplicated
CPT/HCPCS: 36415; 36569; 70450; 71045; 74177; 76700; 76937; 80048; 80053; 80061; 80076; 80307; 81003; 82150; 82550; 82607; 82728; 82746; 82962; 82977; 83036; 83540; 83550; 83605; 83690; 83735; 83880; 83970; 84100; 84443; 84478; 84550; 85007; 85025; 85610; 85730; 86140; 87040; 87070; 87205; 93005; 93306; 93971; 96361; 96374; 96375; 96376; 99291; J1815; J2405; J8499

== ENCOUNTER 2018-08-05 07:23 | Day surgery (SDC) | payer MEDICAID ==
[~2018-08-05] VITALS: Ht 170.2 cm; Wt 72.6 kg
[2018-08-05] VITALS (12 sets, daily range): BP systolic 160–176; BP diastolic 109–128
[~2018-08-05 07:23] MED LIST changes: +APRESOLINE10 MG ORAL; +CLONIDINE0.1 MG ORAL; +OXYCODONE-ACET1 EAC3 ORAL; +PRINIVIL20 MG ORAL; +PROCARDIA XL30 MG ORAL
[2018-08-05] MEDS ORDERED: IBUPROFEN600 M1 PO (08:03)
[2018-08-05] MEDS ORDERED: COLACE100 MG ORAL (08:04)
[2018-08-05 08:49] LABS: BASOPHILS % (AUTO) 2.1 % (0.0-2.0); EOSINOPHILS % (AUTO) 1.3 % (0.0-3.0); HEMATOCRIT 45.1 % (42.0-52.0); HEMOGLOBIN 14.6 G/DL (14.2-18.0); LYMPHOCYTES % (AUTO) 33.3 % (20.0-45.0); MEAN CORPUSCULAR VOLUME 84 FL (80-99); MONOCYTES % (AUTO) 13.2 % (1.0-10.0); PLATELET COUNT 272 K/UL (150-450); RED BLOOD COUNT 5.35 M/UL (4.70-6.10); RED CELL DISTRIBUTION WIDTH 13.6 % (11.6-14.8); WHITE BLOOD COUNT 4.3 K/UL (4.8-10.8)
[2018-08-05] MEDS ORDERED: Propofol 200mg/20ml IV ONE (09:00)
[2018-08-05] MEDS ORDERED: Midazolam 2mg/2ml Inj ONE (09:00)
[2018-08-05] MEDS ORDERED: Lidocaine 1% MPF 10mg/ml 5ml ONE (09:00)
--- NOTE | 2018-08-05 09:00 | Immediate Post-Op Evaluation ---
Immediate Post-Op Evalulation Immediate Post-Op Evalulation Procedure: EGD Date of Evaluation: August 05, 2018 Time of Evaluation: 09:32 IV Fluids: NSS 300 ml Blood Products: 0 Estimated Blood Loss: 0 Urinary Output: 0 Blood Pressure Systolic: 168 Blood Pressure Diastolic: 116 Pulse Rate: 76 Respiratory Rate: 13 O2 Sat by Pulse Oximetry: 100 Temperature (Fahrenheit): 97.8 Pain Score (1-10): 0 Nausea: No Vomiting: No Complications none noted, bp high but same as baseline, being controlled by meds Patient Status: awake, reacts, patent, none Hydration Status: adequate Given Within 1 Hr of Incision: No - none per surgeon Gwen Killian CRNA August 05, 2018 09:00
--- NOTE | 2018-08-05 09:00 | Anethesia Preoperative Eval ---
Anesthesia Pre-op PMH/ROS General Date of Evaluation: August 05, 2018 Time of Evaluation: 08:30 Anesthesiologist: Maria D ASA Score: ASA 1 Mallampati Score Class I : Soft palate, uvula, fauces, pillars visible Class II: Soft palate, uvula, fauces visible Class III: Soft palate, base of uvula visible Class IV: Only hard plate visible Mallampati Classification: Class I Surgeon: Miriam Diagnosis: GERD Surgical Procedure: EGD Anesthesia History: none Social History: alcohol use Family History: no anesthesia problems Allergies: Coded Allergies: No Known Allergies (Unverified , 06/22/13) Medications: see eMAR Patient NPO?: Yes NPO Date: August 04, 2018 NPO Time: 20:00 Past Medical History Cardiovascular: Reports: HTN Pulmonary: Denies: asthma, COPD, LUIS, other Gastrointestinal/Genitourinary: Reports: other - history of gi bleed Neurologic/Psychiatric: Reports: depression/anxiety Endocrine: Reports: other - pancreatitis HEENT: Denies: cataract (L), cataract (R), glaucoma, [place] (L), [place] (R), other Hematology/Immune: Reports: anemia Musculoskeletal/Integumentary: Denies: OA, RA, DJD, DDD, edema, other PSxH Narrative: right ankle surgery in 2009 Anesthesia Pre-op Phys. Exam Physician Exam Last Vital Signs Date Time Temp Pulse Resp B/P (MAP) Pulse Ox O2 Delivery O2 Flow Rate FiO2 08/05/18 08:07 Room Air 08/05/18 07:53 97.9 104 18 165/112 98 Constitutional: NAD Neurologic: CN 2-12 intact Cardiovascular: RRR Respiratory: CTA Gastrointestinal: S/NT/ND Airway Exam Mallampati Score: Class II MO: full ROM: full Teeth: missing - right lower tooth , intact, other - chipped top left upper tooth Dentures: no upper, no lower Anesthesia Pre-op A/P Labs Hematology Test 08/05/18 08:10 White Blood Count 4.3 K/UL (4.8-10.8) L Red Blood Count 5.35 M/UL (4.70-6.10) Hemoglobin 14.6 G/DL (14.2-18.0) Hematocrit 45.1 % (42.0-52.0) Mean Corpuscular Volume 84 FL (80-99) Mean Corpuscular Hemoglobin 27.3 PG (27.0-31.0) Mean Corpuscular Hemoglobin Concent 32.4 G/DL (32.0-36.0) Red Cell Distribution Width 13.6 % (11.6-14.8) Platelet Count 272 K/UL (150-450) Mean Platelet Volume 6.5 FL (6.5-10.1) Neutrophils (%) (Auto) 50.0 % (45.0-75.0) Lymphocytes (%) (Auto) 33.3 % (20.0-45.0) Monocytes (%) (Auto) 13.2 % (1.0-10.0) H Eosinophils (%) (Auto) 1.3 % (0.0-3.0) Basophils (%) (Auto) 2.1 % (0.0-2.0) H Chemistry Test 08/05/18 08:10 Sodium Level Pending Potassium Level Pending Chloride Level Pending Carbon Dioxide Level Pending Blood Urea Nitrogen Pending Creatinine Pending Estimat Glomerular Filtration Rate Pending Glucose Level Pending Calcium Level Pending Total Bilirubin Pending Aspartate Amino Transf (AST/SGOT) Pending Alanine Aminotransferase (ALT/SGPT) Pending Alkaline Phosphatase Pending Total Protein Pending Albumin Pending Globulin Pending Amylase Level Pending Lipase Pending Studies Pre-op Studies: EKG - NSR 93 bpm Risk Assessment & Plan Assessment: A&Ox4 Plan: MAC Status Change Before Surgery: No Pre-Antibiotics Given Within 1 Hr of Incision: No Gwen Killian CRNA August 05, 2018 09:00
--- NOTE | 2018-08-05 09:06 | Pre-Procedure Note/Attestation ---
Pre-Procedure Note/Attestation Complete Prior to Procedure Planned Procedure: not applicable Procedure Narrative: egd Indications for Procedure Pre-Operative Diagnosis: ABD PAIN, WT LOSS Attestation I attest that I discussed the nature of the procedure; its benefits; risks and complications; and alternatives (and the risks and benefits of such alternatives ), prior to the procedure, with the patient (or the patient's legal b2b outside sales representative). I attest that, if there was a reasonable possibility of needing a blood transfusion, the patient (or the patient's legal b2b outside sales representative) was given the [facility] standardized written summary, pursuant to the [place] Blood Safety Act ([place] Health and Safety Code # 1645, as amended). I attest that I re-evaluated the patient just prior to the surgery and that there has been no change in the patient's H&P, except as documented below: Juma Pineda MD August 05, 2018 09:06
--- NOTE | 2018-08-05 09:07 | Short Stay Surgery H&P ---
History of Present Illness History of Present Illness Chief Complaint abd pain HPI Leonardo Erazo is a 32 year old male who was admitted on for Gerd, Abdominal Pain Patient History Allergies: Coded Allergies: No Known Allergies (Unverified , 06/22/13) Medication History Scheduled Docusate Sodium* (Colace*), 100 MG ORAL TWICE A DAY, (Reported) Hydralazine HCl (Hydralazine HCl), 20 MG ORAL Q6HR Ibuprofen (Ibuprofen), 600 MG PO PRN, (Reported) Lisinopril* (Prinivil*), 40 MG ORAL DAILY Nifedipine Xl* (Procardia Xl*), 60 MG ORAL Q12HR Discontinued Medications Clonidine HCl (Clonidine HCl), 0.1 MG ORAL Q8HR Discontinued Reason: Therapy completed Oxycodone Hcl/Acetaminophen 5-325* (Oxycodone-Acetaminophen 5-325*), 1 TAB ORAL Q8H PRN for For Pain, (Reported) Discontinued Reason: Pt stopped taking med Review of Systems Cardiovascular: Reports: no symptoms Respiratory: Reports: no symptoms Skeletal: Reports: no symptoms Gastrointestinal: Reports: see HPI Genitourinary: Reports: no symptoms Neurologic: Reports: no symptoms Endocrine: Reports: no symptoms Hematologic: Reports: anemia Physical Exam Vital Signs Last Vital Signs Date Time Temp Pulse Resp B/P (MAP) Pulse Ox O2 Delivery O2 Flow Rate FiO2 08/05/18 08:07 Room Air 08/05/18 07:53 97.9 104 18 165/112 98 Labs Laboratory Tests Test 08/05/18 08:10 White Blood Count 4.3 K/UL (4.8-10.8) L Red Blood Count 5.35 M/UL (4.70-6.10) Hemoglobin 14.6 G/DL (14.2-18.0) Hematocrit 45.1 % (42.0-52.0) Mean Corpuscular Volume 84 FL (80-99) Mean Corpuscular Hemoglobin 27.3 PG (27.0-31.0) Mean Corpuscular Hemoglobin Concent 32.4 G/DL (32.0-36.0) Red Cell Distribution Width 13.6 % (11.6-14.8) Platelet Count 272 K/UL (150-450) Mean Platelet Volume 6.5 FL (6.5-10.1) Neutrophils (%) (Auto) 50.0 % (45.0-75.0) Lymphocytes (%) (Auto) 33.3 % (20.0-45.0) Monocytes (%) (Auto) 13.2 % (1.0-10.0) H Eosinophils (%) (Auto) 1.3 % (0.0-3.0) Basophils (%) (Auto) 2.1 % (0.0-2.0) H Sodium Level Pending Potassium Level Pending Chloride Level Pending Carbon Dioxide Level Pending Blood Urea Nitrogen Pending Creatinine Pending Estimat Glomerular Filtration Rate Pending Glucose Level Pending Calcium Level Pending Total Bilirubin Pending Aspartate Amino Transf (AST/SGOT) Pending Alanine Aminotransferase (ALT/SGPT) Pending Alkaline Phosphatase Pending Total Protein Pending Albumin Pending Globulin Pending Amylase Level Pending Lipase Pending Skin: normal HENT: normal Heart: normal Lungs: normal Abdomen: normal Extremities: normal Plan Attestation Are the patient's medical conditions optimized for surgery? Juma Pineda MD August 05, 2018 09:07
--- NOTE | 2018-08-05 09:14 | Endoscopy Procedure Note ---
Endoscopy Procedure Note General Indication for Procedure: anemia, abd pain Procedures Performed: EGD Operative Findings/Diagnosis: gastritis Specimen: yes Pt Tolerated Procedure Well: Yes Estimated Blood Loss: none Anesthesia Anesthesiologist: raisa Anesthesia: MAC Inserted Devices Implant(s) used?: No GI Core Measures 50 yrs or older w/o bx or poly: Not Applicable 10yrs. F/U recommended: Not Applicable Juma Pineda MD August 05, 2018 09:14
[2018-08-05 09:26] LABS: ALANINE AMINOTRANSFERASE 56 U/L (12-78); ALBUMIN 4.6 G/DL (3.4-5.0); ALBUMIN/GLOBULIN RATIO 1.2 (1.0-2.7); ALKALINE PHOSPHATASE 95 U/L (46-116); AMYLASE 103 U/L (25-115); ANION GAP 13 mmol/L (5-15); ASPARTATE AMINO TRANSFERASE 28 U/L (15-37); BILIRUBIN,TOTAL 0.3 MG/DL (0.2-1.0); BLOOD UREA NITROGEN 7 mg/dL (7-18); CARBON DIOXIDE 23 MMOL/L (21-32); CHLORIDE 105 MMOL/L (98-107); CREATININE 0.9 MG/DL (0.55-1.30); POTASSIUM 3.8 MMOL/L (3.5-5.1); SODIUM 141 MMOL/L (136-145)
[2018-08-05] MEDS ORDERED: fentaNYL 100 mcg/2 mL IV PRN (10:00)
[2018-08-05] MEDS ORDERED: Labetalol 5mg/ml 20ml vial IV ONE (10:00)
[2018-08-05] MEDS ORDERED: Labetalol 5mg/ml 20ml vial IV PRN (10:00)
--- NOTE | 2018-08-05 11:11 | 48 Hour Post Anesthesia Eval ---
Post Anesthesia Evaluation Procedure: EGD Date of Evaluation: August 05, 2018 Time of Evaluation: 11:10 Blood Pressure Systolic: 160 0: 109 Pulse Rate: 80 Respiratory Rate: 15 Temperature (Fahrenheit): 97.8 O2 Sat by Pulse Oximetry: 99 Airway: patent Nausea: No Vomiting: No Hydration Status: adequate Mental Status/LOC: patient returned to baseline Follow-up care needed: patient intructions given Gwen Killian CRNA August 05, 2018 11:11
--- NOTE | 2018-08-05 12:30 | Procedure Note ---
DATE OF PROCEDURE: 08/05/2018 SURGEON: Juma Pineda M.D. PROCEDURE: Upper endoscopy with biopsy. ANESTHESIOLOGIST: Maycol DAVILA . INSTRUMENT: Olympus flexible upper endoscope. INDICATION: Abdominal pain and anemia. REASON FOR PROCEDURE: The procedure, risks, benefits, and possible consequences, including hemorrhage, aspiration, perforation and infection, and alternative treatments, were explained to the patient/legal guardian by Dr. Juma Pineda and the patient/legal guardian understood and accepted these risks. DESCRIPTION OF PROCEDURE: After informed consent was obtained and the patient was adequately sedated, Olympus upper endoscope was advanced from mouth into the second portion of the duodenum and retroflexion was performed in the stomach. The patient had retained food material in the stomach making this examination limited. There was no evidence of any active GI bleeding at this time. There was evidence of diffuse gastritis. Random biopsy from antrum was obtained to rule out H. pylori infection. The patient tolerated the procedure very well without any complication. SUMMARY OF FINDINGS: Limited examination given food material in the stomach, but there is no evidence of any active bleeding. Biopsy from the antrum was obtained to rule out H. pylori infection. RECOMMENDATIONS: Follow up biopsy results and treat accordingly. Juma Pineda M.D. DR: DENIA JOB#: [id number] CC:
--- NOTE | 2018-08-07 15:33 | Cardiology Report ---
APPROVED REPORT EKG Measurement Heart [id number] Normal sinus rhythm Nonspecific T wave abnormality Abnormal ECG
== END 2018-08-05 11:30 | disposition home or self-care (01) ==
LOC: GAS 07:23
DX: R10.9 Unspecified abdominal pain (principal); D64.9 Anemia, unspecified; K29.50 Unspecified chronic gastritis without bleeding; K21.9 Gastro-esophageal reflux disease without esophagitis; Z79.899 Other long term (current) drug therapy; I10 Essential (primary) hypertension; F32.9 Major depressive disorder, single episode, unspecified; F41.9 Anxiety disorder, unspecified
CPT/HCPCS: 36415; 43239; 80053; 82150; 83690; 85025; 93005; J0360; J2250; J2704; Z7512; 94003; 94150

== ENCOUNTER 2018-08-25 10:55 | Outpatient (CLI) | payer OTHER ==
[~2018-08-25 10:55] MED LIST changes: +COLACE100 MG ORAL; +IBUPROFEN600 M1 PO
[2018-08-25 11:15] VITALS: BP 168/107
[2018-08-25 11:25] VITALS: BP 171/117
--- NOTE | 2018-08-25 13:14 | General Progress Note ---
Assessment/Plan Problem List: (1) HTN (hypertension) ICD Codes: I10 - Essential (primary) hypertension SNOMED: 77794695 (2) MDD (major depressive disorder) ICD Codes: F32.9 - Major depressive disorder, single episode, unspecified SNOMED: 636154541 (3) Alcohol dependence ICD Codes: F10.20 - Alcohol dependence, uncomplicated SNOMED: 48034985 (4) Anemia ICD Codes: D64.9 - Anemia, unspecified SNOMED: 804626215 (5) GI bleeding ICD Codes: K92.2 - Gastrointestinal hemorrhage, unspecified SNOMED: 72030583 Assessment/Plan: refill CReon EGD results D/W the patient referred to ER for elevated BP Subjective ROS Limited/Unobtainable: Yes Allergies: Coded Allergies: No Known Allergies (Unverified , 06/22/13) Objective Last 24 Hour Vital Signs Date Time Temp Pulse Resp B/P (MAP) Pulse Ox O2 Delivery O2 Flow Rate FiO2 08/25/18 11:25 85 18 171/117 (135) 100 08/25/18 11:15 97.8 82 18 168/107 (127) 100 General Appearance: alert EENT: normal ENT inspection Neck: supple Cardiovascular: normal rate Respiratory/Chest: lungs clear Abdomen: normal bowel sounds, non tender, soft Extremities: non-tender Juma Pineda MD Aug 25, 2018 13:14
[2018-08-26] MEDS ORDERED: PRINIVIL20 MG ORAL (09:28)
[2018-08-26] MEDS ORDERED: LOPRESSOR25 M1 ORAL (09:28)
[2018-08-26] MEDS ORDERED: PROCARDIA XL30 MG ORAL (09:28)
[2018-08-26] MEDS ORDERED: CLONIDINE0.1 MG ORAL (09:28)
== END 2018-08-25 12:55 | disposition home or self-care (01) ==
LOC: PAN 10:55
DX: I10 Essential (primary) hypertension (principal); F32.9 Major depressive disorder, single episode, unspecified; F10.20 Alcohol dependence, uncomplicated; D64.9 Anemia, unspecified; K92.2 Gastrointestinal hemorrhage, unspecified
CPT/HCPCS: 99213

== ENCOUNTER 2018-08-25 11:36 | Inpatient (IN) | payer OTHER ==
[~2018-08-25] VITALS: Ht 167.6 cm; Wt 80.2 kg
[2018-08-25 11:51] VITALS: BP 198/135
[2018-08-25 12:47] VITALS: BP 166/113
[2018-08-25 12:58] LABS: HEMATOCRIT 41.2 % (42.0-52.0); HEMOGLOBIN 13.3 G/DL (14.2-18.0); MEAN CORPUSCULAR VOLUME 86 FL (80-99); PLATELET COUNT 255 K/UL (150-450); RED BLOOD COUNT 4.81 M/UL (4.70-6.10); RED CELL DISTRIBUTION WIDTH 14.2 % (11.6-14.8); WHITE BLOOD COUNT 3.3 K/UL (4.8-10.8)
[2018-08-25] MEDS ORDERED: cloNIDine 0.2mg Tab ORAL ONE (13:30)
--- NOTE | 2018-08-25 13:32 | History and Physical ---
History of Present Illness General Date patient seen: Aug 25, 2018 Time patient seen: 13:05 Reason for Hospitalization: Hypertension Present Illness HPI 33 year old man with HTN, recent admission here for sepsis and alcoholic pancreatitis who was sent in from the GI office due to elevated blood pressure. Patient had been on Procardia, clonidine, Lopressor and lisinopril but ran out of meds 1 month ago and has not taken any since then. SBP in 190s today. He reports intermttent headache and left sided chest pain for the past few dyas. No visual disturbance, nausea, vomiting or focal neurological deficits. In ED he was given IV hydralazine and oral clonidine with mild improvement in pressure to 178. Social HX: Denies alcohol or tobacco Family HX: Father with cancer Allergies: Coded Allergies: No Known Allergies (Unverified , 06/22/13) Medication History Scheduled Docusate Sodium* (Colace*), 100 MG ORAL TWICE A DAY, (Reported) Ibuprofen (Ibuprofen), 600 MG PO PRN, (Reported) Discontinued Medications Hydralazine HCl (Hydralazine HCl), 20 MG ORAL Q6HR Discontinued Reason: Pt stopped taking med Lisinopril* (Prinivil*), 40 MG ORAL DAILY Discontinued Reason: Pt stopped taking med Nifedipine Xl* (Procardia Xl*), 60 MG ORAL Q12HR Discontinued Reason: Pt stopped taking med Patient History Healthcare decision maker Resuscitation status Advanced Directive on File Review of Systems Constitutional: Denies: fever Eye: Denies: blurred vision Respiratory: Denies: cough, shortness of breath Cardiovascular: Reports: chest pain; Denies: edema, palpitations Gastrointestinal: Denies: abdominal pain, constipation, diarrhea Genitourinary: Denies: discharge, dysuria Musculoskeletal: Denies: back pain Skin: Denies: rash Neurological: Reports: headache; Denies: numbness, paresthesia, focal weakness Physical Exam General Appearance: no apparent distress, alert HEENT: atraumatic, anicteric, mucous membranes moist Neck: normal alignment, supple Respiratory/Chest: lungs clear, normal breath sounds, no respiratory distress Cardiovascular/Chest: normal rate, regular rhythm, regularly irregular Abdomen: non tender, soft, no organomegaly Extremities: non-tender, normal inspection Neurologic: clinical neuropsychologist II-XII grossly normal, no motor/sensory deficits, alert, oriented x 3 Last 24 Hour Vital Signs Date Time Temp Pulse Resp B/P (MAP) Pulse Ox O2 Delivery O2 Flow Rate FiO2 08/25/18 12:47 77 17 166/113 100 Room Air 77 08/25/18 12:32 198/138 08/25/18 11:52 85 17 Room Air 08/25/18 11:51 98.2 85 17 198/135 98 Room Air 08/25/18 11:39 98.2 77 21 193/115 (141) 96 Room Air Laboratory Tests Test 08/25/18 12:06 White Blood Count 3.3 K/UL (4.8-10.8) L Red Blood Count 4.81 M/UL (4.70-6.10) Hemoglobin 13.3 G/DL (14.2-18.0) L Hematocrit 41.2 % (42.0-52.0) L Mean Corpuscular Volume 86 FL (80-99) Mean Corpuscular Hemoglobin 27.7 PG (27.0-31.0) Mean Corpuscular Hemoglobin Concent 32.3 G/DL (32.0-36.0) Red Cell Distribution Width 14.2 % (11.6-14.8) Platelet Count 255 K/UL (150-450) Mean Platelet Volume 7.1 FL (6.5-10.1) Neutrophils (%) (Auto) % (45.0-75.0) Lymphocytes (%) (Auto) % (20.0-45.0) Monocytes (%) (Auto) % (1.0-10.0) Eosinophils (%) (Auto) % (0.0-3.0) Basophils (%) (Auto) % (0.0-2.0) Differential Total Cells Counted 100 Neutrophils % (Manual) 46 % (45-75) Lymphocytes % (Manual) 38 % (20-45) Monocytes % (Manual) 14 % (1-10) H Eosinophils % (Manual) 1 % (0-3) Basophils % (Manual) 1 % (0-2) Band Neutrophils 0 % (0-8) Platelet Estimate Adequate Platelet Morphology Normal Red Blood Cell Morphology Normal Sodium Level Pending Potassium Level Pending Chloride Level Pending Carbon Dioxide Level Pending Blood Urea Nitrogen Pending Creatinine Pending Estimat Glomerular Filtration Rate Pending Glucose Level Pending Calcium Level Pending Total Bilirubin Pending Aspartate Amino Transf (AST/SGOT) Pending Alanine Aminotransferase (ALT/SGPT) Pending Alkaline Phosphatase Pending Total Creatine Kinase Pending Creatine Kinase MB Pending Troponin I Pending Pro-B-Type Natriuretic Peptide Pending Total Protein Pending Albumin Pending Globulin Pending Lipase Pending Height (Feet): 5 Height (Inches): 6.00 Weight (Pounds): 165 Medications Current Medications Medications (Trade) Dose Ordered Sig/Jennifer Route PRN Reason Start Time Stop Time Status Last Admin Dose Admin Acetaminophen (Tylenol) 650 mg Q4H PRN ORAL Mild Pain (Pain Scale 1-3) 08/25/18 13:15 09/24/18 13:14 UNV Clonidine HCl (Catapres tab) 0.2 mg ONCE ONCE ORAL 08/25/18 13:30 08/25/18 13:31 Dextrose (Dextrose 50%) 25 ml Q30M PRN IV Hypoglycemia 08/25/18 13:15 09/24/18 13:14 UNV Dextrose (Dextrose 50%) 50 ml Q30M PRN IV Hypoglycemia 08/25/18 13:15 09/24/18 13:14 UNV Heparin Sodium (Porcine) (Heparin 5000 units/ml) 5,000 units EVERY 12 HOURS SUBQ 08/25/18 21:00 09/24/18 20:59 UNV Ondansetron HCl (Zofran) 4 mg Q6H PRN IVP Nausea & Vomiting 08/25/18 13:15 09/24/18 13:14 UNV Assessment/Plan Assessment/Plan: #Hypertensive urgency due to being off BP meds for 1 month -admit telemetry obs -resume lisinopril 40mg, Procardia 30 mg daily, metoprolol 25mg bid , clonidine 0.1 mg tid -Cardiac monitoring -Counselled about importance of medication compliance #Hypokalemia -replace with oral KCl, labs in AM VTE PPx heparin SC Full Code I spent 70 minutes on this patient's case, and~35~minutes was dedicated to counseling and/or care coordination. Thaddeus Leon MD Aug 25, 2018 13:32
[2018-08-25 13:33] LABS: ANION GAP 7 mmol/L (5-15); BLOOD UREA NITROGEN 7 mg/dL (7-18); CALCIUM 9.9 MG/DL (8.5-10.1); CARBON DIOXIDE 29 MMOL/L (21-32); CHLORIDE 104 MMOL/L (98-107); CREATININE 0.9 MG/DL (0.55-1.30); POTASSIUM 3.3 MMOL/L (3.5-5.1); SODIUM 140 MMOL/L (136-145)
--- NOTE | 2018-08-25 13:40 | Diagnostic Imaging Report ---
Indication: Dyspnea Comparison: 06/23/2018 A single view chest radiograph was obtained. Findings: Cardiomediastinal appearance is within normal limits for age. The lungs are clear. Pulmonary vascularity is appropriate. The diaphragmatic contour is smooth and costophrenic angles are sharp. No pleural effusions are identified. The bones are unremarkable. Impression: No acute findings
[2018-08-25 13:52] LABS: ALANINE AMINOTRANSFERASE 30 U/L (12-78); ALBUMIN 4.7 G/DL (3.4-5.0); ALBUMIN/GLOBULIN RATIO 1.6 (1.0-2.7); ALKALINE PHOSPHATASE 77 U/L (46-116); ASPARTATE AMINO TRANSFERASE 15 U/L (15-37); BILIRUBIN,TOTAL 0.5 MG/DL (0.2-1.0); CKMB 0.5 NG/ML (0.0-3.6); CREATINE KINASE 62 U/L (26-308)
--- NOTE | 2018-08-25 14:23 | Emergency Room Report ---
History of Present Illness General Chief Complaint: Hypertension Source: Patient Present Illness HPI 33-year-old male presents ED for evaluation. Patient sent in from clinic across the street. Was being evaluated by GI for a pancreatic biopsy when his blood pressure was noted to be very high. Patient states he was also feeling some chest tightness. States that he has been recently diagnosed with hypertension but does not have his medication for the last month. Denies alcohol or drug use. Denies any abdominal pain. No other aggravating relieving factors. Denies any other associated symptoms Allergies: Coded Allergies: No Known Allergies (Unverified , 06/22/13) Patient History Past Medical History: HTN Past Surgical History: none Pertinent Family History: none Social History: Denies: smoking, alcohol use, drug use Immunizations: UTD Reviewed Nursing Documentation: PMH: Agreed; PSxH: Agreed Nursing Documentation-PMH Past Medical History: No History, Except For Hx Cardiac Problems: Yes Hx Hypertension: Yes Hx Cancer: No Hx Gastrointestinal Problems: Yes Hx Neurological Problems: No Review of Systems All Other Systems: negative except mentioned in HPI Physical Exam Vital Signs Date Time Temp Pulse Resp B/P (MAP) Pulse Ox O2 Delivery O2 Flow Rate FiO2 08/25/18 11:39 98.2 77 21 193/115 (141) 96 Room Air Sp02 EP Interpretation: reviewed, normal General Appearance: no apparent distress, alert, GCS 15, non-toxic Head: normocephalic, atraumatic Eyes: bilateral eye normal inspection, bilateral eye PERRL ENT: hearing grossly normal, normal pharynx, no angioedema, normal voice Neck: full range of motion, supple/symm/no masses Respiratory: chest non-tender, lungs clear, normal breath sounds, speaking full sentences Cardiovascular #1: regular rate, rhythm, no edema Cardiovascular #2: 2+ carotid (R), 2+ carotid (L), 2+ radial (R), 2+ radial (L) , 2+ dorsalis pedis (R), 2+ dorsalis pedis (L) Gastrointestinal: normal bowel sounds, non tender, soft, non-distended, no guarding, no rebound Rectal: deferred Genitourinary: normal inspection, no CVA tenderness Musculoskeletal: back normal, gait/station normal, normal range of motion, non- tender Neurologic: alert, oriented x3, responsive, motor strength/tone normal, sensory intact, speech normal Psychiatric: judgement/insight normal, memory normal, mood/affect normal, no suicidal/homicidal ideation Reflexes: 3+ bicep (R), 3+ bicep (L), 3+ tricep (R), 3+ tricep (L), 3+ knee (R) , 3+ knee (L) Skin: normal color, no rash, warm/dry, well hydrated Lymphatic: no adenopathy Medical Decision Making Diagnostic Impression: Primary Impression: Hypertensive urgency ER Course Hospital Course 33 yo M sent to ED for elevated BP. chest pain Differential diagnoses include: [place]/unstable angina, CVA/TIA, hypertensive urgency Clinical course Patient placed on stretcher. on cardiac sonographer. After initial history and physical I ordered labs, EKG, chest x-ray labs reviewed- no leukocytosis, hemoglobin/hematocrit stable, electrolytes okay , troponins negative. Chest x-ray- unremarkable EKG - NSR, no acute ischemic changes interpretd by me Patient required multiple rounds of BP meds to get BP under control. Case discussed with Dr. Salvador and he agreed to accept the patient to his service for further care and support I. I feel this is a highly complex case requiring extensive working including EKG/Rhythm strip, Xray/CT/US, Blood/urine lab work, repeat exams while in ED, and administration of strong opiates/narcotics for pain control, admission to hospital or close patient follow up. Diagnosis - hypertensive urgency admitted to telemetry in serious condition Labs Test 08/25/18 12:06 White Blood Count 3.3 K/UL (4.8-10.8) Red Blood Count 4.81 M/UL (4.70-6.10) Hemoglobin 13.3 G/DL (14.2-18.0) Hematocrit 41.2 % (42.0-52.0) Mean Corpuscular Volume 86 FL (80-99) Mean Corpuscular Hemoglobin 27.7 PG (27.0-31.0) Mean Corpuscular Hemoglobin Concent 32.3 G/DL (32.0-36.0) Red Cell Distribution Width 14.2 % (11.6-14.8) Platelet Count 255 K/UL (150-450) Mean Platelet Volume 7.1 FL (6.5-10.1) Neutrophils (%) (Auto) % (45.0-75.0) Lymphocytes (%) (Auto) % (20.0-45.0) Monocytes (%) (Auto) % (1.0-10.0) Eosinophils (%) (Auto) % (0.0-3.0) Basophils (%) (Auto) % (0.0-2.0) Differential Total Cells Counted 100 Neutrophils % (Manual) 46 % (45-75) Lymphocytes % (Manual) 38 % (20-45) Monocytes % (Manual) 14 % (1-10) Eosinophils % (Manual) 1 % (0-3) Basophils % (Manual) 1 % (0-2) Band Neutrophils 0 % (0-8) Platelet Estimate Adequate Platelet Morphology Normal Red Blood Cell Morphology Normal Sodium Level 140 MMOL/L (136-145) Potassium Level 3.3 MMOL/L (3.5-5.1) Chloride Level 104 MMOL/L (98-107) Carbon Dioxide Level 29 MMOL/L (21-32) Anion Gap 7 mmol/L (5-15) Blood Urea Nitrogen 7 mg/dL (7-18) Creatinine 0.9 MG/DL (0.55-1.30) Estimat Glomerular Filtration Rate > 60 mL/min (>60) Glucose Level 97 MG/DL (74-106) Calcium Level 9.9 MG/DL (8.5-10.1) Total Bilirubin 0.5 MG/DL (0.2-1.0) Aspartate Amino Transf (AST/SGOT) 15 U/L (15-37) Alanine Aminotransferase (ALT/SGPT) 30 U/L (12-78) Alkaline Phosphatase 77 U/L (46-116) Total Creatine Kinase 62 U/L (26-308) Creatine Kinase MB 0.5 NG/ML (0.0-3.6) Creatine Kinase MB Relative Index 0.8 Troponin I 0.000 ng/mL (0.000-0.056) Pro-B-Type Natriuretic Peptide 40 pg/mL (0-125) Total Protein 7.7 G/DL (6.4-8.2) Albumin 4.7 G/DL (3.4-5.0) Globulin 3.0 g/dL Albumin/Globulin Ratio 1.6 (1.0-2.7) Lipase 172 U/L (73-393) EKG Diagnostic Results Rate: normal Rhythm: NSR ST Segments: no acute changes ASA given to the pt in ED: No Rhythm Strip Diag. Results EP Interpretation: yes Rhythm: NSR, no PVC's, no ectopy Chest X-Ray Diagnostic Results Chest X-Ray Diagnostic Results : Chest X-Ray Ordered: Yes # of Views/Limited/Complete: 1 View Indication: Chest Pain EP Interpretation: Yes Interpretation: no consolidation, no effusion, no pneumothorax, no acute cardiopulmonary disease Impression: No acute disease Electronically Signed by: Electronically signed by Joe Newby MD Last Vital Signs Date Time Temp Pulse Resp B/P (MAP) Pulse Ox O2 Delivery O2 Flow Rate FiO2 08/25/18 13:25 182/111 08/25/18 12:47 77 17 100 Room Air 77 08/25/18 11:51 98.2 Status: improved Disposition: ADMITTED INPATIENT Condition: Serious Referrals: NON PHYSICIAN (PCP) Joe Newby MD Aug 25, 2018 14:23
[2018-08-25] MEDS ORDERED: Lisinopril 20mg tab ORAL SCH (14:30)
--- NOTE | 2018-08-25 14:30 | Cardiac Electrophysiology PN ---
Subjective Subjective [id number] Objective Last 24 Hour Vital Signs Date Time Temp Pulse Resp B/P (MAP) Pulse Ox O2 Delivery O2 Flow Rate FiO2 08/25/18 13:25 182/111 08/25/18 12:47 77 17 166/113 100 Room Air 77 08/25/18 12:32 198/138 08/25/18 11:52 85 17 Room Air 08/25/18 11:51 98.2 85 17 198/135 98 Room Air 08/25/18 11:39 98.2 77 21 193/115 (141) 96 Room Air Laboratory Tests Test 08/25/18 12:06 White Blood Count 3.3 K/UL (4.8-10.8) L Red Blood Count 4.81 M/UL (4.70-6.10) Hemoglobin 13.3 G/DL (14.2-18.0) L Hematocrit 41.2 % (42.0-52.0) L Mean Corpuscular Volume 86 FL (80-99) Mean Corpuscular Hemoglobin 27.7 PG (27.0-31.0) Mean Corpuscular Hemoglobin Concent 32.3 G/DL (32.0-36.0) Red Cell Distribution Width 14.2 % (11.6-14.8) Platelet Count 255 K/UL (150-450) Mean Platelet Volume 7.1 FL (6.5-10.1) Neutrophils (%) (Auto) % (45.0-75.0) Lymphocytes (%) (Auto) % (20.0-45.0) Monocytes (%) (Auto) % (1.0-10.0) Eosinophils (%) (Auto) % (0.0-3.0) Basophils (%) (Auto) % (0.0-2.0) Differential Total Cells Counted 100 Neutrophils % (Manual) 46 % (45-75) Lymphocytes % (Manual) 38 % (20-45) Monocytes % (Manual) 14 % (1-10) H Eosinophils % (Manual) 1 % (0-3) Basophils % (Manual) 1 % (0-2) Band Neutrophils 0 % (0-8) Platelet Estimate Adequate Platelet Morphology Normal Red Blood Cell Morphology Normal Sodium Level 140 MMOL/L (136-145) Potassium Level 3.3 MMOL/L (3.5-5.1) L Chloride Level 104 MMOL/L (98-107) Carbon Dioxide Level 29 MMOL/L (21-32) Anion Gap 7 mmol/L (5-15) Blood Urea Nitrogen 7 mg/dL (7-18) Creatinine 0.9 MG/DL (0.55-1.30) Estimat Glomerular Filtration Rate > 60 mL/min (>60) Glucose Level 97 MG/DL (74-106) Calcium Level 9.9 MG/DL (8.5-10.1) Total Bilirubin 0.5 MG/DL (0.2-1.0) Aspartate Amino Transf (AST/SGOT) 15 U/L (15-37) Alanine Aminotransferase (ALT/SGPT) 30 U/L (12-78) Alkaline Phosphatase 77 U/L (46-116) Total Creatine Kinase 62 U/L (26-308) Creatine Kinase MB 0.5 NG/ML (0.0-3.6) Creatine Kinase MB Relative Index 0.8 Troponin I 0.000 ng/mL (0.000-0.056) Pro-B-Type Natriuretic Peptide 40 pg/mL (0-125) Total Protein 7.7 G/DL (6.4-8.2) Albumin 4.7 G/DL (3.4-5.0) Globulin 3.0 g/dL Albumin/Globulin Ratio 1.6 (1.0-2.7) Lipase 172 U/L (73-393) Shiv Strauss MD Aug 25, 2018 14:30
[2018-08-25 14:50] VITALS: BP 148/91
[2018-08-25 16:00] VITALS: BP 152/103
[2018-08-25 20:00] VITALS: BP 139/90
[2018-08-25] MEDS: Metoprolol 25mg tab ORAL SCH (20:22)
[2018-08-25] MEDS: Heparin 5000 units/ml inj SUBQ SCH (20:25)
--- NOTE | 2018-08-25 21:15 | Consultation ---
DATE OF CONSULTATION: 08/25/2018 CARDIOLOGY CONSULTATION: CONSULTING PHYSICIAN: Shiv Strauss M.D. REFERRING PHYSICIAN: Danitza Luevano M.D. REASON FOR CONSULTATION: Accelerated hypertension. HISTORY OF PRESENT ILLNESS: The patient is a 33-year-old gentleman with history of heavy alcohol use and hypertension, recent admission with alcoholic pancreatitis, was sent from GI office due to accelerated hypertension. The patient has been on multiple antihypertensive agents including Lopressor, clonidine, Procardia, and lisinopril, but ran out of his medication about a month ago. The blood pressure was in the 190s and has had intermittent headache and left-sided chest pain for the last few days. The patient was given IV hydralazine as well as oral clonidine with some improvement of the blood pressure to 170s. Cardiology consultation was requested for further evaluation and management. REVIEW OF SYSTEMS: Negative other than what was mentioned in the history of present illness. PAST MEDICAL HISTORY: As mentioned above. FAMILY HISTORY: Noncontributory. SOCIAL HISTORY: History of heavy alcohol use. PHYSICAL EXAMINATION: VITAL SIGNS: Show blood pressure was 198/135, currently 160s/113, pulse 77, respirations 17, and he is afebrile. HEAD AND NECK: Shows no JVD. LUNGS: Clear. CARDIOVASCULAR: Regular S1 and S2 with no gallop or murmur. ABDOMEN: Soft. EXTREMITIES: No pitting edema. LABORATORY AND DIAGNOSTIC DATA: His labs show white count of 3.2, hemoglobin 13.2, hematocrit 41.2, and platelet count is 255,000. Sodium 140, potassium 3.3, BUN of 7, creatinine 0.9, and glucose of 97. First troponin is negative. ASSESSMENT/PLAN: 1. Accelerated hypertension. Resume Procardia XL 30 mg daily and lisinopril 40 mg daily and metoprolol 25 mg b.i.d. as well as p.r.n. clonidine. We will repeat the echocardiogram for further evaluation and management. 2. History of alcoholic pancreatitis. 3. Grade 1 diastolic dysfunction by echocardiogram showed ejection fraction of 70%. Normal coronary artery pressures. 4. History of anemia. Thank you very much, for allowing me to participate in the care of this patient. Please do not hesitate to contact me for any questions regarding my evaluation. Shiv Strauss M.D. DR: ELIOT JOB#: [id number] CC:
[2018-08-25] MEDS ORDERED: traMADol 50mg tab ORAL SCH (22:45)
[2018-08-26] VITALS: BP 144/98
[2018-08-26 04:00] VITALS: BP 158/89
--- NOTE | 2018-08-26 07:50 | Consultation ---
History of Present Illness General Date patient seen: Aug 26, 2018 Chief Complaint: Hypertension Present Illness Allergies: Coded Allergies: No Known Allergies (Unverified , 06/22/13) Medication History Scheduled Clonidine HCl (Clonidine HCl), 0.1 MG ORAL Q8HR Docusate Sodium* (Colace*), 100 MG ORAL TWICE A DAY, (Reported) Ibuprofen (Ibuprofen), 600 MG PO PRN, (Reported) Lisinopril* (Prinivil*), 40 MG ORAL DAILY Metoprolol Tartrate (Metoprolol Tartrate), 25 MG ORAL Q12HR Nifedipine Xl* (Procardia Xl*), 30 MG ORAL DAILY Discontinued Medications Hydralazine HCl (Hydralazine HCl), 20 MG ORAL Q6HR Discontinued Reason: Pt stopped taking med Lisinopril* (Prinivil*), 40 MG ORAL DAILY Discontinued Reason: Pt stopped taking med Nifedipine Xl* (Procardia Xl*), 60 MG ORAL Q12HR Discontinued Reason: Pt stopped taking med Patient History Healthcare decision maker self Resuscitation status Full Code Advanced Directive on File No Physical Exam Last 24 Hour Vital Signs Date Time Temp Pulse Resp B/P (MAP) Pulse Ox O2 Delivery O2 Flow Rate FiO2 08/26/18 06:13 148/73 08/26/18 04:00 97.4 59 20 158/89 (112) 97 08/26/18 04:00 59 08/26/18 00:00 56 08/26/18 00:00 97.5 56 20 144/98 (113) 99 08/25/18 21:41 155/90 08/25/18 21:00 Room Air 08/25/18 20:22 92 140/86 08/25/18 20:00 97.5 81 20 139/90 (106) 98 08/25/18 20:00 81 08/25/18 16:06 152/103 08/25/18 16:00 97.1 94 20 152/103 (119) 97 94 08/25/18 15:50 84 08/25/18 15:15 Room Air 08/25/18 15:00 98.2 08/25/18 15:00 98.2 77 17 148/91 98 Room Air 77 08/25/18 14:50 91 17 148/91 98 Room Air 08/25/18 13:25 182/111 08/25/18 12:47 77 17 166/113 100 Room Air 77 08/25/18 12:32 198/138 08/25/18 11:52 85 17 Room Air 08/25/18 11:51 98.2 85 17 198/135 98 Room Air 08/25/18 11:39 98.2 77 21 193/115 (141) 96 Room Air Intake and Output 08/25/18 08/26/18 19:00 07:00 Intake Total 240 ml Balance 240 ml Intake Oral 240 ml # Voids 1 2 Laboratory Tests Test 08/25/18 12:06 White Blood Count 3.3 K/UL (4.8-10.8) L Red Blood Count 4.81 M/UL (4.70-6.10) Hemoglobin 13.3 G/DL (14.2-18.0) L Hematocrit 41.2 % (42.0-52.0) L Mean Corpuscular Volume 86 FL (80-99) Mean Corpuscular Hemoglobin 27.7 PG (27.0-31.0) Mean Corpuscular Hemoglobin Concent 32.3 G/DL (32.0-36.0) Red Cell Distribution Width 14.2 % (11.6-14.8) Platelet Count 255 K/UL (150-450) Mean Platelet Volume 7.1 FL (6.5-10.1) Neutrophils (%) (Auto) % (45.0-75.0) Lymphocytes (%) (Auto) % (20.0-45.0) Monocytes (%) (Auto) % (1.0-10.0) Eosinophils (%) (Auto) % (0.0-3.0) Basophils (%) (Auto) % (0.0-2.0) Differential Total Cells Counted 100 Neutrophils % (Manual) 46 % (45-75) Lymphocytes % (Manual) 38 % (20-45) Monocytes % (Manual) 14 % (1-10) H Eosinophils % (Manual) 1 % (0-3) Basophils % (Manual) 1 % (0-2) Band Neutrophils 0 % (0-8) Platelet Estimate Adequate Platelet Morphology Normal Red Blood Cell Morphology Normal Sodium Level 140 MMOL/L (136-145) Potassium Level 3.3 MMOL/L (3.5-5.1) L Chloride Level 104 MMOL/L (98-107) Carbon Dioxide Level 29 MMOL/L (21-32) Anion Gap 7 mmol/L (5-15) Blood Urea Nitrogen 7 mg/dL (7-18) Creatinine 0.9 MG/DL (0.55-1.30) Estimat Glomerular Filtration Rate > 60 mL/min (>60) Glucose Level 97 MG/DL (74-106) Calcium Level 9.9 MG/DL (8.5-10.1) Total Bilirubin 0.5 MG/DL (0.2-1.0) Aspartate Amino Transf (AST/SGOT) 15 U/L (15-37) Alanine Aminotransferase (ALT/SGPT) 30 U/L (12-78) Alkaline Phosphatase 77 U/L (46-116) Total Creatine Kinase 62 U/L (26-308) Creatine Kinase MB 0.5 NG/ML (0.0-3.6) Creatine Kinase MB Relative Index 0.8 Troponin I 0.000 ng/mL (0.000-0.056) Pro-B-Type Natriuretic Peptide 40 pg/mL (0-125) Total Protein 7.7 G/DL (6.4-8.2) Albumin 4.7 G/DL (3.4-5.0) Globulin 3.0 g/dL Albumin/Globulin Ratio 1.6 (1.0-2.7) Lipase 172 U/L (73-393) Height (Feet): 5 Height (Inches): 6.00 Weight (Pounds): 176 Medications Current Medications Medications (Trade) Dose Ordered Sig/Jennifer Route PRN Reason Start Time Stop Time Status Last Admin Dose Admin Acetaminophen (Tylenol) 650 mg Q4H PRN ORAL Mild Pain (Pain Scale 1-3) 08/25/18 13:22 09/24/18 13:21 08/26/18 06:18 Clonidine HCl (Catapres Tab) 0.1 mg Q2H PRN ORAL sbp>170 08/25/18 14:30 09/24/18 14:29 Clonidine HCl (Catapres Tab) 0.1 mg Q8HR ORAL 08/25/18 22:00 09/24/18 21:59 08/26/18 06:13 Dextrose (Dextrose 50%) 25 ml Q30M PRN IV Hypoglycemia 08/25/18 13:15 09/24/18 13:14 Dextrose (Dextrose 50%) 50 ml Q30M PRN IV Hypoglycemia 08/25/18 13:22 09/24/18 13:21 Heparin Sodium (Porcine) (Heparin 5000 units/ml) 5,000 units EVERY 12 HOURS SUBQ 08/25/18 21:00 09/24/18 20:59 08/25/18 20:25 Lisinopril (Prinivil) 40 mg DAILY ORAL 08/26/18 09:00 09/25/18 08:59 Metoprolol Tartrate (Lopressor) 25 mg Q12HR ORAL 08/25/18 21:00 09/24/18 20:59 08/25/18 20:22 Nifedipine (Procardia XL) 30 mg DAILY ORAL 08/26/18 09:00 09/25/18 08:59 Ondansetron HCl (Zofran) 4 mg Q6H PRN IVP Nausea & Vomiting 08/25/18 13:22 09/24/18 13:21 Assessment/Plan Assessment/Plan: HEMATOLOGY/ONCOLOGY CONSULTATION DATE OF CONSULT: 08/26/2018 REFERRING PHYSICIAN: Laura Leon REASON FOR CONSULT: Leukopenia, anemia HPI: 33 year old man with HTN, recent admission here for sepsis and alcoholic pancreatitis who was sent in from his GI office due to elevated blood pressure. Patient had been on Procardia, clonidine, Lopressor and lisinopril but ran out of meds 1 month ago and has not taken any since then. SBP in 190s today. He reports intermittent headache and left sided chest pain for the past few days. No visual disturbance, nausea, vomiting or focal neurological deficits. In ED he was given IV hydralazine and oral clonidine with mild improvement in pressure to 178. Review of cbc showed a low wbc level of 3.3 and low hgb level of 13.3. Hematology/Oncology services have been consulted for the evaluation of leukopenia and anemia. PAST MEDICAL HISTORY: HTN, anemia, pancreatitis, etoh abuse, GI bleed, depression PAST SURGICAL HISTORY: Unknown FAMILY HISTORY: Father with cancer SOCIAL HISTORY: Etoh abuse Medication History Scheduled Docusate Sodium* (Colace*), 100 MG ORAL TWICE A DAY, (Reported) Ibuprofen (Ibuprofen), 600 MG PO PRN, (Reported) Discontinued Medications Hydralazine HCl (Hydralazine HCl), 20 MG ORAL Q6HR Discontinued Reason: Pt stopped taking med Lisinopril* (Prinivil*), 40 MG ORAL DAILY Discontinued Reason: Pt stopped taking med Nifedipine Xl* (Procardia Xl*), 60 MG ORAL Q12HR Discontinued Reason: Pt stopped taking med Review of Systems Constitutional: Denies: fever Eye: Denies: blurred vision Respiratory: Denies: cough, shortness of breath Cardiovascular: Reports: chest pain; Denies: edema, palpitations Gastrointestinal: Denies: abdominal pain, constipation, diarrhea Genitourinary: Denies: discharge, dysuria Musculoskeletal: Denies: back pain Skin: Denies: rash Neurological: Reports: headache; Denies: numbness, paresthesia, focal weakness Physical Exam General Appearance: no apparent distress, alert HEENT: atraumatic, anicteric, mucous membranes moist Neck: normal alignment, supple Respiratory/Chest: lungs clear, normal breath sounds, no respiratory distress Cardiovascular/Chest: normal rate, regular rhythm, regularly irregular Abdomen: non tender, soft, no organomegaly Extremities: non-tender, normal inspection Neurologic: casket trimmer II-XII grossly normal, no motor/sensory deficits, alert, oriented x 3 ASSESSMENT AND RECOMMENDATIONS # Leukopenia -- multiple etiologies could be related to underlying liver disease , medication-induced, infection versus viral syndrome --> peripheral smear has been ordered and does not show significant abnormalities --> Medications have been reviewed --> Continue to monitor for improvement, trend cbc --> Hep panel and HIV have been ordered --> US abd ordered from prior admission, only calcified abnormality was noted --> reverse isolation if ANC is <2000 --> Give neupogen if ANC <1000 # Anemia of chronic disease due to underlying chronic medical issues, multifactorial --> Anemia workup has been ordered, reviewed from prior admission --> No evidence of hemolysis is noted, peripheral smear has been reviewed. --> Hgb goal >7. Transfuse prn. --> Epogen or iron at this time is not particularly indicated --> Medications have been reviewed --> low threshold for gi evaluation in case has occult + --> bone marrow biopsy is not indicated given the other more likely causes # Hypertensive urgency due to being off BP meds for 1 month --> admit telemetry obs --> resume lisinopril 40mg, Procardia 30 mg daily, metoprolol 25mg bid , clonidine 0.1 mg tid --> Cardiac monitoring --> Counselled about importance of medication compliance # Hypokalemia. --> replace with oral KCl, repeat labs The time note is entered foes not reflect the time the patient was examined. Greatly appreciate consultation. Bennett Lopez MD Aug 26, 2018 07:50
[2018-08-26 08:00] VITALS: BP 144/96
[2018-08-26] MEDS ORDERED: Lisinopril 20mg tab ORAL SCH (09:00)
[2018-08-26] MEDS: Metoprolol 25mg tab ORAL SCH (09:02)
[2018-08-26] MEDS: Heparin 5000 units/ml inj SUBQ SCH (09:07)
[2018-08-26] MEDS ORDERED: PRINIVIL20 MG ORAL (09:28)
[2018-08-26] MEDS ORDERED: LOPRESSOR25 M1 ORAL (09:28)
[2018-08-26] MEDS ORDERED: PROCARDIA XL30 MG ORAL (09:28)
[2018-08-26] MEDS ORDERED: CLONIDINE0.1 MG ORAL (09:28)
--- NOTE | 2018-08-26 09:35 | Discharge Summary ---
Discharge Summary Hospital Course Date of Admission Aug 25, 2018 at 14:26 Date of Discharge 08/26/18 Admitting Diagnosis HYPERTENSIVE URGENCY HPI Leonardo ErazoJr is a 33 year old male who was admitted on Aug 25, 2018 at 14:26 for Hypertensive Urgency Consultations Cardiology Hospital Course Patient was admitted to the telemetry unit for hypertensive urgency due to being off all BP meds for 1 month. We resumed his outpatient medications with good BP control. Headache and chest pain resolved. Patient will be discharged home in good condition, 30 day supply of medications provided. He was instructed to call [facility] to find a new PCP in his area. Importance of medication compliance explained. Risk of stroke, OR explained. I spent 35 minutes on this patient's discharge Discharge Condition Upon Discharge: stable Discharge Disposition Patient was discharged to Home Discharge Diagnoses: (1) Hypokalemia (2) Hypertensive urgency Thaddeus Leon MD Aug 26, 2018 09:35
--- NOTE | 2018-08-26 11:54 | Cardiac Electrophysiology PN ---
Assessment/Plan Assessment/Plan 1. Accelerated hypertension. Resumed Procardia XL 30 mg daily and lisinopril 40 mg daily and metoprolol 25 mg b.i.d. as well as p.r.n. clonidine. Stable now 2. History of alcoholic pancreatitis. 3. Grade 1 diastolic dysfunction by echocardiogram showed ejection fraction of 70%. 4. History of anemia. DW RN Subjective Subjective BP is better after meds. DC planning in progress Objective Last 24 Hour Vital Signs Date Time Temp Pulse Resp B/P (MAP) Pulse Ox O2 Delivery O2 Flow Rate FiO2 08/26/18 09:02 144/96 08/26/18 09:02 57 144/96 08/26/18 09:02 57 144/96 08/26/18 09:00 Room Air 08/26/18 08:00 98.2 57 18 144/96 (112) 97 08/26/18 08:00 60 08/26/18 06:13 148/73 08/26/18 04:00 97.4 59 20 158/89 (112) 97 08/26/18 04:00 59 08/26/18 00:00 56 08/26/18 00:00 97.5 56 20 144/98 (113) 99 08/25/18 21:41 155/90 08/25/18 21:00 Room Air 08/25/18 20:22 92 140/86 08/25/18 20:00 97.5 81 20 139/90 (106) 98 08/25/18 20:00 81 08/25/18 16:06 152/103 08/25/18 16:00 97.1 94 20 152/103 (119) 97 94 08/25/18 15:50 84 08/25/18 15:15 Room Air 08/25/18 15:00 98.2 08/25/18 15:00 98.2 77 17 148/91 98 Room Air 77 08/25/18 14:50 91 17 148/91 98 Room Air 08/25/18 13:25 182/111 08/25/18 12:47 77 17 166/113 100 Room Air 77 08/25/18 12:32 198/138 Intake and Output 08/25/18 08/26/18 18:59 06:59 Intake Total 240 ml Balance 240 ml Intake Oral 240 ml # Voids 1 2 Laboratory Tests Test 08/25/18 12:06 6/12/19 11:02 White Blood Count 3.3 K/UL (4.8-10.8) L Red Blood Count 4.81 M/UL (4.70-6.10) Hemoglobin 13.3 G/DL (14.2-18.0) L Hematocrit 41.2 % (42.0-52.0) L Mean Corpuscular Volume 86 FL (80-99) Mean Corpuscular Hemoglobin 27.7 PG (27.0-31.0) Mean Corpuscular Hemoglobin Concent 32.3 G/DL (32.0-36.0) Red Cell Distribution Width 14.2 % (11.6-14.8) Platelet Count 255 K/UL (150-450) Mean Platelet Volume 7.1 FL (6.5-10.1) Neutrophils (%) (Auto) % (45.0-75.0) Lymphocytes (%) (Auto) % (20.0-45.0) Monocytes (%) (Auto) % (1.0-10.0) Eosinophils (%) (Auto) % (0.0-3.0) Basophils (%) (Auto) % (0.0-2.0) Differential Total Cells Counted 100 Neutrophils % (Manual) 46 % (45-75) Lymphocytes % (Manual) 38 % (20-45) Monocytes % (Manual) 14 % (1-10) H Eosinophils % (Manual) 1 % (0-3) Basophils % (Manual) 1 % (0-2) Band Neutrophils 0 % (0-8) Platelet Estimate Adequate Platelet Morphology Normal Red Blood Cell Morphology Normal Sodium Level 140 MMOL/L (136-145) Potassium Level 3.3 MMOL/L (3.5-5.1) L Chloride Level 104 MMOL/L (98-107) Carbon Dioxide Level 29 MMOL/L (21-32) Anion Gap 7 mmol/L (5-15) Blood Urea Nitrogen 7 mg/dL (7-18) Creatinine 0.9 MG/DL (0.55-1.30) Estimat Glomerular Filtration Rate > 60 mL/min (>60) Glucose Level 97 MG/DL (74-106) Calcium Level 9.9 MG/DL (8.5-10.1) Total Bilirubin 0.5 MG/DL (0.2-1.0) Aspartate Amino Transf (AST/SGOT) 15 U/L (15-37) Alanine Aminotransferase (ALT/SGPT) 30 U/L (12-78) Alkaline Phosphatase 77 U/L (46-116) Total Creatine Kinase 62 U/L (26-308) Creatine Kinase MB 0.5 NG/ML (0.0-3.6) Creatine Kinase MB Relative Index 0.8 Troponin I 0.000 ng/mL (0.000-0.056) Pro-B-Type Natriuretic Peptide 40 pg/mL (0-125) Total Protein 7.7 G/DL (6.4-8.2) Albumin 4.7 G/DL (3.4-5.0) Globulin 3.0 g/dL Albumin/Globulin Ratio 1.6 (1.0-2.7) Lipase 172 U/L (73-393) Hepatitis A IgM Antibody Pending Hepatitis B Surface Antigen Pending Hepatitis B Core IgM Antibody Pending Hepatitis C Antibody Pending HIV (1&2) Antibody Rapid Negative (NEGATIVE) Objective HEAD AND NECK: Shows no JVD. LUNGS: Clear. CARDIOVASCULAR: Regular S1 and S2 with no gallop or murmur. ABDOMEN: Soft. EXTREMITIES: No pitting edema. Shiv Strauss MD Aug 26, 2018 11:54
[2018-08-26 12:00] VITALS: BP 138/95
--- NOTE | 2018-08-26 15:31 | Cardiology Report ---
APPROVED REPORT EKG Measurement Heart [id number] Unusual P axis, possible ectopic atrial rhythm Nonspecific T wave abnormality Abnormal ECG
[2018-08-26 16:00] VITALS: BP 143/93
== END 2018-08-26 15:40 | disposition home or self-care (01) | DRG 199 ==
LOC: EDBEDREQ 12:04 → EMR 12:15 → 2E 14:26 → EDBEDREQ 14:56
DX: I16.0 Hypertensive urgency (principal); D63.8 Anemia in other chronic diseases classified elsewhere; E87.6 Hypokalemia; Z91.14 Patient's other noncompliance with medication regimen; F10.10 Alcohol abuse, uncomplicated; I51.89 Other ill-defined heart diseases; I10 Essential (primary) hypertension
CPT/HCPCS: 36415; 71045; 80053; 82550; 82553; 83690; 83880; 84484; 85007; 85025; 86703; 86705; 86709; 86803; 87340; 93005; 96374; 99285; J8499

== ENCOUNTER 2019-03-10 05:29 | Emergency (ER) | payer OTHER ==
[~2019-03-10] VITALS: Ht 170.2 cm; Wt 74.8 kg
[~2019-03-10 05:29] MED LIST changes: +LOPRESSOR25 M1 ORAL
[2019-03-10 05:54] VITALS: BP 213/125
--- NOTE | 2019-03-10 05:54 | NUR ---
ED Nurse Note: Pt walked into ED from home for c/o abdominal pain that has been intermittent for the past week, but worse this morning. Pt states pain is sharp in nature, non radiating, 10/10 pain. Pt also reports nausea. Pt BP elevated upon ED arrival of 213/125, pt states he has hx of HTN and takes his medication at home regularly last dose last night. Pt is aaox4, breathing is normal and unlabored, ambulatory with steady gait. ERMD at bedside. Pt placed on monitoring tech and in gown. Will continue to monitor.
--- NOTE | 2019-03-10 06:10 | Emergency Room Report ---
History of Present Illness General Chief Complaint: Abdominal Pain Source: Patient (Willy Wilkins MD) Present Illness HPI Patient presents with 3 days of upper abdominal pain. It similar to when he had pancreatitis but slightly different. This is more in the left upper quadrant. It is constant. It does not radiate to his chest or his back. He took Advil before coming in. When it began it was 10/10 and now it is 9/10 and sharp. He denies fevers or chills. There is no cough. He denies chest pain. He has nausea but denies vomiting. There is no been no change in bowel habits. Denies melena hematochezia or diarrhea. He denies dysuria. Last drank alcohol Friday. He was admitted in June for pancreatitis. He states it was related to alcohol ingestion. Second problem is that his blood pressure is high. He has been on up to 4 medications but now only takes 2. He states he takes metoprolol 50 mg and lisinopril 40 mg. He denies headache. He denies any renal dysfunction. He has a history of kidney stone in addition. 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 Is a daughter that will turn 3 months on March 20. 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 Reviewed Nursing Documentation: PMH: Agreed; PSxH: Agreed (Willy Wilkins MD) Nursing Documentation-PM Past Medical History: No History, Except For Hx Cardiac Problems: Yes Hx Hypertension: Yes Hx Cancer: No Hx Gastrointestinal Problems: No Hx Neurological Problems: No (Willy Wilkins MD) Review of Systems All Other Systems: negative except mentioned in HPI (Willy Wilkins MD) Physical Exam Vital Signs Date Time Temp Pulse Resp B/P (MAP) Pulse Ox O2 Delivery O2 Flow Rate FiO2 03/10/19 05:39 97.7 86 22 217/129 (158) 97 Room Air Sp02 EP Interpretation: reviewed, normal General Appearance: well appearing, no apparent distress, GCS 15 Head: normocephalic, atraumatic Eyes: bilateral eye normal inspection, bilateral eye PERRL, bilateral eye EOMI ENT: moist mucus membranes Neck: supple Respiratory: lungs clear, normal breath sounds Cardiovascular #1: regular rate, rhythm Cardiovascular #2: 2+ radial (R) Gastrointestinal: normal inspection, normal bowel sounds, no mass, non- distended, no guarding, no rebound, tenderness Genitourinary: no CVA tenderness Musculoskeletal: back normal, normal range of motion, gait/station normal Neurologic: alert, oriented x3, grossly normal Psychiatric: mood/affect normal Skin: no rash, warm/dry (Willy Wilkins MD) Medical Decision Making Diagnostic Impression: Primary Impression: Acute pancreatitis Qualified Codes: K85.20 - Alcohol induced acute pancreatitis without necrosis or infection Additional Impression: Hypertensive urgency ER Course Patient presents with 2 problems. One is epigastric pain. Differential includes gastritis, esophagitis, pancreatitis amongst others. We also need to exclude acute myocardial infarction. The second problem is hypertensive urgency. We need to exclude malignant hypertension and end organ dysfunction. Evaluation with EKG and labs. The patient will be treated with Pepcid, Reglan, Benadryl, moderate morphine and Catapres. EKG sinus arrhythmia, KENNETH. Pain now 5/10. BP better but diastolic still high. 06:33. Lipase > 2000. Ultrasound ordered. Morphine repeat and IV hydration. Signed out to Dr. Newby. (Willy Wilkins MD) ER Course Hospital Course 33 yo M presents to ED with abd pain, BP elevated Patient initially seen and evaluated by Dr. Wilkins; please see his note for full history and physical Clinical course Labs - no leukocytosis, Hb/Hct stable. electrolytes ok. Lipase > 2000 ABD US - no peripancreatic inflammation, no fluid, some shadowing in liver BP initially elevated. Given clonidine with BP improved. Given pain meds and IV fluids. Because of insurance patient will be transferred I feel this is a highly complex case requiring extensive working including EKG/ Rhythm strip, Xray/CT/US, Blood/urine lab work, repeat exams while in ED, and administration of strong opiates/narcotics for pain control, admission to hospital or close patient follow up. Diagnosis - acute pancreatitis , hypertensive urgency transferred in serious condition Labs Test 03/10/19 05:50 White Blood Count 8.4 K/UL (4.8-10.8) Red Blood Count 5.81 M/UL (4.70-6.10) Hemoglobin 16.2 G/DL (14.2-18.0) Hematocrit 50.6 % (42.0-52.0) Mean Corpuscular Volume 87 FL (80-99) Mean Corpuscular Hemoglobin 27.9 PG (27.0-31.0) Mean Corpuscular Hemoglobin Concent 32.1 G/DL (32.0-36.0) Red Cell Distribution Width 13.6 % (11.6-14.8) Platelet Count 252 K/UL (150-450) Mean Platelet Volume 6.1 FL (6.5-10.1) Neutrophils (%) (Auto) 69.1 % (45.0-75.0) Lymphocytes (%) (Auto) 16.8 % (20.0-45.0) Monocytes (%) (Auto) 11.4 % (1.0-10.0) Eosinophils (%) (Auto) 1.5 % (0.0-3.0) Basophils (%) (Auto) 1.1 % (0.0-2.0) Prothrombin Time 10.3 SEC (9.30-11.50) Prothromb Time International Ratio 1.0 (0.9-1.1) Activated Partial Thromboplast Time 26 SEC (23-33) Urine Color Yellow Urine Appearance Clear Urine pH 6.5 (4.5-8.0) Urine Specific [place] 1.015 (1.005-1.035) Urine Protein 2+ (NEGATIVE) Urine Glucose (UA) Negative (NEGATIVE) Urine Ketones 3+ (NEGATIVE) Urine Blood Negative (NEGATIVE) Urine Nitrite Negative (NEGATIVE) Urine Bilirubin Negative (NEGATIVE) Urine Urobilinogen 4 MG/DL (0.0-1.0) Urine Leukocyte Esterase 1+ (NEGATIVE) Urine RBC 0-2 /HPF (0 - 0) Urine WBC 2-4 /HPF (0 - 0) Urine Squamous Epithelial Cells Occasional /LPF Urine Amorphous Sediment Few /LPF (NONE) Urine Bacteria Few /HPF (NONE) Urine Mucus Occasional /LPF Sodium Level 137 MMOL/L (136-145) Potassium Level 3.7 MMOL/L (3.5-5.1) Chloride Level 100 MMOL/L (98-107) Carbon Dioxide Level 29 MMOL/L (21-32) Anion Gap 8 mmol/L (5-15) Blood Urea Nitrogen 12 mg/dL (7-18) Creatinine 1.0 MG/DL (0.55-1.30) Estimat Glomerular Filtration Rate > 60 mL/min (>60) Glucose Level 128 MG/DL (74-106) Calcium Level 9.8 MG/DL (8.5-10.1) Total Bilirubin 1.1 MG/DL (0.2-1.0) Direct Bilirubin 0.2 MG/DL (0.0-0.3) Aspartate Amino Transf (AST/SGOT) 36 U/L (15-37) Alanine Aminotransferase (ALT/SGPT) 33 U/L (12-78) Alkaline Phosphatase 80 U/L (46-116) Total Creatine Kinase 67 U/L (26-308) Troponin I 0.000 ng/mL (0.000-0.056) Total Protein 9.2 G/DL (6.4-8.2) Albumin 4.3 G/DL (3.4-5.0) Globulin 4.9 g/dL Albumin/Globulin Ratio 0.9 (1.0-2.7) Lipase > 2000 U/L (73-393) (Joe Newby MD) EKG Diagnostic Results Rate: normal Rhythm: NSR ST Segments: no acute changes - Right atrial enlargement sinus arrhythmia rate 64 (Willy Wilkins MD) Rhythm Strip Diag. Results EP Interpretation: yes Rhythm: NSR, no PVC's, no ectopy (Willy Wilkins MD) CT/MRI/US Diagnostic Results CT/MRI/US Diagnostic Results : Imaging Test Ordered: ABD US Impression echogenic strucure with post shadowing in R hepatic lobe. no stones in GB or CBD. no GB wall thickening. pancreas, kidneys, spleen wnl (Joe Newby MD) Last Vital Signs Date Time Temp Pulse Resp B/P (MAP) Pulse Ox O2 Delivery O2 Flow Rate FiO2 03/10/19 08:46 97.9 74 16 144/101 100 Room Air Status: improved (Willy Wilkins MD) Status: improved (Joe Newby MD) Disposition: XFER SHT-TRM HOSP Condition: Serious Referrals: [facility]ERR[facility] (PCP) Willy Wilkins MD Mar 10, 2019 06:10 Joe Newby MD Mar 10, 2019 08:56
[2019-03-10 06:12] LABS: APPEARANCE,URINE CLEAR; BILIRUBIN, URINE NEGATIVE (NEGATIVE); GLUCOSE, URINE (UA) NEGATIVE (NEGATIVE); KETONES,URINE 3+ (NEGATIVE); LEUKOCYTE ESTERASE ,URINE 1+ (NEGATIVE); NITRITE,URINE NEGATIVE (NEGATIVE); PH,URINE 6.5 (4.5-8.0); PROTEIN,URINE 2+ (NEGATIVE); UROBILINOGEN,URINE 4 MG/DL (0.0-1.0)
[2019-03-10 06:13] LABS: BASOPHILS % (AUTO) 1.1 % (0.0-2.0); EOSINOPHILS % (AUTO) 1.5 % (0.0-3.0); HEMATOCRIT 50.6 % (42.0-52.0); HEMOGLOBIN 16.2 G/DL (14.2-18.0); LYMPHOCYTES % (AUTO) 16.8 % (20.0-45.0); MEAN CORPUSCULAR VOLUME 87 FL (80-99); MONOCYTES % (AUTO) 11.4 % (1.0-10.0); NEUTROPHILS % (AUTO) 69.1 % (45.0-75.0); PLATELET COUNT 252 K/UL (150-450); RED BLOOD COUNT 5.81 M/UL (4.70-6.10); RED CELL DISTRIBUTION WIDTH 13.6 % (11.6-14.8); WHITE BLOOD COUNT 8.4 K/UL (4.8-10.8)
[2019-03-10] MEDS ORDERED: Morphine Sulfate 4mg/ml Inj (IV USE ONLY) IVP ONE ×2 (06:15→06:45)
[2019-03-10] MEDS ORDERED: cloNIDine 0.2mg Tab ORAL ONE (06:15)
[2019-03-10] MEDS ORDERED: DiphenhydrAMINE 50mg/ml Inj IVP ONE (06:15)
[2019-03-10] MEDS ORDERED: Metoclopramide 10mg/2ml Inj IVP ONE (06:15)
--- NOTE | 2019-03-10 06:15 | NUR ---
ED Nurse Note: Blood drawn by RN, sent to lab. Urine specimen obtained, sent to lab.
[2019-03-10 06:16] LABS: COLOR,URINE YELLOW
[2019-03-10 06:18] LABS: ANION GAP 8 mmol/L (5-15); BLOOD UREA NITROGEN 12 mg/dL (7-18); CALCIUM 9.8 MG/DL (8.5-10.1); CARBON DIOXIDE 29 MMOL/L (21-32); CHLORIDE 100 MMOL/L (98-107); POTASSIUM 3.7 MMOL/L (3.5-5.1); SODIUM 137 MMOL/L (136-145)
[2019-03-10 06:30] LABS: ALANINE AMINOTRANSFERASE 33 U/L (12-78); ALBUMIN 4.3 G/DL (3.4-5.0); ALBUMIN/GLOBULIN RATIO 0.9 (1.0-2.7); ALKALINE PHOSPHATASE 80 U/L (46-116); ASPARTATE AMINO TRANSFERASE 36 U/L (15-37); BILIRUBIN,TOTAL 1.1 MG/DL (0.2-1.0); CREATINE KINASE 67 U/L (26-308)
[2019-03-10 06:32] LABS: BILIRUBIN,DIRECT 0.2 MG/DL (0.0-0.3)
[2019-03-10 06:50] VITALS: BP 171/119
--- NOTE | 2019-03-10 07:00 | NUR ---
ED Nurse Note: Xray at bedside.
--- NOTE | 2019-03-10 07:05 | NUR ---
HAND-OFF: Report given to LISETTE Heard and endorsed care.
--- NOTE | 2019-03-10 07:15 | NUR ---
ED Nurse Note: Patient resting in bed on the it support analyst, AxO x 4, bed in lowest position. Patient shows no s/s of acute distress.
--- NOTE | 2019-03-10 08:36 | Diagnostic Imaging Report ---
EXAM: XR Chest, 1 View CLINICAL HISTORY: ABD PAIN TECHNIQUE: Frontal view of the chest. COMPARISON: No relevant prior studies available. FINDINGS: Lungs: Unremarkable. No consolidation. Pleural space: Unremarkable. No pneumothorax. Heart: Unremarkable. No cardiomegaly. Mediastinum: Unremarkable. Bones/joints: Unremarkable. IMPRESSION: Unremarkable chest x-ray.
[2019-03-10] MEDS ORDERED: Ketorolac 30mg Inj IV ONE (08:45)
[2019-03-10 08:46] VITALS: BP 144/101
--- NOTE | 2019-03-10 08:46 | NUR ---
ED Nurse Note: Report given to Gilberto KNOX at [facility]
--- NOTE | 2019-03-11 15:33 | Diagnostic Imaging Report ---
Indication: Abdominal pain Technique: US ABD Complete Comparison: Abdominal ultrasound 06/17/[address] the abdomen and pelvis 06/22/2017 Findings: Imaged portions of the abdominal aorta normal in caliber. Suboptimal evaluation of the pancreas with only partial visualization. Imaged portions of the pancreas appears edematous concerning for pancreatitis. Correlation with pancreatic enzymes recommended. A calcified mass is noted within the right lobe of the liver. This corresponds with a calcified lesion noted on prior CT. No additional focal hepatic mass lesion is appreciated sonographically. Imaged hepatic veins appear patent. Hepatic contour appears smooth. No CT evident gallstones are noted. There is no gallbladder wall thickening. No pericholecystic fluid. No intrahepatic biliary ductal dilatation. Common bile duct measures 3.4 mm within normal limits. Demonstrate normal echogenicity. No hydronephrosis or sonographically appreciable renal stone bilaterally. Spleen is normal in size. A small accessory splenule is noted. No ascites demonstrated. IMPRESSION: * Visualized portions of the pancreas appear prominent and edematous. Correlation with pancreatic enzymes recommended to assess for an acute pancreatitis. More sensitive evaluation can be made with CT. * Calcified mass in the right lobe of the liver, as seen on prior CT of the abdomen. * No cholelithiasis identified. Sonographic Robles sign reported as negative.
== END 2019-03-10 09:00 | disposition short-term general hospital (02) ==
LOC: EMR 05:49
DX: K85.20 Alcohol induced acute pancreatitis without necrosis or infection (principal); I16.0 Hypertensive urgency; Z87.442 Personal history of urinary calculi; I10 Essential (primary) hypertension; I49.9 Cardiac arrhythmia, unspecified
CPT/HCPCS: 36415; 71045; 76700; 80053; 81003; 82248; 82550; 83690; 84484; 85025; 85610; 85730; 93005; 96361; 96374; 96375; J1200; J1885; J2270; J2765; J7030; S0028; Z7502; 99284

== ENCOUNTER 2019-11-14 08:39 | Emergency (ER) | payer OTHER ==
[~2019-11-14] VITALS: Ht 170.2 cm; Wt 79.4 kg
[~2019-11-14 08:39] MED LIST changes: +CREON DR 36,001 EACH PO
[2019-11-14 09:03] VITALS: BP 146/97
--- NOTE | 2019-11-14 09:06 | NUR ---
ED Nurse Note: Patient walked in to Er from home due to left side abd pain and goes at right side x 2-3 days ago. States nausea and weakness but no vomiting. patient AAO x4, VSS at this time.
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
[2019-11-14] MEDS ORDERED: Metoclopramide 10mg/2ml Inj IVP ONE (09:15)
[2019-11-14] MEDS ORDERED: DiphenhydrAMINE 50mg/ml Inj IVP ONE (09:15)
[2019-11-14] MEDS ORDERED: Morphine Sulfate 4mg/ml Inj (IV USE ONLY) IVP ONE (09:15)
--- NOTE | 2019-11-14 09:33 | NUR ---
ED Nurse Note: All medications due administered, patient stated pain still 8/10, VSS at this time.
[2019-11-14 09:53] LABS: APPEARANCE,URINE CLEAR; BASOPHILS % (AUTO) 0.7 % (0.0-2.0); BILIRUBIN, URINE NEGATIVE (NEGATIVE); COLOR,URINE YELLOW; EOSINOPHILS % (AUTO) 0.2 % (0.0-3.0); GLUCOSE, URINE (UA) NEGATIVE (NEGATIVE); HEMATOCRIT 47.1 % (42.0-52.0); HEMOGLOBIN 15.1 G/DL (14.2-18.0); KETONES,URINE 4+ (NEGATIVE); LEUKOCYTE ESTERASE ,URINE NEGATIVE (NEGATIVE); LYMPHOCYTES % (AUTO) 8.9 % (20.0-45.0); MEAN CORPUSCULAR VOLUME 86 FL (80-99); MONOCYTES % (AUTO) 8.9 % (1.0-10.0); NEUTROPHILS % (AUTO) 81.3 % (45.0-75.0); NITRITE,URINE NEGATIVE (NEGATIVE); PH,URINE 6 (4.5-8.0); PLATELET COUNT 228 K/UL (150-450); PROTEIN,URINE 2+ (NEGATIVE); RED BLOOD COUNT 5.51 M/UL (4.70-6.10); RED CELL DISTRIBUTION WIDTH 12.8 % (11.6-14.8); UROBILINOGEN,URINE NORMAL MG/DL (0.0-1.0); WHITE BLOOD COUNT 12.5 K/UL (4.8-10.8)
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
[2019-11-14 10:11] LABS: ANION GAP 15 mmol/L (5-15); BLOOD UREA NITROGEN 19 mg/dL (7-18); CALCIUM 10.3 MG/DL (8.5-10.1); CARBON DIOXIDE 24 MMOL/L (21-32); CHLORIDE 101 MMOL/L (98-107); CREATININE 1.4 MG/DL (0.55-1.30); POTASSIUM 3.7 MMOL/L (3.5-5.1); SODIUM 139 MMOL/L (136-145)
[2019-11-14 10:16] LABS: ALANINE AMINOTRANSFERASE 29 U/L (12-78); ALBUMIN 4.8 G/DL (3.4-5.0); ALBUMIN/GLOBULIN RATIO 1.1 (1.0-2.7); ALKALINE PHOSPHATASE 70 U/L (46-116); ASPARTATE AMINO TRANSFERASE 12 U/L (15-37); BILIRUBIN,TOTAL 0.4 MG/DL (0.2-1.0); CREATINE KINASE 43 U/L (26-308)
--- NOTE | 2019-11-14 12:00 | NUR ---
ED Nurse Note: Patient keep asking for more pain meds, stated pain 10/10. ER MD notifyed
[2019-11-14] MEDS ORDERED: Hydromorphone 0.5mg/0.5ml inj IVP ONE (12:15)
[2019-11-14 13:06] VITALS: BP 144/87
--- NOTE | 2019-11-14 13:08 | NUR ---
ED Nurse Note: Patient was transfered to [facility] due to pancreatitis. Patient was transfered via private transportation [facility] [id number] , with all belongings. Patient has IV ccess 18 ga on left AC, AAO x4, VSS at this time, skin is intact, warm to touch, patient stated pain 1/10.
== END 2019-11-14 13:10 | disposition short-term general hospital (02) ==
LOC: EMR 09:00
DX: K85.20 Alcohol induced acute pancreatitis without necrosis or infection (principal); N28.9 Disorder of kidney and ureter, unspecified; I10 Essential (primary) hypertension
CPT/HCPCS: 36415; 71045; 74018; 80053; 80307; 81003; 82550; 83690; 84484; 85025; 85610; 85730; 93005; 96361; 96374; 96375; G0480; J1170; J1200; J2270; J2765; J7030; Z7502; 99285